=== PATIENT | male | born 1935 | race Caucasian/White ===

== ENCOUNTER → 2018-11-21 | Outpatient (CLI) | payer MEDICARE ==
--- NOTE | 2018-11-22 15:44 | US ---
EXAMINATION TYPE: US kidneys/renal and bladder DATE OF EXAM: 11/21/2018 COMPARISON: CLINICAL HISTORY: N28.9 Known renal disease. Urostomy bag, hx renal cyst, bladder cancer 1988 EXAM MEASUREMENTS: Right Kidney: 12.2 x 4.0 x 4.7 cm Left Kidney: 10.5 x 4.6 x 4.1 cm Right Kidney: Appears lobular in appearance Left Kidney: Appears lobular in appearance. Hydronephrosis. Lower lateral pole cystic appearing les ion - 1.8 x 1.7 x 0.9 cm Bladder: limited visualization, urostomy bag Bilateral Jets not seen IMPRESSION: 1. Inferior pole left renal cyst. 2. Hypoechoic collection labeled urinary bladder is small. This could be a neobladder. Correlate with surgical history.
== END | disposition home or self-care (01) ==
LOC: RADUSWWP 15:42
PROVIDERS: ATTEND Internal Medicine
DX: N28.1 Cyst of kidney, acquired (principal); N32.89 Other specified disorders of bladder
CPT/HCPCS: 76770

== ENCOUNTER 2019-02-03 21:46 | Inpatient (IN) | payer MEDICARE ==
[2019-02-03 22:29] LABS: Anisocytosis Slight; Basophils # (A) 0.1 k/uL (0-0.2); Basophils % (A) 0 %; Eosinophils # (A) 0.4 k/uL (0-0.7); Eosinophils % (A) 4 %; HCT 44.5 % (39.0-53.0); HGB 15.3 gm/dL (13.0-17.5); Lymphocytes # (A) 1.9 k/uL (1.0-4.8); Lymphocytes % (A) 17 %; MCHC 34.4 g/dL (31.0-37.0); MCV 87.2 fL (80.0-100.0); Mean Platelet Volume 10.9; Monocytes # (A) 0.8 k/uL (0-1.0); Monocytes % (A) 7 %; Neutrophils # (A) 7.9 k/uL (1.3-7.7); Neutrophils % (A) 71 %; Platelet Count 267 k/uL (150-450); RDW 16.7 % (11.5-15.5); WBC 11.1 k/uL (3.8-10.6)
[2019-02-03 22:44] LABS: Albumin 4.5 g/dL (3.5-5.0); Calcium 9.8 mg/dL (8.4-10.2); Potassium 4.1 mmol/L (3.5-5.1); Total Bilirubin 0.5 mg/dL (0.2-1.3); Total Protein 7.8 g/dL (6.3-8.2)
[2019-02-03] MEDS ORDERED: IOPAMIDOL-300 CONTRAST 30 ML VIAL (ORAL USE) PO PRN (22:56)
[2019-02-03] MEDS ORDERED: MORPHINE SULFATE 4 MG/ML SYRINGE IV STA (23:11)
--- NOTE | 2019-02-03 23:31 | ED ---
Abdominal Pain HPI - General Chief Complaint: Abdominal Pain Stated Complaint: Abd pain Time Seen by Provider: 02/03/19 22:01 Source: patient, family Mode of arrival: ambulatory Limitations: no limitations - History of Present Illness Initial Comments: This patient complains of epigastric and periumbilical bloating type pain. He states that this is come on over the past probably 2-3 hours, and he noted that while he was playing cards. Patient states that it feels similar to previous episode of hernia that he had. Patient has not had vomiting. Denies change in bowel movements or urination. MD Complaint: abdominal pain -: hour(s) Location: periumbilical, epigastric Radiation: none Migration to: no migration Severity: moderate Quality: fullness Consistency: constant Improves With: nothing Worsens With: nothing - Related Data Home Medications Medication Instructions Recorded Confirmed ALPRAZolam [Xanax] 0.5 mg PO Q8H PRN 02/04/19 02/04/19 Allopurinol [Zyloprim] 100 mg PO DAILY 02/04/19 02/04/19 Gemfibrozil [Lopid] 600 mg PO BID 02/04/19 02/04/19 Omeprazole 40 mg PO DAILY 02/04/19 02/04/19 Allergies Allergy/AdvReac Type Severity Reaction Status Date / Time Sulfa (Sulfonamide AdvReac Rash/Hives Verified 02/04/19 06:54 Antibiotics) Review of Systems ROS Statement: Those systems with pertinent positive or pertinent negative responses have been documented in the HPI. ROS Other: All systems not noted in ROS Statement are negative. Constitutional: Denies: fever, chills Respiratory: Denies: cough, dyspnea Cardiovascular: Denies: chest pain, palpitations, edema Gastrointestinal: Reports: abdominal pain. Denies: nausea, vomiting, diarrhea, melena, hematochezia Genitourinary: Denies: dysuria, hematuria Musculoskeletal: Denies: back pain Skin: Denies: rash Neurological: Denies: headache Past Medical History Past Medical History: GERD/Reflux, Hyperlipidemia History of Any Multi-Drug Resistant Organisms: None Reported Past Surgical History: Hernia Repair Past Psychological History: Anxiety Smoking Status: Current every day smoker Past Alcohol Use History: None Reported Past Drug Use History: None Reported General Exam Limitations: no limitations General appearance: alert, in no apparent distress Head exam: Present: atraumatic, normocephalic Eye exam: Present: normal appearance. Absent: scleral icterus, conjunctival in jection Respiratory exam: Present: normal lung sounds bilaterally. Absent: respiratory distress, wheezes, rales, rhonchi, stridor Cardiovascular Exam: Present: regular rate, normal rhythm, normal heart sounds. Absent: systolic murmur, diastolic murmur, rubs, gallop GI/Abdominal exam: Present: soft, distended, normal bowel sounds, hernia (Patient does have an incisional hernia below the epigastric area that I was able to reduce at the bedside, with only minimal tenderness. No guarding.). Absent: tenderness, guarding, rebound, rigid, organomegaly, mass Extremities exam: Present: normal inspection, normal capillary refill. Absent: pedal edema, calf tenderness Back exam: Present: normal inspection. Absent: CVA tenderness (R), CVA tenderness (L) Neurological exam: Present: alert Skin exam: Present: warm, dry, intact, normal color. Absent: rash Course Vital Signs 02/03/19 02/04/19 02/04/19 21:51 01:00 01:31 Temperature 97.4 F L Pulse Rate 77 77 90 Respiratory 18 16 Rate Blood Pressure 164/94 136/70 129/84 O2 Sat by Pulse 98 95 Oximetry 02/04/19 02/04/19 02/04/19 03:05 03:55 06:35 Temperature 98.8 F 96.8 F L Pulse Rate 66 88 94 Respiratory 16 18 18 Rate Blood Pressure 110/75 115/81 108/79 O2 Sat by Pulse 94 L 95 95 Oximetry Medical Decision Making - Medical Decision Making Patient is an 83-year-old man with abdominal pain and some distention. On arrival he has incisional hernia that is reduced without complication. I performed imaging study and discussed results with both admitting physician and surgical " qa consultant. Patient be admitted for further evaluation and treatment - Lab Data Result diagrams: 02/07/19 07:44 02/07/19 07:44 Lab Results 02/03/19 02/03/19 02/03/19 Range/Units 22:15 22:15 22:15 WBC 11.1 H (3.8-10.6) k/uL RBC 5.10 (4.30-5.90) m/uL Hgb 15.3 (13.0-17.5) gm/dL Hct 44.5 (39.0-53.0) % MCV 87.2 (80.0-100.0) fL MCH 30.0 (25.0-35.0) pg MCHC 34.4 (31.0-37.0) g/dL RDW 16.7 H (11.5-15.5) % Plt Count 267 (150-450) k/uL Neutrophils % 71 % Lymphocytes % 17 % Monocytes % 7 % Eosinophils % 4 % Basophils % 0 % Neutrophils # 7.9 H (1.3-7.7) k/uL Lymphocytes # 1.9 (1.0-4.8) k/uL Monocytes # 0.8 (0-1.0) k/uL Eosinophils # 0.4 (0-0.7) k/uL Basophils # 0.1 (0-0.2) k/uL Anisocytosis Slight Sodium 145 (137-145) mmol/L Potassium 4.1 (3.5-5.1) mmol/L Chloride 111 H (98-107) mmol/L Carbon Dioxide 22 (22-30) mmol/L Anion Gap 12 mmol/L BUN 31 H (9-20) mg/dL Creatinine 1.89 H (0.66-1.25) mg/dL Est GFR (CKD-EPI)AfAm 37 (>60 ml/min/1.73 sqM) Est GFR (CKD-EPI)NonAf 32 (>60 ml/min/1.73 sqM) Glucose 134 H (74-99) mg/dL Plasma Lactic Acid Steffen 1.4 (0.7-2.0) mmol/L Calcium 9.8 (8.4-10.2) mg/dL Total Bilirubin 0.5 (0.2-1.3) mg/dL AST 13 L (17-59) U/L ALT 13 L (21-72) U/L Alkaline Phosphatase 102 (38-126) U/L Total Protein 7.8 (6.3-8.2) g/dL Albumin 4.5 (3.5-5.0) g/dL Amylase 63 (30-110) U/L Lipase 233 (23-300) U/L Urine Color Urine Appearance (Clear) Urine pH (5.0-8.0) Ur Specific [place] (1.001-1.035) Urine Protein (Negative) Urine Glucose (UA) (Negative) Urine Ketones (Negative) Urine Blood (Negative) Urine Nitrite (Negative) Urine Bilirubin (Negative) Urine Urobilinogen (<2.0) mg/dL Ur Leukocyte Esterase (Negative) Urine RBC (0-5) /hpf Urine WBC (0-5) /hpf Urine Bacteria (None) /hpf Urine Mucus (None) /hpf 02/04/19 Range/Units 00:00 WBC (3.8-10.6) k/uL RBC (4.30-5.90) m/uL Hgb (13.0-17.5) gm/dL Hct (39.0-53.0) % MCV (80.0-100.0) fL MCH (25.0-35.0) pg MCHC (31.0-37.0) g/dL RDW (11.5-15.5) % Plt Count (150-450) k/uL Neutrophils % % Lymphocytes % % Monocytes % % Eosinophils % % Basophils % % Neutrophils # (1.3-7.7) k/uL Lymphocytes # (1.0-4.8) k/uL Monocytes # (0-1.0) k/uL Eosinophils # (0-0.7) k/uL Basophils # (0-0.2) k/uL Anisocytosis Sodium (137-145) mmol/L Potassium (3.5-5.1) mmol/L Chloride (98-107) mmol/L Carbon Dioxide (22-30) mmol/L Anion Gap mmol/L BUN (9-20) mg/dL Creatinine (0.66-1.25) mg/dL Est GFR (CKD-EPI)AfAm (>60 ml/min/1.73 sqM) Est GFR (CKD-EPI)NonAf (>60 ml/min/1.73 sqM) Glucose (74-99) mg/dL Plasma Lactic Acid Steffen (0.7-2.0) mmol/L Calcium (8.4-10.2) mg/dL Total Bilirubin (0.2-1.3) mg/dL AST (17-59) U/L ALT (21-72) U/L Alkaline Phosphatase (38-126) U/L Total Protein (6.3-8.2) g/dL Albumin (3.5-5.0) g/dL Amylase (30-110) U/L Lipase (23-300) U/L Urine Color Yellow Urine Appearance Cloudy (Clear) Urine pH 6.5 (5.0-8.0) Ur Specific [place] 1.011 (1.001-1.035) Urine Protein 1+ H (Negative) Urine Glucose (UA) Negative (Negative) Urine Ketones Negative (Negative) Urine Blood Trace H (Negative) Urine Nitrite Negative (Negative) Urine Bilirubin Negative (Negative) Urine Urobilinogen <2.0 (<2.0) mg/dL Ur Leukocyte Esterase Large H (Negative) Urine RBC 7 H (0-5) /hpf Urine WBC 123 H (0-5) /hpf Urine Bacteria Many H (None) /hpf Urine Mucus Occasional H (None) /hpf - EKG Data -: EKG Interpreted by Al EKG shows normal: sinus rhythm (With occasional PVC.), intervals (QRS duration is 82 ms, QTC 434 ms, both normal. The MO interval is prolonged consistent with first-degree AV block.), QRS complexes (Possible old inferior infarct.) Rate: normal (Rate 65 bpm) Disposition Clinical Impression: Abdominal pain, Incisional hernia, Incarcerated hernia Disposition: ADMITTED IP TO THIS [facility] Condition: Fair
[2019-02-04 00:31] LABS: Appearance,Urine Cloudy (Clear); Bacteria,Urine Many /hpf; Bilirubin,Urine Negative (Negative); Blood,Urine Trace (Negative); Color,Urine Yellow; Glucose,Urine (UA) Negative (Negative); Ketones,Urine Negative (Negative); Leukocyte Esterase,Urine Large (Negative); Mucus,Urine Occasional /hpf; Nitrite,Urine Negative (Negative); PH, Urine 6.5 (5.0-8.0); Protein,Urine 1+ (Negative); RBC,Urine 7 /hpf (0-5); Specific Gravity,Urine 1.011 (1.001-1.035); Urobilinogen,Urine <2.0 mg/dL (<2.0); WBC,Urine 123 /hpf (0-5)
--- NOTE | 2019-02-04 00:50 | CT ---
EXAM: CT Abdomen and Pelvis Without Intravenous Contrast CLINICAL HISTORY: ITS.REASON CT Reason: Pain TECHNIQUE: Axial computed tomography images of the abdomen and pelvis without intravenous contrast. CTDI is 9.8 mGy and DLP is 596.9 mGy-cm. This CT exam was performed using one or more of the following dose reduction techniques: automated exposure control, adjustment of the mA and/or kV according to patient size, and/or use of iterative reconstruction technique. COMPARISON: No relevant prior studies available. FINDINGS: Limitations: Evaluation of the abdominal viscera is limited without intravenous contrast. Lung bases: Nodular consolidative change in the right middle lobe, potentially inflammatory/infectious or neoplastic. Bibasilar atelectasis or pneumonitis. Mediastinum: Small hiatal hernia. Dense material in the distal esophagus. ABDOMEN: Liver: Heterogeneous liver parenchyma. Gallbladder and bile ducts: Unremarkable. Pancreas: Unremarkable. Spleen: Unremarkable. Adrenals: Bilateral adrenal thickening. Kidneys and ureters: Moderate bilateral hydronephrosis. Large 25 mm stone in the dependent left renal collecting system. No evidence of ureteral stone. Stomach and bowel: Distended fluid and air-filled bowel loops with distal decompressed loops suggestive of bowel obstruction. Possible mild pneumatosis is not excluded. Prior bowel surgery noted. Mild wall thickening or underdistention of the descending and proximal sigmoid colon. Scattered colonic diverticula. PELVIS: Bladder: Status post cystectomy. Reproductive: Unremarkable as visualized. ABDOMEN and PELVIS: Intraperitoneal space: No free air. Bones/joints: No acute fracture. Soft tissues: Small ventral hernias with slight protrusion of small and large bowel. Vasculature: Atherosclerotic disease. Lymph nodes: Small nonspecific mesenteric and retroperitoneal lymph nodes. IMPRESSION: 1. Distended fluid and air-filled bowel loops with distal decompressed loops suggestive of bowel obstruction. Possible mild pneumatosis is not excluded. 2. Moderate bilateral hydronephrosis. Large 25 mm stone in the dependent left renal collecting system. 3. Nodular consolidative change in the right middle lobe, potentially inflammatory/infectious or neoplastic. Additional imaging/workup may be considered if indicated. 4. Additional incidental findings, as above.
[2019-02-04] MEDS ORDERED: ONDANSETRON 4 MG/2 ML VIAL IVP STA (01:43)
[2019-02-04] MEDS ORDERED: NALOXONE 0.4 MG/ML 1 ML VIAL IV PRN (02:25)
[2019-02-04] MEDS ORDERED: ONDANSETRON 4 MG/2 ML VIAL IVP PRN (02:25)
[2019-02-04] MEDS ORDERED: LEVOFLOXACIN 750MG-D5W PMX 750 MG in DEXTROSE/WATER 1 150ML.BAG IVPB STA (02:29)
--- NOTE | 2019-02-04 02:38 | XR ---
EXAM: XR Chest, 1 View CLINICAL HISTORY: NG tube placement ITS.REASON XR Reason: Pain TECHNIQUE: Frontal view of the chest. COMPARISON: 06/16/16. FINDINGS: Lungs: Nodular density in the right middle lobe is better seen on recent CT. Mild lower lung atelectasis or infiltrate. Pleural space: Unremarkable. No pneumothorax. Heart: Mildly enlarged cardiac silhouette. Mediastinum: Prominent mediastinal silhouette, may be related to tortuous/ectatic aorta or other etiology. Bones/joints: No acute fracture. Tubes, lines and devices: Feeding tube with the tip in the distal esophagus. IMPRESSION: 1. Feeding tube with the tip in the distal esophagus. Recommend advancement. 2. Nodular density in the right middle lobe is better seen on recent CT. Mild lower lung atelectasis or infiltrate. 3. Prominent mediastinal silhouette, may be related to tortuous/ectatic aorta or other etiology.
[2019-02-04] MEDS: MORPHINE SULFATE 4 MG/ML SYRINGE IV PRN ×2 (03:03→23:34)
[2019-02-04] MEDS: SODIUM CHLORIDE 0.9% 1,000 ML IV SCH ×4 (03:03→23:33)
[2019-02-04] MEDS ORDERED: ALPRAZolam 0.5 MG TAB PO PRN (08:54)
[2019-02-04 09:28] VITALS: BMI 26.9
--- NOTE | 2019-02-04 10:25 | P.HPIM ---
History of Present Illness H&P Date: 02/04/19 This is an 83-year-old male patient who presented to the hospital with complaints of abdominal pain with nausea and vomiting patient reports that yesterday he started to experiencing severe abdominal pain with nausea and vomiting for proximally 2 hours prior to arrival in emergency department. Francia ent reports this was similar pain to what he's had in the past with hernia. Patient does have a past medical history of GERD, hyperlipidemia, anxiety, nicotine dependence, nephrostomy tube placement 1989 for bladder cancer. Previous exploratory lap for colon cancer approximately 8 years ago and p revious hernias. Patient states he was also told he had problems with his kidneys and has seen nephrology past. CT of abdomen and pelvis completed showing distended fluid and air-filled bowel loops with distal compressed loop suggestive of bowel obstruction. Possible mild penumoatosis is not excluded. Moderate bilateral hydronephrosis. Large 25 mm stone in the dependent left renal collecting system. Nodule consolidation changes in the right mandible, potentially inflammatory infectious or neoplastic. Additional imaging may be considered if indicated. Chest x-ray completed showing NG with the tip in the distal esophagus. Recommend advancement. Nodule density in the right middle lobe is better seen on recent CT. Prominent mediastinal silhouette. NG tube placed. Surgical services consulted. Patient's UA was positive for urinary tract infection. Urine culture ordered. Patient started on Rocephin. Patient's creatinine also elevated at 1.89 and bun 31. Repeat labs have been ordered Patient does report some improvement with nausea and vomiting since NG tube placement. 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 At this time patient denies chest pain. Patient denies shortness of breath. Review of Systems Please refer to HPI otherwise unremarkable Past Medical History Past Medical History: GERD/Reflux, Hyperlipidemia History of Any Multi-Drug Resistant Organisms: None Reported Past Surgical History: Hernia Repair Past Psychological History: Anxiety Smoking Status: Current every day smoker Past Alcohol Use History: None Reported Past Drug Use History: None Reported Medications and Allergies Home Medications Medication Instructions Recorded Confirmed Type ALPRAZolam [Xanax] 0.5 mg PO Q8H PRN 02/04/19 02/04/19 History Allopurinol [Zyloprim] 100 mg PO DAILY 02/04/19 02/04/19 History Gemfibrozil [Lopid] 600 mg PO BID 02/04/19 02/04/19 History Omeprazole 40 mg PO DAILY 02/04/19 02/04/19 History Allergies Allergy/AdvReac Type Severity Reaction Status Date / Time Sulfa (Sulfonamide AdvReac Rash/Hives Verified 02/04/19 06:54 Antibiotics) Physical Exam Vitals: Vital Signs Temp Pulse Pulse Resp BP BP Pulse Ox 02/04/19 09:31 98.0 F 110 H 18 109/75 92 L 02/04/19 06:35 96.8 F L 94 18 108/79 95 02/04/19 03:55 98.8 F 88 18 115/81 95 02/04/19 03:05 66 16 110/75 94 L 02/04/19 01:31 90 16 129/84 95 02/04/19 01:00 77 136/70 02/03/19 21:51 97.4 F L 77 18 164/94 98 Intake and Output 02/03/19 02/04/19 02/04/19 22:59 06:59 14:59 Output Total 1900 Balance -1900 Output: Gastric Drainage 1900 Other: Voiding Method Urinal Weight 85 kg Head normocephalic Neck supple Lungs clear to auscultation bilaterally no wheezing or crackles Heart regular rate and rhythm S1-S2, no rub or gallop Abdomen soft active bowel sounds. Tender to palpation. Midline abdominal scar. Right lower quadrant nephrostomy tube. Extremities no edema Neuro alert and orientated to 3 Results CBC & Chem 7: 02/03/19 22:15 02/03/19 22:15 Labs: Abnormal Lab Results - Last 24 Hours (Table) 02/03/19 02/03/19 02/04/19 Range/Units 22:15 22:15 00:00 WBC 11.1 H (3.8-10.6) k/uL RDW 16.7 H (11.5-15.5) % Neutrophils # 7.9 H (1.3-7.7) k/uL Chloride 111 H (98-107) mmol/L BUN 31 H (9-20) mg/dL Creatinine 1.89 H (0.66-1.25) mg/dL Glucose 134 H (74-99) mg/dL AST 13 L (17-59) U/L ALT 13 L (21-72) U/L Urine Protein 1+ H (Negative) Urine Blood Trace H (Negative) Ur Leukocyte Esterase Large H (Negative) Urine RBC 7 H (0-5) /hpf Urine WBC 123 H (0-5) /hpf Urine Bacteria Many H (None) /hpf Urine Mucus Occasional H (None) /hpf Thrombosis Risk Factor Assmnt - Choose All That Apply Each Risk Factor Represents 3 Points: Age 75 years or older Thrombosis Risk Factor Assessment Total Risk Factor Score: 3 Thrombosis Risk Factor Assessment Level: Moderate Risk Assessment and Plan Assessment: 1. Abdominal pain with nausea and vomiting. CT of abdomen completed showing distended fluid and air-filled bowel loops with distal compressed loop sug gestive of bowel obstruction. Possible mild pneumatosis is not excluded. Patient currently nothing by mouth. NG tube in place 2. Moderate bilateral hydronephrosis. CT showing large 25 mm stone in the dependent left renal collecting system 3. Nodule consolidative change in the right middle lobe potentially inflammatory infectious or neoplastic seen on computed tomography scan 4. Acute kidney injury. Creatinine 1.89 and bun 30. Normal saline at 125 we'll continue to monitor 5. Urinary tract infection. Patient started on Rocephin. urine and blood culture ordered 6. History of previous hernias 7. History of bladder cancer in 1989. Patient has nephrostomy tube in place 8. History of colon cancer approximately 8 years ago in which patient underwent surgery in [place] 9. History of GERD 10. History of hyperlipidemia DVT prophylaxis SCDs until evaluated by surgical services. GI prophylaxis Protonix Time with Patient: Greater than 30 (Greater than 60% of the total time spent in counseling and coordination of care. I performed an examination of the patient and discussed their management with the Nurse Practitioner. I have reviewed the Nurse Practitioner's notes and agree with the documented findings and plan of care)
[2019-02-04] MEDS: PANTOPRAZOLE 40 MG/10 ML VIAL IV SCH (10:52)
[2019-02-04 11:46] LABS: Calcium 10.3 mg/dL (8.4-10.2); Potassium 4.4 mmol/L (3.5-5.1); Total Bilirubin 0.7 mg/dL (0.2-1.3); Total Protein 8.8 g/dL (6.3-8.2)
[2019-02-04 11:58] LABS: HCT 47.9 % (39.0-53.0); HGB 16.9 gm/dL (13.0-17.5); MCH 31.4 pg (25.0-35.0); MCHC 35.3 g/dL (31.0-37.0); MCV 88.8 fL (80.0-100.0); Mean Platelet Volume 8.4; Platelet Count 281 k/uL (150-450); RBC 5.39 m/uL (4.30-5.90); RDW 15.2 % (11.5-15.5); WBC 14.2 k/uL (3.8-10.6)
[2019-02-04 12:59] LABS: Band Neutrophils % 13 %; Lymphocytes # (M) 0.99 k/uL (1.0-4.8); Monocytes # (M) 0.71 k/uL (0-1.0); Neutrophils % (M) 75 %; Nucleated Red Blood Cells 0 /100 WBC (0-0); Total Cells Counted 100
--- NOTE | 2019-02-04 14:41 | P.GSCN ---
History of Present Illness Consult date: 02/04/19 Reason for Consult: hernia Requesting physician: Rikki Garcia History of present illness: CHIEF COMPLAINT: abdominal pain HISTORY OF PRESENT ILLNESS: Patient presented to the emergency room with a chief complaint of abdominal pain. Patient reports pain started yesterday. Reports nausea and vomiting. States he is not passing flatus. Denies BM. Incisional hernia was reduced in the emergency room. NG tube was placed with 1900 mL initial output. PAST MEDICAL HISTORY: See list. PAST SURGICAL HISTORY: See list. SOCIAL HISTORY: No illicit drug use. REVIEW OF SYSTEMS: CONSTITUTIONAL: Denies fever or chills. HEENT: Denies blurred vision, vision changes, or eye pain. Denies hemoptysis CARDIOVASCULAR: Denies chest pain or pressure. RESPIRATORY: No shortness of breath. GASTROINTESTINAL: Refer to HPI for pertinent findings HEMATOLOGIC: Denies bleeding disorders. GENITOURINARY: Denies any blood in urine. SKIN: Denies pruitis. Denies rash. PHYSICAL EXAM: VITAL SIGNS: Reviewed. GENERAL: Well-developed in no acute distress. HEENT: No sclera icterus. Extraocular movements grossly intact. Moist buccal mucosa. Head is atraumatic, normocephalic. ABDOMEN: Soft. Nondistended. Tenderness to left lower quadrant and near umbilicus. NEUROLOGIC: Alert and oriented. Cranial nerves II through XII grossly intact. ASSESSMENT: 1. Small bowel obstruction 2. Incisional hernia 3. History of hernia repair PLAN: 1. NPO 2. Continue NG to LIS 3. Continue IV fluids 4. Continue conservative measures at this time. No immediate surgical intervention recommended. Nurse practitioner note has been reviewed by physician. Signing provider agrees with the documented findings, assessment, and plan of care. Past Medical History Past Medical History: GERD/Reflux, Hyperlipidemia History of Any Multi-Drug Resistant Organisms: None Reported Past Surgical History: Hernia Repair Past Psychological History: Anxiety Smoking Status: Current every day smoker Past Alcohol Use History: None Reported Past Drug Use History: None Reported Medications and Allergies Home Medications Medication Instructions Recorded Confirmed Type ALPRAZolam [Xanax] 0.5 mg PO Q8H PRN 02/04/19 02/04/19 History Allopurinol [Zyloprim] 100 mg PO DAILY 02/04/19 02/04/19 History Gemfibrozil [Lopid] 600 mg PO BID 02/04/19 02/04/19 History Omeprazole 40 mg PO DAILY 02/04/19 02/04/19 History Allergies Allergy/AdvReac Type Severity Reaction Status Date / Time Sulfa (Sulfonamide AdvReac Rash/Hives Verified 02/04/19 06:54 Antibiotics) Surgical - Exam Vital Signs Temp Pulse Resp BP Pulse Ox 97.4 F L 77 18 164/94 98 02/03/19 21:51 02/03/19 21:51 02/03/19 21:51 02/03/19 21:51 02/03/19 21:51 Results - Labs 02/04/19 11:03 02/04/19 11:03 Abnormal Lab Results - Last 24 Hours (Table) 02/03/19 02/03/19 02/04/19 Range/Units 22:15 22:15 00:00 WBC 11.1 H (3.8-10.6) k/uL RDW 16.7 H (11.5-15.5) % Neutrophils # 7.9 H (1.3-7.7) k/uL Neutrophils # (Manual) (1.3-7.7) k/uL Lymphocytes # (Manual) (1.0-4.8) k/uL Sodium (137-145) mmol/L Chloride 111 H (98-107) mmol/L BUN 31 H (9-20) mg/dL Creatinine 1.89 H (0.66-1.25) mg/dL Glucose 134 H (74-99) mg/dL Calcium (8.4-10.2) mg/dL AST 13 L (17-59) U/L ALT 13 L (21-72) U/L Total Protein (6.3-8.2) g/dL Urine Protein 1+ H (Negative) Urine Blood Trace H (Negative) Ur Leukocyte Esterase Large H (Negative) Urine RBC 7 H (0-5) /hpf Urine WBC 123 H (0-5) /hpf Urine Bacteria Many H (None) /hpf Urine Mucus Occasional H (None) /hpf 02/04/19 02/04/19 Range/Units 11:03 11:03 WBC 14.2 H (3.8-10.6) k/uL RDW (11.5-15.5) % Neutrophils # (1.3-7.7) k/uL Neutrophils # (Manual) 12.40 H (1.3-7.7) k/uL Lymphocytes # (Manual) 0.99 L (1.0-4.8) k/uL Sodium 147 H (137-145) mmol/L Chloride (98-107) mmol/L BUN 42 H (9-20) mg/dL Creatinine 2.33 H (0.66-1.25) mg/dL Glucose 164 H (74-99) mg/dL Calcium 10.3 H (8.4-10.2) mg/dL AST 13 L (17-59) U/L ALT 20 L (21-72) U/L Total Protein 8.8 H (6.3-8.2) g/dL Urine Protein (Negative) Urine Blood (Negative) Ur Leukocyte Esterase (Negative) Urine RBC (0-5) /hpf Urine WBC (0-5) /hpf Urine Bacteria (None) /hpf Urine Mucus (None) /hpf Diabetes panel 02/03/19 02/04/19 Range/Units 22:15 11:03 Sodium 145 147 H (137-145) mmol/L Potassium 4.1 4.4 (3.5-5.1) mmol/L Chloride 111 H 106 (98-107) mmol/L Carbon Dioxide 22 24 (22-30) mmol/L BUN 31 H 42 H (9-20) mg/dL Creatinine 1.89 H 2.33 H (0.66-1.25) mg/dL Glucose 134 H 164 H (74-99) mg/dL Calcium 9.8 10.3 H (8.4-10.2) mg/dL AST 13 L 13 L (17-59) U/L ALT 13 L 20 L (21-72) U/L Alkaline Phosphatase 102 112 (38-126) U/L Total Protein 7.8 8.8 H (6.3-8.2) g/dL Albumin 4.5 5.0 (3.5-5.0) g/dL Calcium panel 02/03/19 02/04/19 Range/Units 22:15 11:03 Calcium 9.8 10.3 H (8.4-10.2) mg/dL Albumin 4.5 5.0 (3.5-5.0) g/dL Pituitary panel 02/03/19 02/04/19 Range/Units 22:15 11:03 Sodium 145 147 H (137-145) mmol/L Potassium 4.1 4.4 (3.5-5.1) mmol/L Chloride 111 H 106 (98-107) mmol/L Carbon Dioxide 22 24 (22-30) mmol/L BUN 31 H 42 H (9-20) mg/dL Creatinine 1.89 H 2.33 H (0.66-1.25) mg/dL Glucose 134 H 164 H (74-99) mg/dL Calcium 9.8 10.3 H (8.4-10.2) mg/dL Adrenal panel 02/03/19 02/04/19 Range/Units 22:15 11:03 Sodium 145 147 H (137-145) mmol/L Potassium 4.1 4.4 (3.5-5.1) mmol/L Chloride 111 H 106 (98-107) mmol/L Carbon Dioxide 22 24 (22-30) mmol/L BUN 31 H 42 H (9-20) mg/dL Creatinine 1.89 H 2.33 H (0.66-1.25) mg/dL Glucose 134 H 164 H (74-99) mg/dL Calcium 9.8 10.3 H (8.4-10.2) mg/dL Total Bilirubin 0.5 0.7 (0.2-1.3) mg/dL AST 13 L 13 L (17-59) U/L ALT 13 L 20 L (21-72) U/L Alkaline Phosphatase 102 112 (38-126) U/L Total Protein 7.8 8.8 H (6.3-8.2) g/dL Albumin 4.5 5.0 (3.5-5.0) g/dL
--- NOTE | 2019-02-04 16:39 | P.CNPUL ---
History of Present Illness Consult date: 02/04/19 Requesting physician: Nikita Vasquez Reason for consult: other Chief complaint: Right middle lobe nodule History of present illness: This 83-year-old white male patient of Dr. Vasquez, who presented emergency department on 02/03/2019 with complaints of abdominal pain, nausea, vomiting, abdominal distention. Patient has a history of hernia repair, and recurrent ventral hernia. Patient has had previous episodes of bowel obstruction, other medical history includes GERD, hyperlipidemia, colon cancer 10 years ago, nephrostomy tube placement in [address] of abdomen and pelvis was obtained, and showed a stenotic fluid and air-fluid bowel loops with distal decompressed loop suggestive of bowel obstruction, moderate bilateral hydronephrosis large 25 mm stone in the dependent left renal collecting system. As an incidental note of nodular consolidative change in the right middle lobe chest potentially inflammatory/infectious or neoplastic. NG tube was placed, patient's ventral hernia was manually reduced in the emergency department, there was 1900 mL of gastric fluid return after placement of the NG tube, his abdomen is soft, nontender, less distended. Patient is not passing any flatus, or bowel movements. Surgical consult has been placed, and patient was evaluated by surgery, were consulted in regards to the right nodular density in the right middle lobe. She is a current smoker, he states he had moved up to [place] from [place] sometime ago. No history of chronic lung disease, currently on room air, with a pulse ox of 92%, no shortness of breath, no chest pain, no hemoptysis. Labs have been reviewed, showed white blood cell count of 11.1, hemoglobin 15.3, sodium is 145, potassium 4.1, chloride is 111, B1 is 31, creatinine is 1.89. Urinalysis showed 1+ protein, trace blood, large leuk trase, red blood cells, and large amount of white blood cells. Urine culture is pending. he was empirically placed on Rocephin. He is getting IV hydration 0.9 normal saline at a rate of 125 ML per hour. Review of Systems All systems: negative Constitutional: Denies chills, Denies fever Eyes: denies blurred vision, denies pain Ears, nose, mouth and throat: Denies headache, Denies sore throat Cardiovascular: Denies chest pain, Denies shortness of breath Respiratory: Denies cough Gastrointestinal: Reports abdominal pain, Reports nausea, Reports vomiting, Denies diarrhea Musculoskeletal: Denies myalgias Integumentary: Denies pruritus, Denies rash Neurological: Denies numbness, Denies weakness Psychiatric: Denies anxiety, Denies depression Endocrine: Denies fatigue, Denies weight change Past Medical History Past Medical History: GERD/Reflux, Hyperlipidemia History of Any Multi-Drug Resistant Organisms: None Reported Past Surgical History: Hernia Repair Past Psychological History: Anxiety Smoking Status: Current every day smoker Past Alcohol Use History: None Reported Past Drug Use History: None Reported Medications and Allergies Home Medications Medication Instructions Recorded Confirmed Type ALPRAZolam [Xanax] 0.5 mg PO Q8H PRN 02/04/19 02/04/19 History Allopurinol [Zyloprim] 100 mg PO DAILY 02/04/19 02/04/19 History Gemfibrozil [Lopid] 600 mg PO BID 02/04/19 02/04/19 History Omeprazole 40 mg PO DAILY 02/04/19 02/04/19 History Allergies Allergy/AdvReac Type Severity Reaction Status Date / Time Sulfa (Sulfonamide AdvReac Rash/Hives Verified 02/04/19 06:54 Antibiotics) Physical Exam Vitals: Vital Signs Temp Pulse Pulse Resp BP BP Pulse Ox 02/04/19 12:47 98.8 F 113 H 18 104/68 92 L 02/04/19 09:31 98.0 F 110 H 18 109/75 92 L 02/04/19 06:35 96.8 F L 94 18 108/79 95 02/04/19 03:55 98.8 F 88 18 115/81 95 02/04/19 03:05 66 16 110/75 94 L 02/04/19 01:31 90 16 129/84 95 02/04/19 01:00 77 136/70 02/03/19 21:51 97.4 F L 77 18 164/94 98 Intake and Output 02/04/19 02/04/19 02/04/19 06:59 14:59 22:59 Output Total 1900 1100 Balance -1900 -1100 Output: Gastric Drainage 1899 1100 Other: Voiding Method Urinal Urinal GENERAL EXAM: Alert, pleasant, 83-year-old white male, comfortable in no apparent distress. HEAD: Normocephalic/atraumatic. EYES: Normal reaction of pupils, equal size. Conjunctiva pink, sclera white. NOSE: Clear with pink turbinates. NG-tube present, to low intermittent suction, with thin brownish colored gastric output in the canister THROAT: No erythema or exudates. NECK: No masses, no JVD, no thyroid enlargement, no adenopathy. CHEST: No chest wall deformity. Symmetrical expansion. LUNGS: Equal air entry with no crackles, wheeze, rhonchi or dullness. CVS: Regular rate and rhythm, normal S1 and S2, no gallops, no murmurs, no rubs ABDOMEN: Soft, nontender. No hepatosplenomegaly, hypoactive bowel sounds, no guarding or rigidity. Midabdominal incision, and there is a ventral hernia present, has been manually reduced, abdomen is soft minimally tender EXTREMITIES: No clubbing, no edema, no cyanosis, 2+ pulses and upper and lower extremities. MUSCULOSKELETAL: Muscle strength and tone normal. SPINE: No scoliosis or deformity SKIN: No rashes CENTRAL NERVOUS SYSTEM: Alert and oriented -3. No focal deficits, tone is normal in all 4 extremities. PSYCHIATRIC: Alert and oriented -3. Appropriate affect. Intact judgment and insight. Results - Laboratory Findings CBC and BMP: 02/04/19 11:03 02/04/19 11:03 Abnormal lab findings: Abnormal Labs 02/03/19 02/03/19 02/04/19 22:15 22:15 00:00 WBC 11.1 H RDW 16.7 H Neutrophils # 7.9 H Neutrophils # (Manual) Lymphocytes # (Manual) Sodium Chloride 111 H BUN 31 H Creatinine 1.89 H Glucose 134 H Calcium AST 13 L ALT 13 L Total Protein Urine Protein 1+ H Urine Blood Trace H Ur Leukocyte Esterase Large H Urine RBC 7 H Urine WBC 123 H Urine Bacteria Many H Urine Mucus Occasional H 02/04/19 02/04/19 11:03 11:03 WBC 14.2 H RDW Neutrophils # Neutrophils # (Manual) 12.40 H Lymphocytes # (Manual) 0.99 L Sodium 147 H Chloride BUN 42 H Creatinine 2.33 H Glucose 164 H Calcium 10.3 H AST 13 L ALT 20 L Total Protein 8.8 H Urine Protein Urine Blood Ur Leukocyte Esterase Urine RBC Urine WBC Urine Bacteria Urine Mucus - Diagnostic Findings Chest x-ray: report reviewed, image reviewed Additional studies: CT of abdomen and pelvis reviewed Assessment and Plan Plan: Assessment: #1. Right middle lobe nodular density, be related to inflammatory infectious et iology, rule out malignancy. #2. Abdominal pain, nausea, vomiting, related to bowel obstruction. Agents ventral hernia was manually reduced, NG tube was placed for decompression, surgical consult was placed, patient was evaluated by surgery, is being managed conservatively at this time #3. Moderate bilateral hydronephrosis, left nephrolithiasis #4. Acute kidney injury due to ATN #5. Possible urinary tract infection, cultures pending #6. History of colon cancer 10 years ago, with exploratory laparotomy. The details of the colon cancer treatment are not available to us at this time, patient was residing in [place] at that time #7. History of bladder cancer, post surgical resection, and placement of nephrostomy #8. GERD/reflux #9. Hypertension, hyperlipidemia #10. Current every day smoker #11. Anxiety Plan: We will obtain a dedicated CT of the chest once the patient recovers from current episode of bowel obstruction. Currently denies any pulmonary complaints, no shortness of breath, no cough, no hemoptysis, vital signs are stable. I performed a history & physical examination of the patient and discussed their management with my nurse practitioner, Shakila Oscar. I reviewed the nurse practitioner's note and agree with the documented findings and plan of care. Lung sounds are clear. The findings and the impression was discussed with the patient. I attest to the documentation by the nurse practitioner. Time with Patient: Greater than 30
[2019-02-05] MEDS: SODIUM CHLORIDE 0.9% 1,000 ML IV SCH (08:04)
[2019-02-05] MEDS: PANTOPRAZOLE 40 MG/10 ML VIAL IV SCH (08:04)
[2019-02-05 10:11] LABS: Potassium 4.2 mmol/L (3.5-5.1)
[2019-02-05 10:51] LABS: Basophils % (A) 0 %; Eosinophils # (A) 0.2 k/uL (0-0.7); Eosinophils % (A) 3 %; HCT 43.3 % (39.0-53.0); HGB 14.5 gm/dL (13.0-17.5); Lymphocytes # (A) 1.3 k/uL (1.0-4.8); Lymphocytes % (A) 18 %; MCH 30.9 pg (25.0-35.0); MCHC 33.5 g/dL (31.0-37.0); Mean Platelet Volume 8.3; Monocytes # (A) 0.7 k/uL (0-1.0); Monocytes % (A) 9 %; Neutrophils # (A) 4.9 k/uL (1.3-7.7); Neutrophils % (A) 68 %; Platelet Count 258 k/uL (150-450); RBC 4.71 m/uL (4.30-5.90); RDW 14.7 % (11.5-15.5); WBC 7.2 k/uL (3.8-10.6)
--- NOTE | 2019-02-05 11:48 | P.CRDCN ---
History of Present Illness History of present illness: This is a pleasant 83-year-old male past medical history significant for dyslipidemia, gastroesophageal reflux disease, chronic nicotine dependence and COPD. He denies history of coronary artery disease, hypertension or diabetes mellitus. He presented to the hospital yesterday with symptoms of nausea, vomiting, abdominal pain and bloating. He states he has had abdominal surgery in the past for a hernia and noticed that there was a bulge in his stomach that he was able push back in. After pushing it back in is when his symptoms started. He underwent a CT of his abdomen revealing distended fluid and air filled bowel loops with distal decompressed loops suggestive of bowel obstruction, hydronephrosis and a nodular consolidative change in the right middle lobe of capsule lungs. NG tube was placed and initially had 1900cc of output. His symptoms greatly improved. He has been seen by surgical services as well and they are not planning surgery at this time. He states he has started passing gas this morning, no bowel movement. EKG obtained on admission reveals sinus mechanism with first degree AV block and PVC's. It was read as junctional, which is incorrect. He denies chest pain, shortness of breath, dizziness or palpitations. He states he has never seen a helpdesk administrator in the past, never had a stress test and has never undergone a cardiac catheterization in the past. Laboratory data reviewed, WBC 14.2, hgb 16.9, plt 281, sodium 147, potassium 4.2, creatinine 3.98. He takes no daily cardiac medications. At the time of my exam: CONSTITUTIONAL: Denies fever. Denies chills. EYES: Denies blurred vision. Denies vision changes. Denies eye pain. EARS, NOSE, MOUTH & THROAT: Denies headache. Denies sore throat. Denies ear pain. CARDIOVASCULAR: Denies chest pain. Denies shortness of breath. Denies orthopnea. Denies PND. Denies palpitations. RESPIRATORY: Denies cough. GASTROINTESTINAL: Denies abdominal pain. Denies diarrhea. Denies constipation. Denies nausea. Denies vomiting. MUSCULOSKELETAL: Denies myalgias. INTEGUMENTARY: Denies pruitis. Denies rash. NEUROLOGIC: Denies numbness. Denies tingling. Denies weakness. PSYCHIATRIC: Denies anxiety. Denies depression. ENDOCRINE: Denies fatigue. Denies weight change. Denies polydipsia. Denies polyurina. GENITOURINARY: Denies burning, hematuria or urgency with micturation. HEMATOLOGIC: Denies history of anemia. Denies bleeding. Blood pressure 113/72 heart rate 81 afebrile and maintaining oxygen saturation o n room air GENERAL: This is a 83-year-old male in no apparent distress at the time of my examination. HEENT: Head is atraumatic, normocephalic. Pupils are equal, round. Sclerae anicteric. Conjunctivae are clear. Mucous membranes of the mouth are moist. Neck is supple. There is no jugular venous distention. No carotid bruit is heard. NG tube in place. LUNGS: Clear to auscultation no wheezes, rales or rhonchi. No chest wall tenderness is noted on palpation or with deep breathing. HEART: Regular rate and rhythm without murmurs, rubs or gallops. S1 and S2 heard. ABDOMEN: Soft, nontender. Bowel sounds are heard. No organomegaly noted. EXTREMITIES: No evidence of peripheral edema and no calf tenderness noted. VASCULAR: Radial and dorsalis pedis pulses palpated, no evidence of clubbing. NEUROLOGIC: Patient is awake, alert and oriented x3. ASSESSMENT Acute small bowel obstruction, NG tube in place. No immediate plans for surgical intervention Incisional hernia Right middle lobe nodule, pulmonary following Hydronephrosis, moderate and bilateral Acute kidney injury Chronic nicotine dependence Bradycardia with first degree AV block, avoid beta blocking agents PLAN Obtain 2D echocardiogram and doppler study to assess cardiac structure and function. Check TSH and free T4 if TSH is abnormal. Ongoing medical management of small bowel obstruction. Thank you kindly for this consultation. Nurse Practitioner note has been reviewed, I agree with a documented findings and plan of care. Patient was seen and examined. Past Medical History Past Medical History: GERD/Reflux, Hyperlipidemia History of Any Multi-Drug Resistant Organisms: None Reported Past Surgical History: Hernia Repair Past Psychological History: Anxiety Smoking Status: Current every day smoker Past Alcohol Use History: None Reported Past Drug Use History: None Reported Medications and Allergies Home Medications Medication Instructions Recorded Confirmed Type ALPRAZolam [Xanax] 0.5 mg PO Q8H PRN 02/04/19 02/04/19 History Allopurinol [Zyloprim] 100 mg PO DAILY 02/04/19 02/04/19 History Gemfibrozil [Lopid] 600 mg PO BID 02/04/19 02/04/19 History Omeprazole 40 mg PO DAILY 02/04/19 02/04/19 History Allergies Allergy/AdvReac Type Severity Reaction Status Date / Time Sulfa (Sulfonamide AdvReac Rash/Hives Verified 02/04/19 06:54 Antibiotics) Physical Exam Vitals: Vital Signs Temp Pulse Resp BP Pulse Ox 02/05/19 07:00 97.7 F 81 12 113/72 94 L 02/05/19 05:10 16 02/05/19 01:33 97.9 F 88 18 125/85 97 02/05/19 00:40 16 02/04/19 20:45 18 02/04/19 20:12 98.0 F 108 H 18 102/71 97 02/04/19 12:47 98.8 F 113 H 18 104/68 92 L Intake and Output 02/04/19 02/05/19 02/05/19 22:59 06:59 14:59 Output Total 1900 80 Balance -1900 -80 Output: Gastric Drainage 1600 80 Urine 300 Other: Voiding Method Urinal # Voids 2 1 Results 02/05/19 09:28 02/05/19 09:28 Cardiac Enzymes 02/04/19 Range/Units 11:03 AST 13 L (17-59) U/L CBC 02/04/19 Range/Units 11:03 WBC 14.2 H (3.8-10.6) k/uL RBC 5.39 (4.30-5.90) m/uL Hgb 16.9 (13.0-17.5) gm/dL Hct 47.9 (39.0-53.0) % Plt Count 281 (150-450) k/uL Comprehensive Metabolic Panel 02/04/19 02/05/19 Range/Units 11:03 09:28 Sodium 147 H 147 H (137-145) mmol/L Potassium 4.4 4.2 (3.5-5.1) mmol/L Chloride 106 109 H (98-107) mmol/L Carbon Dioxide 24 24 (22-30) mmol/L BUN 42 H 68 H (9-20) mg/dL Creatinine 2.33 H 3.98 H (0.66-1.25) mg/dL Glucose 164 H 116 H (74-99) mg/dL Calcium 10.3 H 9.0 (8.4-10.2) mg/dL AST 13 L (17-59) U/L ALT 20 L (21-72) U/L Alkaline Phosphatase 112 (38-126) U/L Total Protein 8.8 H (6.3-8.2) g/dL Albumin 5.0 (3.5-5.0) g/dL Current Medications Generic Name Dose Route Start Last Admin Trade Name Freq PRN Reason Stop Dose Admin Alprazolam 0.5 mg 02/04/19 08:54 02/05/19 08:13 Xanax PO 0.5 mg Q8H PRN Administration Anxiety Sodium Chloride 1,000 mls @ 125 mls/hr 02/04/19 02:30 02/05/19 08:04 Saline 0.9% IV 125 mls/hr .Q8H MARÍA Administration Ceftriaxone Sodium 1 gm/ 50 mls @ 100 mls/hr 02/04/19 09:00 02/05/19 08:04 Sodium Chloride IVPB 100 mls/hr Q24HR MARÍA Administration Morphine Sulfate 4 mg 02/04/19 02:25 02/04/19 23:34 Morphine Sulfate (Inj) IV 4 mg Q4HR PRN Administration Severe Pain Naloxone HCl 0.2 mg 02/04/19 02:25 Narcan IV Q2M PRN Opioid Reversal Ondansetron HCl 4 mg 02/04/19 02:25 Zofran IVP Q8HR PRN Nausea And Vomiting Pantoprazole Sodium 40 mg 02/04/19 09:00 02/05/19 08:04 Protonix IV 40 mg DAILY MARÍA Administration Intake and Output 02/04/19 02/05/19 02/05/19 22:59 06:59 14:59 Output Total 1900 80 Balance -1900 -80 Output: Gastric Drainage 1600 80 Urine 300 Other: Voiding Method Urinal # Voids 2 1 02/04/19 11:03 02/05/19 09:28
--- NOTE | 2019-02-05 13:39 | ECHOF ---
Referral Reason:pre-op MEASUREMENTS -------- HEIGHT: 180.3 cm WEIGHT: 84.8 kg BP: 113/72 IVSd: 0.9 cm (0.6 - 1.1) LVIDd: 4.4 cm (3.9 - 5.3) LVPWd: 1.5 cm (0.6 - 1.1) IVSs: 1.0 cm LVIDs: 2.7 cm LVPWs: 1.4 cm Ao Diam: 3.6 cm (2.0 - 3.7) AV Cusp: 2.1 cm (1.5 - 2.6) LA Diam: 3.3 cm (2.7 - 3.8) MV E Dominic: 0.50 m/s MV DecT: 235 ms MV A Dominic: 0.83 m/s MV E/A Ratio: 0.60 RAP: 5.00 mmHg RVSP: 21.94 mmHg FINDINGS -------- Sinus rhythm. This was a technically difficult study with suboptimal views. The left ventricular size is normal. Left ventricular wall thickness is normal. Overall left vent ricular systolic function is low-normal with, an EF between 50 - 55 %. Right side appears enlarged. The left atrial size is normal. The right atrial size is normal. Lumason used The aortic valve is trileaflet and appears structurally normal. There is trace mitral regurgitation. Trace tricuspid regurgitation present. The right ventricular systolic pressure, as measured by Dopp ler, is 21.94mmHg. The pulmonic valve was not well visualized. The aortic root size is normal. IVC Not well visulized. There is no pericardial effusion. CONCLUSIONS -------- 1. Sinus rhythm. 2. This was a technically difficult study with suboptimal views. 3. The left ventricular size is normal. 4. Left ventricular wall thickness is normal. 5. Overall left ventricular systolic function is low-normal with, an EF between 50 - 55 %. 6. Right side appears enlarged. 7. The left atrial size is normal. 8. The right atrial size is normal. 9. Lumason used 10. The aortic valve is trileaflet and appears structurally normal. 11. There is trace mitral regurgitation. 12. Trace tricuspid regurgitation present. 13. The right ventricular systolic pressure, as measured by Doppler, is 21.94mmHg. 14. The pulmonic valve was not well visualized. 15. The aortic root size is normal. 16. IVC Not well visulized. 17. There is no pericardial effusion. APPLE CHECKER: Rivka Aguila RDCS
--- NOTE | 2019-02-05 14:11 | P.PN ---
Subjective Progress Note Date: 02/05/19 CHIEF COMPLAINT: abdominal pain HISTORY OF PRESENT ILLNESS: Patient seen and examined at the bedside. Patient denies abdominal pain. Denies nausea. NG tube remains to lower intermittent suction. Patient states he is passing flatus. No BM. PHYSICAL EXAM: VITAL SIGNS: Reviewed. GENERAL: Well-developed in no acute distress. HEENT: No sclera icterus. Extraocular movements grossly intact. Moist buccal mucosa. Head is atraumatic, normocephalic. ABDOMEN: Soft. Nondistended. Nontender. Positive bowel sounds. NEUROLOGIC: Alert and oriented. Cranial nerves II through XII grossly intact. ASSESSMENT: 1. Small bowel obstruction 2. Incisional hernia 3. History of hernia repair PLAN: Discontinue NG tube. Begin clear liquid diet. No surgical intervention recommended at this time. Nurse practitioner note has been reviewed by physician. Signing provider agrees with the documented findings, assessment, and plan of care. Objective - Vital Signs Vital signs: Vital Signs Temp 97.7 F 02/05/19 07:00 Pulse 81 02/05/19 08:00 Resp 12 02/05/19 08:00 BP 113/72 02/05/19 07:00 Pulse Ox 94 L 02/05/19 07:00 Intake & Output 02/04/19 02/05/19 02/05/19 18:59 06:59 18:59 Output Total 1900 80 450 Balance -1900 -80 -450 Output: Gastric Drainage 1600 80 Urine 300 450 Left Lower Abdomen 450 Other: Voiding Method Urinal Urinal # Voids 1 - Labs CBC & Chem 7: 02/05/19 09:28 02/05/19 09:28 Labs: Abnormal Lab Results - Last 24 Hours (Table) 02/05/19 Range/Units 09:28 Sodium 147 H (137-145) mmol/L Chloride 109 H (98-107) mmol/L BUN 68 H (9-20) mg/dL Creatinine 3.98 H (0.66-1.25) mg/dL Glucose 116 H (74-99) mg/dL Microbiology - Last 24 Hours (Table) 02/04/19 09:40 Urine Culture - Preliminary Urine,Clean Catch Gram Neg Bacilli 02/04/19 02:55 Blood Culture - Preliminary Blood No Growth after 24 hours
--- NOTE | 2019-02-05 15:50 | P.GSCN ---
History of Present Illness Consult date: 02/05/19 History of present illness: The patient is an 83-year-old gentleman who was admitted to the hospital couple days ago with abdominal pain and distention. The patient was identified to have an incarcerated femoral hernia, incisional hernia. This is reduced and he has done well since then. He had an NG tube that we'll drain the larger volume of fluid. The NG tube was removed a remains soft and nontender. He had a computed tomography scan during this evaluation and was noted that he had mild bilateral hydronephrosis as well as a large left renal stone. For this reason we were asked see the patient. The patient is known to me. I did a radical cystectomy with ileal loop almost 30 years ago in 1989. He has done very well from this. He has no problems with his appliance a. 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 He does have a mild peristomal hernia but is never bothered him. He has had no flank pain no hematuria no evidence of recurrent urinary tract infection. He has not had previous stones. On computed tomography scan he has a 2 cm left renal pelvic stone without hydronephrosis due to the stone. He has mild bilateral caliectasis due to the ileal loop which is associated with chronic urinary reflux. Review of Systems All systems: negative - Constitutional Reports as per HPI - EENT Eyes: denies blurred vision Ears, nose, mouth and throat: Denies dysphagia - Cardiovascular Denies chest pain, Denies shortness of breath - Respiratory Denies cough, Denies 7 - Gastrointestinal Reports as per HPI - Genitourinary Denies dysuria, Denies hematuria - Integumentary Denies rash, Denies unusual bruising - Neurological Denies headaches, Denies syncope - Hematologic/Lymphatic Denies easy bleeding, Denies easy bruising Past Medical History Past Medical History: Cancer, GERD/Reflux, Hyperlipidemia History of Any Multi-Drug Resistant Organisms: None Reported Past Surgical History: Bladder Surgery, Hernia Repair Past Psychological History: Anxiety Smoking Status: Current every day smoker Past Alcohol Use History: None Reported Past Drug Use History: None Reported Medications and Allergies Home Medications Medication Instructions Recorded Confirmed Type ALPRAZolam [Xanax] 0.5 mg PO Q8H PRN 02/04/19 02/04/19 History Allopurinol [Zyloprim] 100 mg PO DAILY 02/04/19 02/04/19 History Gemfibrozil [Lopid] 600 mg PO BID 02/04/19 02/04/19 History Omeprazole 40 mg PO DAILY 02/04/19 02/04/19 History Allergies Allergy/AdvReac Type Severity Reaction Status Date / Time Sulfa (Sulfonamide AdvReac Rash/Hives Verified 02/04/19 06:54 Antibiotics) Surgical - Exam Vital Signs Temp Pulse Resp BP Pulse Ox 97.4 F L 77 18 164/94 98 02/03/19 21:51 02/03/19 21:51 02/03/19 21:51 02/03/19 21:51 02/03/19 21:51 - General well developed, well nourished, no distress - Eyes PERRL - ENT no hearing loss - Neck no masses - Respiratory normal expansion, normal respiratory effort - Cardiovascular Rhythm: regular - Abdomen Right lower quadrant ileal loop Abdomen: soft, non tender - Genitourinary normal penis with no external lesions, testicles present - Integumentary no rash, no growths - Neurologic normal coordination, normal sensation - Musculoskeletal normal posture - Psychiatric oriented to time, oriented to person, oriented to place, speech is normal, memory intact Results - Labs 02/05/19 09:28 02/05/19 09:28 Abnormal Lab Results - Last 24 Hours (Table) 02/05/19 Range/Units 09:28 Sodium 147 H (137-145) mmol/L Chloride 109 H (98-107) mmol/L BUN 68 H (9-20) mg/dL Creatinine 3.98 H (0.66-1.25) mg/dL Glucose 116 H (74-99) mg/dL Microbiology - Last 24 Hours (Table) 02/04/19 09:40 Urine Culture - Preliminary Urine,Clean Catch Gram Neg Bacilli 02/04/19 02:55 Blood Culture - Preliminary Blood No Growth after 24 hours Diabetes panel 02/05/19 Range/Units 09:28 Sodium 147 H (137-145) mmol/L Potassium 4.2 (3.5-5.1) mmol/L Chloride 109 H (98-107) mmol/L Carbon Dioxide 24 (22-30) mmol/L BUN 68 H (9-20) mg/dL Creatinine 3.98 H (0.66-1.25) mg/dL Glucose 116 H (74-99) mg/dL Calcium 9.0 (8.4-10.2) mg/dL Thyroid panel 02/05/19 Range/Units 09:28 TSH 2.570 (0.465-4.680) mIU/L Calcium panel 02/05/19 Range/Units 09:28 Calcium 9.0 (8.4-10.2) mg/dL Pituitary panel 02/05/19 02/05/19 Range/Units 09:28 09:28 Sodium 147 H (137-145) mmol/L Potassium 4.2 (3.5-5.1) mmol/L Chloride 109 H (98-107) mmol/L Carbon Dioxide 24 (22-30) mmol/L BUN 68 H (9-20) mg/dL Creatinine 3.98 H (0.66-1.25) mg/dL Glucose 116 H (74-99) mg/dL Calcium 9.0 (8.4-10.2) mg/dL TSH 2.570 (0.465-4.680) mIU/L Adrenal panel 02/05/19 Range/Units 09:28 Sodium 147 H (137-145) mmol/L Potassium 4.2 (3.5-5.1) mmol/L Chloride 109 H (98-107) mmol/L Carbon Dioxide 24 (22-30) mmol/L BUN 68 H (9-20) mg/dL Creatinine 3.98 H (0.66-1.25) mg/dL Glucose 116 H (74-99) mg/dL Calcium 9.0 (8.4-10.2) mg/dL - Imaging CT scan - abdomen: report reviewed, image reviewed CT scan - pelvis: report reviewed, image reviewed Assessment and Plan Assessment: Impression: Abdominal pain probably due to incarceration of hernia reduced. Resolved. History of bladder cancer treated with radical cystectomy ileal loop urinary diversion. Mild chronic hydronephrosis due to reflux of ileal loop done in 1989. Left renal stone, large, asymptomatic. Recommendations: The hydronephrosis is to be expected given this loop was done almost 30 years ago. Nothing needs to be done with that. The left renal stone if it was symptomatic I would remove percutaneously however he is not having any pain recurrent infection or hematuria. In light of that I do not think that the the patient needs any surgery nor does the patient wish to have anything done with the stone.
[2019-02-05] MEDS: SODIUM CHLORIDE 0.45% 1,000 ML IV SCH (22:07)
--- NOTE | 2019-02-05 22:47 | CONS ---
CONSULTATION REASON FOR CONSULT: Renal failure. HISTORY OF PRESENT ILLNESS: The patient is an 83-year-old male who was admitted to the hospital with abdominal pain and distention. He was found to have an incarcerated femoral hernia. The patient does have a history of radical cystectomy with ileal loop urostomy about 30 years ago. His CAT scan this admission showed evidence of bilateral mild hydronephrosis. He also has a 2 cm left stone. Currently, patient has good urine output. His serum creatinine has been increasing from 1.89 on 02/03 to 3.98 now. The patient was evaluated by urology and currently there is no plan for intervention. The patient is maintained on IV fluids at 125 mL an hour. He did have an abdominal CT. However, he did not have IV contrast. Review of vital signs shows blood pressure has been slightly on the lower side with systolic at 104 mmHg lowest. The patient's urine culture grew gram-negative bacilli. PAST MEDICAL HISTORY: Significant for history of bladder cancer status post cystectomy and ileal loop urostomy, gastroesophageal reflux disease, hyperlipidemia. MEDICATIONS: Prior to admission included Xanax, Zyloprim, Lopid, omeprazole. ALLERGIES: INCLUDE SULFA WHICH CAUSES RASH AND HIVES. SOCIAL HISTORY: Positive for smoking. PHYSICAL EXAMINATION: Patient is currently comfortable this morning. Blood pressure was 115/72, heart rate is 72 per minute. He is afebrile. Examination of the heart S1, S2. Examination lungs bilateral breath sounds are heard. Abdomen is soft, nontender. Examination of lower extremities shows no evidence of edema. The patient has a urostomy. 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 LABS: Show sodium 147, potassium 4.2, BUN 68, serum creatinine 3.98, hemoglobin 14.5. UA shows WBCs 123, 1+ protein. ASSESSMENT: 1. Acute kidney injury. Possible acute tubular necrosis. The patient does have bilateral hydronephrosis on the CAT scan. The patient has been evaluated by Urology with no plans for intervention at this time. However, if the renal function continues to deteriorate, patient will likely benefit from further evaluation of the hydronephrosis. He does have a urinary tract infection as well for which he is maintained on antibiotics. Blood pressure is not low and patient did not receive IV contrast during this admission. He has good urine output, which is favorable. I will repeat his labs in a.m. and continue with the IV fluids for now. 2. History of bladder cancer status post radical cystectomy and ileal loop urostomy. 3. Urinary tract infection with gram-negative bacilli, maintained on Rocephin. 4. Hypernatremia secondary to IV fluids. Will change IV fluids to half-normal saline. PLAN: Change IV fluids to half-normal saline. Repeat labs in a.m. and if renal function continues to deteriorate, we may need to look into possible obstructive uropathy. Thank you for this consultation. We will continue to follow the patient with you during his hospitalization. MMODL / IJN: [id number] /
[2019-02-06] MEDS: SODIUM CHLORIDE 0.45% 1,000 ML IV SCH ×3 (05:52→22:11)
[2019-02-06 08:09] LABS: Basophils % (A) 0 %; Eosinophils # (A) 0.3 k/uL (0-0.7); Eosinophils % (A) 4 %; HCT 42.3 % (39.0-53.0); Lymphocytes # (A) 1.2 k/uL (1.0-4.8); Lymphocytes % (A) 13 %; MCH 30.2 pg (25.0-35.0); MCHC 33.1 g/dL (31.0-37.0); MCV 91.2 fL (80.0-100.0); Mean Platelet Volume 7.6; Monocytes # (A) 0.7 k/uL (0-1.0); Monocytes % (A) 8 %; Neutrophils # (A) 6.5 k/uL (1.3-7.7); Neutrophils % (A) 72 %; Platelet Count 221 k/uL (150-450); RBC 4.64 m/uL (4.30-5.90); RDW 13.9 % (11.5-15.5); WBC 8.9 k/uL (3.8-10.6)
[2019-02-06 08:21] LABS: Albumin 3.7 g/dL (3.5-5.0); Total Bilirubin 0.4 mg/dL (0.2-1.3); Total Protein 6.7 g/dL (6.3-8.2)
[2019-02-06] MEDS: PANTOPRAZOLE 40 MG/10 ML VIAL IV SCH (08:59)
--- NOTE | 2019-02-06 13:21 | P.PN ---
Subjective Progress Note Date: 02/05/19 This is an 83-year-old male patient who presented to the hospital with complaints of abdominal pain with nausea and vomiting patient reports that yesterday he started to experiencing severe abdominal pain with nausea and vomiting for proximally 2 hours prior to arrival in emergency department. Patient reports this was similar pain to what he's had in the past with hernia. Patient does have a past medical history of GERD, hyperlipidemia, anxiety, nicotine dependence, nephrostomy tube placement 1989 for bladder cancer. Previous exploratory lap for colon cancer approximately 8 years ago and previou s hernias. Patient states he was also told he had problems with his kidneys and has seen nephrology past. CT of abdomen and pelvis completed showing distended fluid and air-filled bowel loops with distal compressed loop suggestive of bowel obstruction. Possible mild penumoatosis is not excluded. Moderate bilateral hydronephrosis. Large 25 mm stone in the dependent left renal collecting system . Nodule consolidation changes in the right mandible, potentially inflammatory infectious or neoplastic. Additional imaging may be considered if indicated. Chest x-ray completed showing NG with the tip in the distal esophagus. Recommend advancement. Nodule density in the right middle lobe is better seen on recent CT. Prominent mediastinal silhouette. NG tube placed. Surgical services consulted. Patient's UA was positive for urinary tract infection. Urine culture ordered. Patient started on Rocephin. Patient's creatinine also elevated at 1.89 and bun 31. Repeat labs have been ordered Patient does report some improvement with nausea and vomiting since NG tube placement. 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 At this time patient denies chest pain. Patient denies shortness of breath. On 02/05/2019 patient is alert and oriented 3. NG tube has been removed per surgical services. Patient on diet. Patient's creatinine increased to 3.98 and bun 68. Nephrology services are following. Will consult urology services to rule out hydronephrosis and and blockage. This time patient denies chest pain or shortness breath. Patient denies nausea vomiting or diarrhea. Patient urinary burning or frequency Objective - Vital Signs Vital signs: Vital Signs Temp 97.6 F 02/06/19 07:00 Pulse 84 02/06/19 07:00 Resp 16 02/06/19 07:00 BP 118/80 02/06/19 07:00 Pulse Ox 94 L 02/06/19 07:00 Intake & Output 02/05/19 02/06/19 02/06/19 18:59 06:59 18:59 Intake Total 875 350 Output Total 450 Balance 425 350 Intake: Intake, IV Titration 875 350 Amount Sodium Chloride 0.45% 1, 350 000 ml @ 100 mls/hr IV . Q10H MARÍA Rx#:[id number] Sodium Chloride 0.9% 1, 875 000 ml @ 125 mls/hr IV . Q8H MARÍA Rx#:[id number] Output: Urine 450 Left Lower Abdomen 450 Other: Voiding Method Urinal # Voids 1 1 # Bowel Movements 1 - Exam Head normocephalic Neck supple Lungs clear to auscultation bilaterally no wheezing or crackles Heart regular rate and rhythm S1-S2, no rub or gallop Abdomen soft active bowel sounds. Tender to palpation. Midline abdominal scar. Right lower quadrant nephrostomy tube. Extremities no edema Neuro alert and orientated to 3 - Labs CBC & Chem 7: 02/06/19 07:29 02/06/19 07:29 Labs: Abnormal Lab Results - Last 24 Hours (Table) 02/06/19 Range/Units 07:29 Sodium 146 H (137-145) mmol/L Chloride 114 H (98-107) mmol/L Carbon Dioxide 21 L (22-30) mmol/L BUN 67 H (9-20) mg/dL Creatinine 2.95 H (0.66-1.25) mg/dL Glucose 100 H (74-99) mg/dL AST 15 L (17-59) U/L Microbiology - Last 24 Hours (Table) 02/04/19 09:40 Urine Culture - Final Urine,Clean Catch Escherichia coli 02/04/19 02:55 Blood Culture - Preliminary Blood No Growth after 48 hours Assessment and Plan Assessment: 1. Abdominal pain with nausea and vomiting. CT of abdomen completed showing distended fluid and air-filled bowel loops with distal compressed loop suggestive of bowel obstruction. Possible mild pneumatosis is not excluded. Patient currently nothing by mouth. NG tube has been removed per surgical services. Patient maintained on full liquid diet 2. Moderate bilateral hydronephrosis. CT showing large 25 mm stone in the dependent left renal collecting system. Urology services have been consulted 3. Nodule consolidative change in the right middle lobe potentially inflammatory infectious or neoplastic seen on computed tomography scan 4. Acute kidney injury. Creatinine 1.89 and bun 30. Normal saline at 125 we'll continue to monitor. Creatinine increasing to 3.98 and Bun 68. Nephrology services have been consulted 5. Urinary tract infection. Patient started on Rocephin. urine and blood culture ordered 6. History of previous hernias 7. History of bladder cancer in 1989. Patient has nephrostomy tube in place 8. History of colon cancer approximately 8 years ago in which patient underwent surgery in [place] 9. History of GERD 10. History of hyperlipidemia DVT prophylaxis SCDs until evaluated by surgical services. GI prophylaxis Protonix I performed an examination of the patient and discussed their management with the Nurse Practitioner. I have reviewed the Nurse Practitioner's notes and agree with the documented findings and plan of care
--- NOTE | 2019-02-06 13:26 | P.PN ---
Subjective Progress Note Date: 02/06/19 This is an 83-year-old male patient who presented to the hospital with complaints of abdominal pain with nausea and vomiting patient reports that yesterday he started to experiencing severe abdominal pain with nausea and vomiting for proximally 2 hours prior to arrival in emergency department. Patient reports this was similar pain to what he's had in the past with hernia. Patient does have a past medical history of GERD, hyperlipidemia, anxiety, nicotine dependence, nephrostomy tube placement 1989 for bladder cancer. Previous exploratory lap for colon cancer approximately 8 years ago and previou s hernias. Patient states he was also told he had problems with his kidneys and has seen nephrology past. CT of abdomen and pelvis completed showing distended fluid and air-filled bowel loops with distal compressed loop suggestive of bowel obstruction. Possible mild penumoatosis is not excluded. Moderate bilateral hydronephrosis. Large 25 mm stone in the dependent left renal collecting system . Nodule consolidation changes in the right mandible, potentially inflammatory infectious or neoplastic. Additional imaging may be considered if indicated. Chest x-ray completed showing NG with the tip in the distal esophagus. Recommend advancement. Nodule density in the right middle lobe is better seen on recent CT. Prominent mediastinal silhouette. NG tube placed. Surgical services consulted. Patient's UA was positive for urinary tract infection. Urine culture ordered. Patient started on Rocephin. Patient's creatinine also elevated at 1.89 and bun 31. Repeat labs have been ordered Patient does report some improvement with nausea and vomiting since NG tube placement. 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 At this time patient denies chest pain. Patient denies shortness of breath. On 02/05/2019 patient is alert and oriented 3. NG tube has been removed per surgical services. Patient on diet. Patient's creatinine increased to 3.98 and bun 68. Nephrology services are following. Will consult urology services to rule out hydronephrosis and and blockage. This time patient denies chest pain or shortness breath. Patient denies nausea vomiting or diarrhea. Patient urinary burning or frequency On 02/06/2019 patient's alert and oriented 3. Patient has continued on full liquid diet. Patient denies any significant bowel movement. Creatinine is trending down with a.m. to 2.95 and bun 67. Nephrology services are following. Patient is also evaluate by urology services. No further workup at this time. Patient's urine culture currently growing E. coli. Patient is maintained on Rocephin. At this time patient denies chest pain or shortness breath. Patient denies nausea vomiting or diarrhea. Patient denies any urinary burning or frequency Objective - Vital Signs Vital signs: Vital Signs Temp 97.6 F 02/06/19 07:00 Pulse 84 02/06/19 07:00 Resp 16 02/06/19 07:00 BP 118/80 02/06/19 07:00 Pulse Ox 94 L 02/06/19 07:00 Intake & Output 02/05/19 02/06/19 02/06/19 18:59 06:59 18:59 Intake Total 875 350 Output Total 450 Balance 425 350 Intake: Intake, IV Titration 875 350 Amount Sodium Chloride 0.45% 1, 350 000 ml @ 100 mls/hr IV . Q10H MARÍA Rx#:[id number] Sodium Chloride 0.9% 1, 875 000 ml @ 125 mls/hr IV . Q8H MARÍA Rx#:[id number] Output: Urine 450 Left Lower Abdomen 450 Other: Voiding Method Urinal # Voids 1 1 # Bowel Movements 1 - Exam Head normocephalic Neck supple Lungs clear to auscultation bilaterally no wheezing or crackles Heart regular rate and rhythm S1-S2, no rub or gallop Abdomen soft active bowel sounds. Tender to palpation. Midline abdominal scar. Right lower quadrant nephrostomy tube. Extremities no edema Neuro alert and orientated to 3 - Labs CBC & Chem 7: 02/06/19 07:29 02/06/19 07:29 Labs: Abnormal Lab Results - Last 24 Hours (Table) 02/06/19 Range/Units 07:29 Sodium 146 H (137-145) mmol/L Chloride 114 H (98-107) mmol/L Carbon Dioxide 21 L (22-30) mmol/L BUN 67 H (9-20) mg/dL Creatinine 2.95 H (0.66-1.25) mg/dL Glucose 100 H (74-99) mg/dL AST 15 L (17-59) U/L Microbiology - Last 24 Hours (Table) 02/04/19 09:40 Urine Culture - Final Urine,Clean Catch Escherichia coli 02/04/19 02:55 Blood Culture - Preliminary Blood No Growth after 48 hours Assessment and Plan Assessment: 1. Abdominal pain with nausea and vomiting. CT of abdomen completed showing distended fluid and air-filled bowel loops with distal compressed loop suggestive of bowel obstruction. Possible mild pneumatosis is not excluded. Patient currently nothing by mouth. NG tube has been removed per surgical services. Patient maintained on full liquid diet 2. Moderate bilateral hydronephrosis. CT showing large 25 mm stone in the dependent left renal collecting system. Per urology services hydronephrosis is to be expected loops done 30 years ago. No need for further workup at this t annalise. 3. Nodule consolidative change in the right middle lobe potentially inflammatory infectious or neoplastic seen on computed tomography scan 4. Acute kidney injury. Creatinine 1.89 and bun 30. Normal saline at 125 we'll continue to monitor. Creatinine increasing to 3.98 and Bun 68. Per ne phrology services change fluid to half-normal saline. Continue to monitor patient closely 5. Urinary tract infection. Patient started on Rocephin. Urine culture currently growing E. coli continue Rocephin 6. History of previous hernias 7. History of bladder cancer in 1989. Patient has nephrostomy tube in place 8. History of colon cancer approximately 8 years ago in which patient underwent surgery in [place] 9. History of GERD 10. History of hyperlipidemia DVT prophylaxis SCDs until evaluated by surgical services. GI prophylaxis Protonix I performed an examination of the patient and discussed their management with the Nurse Practitioner. I have reviewed the Nurse Practitioner's notes and agree with the documented findings and plan of care
--- NOTE | 2019-02-06 13:58 | P.PN ---
Subjective Progress Note Date: 02/06/19 CHIEF COMPLAINT: abdominal pain HISTORY OF PRESENT ILLNESS: Patient seen and examined at the bedside. Patient denies abdominal pain. Denies nausea. NG tube discontinued yesterday. Patient tolerating full liquid diet. Reports small bowel movement this morning. PHYSICAL EXAM: VITAL SIGNS: Reviewed. GENERAL: Well-developed in no acute distress. HEENT: No sclera icterus. Extraocular movements grossly intact. Moist buccal mucosa. Head is atraumatic, normocephalic. ABDOMEN: Soft. Nondistended. Nontender. Positive bowel sounds. NEUROLOGIC: Alert and oriented. Cranial nerves II through XII grossly intact. ASSESSMENT: 1. Small bowel obstruction 2. Incisional hernia 3. History of hernia repair PLAN: Continue full liquid diet. Patient is stable for discharge home today from a surgical standpoint. Nurse practitioner note has been reviewed by physician. Signing provider agrees with the documented findings, assessment, and plan of care. Objective - Vital Signs Vital signs: Vital Signs Temp 97.6 F 02/06/19 07:00 Pulse 84 02/06/19 07:00 Resp 16 02/06/19 07:00 BP 118/80 02/06/19 07:00 Pulse Ox 94 L 02/06/19 07:00 Intake & Output 02/05/19 02/06/19 02/06/19 18:59 06:59 18:59 Intake Total 875 350 Output Total 450 Balance 425 350 Intake: Intake, IV Titration 875 350 Amount Sodium Chloride 0.45% 1, 350 000 ml @ 100 mls/hr IV . Q10H MARÍA Rx#:[id number] Sodium Chloride 0.9% 1, 875 000 ml @ 125 mls/hr IV . Q8H MARÍA Rx#:[id number] Output: Urine 450 Left Lower Abdomen 450 Other: Voiding Method Urinal # Voids 1 1 # Bowel Movements 1 - Labs CBC & Chem 7: 02/06/19 07:29 02/06/19 07:29 Labs: Abnormal Lab Results - Last 24 Hours (Table) 02/06/19 Range/Units 07:29 Sodium 146 H (137-145) mmol/L Chloride 114 H (98-107) mmol/L Carbon Dioxide 21 L (22-30) mmol/L BUN 67 H (9-20) mg/dL Creatinine 2.95 H (0.66-1.25) mg/dL Glucose 100 H (74-99) mg/dL AST 15 L (17-59) U/L Microbiology - Last 24 Hours (Table) 02/04/19 09:40 Urine Culture - Final Urine,Clean Catch Escherichia coli 02/04/19 02:55 Blood Culture - Preliminary Blood No Growth after 48 hours
[2019-02-06] MEDS: MORPHINE SULFATE 4 MG/ML SYRINGE IV PRN (21:14)
[2019-02-06] MEDS: HEPARIN SODIUM,PORCINE 5,000 UNIT/ML 1 ML VIAL SQ SCH (21:14)
--- NOTE | 2019-02-06 22:21 | PN ---
PROGRESS NOTE Patient is seen for followup for acute kidney injury. He does have a history of radical cystectomy for bladder cancer and ileal loop urostomy. He was noted to have bilateral hydronephrosis. However, this appears to be chronic and there is no plan for intervention currently from urology standpoint. Patient is maintained on IV fluids. His renal function has improved, with serum creatinine down to 2.95 from 3.98 yesterday. Previous creatinine in July was 1.9 mg/dL. This morning patient denies any significant complaints. He has had good urine output from his urostomy. On examination, blood pressure was 118/80, heart rate 84 per minute. Patient is afebrile. EXAMINATION OF THE HEART: S1 and S2. EXAMINATION OF LUNGS: Bilateral breath sounds are heard. ABDOMEN: Soft, non-tender. Examination of lower extremities shows no evidence of edema. 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 Labs show sodium 146, potassium 4.0, BUN 67, serum creatinine 2.95. UA shows 1+ protein, large WBCs. Urine culture grew E coli. ASSESSMENT: 1. Acute kidney injury associated with underlying urinary tract infection and volume depletion. Perhaps a component of obstructive uropathy is also present. Renal function is, however, improving. Continue to avoid nephrotoxic agents. No plans for urological intervention at this time. 2. Mild hypernatremia, currently improved. Patient is maintained on half-normal saline. 3. Urinary tract infection with Escherichia coli, maintained on Rocephin. 4. Chronic kidney disease with previous creatinine at 1.9 in July of 2018, NKF stage IV, secondary to underlying obstructive uropathy as well as nephrosclerosis. 5. History of bladder cancer, status post radical cystectomy and ileal loop urostomy. PLAN: Continue IV fluids. Repeat labs in a.m. Patient will need followup as outpatient. MMODL / IJN: [id number] /
[2019-02-07 01:54] VITALS: RESP 16
[2019-02-07 08:08] VITALS: BP 102/63; PULSE 67; TEMP 97.8
[2019-02-07] MEDS: HEPARIN SODIUM,PORCINE 5,000 UNIT/ML 1 ML VIAL SQ SCH (08:16)
[2019-02-07] MEDS: PANTOPRAZOLE 40 MG/10 ML VIAL IV SCH (08:16)
[2019-02-07 08:17] LABS: Basophils % (A) 0 %; Eosinophils # (A) 0.3 k/uL (0-0.7); Eosinophils % (A) 4 %; HCT 40.5 % (39.0-53.0); Lymphocytes # (A) 1.3 k/uL (1.0-4.8); Lymphocytes % (A) 20 %; MCH 30.4 pg (25.0-35.0); MCV 94.8 fL (80.0-100.0); Mean Platelet Volume 7.5; Monocytes # (A) 0.5 k/uL (0-1.0); Monocytes % (A) 8 %; Neutrophils # (A) 4.2 k/uL (1.3-7.7); Neutrophils % (A) 65 %; Platelet Count 230 k/uL (150-450); RBC 4.27 m/uL (4.30-5.90); RDW 13.9 % (11.5-15.5); WBC 6.5 k/uL (3.8-10.6)
[2019-02-07 08:37] LABS: Albumin 3.3 g/dL (3.5-5.0); Calcium 8.5 mg/dL (8.4-10.2); Potassium 4.2 mmol/L (3.5-5.1); Total Bilirubin 0.4 mg/dL (0.2-1.3); Total Protein 6.2 g/dL (6.3-8.2)
--- NOTE | 2019-02-07 13:07 | P.DS ---
Providers Date of admission: 02/04/19 02:25 Expected date of discharge: 02/07/19 Attending physician: Nikita Vasquez Consults: 02/04/19 02:25 Consult Physician Stat Consulting Provider: vKng Lizarraga Consult Reason/Comments: incarcerated hernia Do you want consulting provider notified?: Already Contacted 02/04/19 12:40 Consult Physician Routine Consulting Provider: Emilia Johnson Consult Reason/Comments: JOSR Do you want consulting provider notified?: Yes 02/04/19 12:42 Consult Physician Routine Consulting Provider: Adria Van Consult Reason/Comments: junctional rythym with occasional premature ventricular comples Do you want consulting provider notified?: Yes 02/04/19 12:43 Consult Physician Routine Consulting Provider: Jensen Jc Consult Reason/Comments: Nodule consolidative change in the right middle lobe seen on CT. smoker Do you want consulting provider notified?: Yes 02/05/19 13:30 Consult Physician Routine Consulting Provider: Carlito Rosa Consult Reason/Comments: bilateral hydronephrosis Do you want consulting provider notified?: Yes Primary care physician: Nikita Vasquez [facility] Course: Discharge diagnosis 1. Abdominal pain with nausea and vomiting. CT of abdomen completed showing distended fluid and air-filled bowel loops with distal compressed loop s uggestive of bowel obstruction. Possible mild pneumatosis is not excluded. Patient currently nothing by mouth. NG tube has been removed per surgical services. Patient having bowel movements. Patient has been tolerating regular diet. Patient has been cleared for discharge from services 2. Moderate bilateral hydronephrosis. CT showing large 25 mm stone in the dependent left renal collecting system. Per urology services hydronephrosis is to be expected loops done 30 years ago. No need for further workup at this time. 3. Nodule consolidative change in the right middle lobe potentially inflammatory infectious or neoplastic seen on computed tomography scan. Patient was evaluated by Pulmonary services. Patient to follow-up outpatient with pulmonary services and have a CTA with contrast completed at that time. This was discussed with pulmonary services okay for discharge 4. Acute kidney injury. Creatinine 1.89 and bun 30. Normal saline at 125 we'll continue to monitor. Creatinine increasing to 3.98 and Bun 68. Per nephrology services change fluid to half-normal saline. Creatinine has improved to 2.23 bun 51. Discussed case with Dr. Chaney per nephrology services. Patient has been cleared for discharge 5. Urinary tract infection. Patient started on Rocephin. Urine culture currently growing E. coli continue Rocephin. Patient will be DC'd on Ceftin for 5 days. 6. History of previous hernias 7. History of bladder cancer in 1989. Patient has nephrostomy tube in place 8. History of colon cancer approximately 8 years ago in which patient underwent surgery in [place] 9. History of GERD 10. History of hyperlipidemia Hospital course This is an 83-year-old male patient who presented to the hospital with complaints of abdominal pain with nausea and vomiting patient reports that yesterday he started to experiencing severe abdominal pain with nausea and vomiting for proximally 2 hours prior to arrival in emergency department. Patient reports this was similar pain to what he's had in the past with hernia. Patient does have a past medical history of GERD, hyperlipidemia, anxiety, nicotine dependence, nephrostomy tube placement 1989 for bladder cancer. Previous exploratory lap for colon cancer approximately 8 years ago and previous hernias. Patient states he was also told he had problems with his kidneys and has seen nephrology past. CT of abdomen and pelvis completed showing distended fluid and air-filled bowel loops with distal compressed loop suggestive of bowel obstruction. Possible mild penumoatosis is not excluded. Moderate bilateral hydronephrosis. Large 25 mm stone in the dependent left renal collecting system. Nodule consolidation changes in the right mandible, potentially inflammatory infectious or neoplastic. Additional imaging may be considered if indicated. Chest x-ray completed showing NG with the tip in the distal esophagus. Recommend advancement. Nodule density in the right middle lobe is better seen on recent CT. Prominent mediastinal silhouette. NG tube placed. Surgical services consulted. Patient's UA was positive for urinary tract infection. Urine culture ordered. Patient started on Rocephin. Patient's creatinine also elevated at 1.89 and bun 31. Repeat labs have been ordered Patient does report some improvement with nausea and vomiting since NG tube placement. Patient abdomen foundry tender upon palpation. At this time patient denies chest pain. Patient denies shortness of breath. On 02/05/2019 patient is alert and oriented 3. NG tube has been removed per surgical services. Patient on diet. Patient's creatinine increased to 3.98 and bun 68. Nephrology services are following. Will consult urology services to rule out hydronephrosis and and blockage. This time patient denies chest pain or shortness breath. Patient denies nausea vomiting or diarrhea. Patient urinary burning or frequency On 02/06/2019 patient's alert and oriented 3. Patient has continued on full liquid diet. Patient denies any significant bowel movement. Creatinine is trending down with a.m. to 2.95 and bun 67. Nephrology services are following. Patient is also evaluate by urology services. No further workup at this time. Patient's urine culture currently growing E. coli. Patient is maintained on Rocephin. At this time patient denies chest pain or shortness breath. Patient denies nausea vomiting or diarrhea. Patient denies any urinary burning or frequency On 02/07/2019 patient's alert and oriented 3. Patient has been cleared by surgical services. Patient has been tolerating regular diet. Patient has been followed bowel movements. Patient denies nausea or vomiting. Patient denies abdominal pain. Creatinine remains elevated but trending down at 2.23 and bun 51. Discussed case with nephrology services okay for discharge and follow-up outpatient. Also discussed findings of pulmonary nodule with pulmonary services. Recommended patient follow-up outpatient for CT with contrast this will be discussed with patient's PCP also. At this time patient denies chest pain or shortness breath. Patient denies nausea vomiting and diarrhea. Patient denies any urinary burning or frequency I performed an examination of the patient and discussed their management with the Nurse Practitioner. I have reviewed the Nurse Practitioner's notes and agree with the documented findings and plan of care Patient Condition at Discharge: Stable Plan - Discharge Summary Discharge Rx Participant: No New Discharge Prescriptions: No Action Omeprazole 40 mg PO DAILY Gemfibrozil [Lopid] 600 mg PO BID Allopurinol [Zyloprim] 100 mg PO DAILY ALPRAZolam [Xanax] 0.5 mg PO Q8H PRN PRN Reason: Anxiety Discharge Medication List ALPRAZolam [Xanax] 0.5 mg PO Q8H PRN 02/04/19 [History] Allopurinol [Zyloprim] 100 mg PO DAILY 02/04/19 [History] Gemfibrozil [Lopid] 600 mg PO BID 02/04/19 [History] Omeprazole 40 mg PO DAILY 02/04/19 [History] Follow up Appointment(s)/Referral(s): Nikita Vasquez MD [Primary Care Provider] - 1-2 days Jensen Jc MD [STAFF PHYSICIAN] - 1 Week
--- NOTE | 2019-02-07 13:55 | PN ---
PROGRESS NOTE Patient is seen for followup for acute kidney injury. Patient has an underlying urinary tract infection. He has bilateral hydronephrosis on the abdominal CAT scan. However, this is not chronic and currently patient's renal function has been improving with IV fluids and antibiotics. We do have a previous creatinine of 1.9 on 08/07/2018. At this time, patient is very close to his baseline. PHYSICAL EXAMINATION: On examination today, patient is comfortable. Blood pressure is 102/63, heart rate 67 per minute. He is afebrile. Examination of the heart, S1, S2. Examination of the lungs, bilateral breath sounds are heard. Abdomen is soft, nontender. Examination of the lower extremities shows no evidence of edema. Patient has a urostomy which has a good amount of clear light yellow urine. TALENT MANAGER exam is grossly intact. LABS: Show sodium 142, potassium 4.2, chloride 113, BUN 31, serum creatinine 2.13, hemoglobin at 13.0 g/dL. ASSESSMENT: 1. Acute kidney injury. Also has underlying urinary tract infection and volume depletion with possibly a component of obstructive uropathy as well. However, renal function has been improving with IV fluids. There is no plan for intervention from urology standpoint as the hydronephrosis is chronic. 2. History of bladder cancer, status post cystectomy and ileal loop urostomy. 3. Chronic kidney disease stage IV with baseline creatinine about 1.9 in July of , secondary to obstructive uropathy and nephrosclerosis. PLAN: Patient is stable for discharge from Nephrology standpoint. He is advised to increase his fluid intake and monitor his labs as outpatient. He also needs to follow up with Nephrology as outpatient. MMODL / IJN: [id number] /
--- NOTE | 2019-02-07 13:57 | P.PN ---
Subjective Progress Note Date: 02/07/19 CHIEF COMPLAINT: abdominal pain HISTORY OF PRESENT ILLNESS: Patient seen and examined at the bedside. Patient denies abdominal pain. Denies nausea. denies vomiting. Patient tolerating full liquid diet. Reports bowel movement today. PHYSICAL EXAM: VITAL SIGNS: Reviewed. GENERAL: Well-developed in no acute distress. HEENT: No sclera icterus. Extraocular movements grossly intact. Moist buccal mucosa. Head is atraumatic, normocephalic. ABDOMEN: Soft. Nondistended. Nontender. Positive bowel sounds. NEUROLOGIC: Alert and oriented. Cranial nerves II through XII grossly intact. ASSESSMENT: 1. Small bowel obstruction 2. Incisional hernia 3. History of hernia repair PLAN: advance diet to regular diet Patient is stable for discharge home today from a surgical standpoint. Nurse practitioner note has been reviewed by physician. Signing provider agrees with the documented findings, assessment, and plan of care. Objective - Vital Signs Vital signs: Vital Signs Temp 97.8 F 02/07/19 07:00 Pulse 67 02/07/19 08:16 Resp 16 02/07/19 08:16 BP 102/63 02/07/19 07:00 Pulse Ox 94 L 02/07/19 07:00 Intake & Output 02/06/19 02/07/19 02/07/19 18:59 06:59 18:59 Intake Total 1380 100 Balance 1380 100 Intake: Intake, IV Titration 900 100 Amount Sodium Chloride 0.45% 1, 800 100 000 ml @ 100 mls/hr IV . Q10H MARÍA Rx#:[id number] cefTRIAXone 1 gm In 100 Sodium Chloride 0.9% 50 ml @ 100 mls/hr IVPB Q24HR MARÍA Rx#:[id number] Oral 480 Other: Voiding Method Urinal # Voids 1 # Bowel Movements 1 - Labs CBC & Chem 7: 02/07/19 07:44 02/07/19 07:44 Labs: Abnormal Lab Results - Last 24 Hours (Table) 02/07/19 02/07/19 Range/Units 07:44 07:44 RBC 4.27 L (4.30-5.90) m/uL Chloride 113 H (98-107) mmol/L Carbon Dioxide 20 L (22-30) mmol/L BUN 51 H (9-20) mg/dL Creatinine 2.23 H (0.66-1.25) mg/dL AST 15 L (17-59) U/L Total Protein 6.2 L (6.3-8.2) g/dL Albumin 3.3 L (3.5-5.0) g/dL Microbiology - Last 24 Hours (Table) 02/04/19 02:55 Blood Culture - Preliminary Blood No Growth after 72 hours 02/04/19 09:40 Urine Culture - Final Urine,Clean Catch Escherichia coli
== END 2019-02-07 14:16 | disposition home or self-care (01) | DRG 393 ==
LOC: EC 21:46 → 4MS4W 02-04 02:25 → 4SSUR 02-04 18:45
PROVIDERS: ADMIT Internal Medicine; ATTEND Internal Medicine
DX: K43.0 Incisional hernia with obstruction, without gangrene (principal); N17.0 Acute kidney failure with tubular necrosis; E87.0 Hyperosmolality and hypernatremia; N18.4 Chronic kidney disease, stage 4 (severe); N13.6 Pyonephrosis; E86.9 Volume depletion, unspecified; J44.9 Chronic obstructive pulmonary disease, unspecified; B96.20 Unspecified Escherichia coli [E. coli] as the cause of diseases classified elsewhere; E78.5 Hyperlipidemia, unspecified; F17.200 Nicotine dependence, unspecified, uncomplicated; F41.9 Anxiety disorder, unspecified; I12.9 Hypertensive chronic kidney disease with stage 1 through stage 4 chronic kidney disease, or unspecified chronic kidney disease; I44.0 Atrioventricular block, first degree; K21.9 Gastro-esophageal reflux disease without esophagitis; I49.3 Ventricular premature depolarization; N28.89 Other specified disorders of kidney and ureter; R91.1 Solitary pulmonary nodule; Z79.899 Other long term (current) drug therapy; Z88.2 Allergy status to sulfonamides; Z85.038 Personal history of other malignant neoplasm of large intestine; Z85.51 Personal history of malignant neoplasm of bladder; Z90.6 Acquired absence of other parts of urinary tract; Z93.6 Other artificial openings of urinary tract status
CPT/HCPCS: 36415; 71045; 74176; 80048; 80053; 81001; 82150; 83605; 83690; 84443; 85025; 87040; 87077; 87086; 87186; 93005; 93306; 96365; 96375; 96376; 99285

== ENCOUNTER → 2019-06-18 | Outpatient (CLI) | payer MEDICARE ==
[2019-06-18 16:11] LABS: HCT 43.5 % (39.0-53.0); HGB 14.6 gm/dL (13.0-17.5); MCH 31.2 pg (25.0-35.0); MCHC 33.7 g/dL (31.0-37.0); MCV 92.8 fL (80.0-100.0); Mean Platelet Volume 7.5; Platelet Count 267 k/uL (150-450); RBC 4.68 m/uL (4.30-5.90); RDW 14.2 % (11.5-15.5); WBC 7.1 k/uL (3.8-10.6)
[2019-06-18 16:15] LABS: Appearance,Urine Cloudy (Clear); Bacteria,Urine Occasional /hpf; Bilirubin,Urine Negative (Negative); Blood,Urine Negative (Negative); Color,Urine Yellow; Glucose,Urine (UA) Negative (Negative); Ketones,Urine Negative (Negative); Leukocyte Esterase,Urine Large (Negative); Mucus,Urine Rare /hpf; Nitrite,Urine Positive (Negative); Protein,Urine Trace (Negative); RBC,Urine 1 /hpf (0-5); Specific Gravity,Urine 1.009 (1.001-1.035); Urobilinogen,Urine <2.0 mg/dL (<2.0); WBC,Urine 43 /hpf (0-5)
[2019-06-19 01:00] LABS: Creatinine,Urine Random 51.6 mg/dL
[2019-06-19 01:05] LABS: Ferritin 237.5 ng/mL (22.0-322.0); Total Protein,Urine Random 49.7 mg/dL (0.0-13.5)
[2019-06-19 01:29] LABS: African American GFR (CKD) 42.6 (60.0-200.0); Albumin 4.6 g/dL (3.80-4.90); Albumin/Globulin Ratio 1.84 (1.60-3.17); Anion Gap 7.3 mmol/L (4.00-12.00); BUN/Creat Ratio 13.53 Ratio (12.00-20.00); Calcium 9.4 mg/dL (8.7-10.3); Carbon Dioxide 22.7 mmol/L (21.6-31.8); Globulin 2.5 g/dL (1.6-3.3); Magnesium 1.8 mg/dL (1.5-2.4); Non-African American GFR(CKD) 36.7 (60.0-200.0); Phosphorus 3.5 mg/dL (2.4-5.1); Potassium 4.3 mmol/L (3.5-5.5); Total Bilirubin 0.3 mg/dL (0.3-1.2); Total Protein 7.1 g/dL (6.2-8.2)
[2019-06-19 01:30] LABS: Uric Acid 7.1 mg/dL (3.7-8.7)
== END ==
LOC: LABWHC1 15:40
PROVIDERS: ATTEND Internal Medicine
DX: N18.3 Chronic kidney disease, stage 3 (moderate) (principal)
CPT/HCPCS: 36415; 80053; 81001; 82570; 82728; 83735; 83970; 84100; 84156; 84550; 85027

== ENCOUNTER → 2019-09-11 | Outpatient (CLI) | payer MEDICARE ==
--- NOTE | 2019-09-11 17:07 | XR ---
EXAMINATION TYPE: XR abdomen 1V DATE OF EXAM: 09/11/2019 COMPARISON: CT scan 02/03/2019 HISTORY: Kidney stone TECHNIQUE: Single view FINDINGS: There are numerous surgical clips in the pelvis. There is a 2 cm irregular calcification ov er the left renal pelvis. There are multiple surgical clips over the right abdomen from intestinal cunningham rgery. IMPRESSION: Large left renal calculus. This appears unchanged compared to 02/03/2019 CT scan. Nonacute abdomen. There is apparent clearing of the dilated small bowel compared to old CT scan.
== END | disposition home or self-care (01) ==
LOC: LABWHC1 15:35
PROVIDERS: ATTEND Urology
DX: N20.0 Calculus of kidney (principal)
CPT/HCPCS: 74018

== ENCOUNTER → 2019-09-11 | Outpatient (CLI) | payer MEDICARE ==
[2019-09-11 16:06] LABS: Amorphous Sediment,Urine Rare /hpf; Appearance,Urine Cloudy (Clear); Bacteria,Urine Few /hpf; Bilirubin,Urine Negative (Negative); Blood,Urine Negative (Negative); Color,Urine Light Yellow; Glucose,Urine (UA) Negative (Negative); Ketones,Urine Negative (Negative); Leukocyte Esterase,Urine Large (Negative); Mucus,Urine Rare /hpf; Nitrite,Urine Positive (Negative); PH, Urine 6.5 (5.0-8.0); Protein,Urine Negative (Negative); RBC,Urine 6 /hpf (0-5); Specific Gravity,Urine 1.008 (1.001-1.035); Squamous Epithelial Cell,Urine <1 /hpf (0-4); Urobilinogen,Urine <2.0 mg/dL (<2.0); WBC,Urine 67 /hpf (0-5)
[2019-09-11 16:23] LABS: HCT 42.7 % (39.0-53.0); HGB 14.3 gm/dL (13.0-17.5); MCH 31.1 pg (25.0-35.0); MCHC 33.5 g/dL (31.0-37.0); MCV 92.7 fL (80.0-100.0); Platelet Count 280 k/uL (150-450); RDW 13.7 % (11.5-15.5); WBC 6.6 k/uL (3.8-10.6)
[2019-09-12 00:30] LABS: % Iron Saturation 23.23 (15.00-50.00); African American GFR (CKD) 39.7 (60.0-200.0); Albumin 4.9 g/dL (3.80-4.90); Albumin/Globulin Ratio 1.88 (1.60-3.17); Anion Gap 7.4 mmol/L (4.00-12.00); BUN/Creat Ratio 12.22 Ratio (12.00-20.00); Calcium 9.6 mg/dL (8.7-10.3); Carbon Dioxide 22.6 mmol/L (21.6-31.8); Globulin 2.6 g/dL (1.6-3.3); Magnesium 1.9 mg/dL (1.5-2.4); Phosphorus 3.7 mg/dL (2.4-5.1); Potassium 5.2 mmol/L (3.5-5.5); Total Bilirubin 0.3 mg/dL (0.3-1.2); Total Protein 7.5 g/dL (6.2-8.2); Uric Acid 7.1 mg/dL (3.7-8.7)
[2019-09-12 00:40] LABS: Ferritin 158.6 ng/mL (22.0-322.0)
[2019-09-12 01:32] LABS: Total Protein,Urine Random 30.7 mg/dL (0.0-13.5)
[2019-09-12 01:34] LABS: Creatinine,Urine Random 47.4 mg/dL
== END | disposition home or self-care (01) ==
LOC: LABWHC1 14:55
PROVIDERS: ATTEND Nurse Practitioner Family
DX: E55.9 Vitamin D deficiency, unspecified (principal); N25.81 Secondary hyperparathyroidism of renal origin; M10.9 Gout, unspecified; R80.9 Proteinuria, unspecified; N39.0 Urinary tract infection, site not specified; D63.1 Anemia in chronic kidney disease; N18.3 Chronic kidney disease, stage 3 (moderate)
CPT/HCPCS: 36415; 80053; 81001; 82570; 82728; 83540; 83550; 83735; 83970; 84100; 84156; 84550; 85027; 87086

== ENCOUNTER → 2020-03-24 | Outpatient (CLI) | payer MEDICARE ==
[2020-03-24 14:41] LABS: HCT 42.1 % (39.0-53.0); HGB 13.7 gm/dL (13.0-17.5); MCH 30.5 pg (25.0-35.0); MCHC 32.5 g/dL (31.0-37.0); MCV 93.7 fL (80.0-100.0); Mean Platelet Volume 8.2; Platelet Count 258 k/uL (150-450); RDW 13.3 % (11.5-15.5); WBC 9.2 k/uL (3.8-10.6)
[2020-03-24 14:45] LABS: Appearance,Urine Cloudy (Clear); Bacteria,Urine Many /hpf; Bilirubin,Urine Negative (Negative); Blood,Urine Negative (Negative); Color,Urine Yellow; Glucose,Urine (UA) Negative (Negative); Hyaline Casts,Urine 1 /lpf (0-2); Ketones,Urine Negative (Negative); Leukocyte Esterase,Urine Large (Negative); Mucus,Urine Rare /hpf; Nitrite,Urine Positive (Negative); Protein,Urine Trace (Negative); RBC,Urine 4 /hpf (0-5); Specific Gravity,Urine 1.009 (1.001-1.035); Urobilinogen,Urine <2.0 mg/dL (<2.0); WBC,Urine 42 /hpf (0-5)
[2020-03-24 15:23] LABS: Protein/Creatinine Ratio,Urine 0.413
[2020-03-24 19:27] LABS: % Iron Saturation 30.87 (15.00-50.00); African American GFR (CKD) 42.3 (60.0-200.0); Albumin 4.6 g/dL (3.80-4.90); Albumin/Globulin Ratio 1.64 (1.60-3.17); Anion Gap 9.6 mmol/L (4.00-12.00); BUN/Creat Ratio 10.59 Ratio (12.00-20.00); Calcium 9.9 mg/dL (8.7-10.3); Carbon Dioxide 22.4 mmol/L (21.6-31.8); Globulin 2.8 g/dL (1.6-3.3); Magnesium 1.8 mg/dL (1.5-2.4); Non-African American GFR(CKD) 36.5 (60.0-200.0); Phosphorus 3.9 mg/dL (2.4-5.1); Total Bilirubin 0.5 mg/dL (0.3-1.2); Total Protein 7.4 g/dL (6.2-8.2); Uric Acid 6.8 mg/dL (3.7-8.7)
[2020-03-24 19:36] LABS: Ferritin 237.3 ng/mL (22.0-322.0)
== END | disposition home or self-care (01) ==
LOC: LABWHC1 13:36
PROVIDERS: ATTEND Nurse Practitioner Family
DX: N18.3 Chronic kidney disease, stage 3 (moderate) (principal); D63.1 Anemia in chronic kidney disease; N39.0 Urinary tract infection, site not specified; R80.9 Proteinuria, unspecified; N25.81 Secondary hyperparathyroidism of renal origin; E55.9 Vitamin D deficiency, unspecified; M10.9 Gout, unspecified
CPT/HCPCS: 36415; 80053; 81001; 82570; 82728; 83540; 83550; 83735; 83970; 84100; 84156; 84550; 85027; 87086

== ENCOUNTER → 2020-08-17 | Outpatient (CLI) | payer MEDICARE ==
[2020-08-17 15:41] LABS: HCT 40.8 % (39.0-53.0); HGB 13.9 gm/dL (13.0-17.5); MCH 32.7 pg (25.0-35.0); MCHC 34.1 g/dL (31.0-37.0); MCV 95.7 fL (80.0-100.0); Mean Platelet Volume 7.3; Platelet Count 224 k/uL (150-450); RBC 4.26 m/uL (4.30-5.90); RDW 13.6 % (11.5-15.5)
[2020-08-17 15:45] LABS: Amorphous Sediment,Urine Occasional /hpf; Appearance,Urine Cloudy (Clear); Bacteria,Urine Many /hpf; Bilirubin,Urine Negative (Negative); Blood,Urine Negative (Negative); Color,Urine Light Yellow; Glucose,Urine (UA) Negative (Negative); Ketones,Urine Negative (Negative); Leukocyte Esterase,Urine Large (Negative); Mucus,Urine Moderate /hpf; Nitrite,Urine Positive (Negative); Protein,Urine Trace (Negative); RBC,Urine 1 /hpf (0-5); Specific Gravity,Urine 1.007 (1.001-1.035); Squamous Epithelial Cell,Urine <1 /hpf (0-4); Urobilinogen,Urine <2.0 mg/dL (<2.0); WBC,Urine 42 /hpf (0-5)
[2020-08-17 17:25] LABS: Protein/Creatinine Ratio,Urine 0.604
[2020-08-18 01:15] LABS: Ferritin 195.1 ng/mL (22.0-322.0)
[2020-08-18 03:01] LABS: % Iron Saturation 23.98 (15.00-50.00); African American GFR (CKD) 45.5 (60.0-200.0); Albumin 4.6 g/dL (3.80-4.90); Albumin/Globulin Ratio 1.77 (1.60-3.17); BUN/Creat Ratio 11.25 Ratio (12.00-20.00); Calcium 9.1 mg/dL (8.7-10.3); Globulin 2.6 g/dL (1.6-3.3); Magnesium 1.7 mg/dL (1.5-2.4); Non-African American GFR(CKD) 39.3 (60.0-200.0); Phosphorus 3.4 mg/dL (2.4-5.1); Potassium 4.5 mmol/L (3.5-5.5); Total Bilirubin 0.4 mg/dL (0.2-1.2); Total Protein 7.2 g/dL (6.2-8.2); Uric Acid 7.1 mg/dL (3.7-8.7)
== END | disposition home or self-care (01) ==
LOC: LABWHC1 15:01
PROVIDERS: ATTEND Internal Medicine
DX: N18.30 Chronic kidney disease, stage 3 unspecified (principal); D63.1 Anemia in chronic kidney disease; N39.0 Urinary tract infection, site not specified; R80.9 Proteinuria, unspecified; N25.81 Secondary hyperparathyroidism of renal origin; E55.9 Vitamin D deficiency, unspecified; M10.9 Gout, unspecified
CPT/HCPCS: 36415; 80053; 81001; 82306; 82570; 82728; 83540; 83550; 83735; 83970; 84100; 84156; 84550; 85027

== ENCOUNTER → 2020-09-03 | Outpatient (CLI) | payer MEDICARE ==
--- NOTE | 2020-09-03 11:24 | XR ---
EXAMINATION TYPE: XR KUB DATE OF EXAM: 09/03/2020 COMPARISON: 11/09/2018 HISTORY: Kidney stone TECHNIQUE: One view abdominal series FINDINGS: There are numerous surgical clips in the pelvis. There is a 2 cm irregular calcification over the lef t renal pelvis. There are multiple surgical clips over the right abdomen from intestinal surgery. IMPRESSION: 1. Nonspecific abdomen. Persistent large left renal calculus which appears somewhat lower in positio n on today's exam at the level L4-L5 on the left. This may represent migration of the calculus.
== END | disposition home or self-care (01) ==
LOC: RADXRMAIN 10:46
PROVIDERS: ATTEND Urology
DX: N20.0 Calculus of kidney (principal)
CPT/HCPCS: 74018

== ENCOUNTER → 2020-09-15 | Outpatient (CLI) | payer MEDICARE ==
--- NOTE | 2020-09-15 17:03 | CT ---
EXAMINATION TYPE: CT abdomen pelvis wo con DATE OF EXAM: 09/15/2020 COMPARISON: Prior CT 02/03/2019 HISTORY: left flank pain, N20.1 CT DLP: 591 mGycm Automated exposure control for dose reduction was used. TECHNIQUE: Helical acquisition of images from the lung bases through the pelvis. FINDINGS: The anterior abdominal wall hernia contains a portion of the transverse colon, there is no evident bowel obstruction LUNG BASES: Some probable scarring is again seen, irregular soft tissue with some associated air bron chograms shows a similar appearance, there is some bandlike area of increased attenuation extending t o the pleural surface. AORTA: No significant abnormality is appreciated. LIVER/GB: Some minimal dependent hyperdensity within the gallbladder may represent stones. PANCREAS: No significant abnormality is seen. SPLEEN: No significant abnormality is seen. ADRENALS: No significant abnormality is seen. KIDNEYS: There is a prominent extrarenal pelvis on the left, proximal left ureteral calcification fermin sures approximately 2.6 cm in cephalad to caudal dimension by 16 mm in AP dimension by 15 mm in trans verse dimension, there is ureteral diversion to the right of midline, ileal loop in the right hemipel vis. REPRODUCTIVE ORGANS: No significant abnormality is seen. URINARY BLADDER: Patient is post cystectomy.. BOWEL: Scattered metallic densities are present within the pelvis, there is a mass suspected within the left inguinal region and along the anterior abdominal wall. In the para midline region of the rig ht lower quadrant there is an abdominal wall hernia which shows of mouth that is 2.3 cm wide, there i s some mesenteric fat and a portion of bowel present at this level as well as the portion of bowel ex tending to the ostomy site. Postop changes are noted to the bowel. Multiple surgical clips present. FREE AIR: No Free Air is visible. ASCITES: None visible. PELVIC ADENOPATHY: None visualized. RETROPERITONEAL ADENOPATHY: No Retroperitoneal Adenopathy visible. OSSEOUS STRUCTURES: Degenerative disc changes are present in the visualized spine, there is a spinal curvature present.. There is associated facet arthropathy change in the lower lumbar spine IMPRESSION: LARGE PROXIMAL LEFT URETERAL CALCULUS. EXTENSIVE POSTOP CHANGES. MULTIPLE ABDOMINAL WALL HERNIAS, ALFREDO E REPAIRS NOTED IN THE LOWER ABDOMEN AND LEFT INGUINAL REGION. NONCONTRAST EXAM AND ADDITIONAL FINDIN GS ABOVE.
== END | disposition home or self-care (01) ==
LOC: RADCTMAIN 14:41
PROVIDERS: ATTEND Urology
DX: N20.1 Calculus of ureter (principal); R93.2 Abnormal findings on diagnostic imaging of liver and biliary tract; R93.5 Abnormal findings on diagnostic imaging of other abdominal regions, including retroperitoneum; K43.9 Ventral hernia without obstruction or gangrene; Z90.6 Acquired absence of other parts of urinary tract; Z98.890 Other specified postprocedural states; Z88.2 Allergy status to sulfonamides
CPT/HCPCS: 74176

== ENCOUNTER → 2020-09-30 | Outpatient (CLI) | payer MEDICARE ==
[2020-09-30 11:36] LABS: Amorphous Sediment,Urine Rare /hpf; Appearance,Urine Cloudy (Clear); Bacteria,Urine Many /hpf; Bilirubin,Urine Negative (Negative); Blood,Urine Small (Negative); Color,Urine Light Yellow; Glucose,Urine (UA) Negative (Negative); Ketones,Urine Negative (Negative); Leukocyte Esterase,Urine Large (Negative); Mucus,Urine Occasional /hpf; Nitrite,Urine Positive (Negative); PH, Urine 7.5 (5.0-8.0); Protein,Urine 1+ (Negative); RBC,Urine 10 /hpf (0-5); Specific Gravity,Urine 1.009 (1.001-1.035); Squamous Epithelial Cell,Urine 1 /hpf (0-4); Urobilinogen,Urine <2.0 mg/dL (<2.0); WBC,Urine 100 /hpf (0-5)
[2020-09-30 11:41] LABS: Basophils # (A) 0.1 k/uL (0-0.2); Basophils % (A) 1 %; Eosinophils # (A) 0.3 k/uL (0-0.7); Eosinophils % (A) 3 %; HGB 15.1 gm/dL (13.0-17.5); Lymphocytes # (A) 1.3 k/uL (1.0-4.8); Lymphocytes % (A) 14 %; MCH 32.6 pg (25.0-35.0); MCHC 34.4 g/dL (31.0-37.0); MCV 94.8 fL (80.0-100.0); Mean Platelet Volume 7.5; Monocytes # (A) 0.6 k/uL (0-1.0); Monocytes % (A) 6 %; Neutrophils # (A) 6.8 k/uL (1.3-7.7); Neutrophils % (A) 74 %; Platelet Count 254 k/uL (150-450); RBC 4.64 m/uL (4.30-5.90); RDW 13.4 % (11.5-15.5); WBC 9.2 k/uL (3.8-10.6)
[2020-09-30 11:58] LABS: Albumin 4.6 g/dL (3.5-5.0); Calcium 9.3 mg/dL (8.4-10.2); Potassium 4.2 mmol/L (3.5-5.1); Total Bilirubin 0.6 mg/dL (0.2-1.3); Total Protein 8.1 g/dL (6.3-8.2)
== END | disposition home or self-care (01) ==
LOC: LABPAT 10:46
PROVIDERS: ATTEND Urology
DX: Z01.818 Encounter for other preprocedural examination (principal); N20.1 Calculus of ureter; R31.29 Other microscopic hematuria
CPT/HCPCS: 36415; 80053; 81001; 85025; 87077; 87086; 87186; 93005

== ENCOUNTER 2020-10-07 05:40 | Observation (INO) | payer MEDICARE ==
[2020-10-05 11:08] VITALS: BMI 26.5
--- NOTE | 2020-10-06 16:44 | P.GSHP ---
History of Present Illness H&P Date: 10/06/20 85 yo male with a 2.6cm by 1.5 cm left roximal ureteral stone who comes for pcnl left to remove this large stone Alternatives have been discussed The risk and complications inluding infection, bleeding pain injury to adjacent organs and kidney He comes for this procedure - Constitutional Constitutional: Denies chills, Denies fever - EENT Eyes: denies blurred vision, denies pain Ears, nose, mouth and throat: Denies headache, Denies sore throat - Cardiovascular Cardiovascular: Denies chest pain, Denies shortness of breath - Respiratory Respiratory: Denies cough, Denies 7 - Gastrointestinal Gastrointestinal: Denies abdominal pain, Denies diarrhea, Denies nausea, Denies vomiting - Genitourinary (Female) Genitourinary: Denies dysuria, Denies hematuria - Genitourinary (Male) Genitourinary: Denies dysuria, Denies hematuria - Musculoskeletal Musculoskeletal: Denies myalgias - Integumentary Integumentary: Denies pruritus, Denies rash - Neurological Neurological: Denies numbness, Denies weakness - Psychiatric Psychiatric: Denies anxiety, Denies depression - Endocrine Endocrine: Denies fatigue, Denies weight change Past Medical History Past Medical History: Cancer, GERD/Reflux Additional Past Medical History / Comment(s): kidney stones, bladder cancer, colon cancer History of Any Multi-Drug Resistant Organisms: None Reported Past Surgical History: Bowel Resection, Hernia Repair Additional Past Surgical History / Comment(s): urostomy, cystectomy to remove urinary bladder, cystoscopy for kidney stones Past Anesthesia/Blood Transfusion Reactions: Motion Sickness Smoking Status: Current every day smoker - Past Family History Sister(s) Family Medical History: Cancer Brother(s) Family Medical History: Cancer Medications and Allergies Home Medications Medication Instructions Recorded Confirmed Type ALPRAZolam [Xanax] 0.5 mg PO Q8H PRN 02/04/19 10/05/20 History Omeprazole 40 mg PO DAILY 02/04/19 10/05/20 History gemfibroziL [Lopid] 600 mg PO BID 02/04/19 10/05/20 History Allergies Allergy/AdvReac Type Severity Reaction Status Date / Time Sulfa (Sulfonamide AdvReac Rash/Hives/ Verified 10/05/20 10:58 Antibiotics) itching Surgical - Exam - General well developed, well nourished, no distress - Eyes PERRL - ENT no hearing loss - Neck no masses - Respiratory normal expansion, normal respiratory effort - Cardiovascular Rhythm: regular - Abdomen Abdomen: soft, non tender - Genitourinary normal penis with no external lesions, testicles present - Integumentary no rash, no growths - Neurologic normal coordination, normal sensation - Musculoskeletal normal gait, normal posture - Psychiatric oriented to time, oriented to person, oriented to place, speech is normal, memory intact Results - Imaging CT scan - abdomen: report reviewed, image reviewed CT scan - pelvis: report reviewed, image reviewed Assessment and Plan Assessment: Impression: Large left proximal ureteral stone plan: PCNL left with stone removal
[~2020-10-07 05:40] MED LIST: HYDROmorphone 0.5 MG/0.5 ML SYRINGE IVP PRN; ONDANSETRON 4 MG/2 ML VIAL IVP ONE; PIPERACILLIN-TAZOBACTAM 3.375 GM in SODIUM CHLORIDE 0.9% 100 ML IVPB PRN
[2020-10-07] MEDS ORDERED: LIDOCAINE 1% (10MG/ML) FOR IV START IV ONE (07:00)
[2020-10-07] MEDS ORDERED: DEXAMETHASONE SOD PHOSPHATE 4 MG/ML 1 ML VIAL IV ONE (07:08)
[2020-10-07] MEDS: LACTATED RINGERS 1,000 ML IV SCH (07:09)
[2020-10-07] MEDS ORDERED: ROCURONIUM 10 MG/ML (10 ML VIAL) IV ONE (07:19)
[2020-10-07] MEDS ORDERED: NEOSTIGMINE 1 MG/ML 10 ML VIAL ONE (07:19)
[2020-10-07] MEDS ORDERED: LIDOCAINE 1% INJ 10MG/ML (20 ML MDV) ONE (07:19)
[2020-10-07] MEDS ORDERED: fentaNYL (PF) 50 MCG/ML 2 ML AMP ONE (07:19)
[2020-10-07] MEDS ORDERED: PROPOFOL 10 MG/ML 20 ML VIAL IV ONE (07:19)
[2020-10-07] MEDS ORDERED: SUCCINYLCHOLINE CHLORIDE 100 MG/5 ML SYR IV ONE (07:19)
[2020-10-07] MEDS ORDERED: HYDROmorphone (PF) 1 MG/ML ONE (07:19)
[2020-10-07] MEDS ORDERED: GLYCOPYRROLATE 0.2 MG/ML 2 ML VIAL ONE (07:19)
[2020-10-07] MEDS ORDERED: ePHEDrine SULFATE/0.9% NACL/PF 50 MG/5 ML SYRINGE IV ONE (07:19)
[2020-10-07] MEDS ORDERED: IOPAMIDOL-370 50ML BTL IRRIGATION ONE (07:56)
--- NOTE | 2020-10-07 08:25 | XR ---
EXAMINATION TYPE: XR KUB DATE OF EXAM: 10/07/2020 COMPARISON: 09/03/2000 HISTORY: Preop TECHNIQUE: One view abdominal series FINDINGS: The osseous structures are intact. The bowel gas pattern is nonspecific. Extensive postsurgical johnson ges seen. Arthropathy of the hips and hypertrophic degenerative change of the spine. Right renal outl ine is obscured by bowel content. There is a 2.7 cm left renal stone. IMPRESSION: 1. 2.7 cm left renal stone
[2020-10-07] MEDS ORDERED: MAG HYDROX/AL HYDROX/SIMETH 30 ML CUP PO PRN (09:06)
[2020-10-07] MEDS ORDERED: ONDANSETRON 4 MG/2 ML VIAL IVP PRN (09:06)
[2020-10-07] MEDS ORDERED: ALPRAZolam 0.5 MG TAB PO PRN (09:06)
[2020-10-07] MEDS ORDERED: ACETAMINOPHEN TAB 325 MG TAB PO PRN (09:06)
[2020-10-07] MEDS ORDERED: NALOXONE 0.4 MG/ML 1 ML VIAL IV PRN (09:08)
[2020-10-07] MEDS ORDERED: KETOROLAC 15 MG/ML 1 ML VIAL IVP PRN (09:08)
--- NOTE | 2020-10-07 09:16 | P.OP ---
Date of Procedure: 10/07/20 Preoperative Diagnosis: Left renal stone, large Postoperative Diagnosis: Same Procedure(s) Performed: Left percutaneous nephrostomy, percutaneous nephrostolithotomy with ultrasound (large, 2.6 cm) Anesthesia: ROSSANA Surgeon: Kvng Oropeza Estimated Blood Loss (ml): 50 Pathology: other (Stone) Condition: stable Disposition: PACU Indications for Procedure: The patient is 85. He had a 2.6 cm proximal ureteral stone obstructing the collecting system. Due to the size he's coming for percutaneous nephrostolithotomy. The patient has had a previous cystectomy and has an ileal loop therefore the percutaneous access will be on the stone. Description of Procedure: And is brought to the operating suite. He is given a general endotracheal anesthesia. He is placed in a prone position with care to airways and extremities. A sterile prep and drape the left flank is administered. Dr. whitten of radiology now performed percutaneous access to the left lower pole calyx where the stone has migrated. After adequate access I dilate the tract to 30-Zambian. Introduced the 30-Zambian sheath into the collecting system. The stone was seen. With ultrasound the stone was broken into smaller pieces. I remove the larger pieces with the grasping forcep. I passed the flexible scope through the collecting system and deflected some more stone out of the lower pole calyx which the stone resides. I then grasped the stone fragments with a stone basket. I passed the scope down the ureter and remove some small fragments out of the ureter. I looked throughout the collecting system and there are no remaining stones. A 10-Zambian J nephrostomy tube was placed and confirmed fluoroscopically. It is secured the skin with 2-0 silk Impression: Successful left percutaneous nephrostolithotomy 2.6 cm renal stone recommendations: the patient will be placed in the hospital overnight and discharged home when he is clinically stable. The nephrostomy tube will be removed in the office
--- NOTE | 2020-10-07 09:25 | FL ---
EXAMINATION TYPE: FL Perc Nephrostomy New Access DATE OF EXAM: 10/07/2020 COMPARISON: NONE HISTORY: Left renal stone Procedure had been discussed with the patient by Dr. Oropeza, risks, benefits, alternatives, were dis cussed and any questions were answered. Informed consent was obtained. The patient was in a semipro ne position prepped and draped on the OR table in the usual sterile fashion. Utilizing a 15 cm lengt h Chiba needle a single pass was made into a lower pole posterior calyx under fluoroscopic guidance. An 0.018 guidewire is passed through the needle and there was placement of a 6-Persian catheter sheat h system. There was conversion to a 0.035 system was performed with passage of a guidewire into the ureter utilizing a directional catheter. A second safety wire was placed. Remaining portion of pro cedure performed by . Approximately 1.12 minutes of fluoroscopy was provided. IMPRESSION: 1. Successful intraoperative left nephrostomy prior to nephrolithotomy.
[2020-10-07] MEDS ORDERED: HYDROmorphone PCA 10 MG/50 ML BAG IV PRN (09:30)
[2020-10-07] MEDS ORDERED: LACTATED RINGERS 1,000 ML IV ONE ×2 (11:23)
[2020-10-07] MEDS: FENOFIBRATE 160 MG TAB PO SCH (13:31)
[2020-10-07] MEDS: DEXTROSE 5%-0.45% NACL 1,000 ML IV SCH ×2 (13:44→18:17)
[2020-10-07] MEDS ORDERED: HYDROcodone/APAP 5-325MG 1 EACH TAB PO PRN (15:56)
[2020-10-08] MEDS: DEXTROSE 5%-0.45% NACL 1,000 ML IV SCH (02:46)
[2020-10-08] MEDS ORDERED: PANTOPRAZOLE 40 MG TABLET PO SCH (07:30)
[2020-10-08] MEDS: FENOFIBRATE 160 MG TAB PO SCH (07:57)
[2020-10-08 08:07] VITALS: PULSE 63; RESP 19
[2020-10-08 09:13] VITALS: BP 93/54; TEMP 98.6
--- NOTE | 2020-10-08 11:54 | P.DS ---
Providers Date of admission: 10/08/20 10:12 Expected date of discharge: 10/08/20 Attending physician: Kvng Oropeza Primary care physician: [facility] Course: On the day of admission, the patient underwent an uncomplicated left per cutaneous nephrolithotomy. The perioperative course was unremarkable. The patient remained afebrile with stable vital signs. On the first postoperative day, he was comfortable and voiding without difficulty. He denied nausea and vomiting. The nephrostomy treated was draining clear yellow urine. He reported minimal discomfort. Procedures: Left percutaneous nephrolithotomy (PCNL) on 10/07/2020. Patient Condition at Discharge: Good Plan - Discharge Summary Discharge Rx Participant: No New Discharge Prescriptions: No Action Omeprazole 40 mg PO DAILY gemfibroziL [Lopid] 600 mg PO BID ALPRAZolam [Xanax] 0.5 mg PO Q8H PRN PRN Reason: Anxiety Discharge Medication List ALPRAZolam [Xanax] 0.5 mg PO Q8H PRN 02/04/19 [History] Omeprazole 40 mg PO DAILY 02/04/19 [History] gemfibroziL [Lopid] 600 mg PO BID 02/04/19 [History] Follow up Appointment(s)/Referral(s): Kvng Oropeza MD [STAFF PHYSICIAN] - 1 Week Activity/Diet/Wound Care/Special Instructions: Discharge home with left nephrostomy tube to drainage. Diet as tolerated. Drink plenty of fluids. Avoid strenuous activity.
[2020-10-08] MEDS: LACTATED RINGERS 1,000 ML IV SCH (13:04)
== END 2020-10-08 13:19 ==
LOC: OR 05:40 → 4SSUR 08:53 → OR 10-08 10:12
PROVIDERS: ADMIT Urology; ATTEND Urology
DX: N20.2 Calculus of kidney with calculus of ureter (principal); K21.9 Gastro-esophageal reflux disease without esophagitis; Z85.51 Personal history of malignant neoplasm of bladder; Z85.038 Personal history of other malignant neoplasm of large intestine; Z90.6 Acquired absence of other parts of urinary tract; Z98.890 Other specified postprocedural states; F17.200 Nicotine dependence, unspecified, uncomplicated; Z87.442 Personal history of urinary calculi; Z80.9 Family history of malignant neoplasm, unspecified; Z79.899 Other long term (current) drug therapy; Z88.2 Allergy status to sulfonamides
CPT/HCPCS: 82365; 50432; 74018; G0378; C2628; C1769 ×2; C1894; C1729; J2543; J1100; J2710; J2405; J2001; J3010; J1170; J1885; J0330; J2704; Q9967; 86850; 86900; 86901

== ENCOUNTER → 2020-12-09 | Outpatient (CLI) | payer MEDICARE ==
[2020-12-09 15:13] LABS: Appearance,Urine Cloudy (Clear); Bacteria,Urine Few /hpf; Bilirubin,Urine Negative (Negative); Blood,Urine Negative (Negative); Color,Urine Light Yellow; Glucose,Urine (UA) Negative (Negative); Ketones,Urine Negative (Negative); Leukocyte Esterase,Urine Large (Negative); Mucus,Urine Rare /hpf; Nitrite,Urine Positive (Negative); PH, Urine 6.5 (5.0-8.0); Protein,Urine Trace (Negative); RBC,Urine 3 /hpf (0-5); Specific Gravity,Urine 1.008 (1.001-1.035); Urobilinogen,Urine <2.0 mg/dL (<2.0); WBC,Urine 35 /hpf (0-5)
[2020-12-09 15:24] LABS: Creatinine,Urine Random 48.4 mg/dL; Protein/Creatinine Ratio,Urine 0.579
[2020-12-09 22:51] LABS: HCT 43.4 % (39.6-50.0); HGB 14.3 g/dL (13.0-17.0); MCH 31.8 pg (27.0-32.0); MCHC 32.9 g/dL (32.0-37.0); MCV 96.4 fL (80.0-97.0); Mean Platelet Volume 11.3 fL (9.5-12.2); Platelet Count 251 X 10*3/uL (140-440); RDW 13.8 % (11.5-14.5); WBC 8.37 X 10*3/uL (4.50-10.00)
[2020-12-10 02:00] LABS: Ferritin 150.5 ng/mL (22.0-322.0)
[2020-12-10 02:46] LABS: % Iron Saturation 18.68 (15.00-50.00); Albumin 5.1 g/dL (3.80-4.90); Albumin/Globulin Ratio 2.13 (1.60-3.17); Anion Gap 7.9 mmol/L (4.00-12.00); BUN/Creat Ratio 17.06 Ratio (12.00-20.00); Calcium 9.4 mg/dL (8.7-10.3); Carbon Dioxide 18.1 mmol/L (21.6-31.8); Globulin 2.4 g/dL (1.6-3.3); Magnesium 1.8 mg/dL (1.5-2.4); Non-African American GFR(CKD) 36.2 (60.0-200.0); Phosphorus 3.5 mg/dL (2.4-5.1); Potassium 4.4 mmol/L (3.5-5.5); Total Bilirubin 0.3 mg/dL (0.2-1.2); Total Protein 7.5 g/dL (6.2-8.2); Uric Acid 7.1 mg/dL (3.7-8.7)
== END | disposition home or self-care (01) ==
LOC: LABWHC1 13:41
PROVIDERS: ATTEND Nurse Practitioner Family
DX: E55.9 Vitamin D deficiency, unspecified (principal); N25.81 Secondary hyperparathyroidism of renal origin; N39.0 Urinary tract infection, site not specified; R80.9 Proteinuria, unspecified; D63.1 Anemia in chronic kidney disease; N18.30 Chronic kidney disease, stage 3 unspecified; M10.9 Gout, unspecified
CPT/HCPCS: 36415; 80053; 81001; 82306; 82570; 82728; 83540; 83550; 83735; 83970; 84100; 84156; 84550; 85027

== ENCOUNTER → 2021-04-05 | Outpatient (CLI) | payer MEDICARE ==
[2021-04-05 16:40] LABS: Appearance,Urine Cloudy (Clear); Bacteria,Urine Few /hpf; Bilirubin,Urine Negative (Negative); Blood,Urine Negative (Negative); Budding Yeast,Urine Occasional /hpf; Color,Urine Light Yellow; Glucose,Urine (UA) Negative (Negative); Hyaline Casts,Urine 1 /lpf (0-2); Ketones,Urine Negative (Negative); Leukocyte Esterase,Urine Large (Negative); Mucus,Urine Rare /hpf; Nitrite,Urine Positive (Negative); PH, Urine 6.5 (5.0-8.0); Protein,Urine Trace (Negative); RBC,Urine 2 /hpf (0-5); Specific Gravity,Urine 1.009 (1.001-1.035); Squamous Epithelial Cell,Urine <1 /hpf (0-4); Urobilinogen,Urine <2.0 mg/dL (<2.0); WBC,Urine 33 /hpf (0-5)
[2021-04-05 16:48] LABS: Protein/Creatinine Ratio,Urine 0.457
[2021-04-06 01:54] LABS: Ferritin 200.8 ng/mL (22.0-322.0)
[2021-04-06 01:55] LABS: % Iron Saturation 20.68 (15.00-50.00); African American GFR (CKD) 36.7 (60.0-200.0); Albumin 4.5 g/dL (3.80-4.90); Albumin/Globulin Ratio 1.5 (1.60-3.17); Anion Gap 6.9 mmol/L (4.00-12.00); BUN/Creat Ratio 8.95 Ratio (12.00-20.00); Calcium 9.6 mg/dL (8.7-10.3); Carbon Dioxide 22.1 mmol/L (21.6-31.8); Magnesium 1.6 mg/dL (1.5-2.4); Non-African American GFR(CKD) 31.7 (60.0-200.0); Phosphorus 2.5 mg/dL (2.4-5.1); Potassium 4.4 mmol/L (3.5-5.5); Total Bilirubin 0.4 mg/dL (0.2-1.2); Total Protein 7.5 g/dL (6.2-8.2); Uric Acid 5.8 mg/dL (3.7-8.7)
[2021-04-06 11:08] LABS: HCT 43.3 % (39.6-50.0); HGB 13.7 g/dL (13.0-17.0); MCH 31.1 pg (27.0-32.0); MCHC 31.6 g/dL (32.0-37.0); MCV 98.2 fL (80.0-97.0); Mean Platelet Volume 11.4 fL (9.5-12.2); Platelet Count 265 X 10*3/uL (140-440); RBC 4.41 X 10*6/uL (4.40-5.60); RDW 13.4 % (11.5-14.5); WBC 7.57 X 10*3/uL (4.50-10.00)
== END | disposition home or self-care (01) ==
LOC: LABWHC1 15:23
PROVIDERS: ATTEND Nurse Practitioner Family
DX: N18.32 Chronic kidney disease, stage 3b (principal); D64.9 Anemia, unspecified; N39.0 Urinary tract infection, site not specified; N25.81 Secondary hyperparathyroidism of renal origin; E55.9 Vitamin D deficiency, unspecified; M10.9 Gout, unspecified
CPT/HCPCS: 36415; 80053; 81001; 82306; 82570; 82728; 83540; 83550; 83735; 83970; 84100; 84156; 84550; 85027

== ENCOUNTER 2021-05-01 04:25 | Emergency (ER) | payer MEDICARE ==
[2021-05-01 04:33] VITALS: BP 178/90; PULSE 97; RESP 26; TEMP 98
--- NOTE | 2021-05-01 05:44 | XR ---
EXAMINATION TYPE: XR shoulder complete RT DATE OF EXAM: 05/01/2021 COMPARISON: NONE HISTORY: Right shoulder pain TECHNIQUE: 3 views FINDINGS: I see no fracture nor dislocation. Glenohumeral joint is intact. There are no pathologic ca lcifications. There is mild spurring at the AC joint. IMPRESSION: Negative right shoulder exam. No fracture.
--- NOTE | 2021-05-01 06:05 | ED ---
Lower Extremity Injury HPI - General Chief Complaint: Extremity Injury, Lower Stated Complaint: Rt Shoulder Pain Time Seen by Provider: 05/01/21 04:36 Source: patient, family Mode of arrival: ambulatory Limitations: no limitations - History of Present Illness Initial Comments: This patient is an 85-year-old man who presents to be evaluated for right luca ulder pain, mainly with rotation of the shoulder. The patient had been bowling previous to the pain developing. He denied any impact to the shoulder but complains of overuse type injury. No chest pain or dyspnea. No neck pain or injury. No back injury he also has a little bit of similar pain to the left shoulder though to a much lesser degree. No weakness or numbness into the hand or arm MD Complaint: other Onset/Timin -: days(s) Type of Injury: other (Following) Severity: moderate Improves With: rest Worsens With: movement, palpation Associated Symptoms: snap/pop sensation - Related Data Home Medications Medication Instructions Recorded Confirmed ALPRAZolam [Xanax] 0.5 mg PO Q8H PRN 02/04/19 10/07/20 Omeprazole 40 mg PO DAILY 02/04/19 10/07/20 gemfibroziL [Lopid] 600 mg PO BID 02/04/19 10/07/20 Allergies Allergy/AdvReac Type Severity Reaction Status Date / Time Sulfa (Sulfonamide AdvReac Rash/Hives/ Verified 05/01/21 04:33 Antibiotics) itching Review of Systems ROS Statement: Those systems with pertinent positive or pertinent negative responses have been documented in the HPI. ROS Other: All systems not noted in ROS Statement are negative. Constitutional: Denies: fever, chills Respiratory: Denies: cough, dyspnea Cardiovascular: Denies: chest pain, palpitations Gastrointestinal: Denies: abdominal pain, nausea, vomiting Musculoskeletal: Reports: arthralgia. Denies: back pain Skin: Denies: rash Neurological: Denies: weakness, numbness, paresthesias Past Medical History Past Medical History: GERD/Reflux, Hyperlipidemia Additional Past Medical History / Comment(s): kidney stones, bladder cancer, colon cancer History of Any Multi-Drug Resistant Organisms: None Reported Past Surgical History: Hernia Repair Additional Past Surgical History / Comment(s): kidney stone removed Past Anesthesia/Blood Transfusion Reactions: No Reported Reaction, Motion Sickness Past Psychological History: Anxiety Smoking Status: Current every day smoker Past Alcohol Use History: None Reported Past Drug Use History: None Reported - Past Family History Sister(s) Family Medical History: Cancer Brother(s) Family Medical History: Cancer General Exam Limitations: no limitations General appearance: alert, in no apparent distress Head exam: Present: atraumatic, normocephalic Neck exam: Present: normal inspection, full ROM. Absent: tenderness Respiratory exam: Present: normal lung sounds bilaterally. Absent: respiratory distress, wheezes, rales, rhonchi, stridor Cardiovascular Exam: Present: regular rate, normal rhythm, normal heart sounds. Absent: systolic murmur, diastolic murmur, rubs, gallop Right Shoulder Exam: Present: normal inspection, tenderness. Absent: full ROM, swelling, abrasion, laceration, ecchymosis, deformity, crepitus, dislocation, erythema, tenderness over AC joint Upper Arm exam: Present: normal inspection. Absent: full ROM, tenderness, swelling, abrasion, laceration, ecchymosis, deformity, crepidus, dislocation Elbow exam: Present: normal inspection, full ROM. Absent: tenderness, swelling Forearm Wrist exam: Present: normal inspection, full ROM. Absent: tenderness, swelling Hand Wrist exam: Present: normal inspection, full ROM. Absent: tenderness, swelling Neuro motor exam: Present: wrist extension intact, thumb opposition intact, thumb IP flexion intact, thumb adduction intact, fingers 2-5 abduction intact Neurosensory exam: Present: radial nerve intact, ulnar nerve intact, median nerve intact Vascular: Present: normal capillary refill. Absent: vascular compromise, pulse deficit radial art, pulse deficit ulnar art, pulse deficit brachial art Neurological exam: Present: alert. Absent: motor sensory deficit Course Vital Signs 05/01/21 04:28 Temperature 98 F Pulse Rate 97 Respiratory 26 H Rate Blood Pressure 178/90 O2 Sat by Pulse 96 Oximetry Medical Decision Making - Medical Decision Making Patient is a 5-year-old man presenting with bilateral shoulder pain however much worse on the right after he had been bowling. Most of the pain is with external rotation of the shoulder. I suspect that there is either impingement or possible rotator cuff. Discussed conservative treatment and appropriate follow-up and further care with orthopedics. Return parameters discussed. Disposition Clinical Impression: Shoulder injury Disposition: HOME SELF-CARE Condition: Good Instructions (If sedation given, give patient instructions): Rotator Cuff Injury (ED) Is patient prescribed a controlled substance at d/c from ED?: No Referrals: Nikita Vasquez MD [Primary Care Provider] - 1-2 days
[2021-05-01] MEDS: IBUPROFEN 600 MG TAB PO STA (06:26)
[2021-05-01] MEDS: traMADol 50 MG TAB PO STA (06:27)
== END 2021-05-01 06:34 | disposition home or self-care (01) ==
LOC: EC 04:25
DX: S49.91XA Unspecified injury of right shoulder and upper arm, initial encounter (principal); E78.5 Hyperlipidemia, unspecified; K21.9 Gastro-esophageal reflux disease without esophagitis; F41.9 Anxiety disorder, unspecified; F17.200 Nicotine dependence, unspecified, uncomplicated; Y93.54 Activity, bowling
CPT/HCPCS: 99283

== ENCOUNTER → 2021-07-14 | Outpatient (CLI) | payer MEDICARE ==
[2021-07-14 14:39] LABS: Appearance,Urine Clear (Clear); Bacteria,Urine Occasional /hpf; Bilirubin,Urine Negative (Negative); Blood,Urine Negative (Negative); Color,Urine Light Yellow; Glucose,Urine (UA) Negative (Negative); Ketones,Urine Negative (Negative); Leukocyte Esterase,Urine Moderate (Negative); Mucus,Urine Rare /hpf; Nitrite,Urine Negative (Negative); PH, Urine 6.5 (5.0-8.0); Protein,Urine Negative (Negative); RBC,Urine 3 /hpf (0-5); Specific Gravity,Urine 1.008 (1.001-1.035); Urobilinogen,Urine <2.0 mg/dL (<2.0); WBC,Urine 10 /hpf (0-5)
[2021-07-14 20:52] LABS: HCT 43.5 % (39.6-50.0); MCH 30.3 pg (27.0-32.0); MCHC 32.2 g/dL (32.0-37.0); MCV 94.2 fL (80.0-97.0); Mean Platelet Volume 10.5 fL (9.5-12.2); Platelet Count 332 X 10*3/uL (140-440); RBC 4.62 X 10*6/uL (4.40-5.60); RDW 14.4 % (11.5-14.5); WBC 10.51 X 10*3/uL (4.50-10.00)
[2021-07-15 09:07] LABS: Anti-DNA, DS unit <1.0 IU/mL; DNA Double-Stranded NEGATIVE (NEGATIVE)
[2021-07-15 13:26] LABS: Free Kappa Lt Chain Qnt, Serum 3.27 mg/dL (0.33-1.94)
[2021-07-15 13:46] LABS: C-ANCA <1:20 Titer (<1:20)
[2021-07-15 17:48] LABS: % Iron Saturation 31.01 (15.00-50.00); ALT <8 U/L (10-49); AST 14 U/L (14-35); African American GFR (CKD) 45.2 (60.0-200.0); Alkaline Phosphatase 101 U/L (41-126); Calcium 9.5 mg/dL (8.7-10.3); Carbon Dioxide 15.8 mmol/L (21.6-31.8); Chloride 111 mmol/L (96-109); Glucose 126 mg/dL (70-110); Iron 89 ug/dL (65-175); Magnesium 1.6 mg/dL (1.5-2.4); Phosphorus 3.8 mg/dL (2.4-5.1); Potassium 4.3 mmol/L (3.5-5.5); Sodium 142 mmol/L (135-145); Total Bilirubin 0.2 mg/dL (0.2-1.2); Total Iron Binding Capacity 287 ug/dL (228-460); Total Protein 7.5 g/dL (6.2-8.2); Uric Acid 6.1 mg/dL (3.7-8.7)
[2021-07-15 17:56] LABS: Ferritin 282.7 ng/mL (22.0-322.0)
[2021-07-15 21:13] LABS: Hepatitis A Antibody IgM Non-Reactive (Non-Reactive); Hepatitis B Core IgM Non-Reactive (Non-Reactive); Hepatitis B Surface Antigen Non-Reactive (Non-Reactive); Hepatitis C IgG Antibody Non-Reactive (Non-Reactive)
== END | disposition home or self-care (01) ==
LOC: LABWHC1 13:50
PROVIDERS: ATTEND Internal Medicine
DX: N18.32 Chronic kidney disease, stage 3b (principal); D64.9 Anemia, unspecified; N39.0 Urinary tract infection, site not specified; N25.81 Secondary hyperparathyroidism of renal origin; E55.9 Vitamin D deficiency, unspecified; M10.9 Gout, unspecified; R53.83 Other fatigue; R80.9 Proteinuria, unspecified
CPT/HCPCS: 36415; 80053; 80074; 81001; 82306; 82728; 83516; 83540; 83550; 83735; 83883; 83970; 84100; 84166; 84550; 85027; 86038; 86160; 86162; 86225; 86255; 86334

== ENCOUNTER 2021-10-29 12:32 | Inpatient (IN) | payer MEDICARE ==
--- NOTE | 2021-10-29 13:02 | ED ---
General Adult HPI - General Chief complaint: Chest Pain Stated complaint: Chest Pain Time Seen by Provider: 10/29/21 12:36 Source: patient, EMS, RN notes reviewed, old records reviewed Mode of arrival: EMS Limitations: no limitations - History of Present Illness Initial comments: 86-year-old male presenting for evaluation of lower chest pain. This is been intermittent over the past several days. He describes it as sharp in nature, worse with deep breathing. He has no previous history of CAD. He denies pain at the time my evaluation. He denies fever or cough. He has some mild dyspnea associated with the pain. He does report significant weight loss over the past several months. No pain or swelling to the lower extremities. No abdominal pa in however he has had 2 episodes of vomiting. - Related Data Home Medications Medication Instructions Recorded Confirmed ALPRAZolam [Xanax] 0.5 mg PO Q8H PRN 02/04/19 10/29/21 Omeprazole 40 mg PO DAILY 02/04/19 10/29/21 gemfibroziL [Lopid] 600 mg PO BID 02/04/19 10/29/21 Folic Acid 1 mg PO DAILY 10/29/21 10/29/21 Hydrocortisone Pr Cream 1 applic RECTAL QID PRN 10/29/21 10/29/21 [Proctosol-Hc 2.5%] Nystatin 100,000Unit/gm Cream 1 applic TOPICAL BID 10/29/21 10/29/21 [Mycostatin Cream] Terbinafine HCl [LamISIL] 250 mg PO DAILY 10/29/21 10/29/21 metHOTREXate sodium [Methotrexate] 12.5 mg PO GOODSON 10/29/21 10/29/21 Allergies Allergy/AdvReac Type Severity Reaction Status Date / Time Sulfa (Sulfonamide AdvReac Rash/Hives/ Verified 10/29/21 14:39 Antibiotics) itching Review of Systems ROS Statement: Those systems with pertinent positive or pertinent negative responses have been documented in the HPI. ROS Other: All systems not noted in ROS Statement are negative. Past Medical History Past Medical History: GERD/Reflux, Hyperlipidemia Additional Past Medical History / Comment(s): kidney stones, bladder cancer, colon cancer History of Any Multi-Drug Resistant Organisms: None Reported Past Surgical History: Hernia Repair Additional Past Surgical History / Comment(s): kidney stone removed Past Anesthesia/Blood Transfusion Reactions: No Reported Reaction, Motion Sickness Past Psychological History: Anxiety Smoking Status: Current every day smoker Past Alcohol Use History: None Reported Past Drug Use History: None Reported - Past Family History Sister(s) Family Medical History: Cancer Brother(s) Family Medical History: Cancer General Exam Limitations: no limitations General appearance: alert, in no apparent distress Head exam: Present: atraumatic, normocephalic Eye exam: Present: normal appearance, PERRL, EOMI ENT exam: Present: normal exam Neck exam: Present: normal inspection. Absent: tenderness, meningismus Respiratory exam: Present: normal lung sounds bilaterally. Absent: respiratory distress, wheezes Cardiovascular Exam: Present: regular rate, normal rhythm GI/Abdominal exam: Present: soft. Absent: distended, tenderness, guarding, rebound Rectal exam: Present: other (Erythema in the left buttock, small cutaneous ulceration, no induration, no fluctuance) Extremities exam: Present: normal inspection, normal capillary refill. Absent: pedal edema, calf tenderness Neurological exam: Present: alert, oriented X3, CN II-XII intact. Absent: motor sensory deficit Psychiatric exam: Present: normal affect, normal mood Skin exam: Present: warm, dry, intact. Absent: cyanosis, diaphoretic Course Vital Signs 10/29/21 10/29/21 12:40 14:12 Temperature 98.0 F Pulse Rate 97 76 Respiratory 18 18 Rate Blood Pressure 136/82 129/79 O2 Sat by Pulse 98 97 Oximetry EKG Findings - EKG Comments: EKG Findings:: EKG: Sinus rhythm with first-degree AV block no ST segment elevation, rate of 92, DE interval 272, QRS duration 86, QTC 432 Medical Decision Making - Medical Decision Making 86-year-old male presenting for evaluation of chest pain, dyspnea. Patient has stable vitals on arrival. EKG is sinus rhythm without ST segment elevation. Patient additionally complains of weight loss over the past several months. He does appear cachectic. He has no chest pain at the time my evaluation. His laboratory studies reveal normal white blood cell count, hemoglobin of 11. He has a positive d-dimer. He does have a baseline chronic kidney disease and will require VQ scan for evaluation of dyspnea, and elevated d-dimer. His troponin is negative. He will be admitted to Dr. Johnson who is aware unable to see the patient emergency department. Serial cardiac enzymes have been ordered. Echo has been ordered. These results are pending. - Lab Data Result diagrams: 10/29/21 13:00 10/29/21 13:00 Lab Results 10/29/21 10/29/21 10/29/21 Range/Units 13:00 13:00 13:00 WBC 9.1 (3.8-10.6) k/uL RBC 3.52 L (4.30-5.90) m/uL Hgb 11.5 L (13.0-17.5) gm/dL Hct 34.9 L (39.0-53.0) % MCV 99.1 (80.0-100.0) fL MCH 32.7 (25.0-35.0) pg MCHC 33.0 (31.0-37.0) g/dL RDW 17.9 H (11.5-15.5) % Plt Count 329 (150-450) k/uL MPV 8.4 Neutrophils % 82 % Lymphocytes % 8 % Monocytes % 3 % Eosinophils % 6 % Basophils % 0 % Neutrophils # 7.5 (1.3-7.7) k/uL Lymphocytes # 0.7 L (1.0-4.8) k/uL Monocytes # 0.3 (0-1.0) k/uL Eosinophils # 0.5 (0-0.7) k/uL Basophils # 0.0 (0-0.2) k/uL Anisocytosis Slight Macrocytosis Slight PT 11.8 (9.0-12.0) sec INR 1.1 (<1.2) APTT 27.4 (22.0-30.0) sec D-Dimer 2.52 H (<0.60) mg/L FEU Sodium 137 (137-145) mmol/L Potassium 4.5 (3.5-5.1) mmol/L Chloride 111 H (98-107) mmol/L Carbon Dioxide 16 L (22-30) mmol/L Anion Gap 10 mmol/L BUN 24 H (9-20) mg/dL Creatinine 1.44 H (0.66-1.25) mg/dL Est GFR (CKD-EPI)AfAm 51 (>60 ml/min/1.73 sqM) Est GFR (CKD-EPI)NonAf 44 (>60 ml/min/1.73 sqM) Glucose 107 H (74-99) mg/dL Calcium 8.8 (8.4-10.2) mg/dL Magnesium 1.4 L (1.6-2.3) mg/dL Total Bilirubin 0.8 (0.2-1.3) mg/dL AST 24 (17-59) U/L ALT 7 (4-49) U/L Alkaline Phosphatase 83 (38-126) U/L Troponin I (0.000-0.034) ng/mL Total Protein 6.4 (6.3-8.2) g/dL Albumin 3.2 L (3.5-5.0) g/dL Lipase 68 (23-300) U/L Coronavirus (PCR) (Not Detectd) 10/29/21 10/29/21 Range/Units 13:00 14:16 WBC (3.8-10.6) k/uL RBC (4.30-5.90) m/uL Hgb (13.0-17.5) gm/dL Hct (39.0-53.0) % MCV (80.0-100.0) fL MCH (25.0-35.0) pg MCHC (31.0-37.0) g/dL RDW (11.5-15.5) % Plt Count (150-450) k/uL MPV Neutrophils % % Lymphocytes % % Monocytes % % Eosinophils % % Basophils % % Neutrophils # (1.3-7.7) k/uL Lymphocytes # (1.0-4.8) k/uL Monocytes # (0-1.0) k/uL Eosinophils # (0-0.7) k/uL Basophils # (0-0.2) k/uL Anisocytosis Macrocytosis PT (9.0-12.0) sec INR (<1.2) APTT (22.0-30.0) sec D-Dimer (<0.60) mg/L FEU Sodium (137-145) mmol/L Potassium (3.5-5.1) mmol/L Chloride (98-107) mmol/L Carbon Dioxide (22-30) mmol/L Anion Gap mmol/L BUN (9-20) mg/dL Creatinine (0.66-1.25) mg/dL Est GFR (CKD-EPI)AfAm (>60 ml/min/1.73 sqM) Est GFR (CKD-EPI)NonAf (>60 ml/min/1.73 sqM) Glucose (74-99) mg/dL Calcium (8.4-10.2) mg/dL Magnesium (1.6-2.3) mg/dL Total Bilirubin (0.2-1.3) mg/dL AST (17-59) U/L ALT (4-49) U/L Alkaline Phosphatase (38-126) U/L Troponin I <0.012 (0.000-0.034) ng/mL Total Protein (6.3-8.2) g/dL Albumin (3.5-5.0) g/dL Lipase (23-300) U/L Coronavirus (PCR) Not Detected (Not Detectd) Disposition Clinical Impression: Chest pain, D-dimer, elevated Disposition: ADMITTED IP TO THIS [facility] Condition: Stable Is patient prescribed a controlled substance at d/c from ED?: No Referrals: Nikita Vasquez MD [Primary Care Provider] - 1-2 days Decision to Admit Reason: Admit from EC Decision Date: 10/29/21 Decision Time: 15:20
[2021-10-29 13:10] LABS: Anisocytosis Slight; Basophils % (A) 0 %; Eosinophils # (A) 0.5 k/uL (0-0.7); Eosinophils % (A) 6 %; HCT 34.9 % (39.0-53.0); HGB 11.5 gm/dL (13.0-17.5); Lymphocytes # (A) 0.7 k/uL (1.0-4.8); Lymphocytes % (A) 8 %; MCH 32.7 pg (25.0-35.0); MCV 99.1 fL (80.0-100.0); Macrocytosis Slight; Mean Platelet Volume 8.4; Monocytes # (A) 0.3 k/uL (0-1.0); Monocytes % (A) 3 %; Neutrophils # (A) 7.5 k/uL (1.3-7.7); Neutrophils % (A) 82 %; Platelet Count 329 k/uL (150-450); RBC 3.52 m/uL (4.30-5.90); RDW 17.9 % (11.5-15.5); WBC 9.1 k/uL (3.8-10.6)
[2021-10-29 13:20] LABS: Calcium 8.8 mg/dL (8.4-10.2); Total Bilirubin 0.8 mg/dL (0.2-1.3)
[2021-10-29 13:29] LABS: INR 1.1 (<1.2); Partial Thromboplastin Time 27.4 sec (22.0-30.0); Prothrombin Time 11.8 sec (9.0-12.0)
[2021-10-29 13:36] LABS: Potassium 4.5 mmol/L (3.5-5.1)
[2021-10-29 13:37] LABS: Albumin 3.2 g/dL (3.5-5.0); Magnesium 1.4 mg/dL (1.6-2.3); Total Protein 6.4 g/dL (6.3-8.2)
--- NOTE | 2021-10-29 13:43 | XR ---
EXAMINATION TYPE: XR chest 2V DATE OF EXAM: 10/29/2021 COMPARISON: 02/04/2019 TECHNIQUE: PA and lateral views submitted. HISTORY: Shortness of breath FINDINGS: There is diffuse interstitial process with areas of subsegmental consolidation involving the bilatera l perihilar regions. Pleural thickening or small pleural effusions. Biapical pleural thickening. Arth ropathy of the shoulder and degenerative changes spine. Hyperinflation suggests COPD. And chronic rib deformities are noted suggestive of remote trauma. IMPRESSION: 1. There appears to be marked interval increase in the interstitial markings bilaterally some of whic h could represent underlying chronic interstitial lung disease, however, suspect an acute interstitia l process such as interstitial pneumonitis or less likely venous congestion. Superimposed perihilar i nfiltrates are noted correlate for pneumonia. Underlying neoplasm not excluded.
[2021-10-29] MEDS ORDERED: ACETAMINOPHEN TAB 325 MG TAB PO PRN (14:32)
[2021-10-29] MEDS ORDERED: NALOXONE 0.4 MG/ML 1 ML VIAL IV PRN (14:32)
[2021-10-29] MEDS ORDERED: HYDROCORTISONE 2.5% RECTAL CREAM 30 GM TUBE RECTAL PRN (15:15)
[2021-10-29] MEDS ORDERED: ALPRAZolam 0.5 MG TAB PO PRN (15:15)
[2021-10-29] MEDS ORDERED: Potassium Replacement Protocol 1 EACH MISC MISCELLANE PRN (15:16)
[2021-10-29] MEDS ORDERED: Magnesium Replacement Protocol 1 EACH MISC MISCELLANE PRN (15:16)
[2021-10-29] MEDS ORDERED: IOPAMIDOL CONTRAST (ORAL USE) VIAL PO PRN (15:17)
[2021-10-29] MEDS ORDERED: HYDROmorphone 0.5 MG/0.5 ML SYRINGE IVP PRN (15:18)
[2021-10-29] MEDS ORDERED: HYDROcodone/APAP 5-325MG 1 EACH TAB PO PRN (15:18)
[2021-10-29] MEDS ORDERED: FLUCONAZOLE IN NACL,ISO-OSM 200 MG in SALINE 1 100ML.BAG IVPB ONE (15:30)
--- NOTE | 2021-10-29 17:18 | HP ---
HISTORY AND PHYSICAL I am covering for Dr. Vasquez. DATE OF SERVICE: 10/29/2021 This 86-year-old gentleman with a past medical history of GERD, history of hypertension, history of kidney stones, being followed by Dr. Vasquez in the outpatient setting, recently had a percutaneous nephrolithotomy by Dr. Murry. Currently the patient is not at home; patient is living with his son. The patient is complaining of weight loss of about 30 pounds during the past several months. Patient is also complaining of left-sided chest pain and some cough. The pain is radiating across the chest, according to him. The patient came to [facility] and was admitted for further evaluation. Chest x-ray showed bilateral interstitial pneumonia, D-dimer was elevated, and creatinine was also elevated at 1.44. COVID-19 was negative. The patient has taken two doses of COVID vaccine. There is no history of any fever, rigors or chills. No history of headache, loss of consciousness, seizures. The patient is also complaining of significant rash in the gluteal area and inguinal area also, that has not responded to local treatment. PAST MEDICAL HISTORY: History of GERD, history of hypertension, history of kidney stones, history of hernia repair, history of anxiety, history of nicotine dependence. HOME MEDICATIONS: Methotrexate, Lamisil, nystatin, Mycostatin, Lopid, omeprazole, hydrocortisone, folic acid, apresoline. ALLERGIES: SULFA. FAMILY HISTORY: History of cancer in the family. SOCIAL HISTORY: History of smoking. No history of alcohol intake. REVIEW OF SYSTEMS: ENT: Diminished hearing. Diminished vision. CARDIOVASCULAR SYSTEM: As mentioned earlier. RESPIRATORY SYSTEM: As mentioned earlier. GI: No nausea, vomiting, diarrhea. : No dysuria. NERVOUS SYSTEM: No numbness, weakness. ALLERGY/IMMUNOLOGY: No asthma or hay fever. MUSCULOSKELETAL: As mentioned earlier. HEMATOLOGY/ONCOLOGY: As mentioned earlier. ENDOCRINE: As mentioned earlier. CONSTITUTIONAL: As mentioned earlier. DERMATOLOGY: Negative. RHEUMATOLOGY: Negative. PSYCHIATRY: As mentioned earlier. PHYSICAL EXAMINATION: Patient is alert, oriented x2. Pulse 97, blood pressure 136/80, respiration 18, temperature 98 degrees, pulse ox 98% on room air. HEENT: Conjunctivae normal. NECK: No jugular venous distention. CARDIOVASCULAR: S1, S2 muffled. RESPIRATION: Breath sounds diminished at the bases. Scattered rhonchi and crackles. ABDOMEN: Soft, scaphoid. No mass palpable. LEGS: No edema. No swelling. NERVOUS SYSTEM: Higher functions as mentioned earlier. Moves all 4 limbs. No focal motor or sensory deficit. LYMPHATICS: No lymph node palpable in neck, axillae or groin. SKIN: No ulcer, rash, bleeding. JOINTS: No active deforming arthropathy. LABS: WBC 9.2, hemoglobin 11.5. Otherwise, lymphocytes 0.7. CO2 is 16, creatinine is 1.44, magnesium 1.4. ASSESSMENT: 1. Acute bilateral interstitial pneumonia with possible sepsis, present on admission. 2. Elevated D-dimer. 3. Acute renal failure with acute tubular necrosis and prerenal renal failure. 4. Mild metabolic acidosis. 5. Hypomagnesemia. 6. Anemia, normocytic. 7. Weight loss of 40 pounds. 8. Gastroesophageal reflux disease. 9. Hyperlipidemia. 10.History of nephrolithiasis. 11.History of bladder cancer. 12.History of colon cancer. 13.History of hernia repair. 14.History of motion sickness. 15.History of anxiety. 16.History of hydronephrosis. 17.Urolithiasis. RECOMMENDATIONS AND DISCUSSION: In this 86-year-old gentleman who presented with multiple complex medical issues, we will monitor the patient closely. I will initiate empiric antibiotics and also obtain infectious disease evaluation. Add Diflucan to the current regimen. Obtain cultures. COVID-19 will be repeated. I would also recommend HIV testing. Resume the home medications. Prognosis is guarded because of multiple complex medical issues. Further recommendations to follow. See orders for further details. CT scan of the chest, abdomen and pelvis also will be obtained. V/Q scan also will be obtained because of the elevated D-dimer along with ultrasound of the legs. Prognosis guarded because of multiple complex medical issues. Further recommendations to follow. A copy of this dictation is being forwarded to Dr. Vasquez, who is the primary physician. Overall prognosis guarded. Discussed in detail with the patient's son at the bedside, who understands and agrees. MMODL / IJN: [id number] /
--- NOTE | 2021-10-29 17:57 | CT ---
EXAMINATION TYPE: CT ChestAbdPelvis wo con DATE OF EXAM: 10/29/2021 COMPARISON: CT scan abdomen and pelvis 09/15/2020 HISTORY: Weight loss and cough. CT DLP: 589.1 mGycm Automated exposure control for dose reduction was used. 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 There is coarse interstitial density throughout the lungs. Ther e are small bilateral pleural effusions. Heart size is normal. There is no pericardial effusion. Ther e are no hilar masses. I see no mediastinal adenopathy. Liver and spleen are intact. Stomach is intact. There is no evidence of pancreatic mass. Bile duct ar e nondilated. Gallbladder appears normal. There is no adrenal mass. Kidneys have normal size. There is no hydronephrosis. There is 7 mm calculu s posterior left kidney. There is a 1.5 cm cortical cyst posterior left kidney. Ureters are nondilate d. There are multiple sigmoid diverticula. There is no sign of diverticulitis. There are surgical cli ps from cystectomy. There is ileal conduit. No sign of renal obstruction. There is no ascites or free air. There is no sign of a bowel obstruction. Thoracic and lumbar vertebra appear intact. There is no compression fracture. The bony pelvis is inta ct. Hip joints are intact. There is mild spurring in the thoracic and lumbar spine. IMPRESSION: Pulmonary interstitial edema and fibrotic changes. Bilateral pleural effusions. Congestive heart fail ure is possible. Interstitial infiltrate significantly increased compared to old exam. Pleural fluid is new compared to old exam. No acute abnormality in the abdomen and pelvis. Sigmoid diverticulosis.
[2021-10-29] MEDS: PIPERACILLIN-TAZOBACTAM 3.375 GM in SODIUM CHLORIDE 0.9% 100 ML IVPB SCH (18:19)
--- NOTE | 2021-10-29 18:50 | P.CNPUL ---
History of Present Illness Consult date: 10/29/21 Requesting physician: Bell Johnson Reason for consult: dyspnea, chest pain Chief complaint: Chest pain, shortness of breath, pain on inhalation History of present illness: This is a very pleasant 86-year-old gentleman has a history of gastroesophageal reflux disease, hyperlipidemia, kidney stones, bladder cancer, colon cancer, anxiety, chronic tobacco dependence, rheumatoid arthritis and is maintained on methotrexate. He presented to the emergency room today with complaints of chest pain. This had been intermittent over the past several days. He described it as sharp in nature worse with deep breathing. No prior history of coronary artery disease. Mild dyspnea. Chest x-ray reveals increased interstitial markings bilaterally suspect underlying chronic interstitial lung disease versus acute interstitial edema or interstitial pneumonitis. Superimposed perihilar infiltrates noted. Underlying neoplasm not excluded. Computed tomography scan of the chest without contrast revealed pulmonary interstitial edema and fibrotic changes. Bilateral pleural effusions. Congestive heart failure suspected. Computed tomography scan of the abdomen and pelvis revealed no acute abnormaliti es. White count 9.1. Hemoglobin 11.5. Platelets 329. Lymphocytes 0.7. D- dimer 2.52. Sodium 137. Potassium 4.5. Creatinine 1.44. Troponins negative 2. Currently advised by PCR not detected. He is seen in consultation in the emergency department. He is currently resting quite comfortably on a stretcher. Maintaining O2 saturations in the mid to upper 90s on room air. He's afebrile. Hemodynamically stable. He's been initiated on Zosyn, fluconazole, heparin for DVT prophylaxis. Review of Systems REVIEW OF SYSTEMS: CONSTITUTIONAL: Denies any recent significant weight loss or weight gain. EYES: Denies change in vision. EARS, NOSE, MOUTH, THROAT: Denies headaches, denies sore throat. CARDIOVASCULAR: Positive for chest pain, no palpitations or syncopal episodes. RESPIRATORY: Positive for shortness of breath, cough, congestion or hemoptysis. GASTROINTESTINAL: Denies change in appetite, denies abdominal pain GENITOURINARY: Denies hematuria, denies infections. MUSKULOSKELETAL: Denies pain, denies swelling. INTEGUMENTARY: Denies rash, denies eczema. NEUROLOGICAL: Denies recent memory loss, no recent seizure activity. PSYCHIATRIC: Denies anxiety, denies depression. HEMATOLOGIC/LYMPHATIC: Denies anemia, denies enlarged lymph nodes. Past Medical History Past Medical History: GERD/Reflux, Hyperlipidemia Additional Past Medical History / Comment(s): kidney stones, bladder cancer, col on cancer History of Any Multi-Drug Resistant Organisms: None Reported Past Surgical History: Hernia Repair Additional Past Surgical History / Comment(s): kidney stone removed Past Anesthesia/Blood Transfusion Reactions: No Reported Reaction, Motion Sickness Past Psychological History: Anxiety Smoking Status: Current every day smoker Past Alcohol Use History: None Reported Past Drug Use History: None Reported - Past Family History Sister(s) Family Medical History: Cancer Brother(s) Family Medical History: Cancer Medications and Allergies Home Medications Medication Instructions Recorded Confirmed Type ALPRAZolam [Xanax] 0.5 mg PO Q8H PRN 02/04/19 10/29/21 History Omeprazole 40 mg PO DAILY 02/04/19 10/29/21 History gemfibroziL [Lopid] 600 mg PO BID 02/04/19 10/29/21 History Folic Acid 1 mg PO DAILY 10/29/21 10/29/21 History Hydrocortisone Pr Cream 1 applic RECTAL QID PRN 10/29/21 10/29/21 History [Proctosol-Hc 2.5%] Nystatin 100,000Unit/gm Cream 1 applic TOPICAL BID 10/29/21 10/29/21 History [Mycostatin Cream] Terbinafine HCl [LamISIL] 250 mg PO DAILY 10/29/21 10/29/21 History metHOTREXate sodium [Methotrexate] 12.5 mg PO GOODSON 10/29/21 10/29/21 History Allergies Allergy/AdvReac Type Severity Reaction Status Date / Time Sulfa (Sulfonamide AdvReac Rash/Hives/ Verified 10/29/21 14:39 Antibiotics) itching Physical Exam Vitals: Vital Signs Temp Pulse Resp BP Pulse Ox 10/29/21 17:10 90 18 127/73 96 10/29/21 14:12 76 18 129/79 97 10/29/21 12:40 98.0 F 97 18 136/82 98 Intake and Output 10/29/21 10/29/21 10/29/21 06:59 14:59 22:59 Other: Weight 70.307 kg GENERAL EXAM: Alert, very pleasant 86-year-old gentleman, on room air, comfortable in no apparent distress. HEAD: Normocephalic. EYES: Normal reaction of pupils, equal size. NOSE: Clear with pink turbinates. THROAT: No erythema or exudates. NECK: No masses, no JVD. CHEST: No chest wall deformity. LUNGS: Equal air entry with coarse basilar crackles CVS: S1 and S2 normal with no audible murmur, regular rhythm. ABDOMEN: No hepatosplenomegaly, normal bowel sounds, no guarding or rigidity. SPINE: No scoliosis or deformity SKIN: No rashes CENTRAL NERVOUS SYSTEM: No focal deficits, tone is normal in all 4 extremities. EXTREMITIES: There is no peripheral edema. No clubbing, no cyanosis. Peripheral pulses are intact. Results - Laboratory Findings CBC and BMP: 10/29/21 13:00 10/29/21 13:00 PT/INR, D-dimer PT 11.8 sec (9.0-12.0) 10/29/21 13:00 INR 1.1 (<1.2) 10/29/21 13:00 D-Dimer 2.52 mg/L FEU (<0.60) H 10/29/21 13:00 Abnormal lab findings: Abnormal Labs 10/29/21 10/29/21 10/29/21 13:00 13:00 13:00 RBC 3.52 L Hgb 11.5 L Hct 34.9 L RDW 17.9 H Lymphocytes # 0.7 L D-Dimer 2.52 H Chloride 111 H Carbon Dioxide 16 L BUN 24 H Creatinine 1.44 H Glucose 107 H Magnesium 1.4 L Albumin 3.2 L - Diagnostic Findings Chest x-ray: image reviewed CT scan - chest: image reviewed Assessment and Plan Assessment: 1 Atypical chest pain, acute coronary syndrome ruled out 2 Shortness of breath without hypoxic respiratory failure. Recent chest x-ray did not reveal any evidence of ILD, questionable congestive heart failure. 3 acute renal failure, current creatinine 1.44 4 History of rheumatoid arthritis 5 History of gastroesophageal reflux disease 7 History of colon cancer 8 History of bladder cancer 9 History of kidney stone 10 Chronic tobacco dependence 11 Anxiety Plan: The patient was seen and evaluated Chest x-ray, CAT scans and labs reviewed We'll check a pro-calcitonin, proBNP Obtain echocardiogram Lasix 20 mg IV every 12 hours Continue Zosyn Continue heparin for DVT prophylaxis We will continue to follow make further recommendations based on his clinical status I, the cosigning physician, performed a history & physical examination of the patient. Lungs sounds crackles in the bilateral bases. Maintaining good O2 saturations in the 90s on room air. I discussed the assessment and plan of care with my nurse practitioner, Tonie Godfrey. I attest to the above consultation as dictated by her. Time with Patient: Greater than 30
[2021-10-30] LABS: HIV 2 AB Non-Reactive (Non-Reactive); HIV AB P24 Non-Reactive (Non-Reactive); HIV P24 AG Non-Reactive (Non-Reactive)
[2021-10-30] MEDS: FUROSEMIDE 10 MG/ML 2 ML VIAL IV SCH ×3 (04:27→22:10)
[2021-10-30] MEDS: HEPARIN SODIUM,PORCINE/PF 5,000 UNIT/0.5 ML SYRINGE SQ SCH ×3 (04:27→22:10)
[2021-10-30] MEDS: PIPERACILLIN-TAZOBACTAM 3.375 GM in SODIUM CHLORIDE 0.9% 100 ML IVPB SCH ×3 (05:54→17:00)
[2021-10-30 08:26] LABS: Anisocytosis Slight; Basophils % (A) 1 %; Eosinophils # (A) 0.6 k/uL (0-0.7); Eosinophils % (A) 9 %; HCT 34.1 % (39.0-53.0); Lymphocytes # (A) 0.9 k/uL (1.0-4.8); Lymphocytes % (A) 12 %; MCH 32.1 pg (25.0-35.0); MCHC 32.1 g/dL (31.0-37.0); MCV 99.8 fL (80.0-100.0); Macrocytosis Slight; Mean Platelet Volume 7.6; Monocytes # (A) 0.4 k/uL (0-1.0); Monocytes % (A) 5 %; Neutrophils # (A) 5.3 k/uL (1.3-7.7); Neutrophils % (A) 73 %; Platelet Count 324 k/uL (150-450); RBC 3.42 m/uL (4.30-5.90); RDW 17.8 % (11.5-15.5); WBC 7.3 k/uL (3.8-10.6)
[2021-10-30 08:44] LABS: Calcium 8.8 mg/dL (8.4-10.2); Magnesium 1.5 mg/dL (1.6-2.3); Potassium 3.7 mmol/L (3.5-5.1)
[2021-10-30] MEDS ORDERED: NON FORMULARY DRUG (Omeprazole [Omeprazole] 40 MG Capsule.Dr) PO SCH (09:00)
--- NOTE | 2021-10-30 10:08 | NM ---
EXAMINATION TYPE: NM pul vent and perfuse DATE OF EXAM: 10/30/2021 COMPARISON: CT chest from 10/29/2021 HISTORY: Elevated d-dimer TECHNIQUE: Utilizing inhalation of 68.9 mCi Tc 99m DTPA aerosol and intravenous injection of 5.3 mCi of Tc 99m MAA, ventilation and perfusion images are acquired post injection in multiple projections. FINDINGS: Normal radiotracer distribution is noted in the lungs. There is no evidence of mismatched defects. There is nonsegmental diminished activity identified scattered throughout both lungs. No wedge-shaped perfusion abnormalities identified. IMPRESSION: Very low probability of pulmonary embolus imaging.
[2021-10-30] MEDS: FENOFIBRATE 160 MG TAB PO SCH (10:29)
[2021-10-30] MEDS: FOLIC ACID 1 MG TAB PO SCH (10:29)
[2021-10-30] MEDS: PANTOPRAZOLE 40 MG/10 ML VIAL IV SCH (10:30)
--- NOTE | 2021-10-30 10:53 | P.CRDCN ---
History of Present Illness History of present illness: HISTORY OF PRESENTING ILLNESS Patient is a pleasant 86-year-old male with history of GERD, hyperlipidemia, kidney stones, bladder cancer, colon cancer, anxiety, tobacco abuse, rheumatoid arthritis who presents secondary to chest pain and shortness breath. Patient states for the last 4-5 days he has been having episodes of chest discomfort across the front part of his chest associated with shortness breath. This worsened and therefore he presented to emergency department. He denies any associated nausea or diaphoresis. He denies any cardiac history and last stress test was approximately 10 years ago. 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 He had workup with a CT chest which showed pulmonary interstitial edema and fibrotic changes with bilateral pleural effusions. White count is 9.1, hemoglobin 11.5, platelets 329, d-dimer 2.52, creatinine 1.4 for which appears stable, troponins normal 3. ProBNP 156, pro-calcitonin 0.13. EKG shows sinus rhythm without significant ST or T-wave abnormalities. He does smoke, no alcohol, no illicit drugs. He also had a VQ scan performed which showed low probability of PE. REVIEW OF SYSTEMS At the time of my exam: CONSTITUTIONAL: Denies fever or chills. CARDIOVASCULAR: Denies chest pain, shortness of breath, orthopnea, PND or palpitations. RESPIRATORY: Denies cough. GASTROINTESTINAL: Denies abdominal pain, diarrhea, constipation, nausea or vomiting. MUSCULOSKELETAL: Denies myalgias. NEUROLOGIC: Denies numbness, tingling or weakness. ENDOCRINE: Denies fatigue, weight change, polydipsia or polyurina. GENITOURINARY: Denies burning, hematuria or urgency with micturation. HEMATOLOGIC: Denies history of anemia or bleeding. PHYSICAL EXAMINATION Vital signs reviewed. CONSTITUTIONAL: No apparent distress. HEENT: Head is normocephalic. Pupils are equal, round. Sclerae anicteric. Mucous membranes of the mouth are moist. No JVD. No carotid bruit. CHEST EXAMINATION: Bilateral wheezing HEART EXAMINATION: Regular rate and rhythm. S1, S2 heard. No murmurs, gallops or rub. ABDOMEN: Soft, nontender. Positive bowel sounds. EXTREMITIES: 2+ peripheral pulses, no lower extremity edema and no calf tenderness. NEUROLOGIC EXAMINATION: Patient is awake, alert and oriented x3. ASSESSMENT 1. Acute on chronic respiratory failure. Do not suspect heart failure with normal BMP despite his age and CKD 2. atypical chest pain, troponins normal 3, VQ scan no PE 3. tobacco abuse and wheezing on exam, suspect some component of COPD 4. CKD appears stable 5. Tobacco abuse PLAN Patient's main presentation is of shortness breath and chest pain over the last 4-5 days. He is wheezing on exam with a normal proBNP and suspect more related to pulmonary source. His chest pain appears atypical with normal troponins 3. Given his chronic kidney disease and advanced age would attempt to treat medically. We will add an aspirin as tolerated, no beta vanessa given suspected COPD and relatively normal blood pressures. Check 2-D echo and as long as normal patient likely will be able to be discharged from a cardiac standpoint. Past Medical History Past Medical History: GERD/Reflux, Hyperlipidemia Additional Past Medical History / Comment(s): kidney stones, bladder cancer, colon cancer History of Any Multi-Drug Resistant Organisms: None Reported Past Surgical History: Hernia Repair Additional Past Surgical History / Comment(s): kidney stone removed ILIOSTOMY Past Anesthesia/Blood Transfusion Reactions: No Reported Reaction, Motion Sickness Past Psychological History: Anxiety Smoking Status: Current some day smoker Past Alcohol Use History: None Reported Additional Past Alcohol Use History / Comment(s): smoking 1/2 PPD, smoked for 10 yrs(quit for 30 yrs, started smoking as teen) Past Drug Use History: None Reported - Past Family History Sister(s) Family Medical History: Cancer Brother(s) Family Medical History: Cancer Medications and Allergies Home Medications Medication Instructions Recorded Confirmed Type ALPRAZolam [Xanax] 0.5 mg PO Q8H PRN 02/04/19 10/29/21 History Omeprazole 40 mg PO DAILY 02/04/19 10/29/21 History gemfibroziL [Lopid] 600 mg PO BID 02/04/19 10/29/21 History Folic Acid 1 mg PO DAILY 10/29/21 10/29/21 History Hydrocortisone Pr Cream 1 applic RECTAL QID PRN 10/29/21 10/29/21 History [Proctosol-Hc 2.5%] Nystatin 100,000Unit/gm Cream 1 applic TOPICAL BID 10/29/21 10/29/21 History [Mycostatin Cream] Terbinafine HCl [LamISIL] 250 mg PO DAILY 10/29/21 10/29/21 History metHOTREXate sodium [Methotrexate] 12.5 mg PO GOODSON 10/29/21 10/29/21 History Allergies Allergy/AdvReac Type Severity Reaction Status Date / Time Sulfa (Sulfonamide AdvReac Rash/Hives/ Verified 10/29/21 14:39 Antibiotics) itching Physical Exam Vitals: Vital Signs Temp Pulse Pulse Resp BP BP Pulse Ox 10/30/21 04:00 97.6 F 81 18 110/67 95 10/30/21 02:00 18 10/30/21 00:00 97.9 F 70 18 112/68 97 10/29/21 23:57 97.9 F 70 18 112/68 97 10/29/21 17:10 90 18 127/73 96 10/29/21 14:12 76 18 129/79 97 10/29/21 12:40 98.0 F 97 18 136/82 98 Intake and Output 10/29/21 10/30/21 10/30/21 22:59 06:59 14:59 Output Total 350 Balance -350 Output: Urine 350 Other: Weight 70.307 kg Results 10/30/21 08:10 10/30/21 08:10 Cardiac Enzymes 10/29/21 10/29/21 10/29/21 Range/Units 13:00 13:00 16:12 AST 24 (17-59) U/L Troponin I <0.012 <0.012 (0.000-0.034) ng/mL 10/29/21 Range/Units 18:06 AST (17-59) U/L Troponin I <0.012 (0.000-0.034) ng/mL Coagulation 10/29/21 Range/Units 13:00 PT 11.8 (9.0-12.0) sec APTT 27.4 (22.0-30.0) sec CBC 10/29/21 10/30/21 Range/Units 13:00 08:10 WBC 9.1 7.3 (3.8-10.6) k/uL RBC 3.52 L 3.42 L (4.30-5.90) m/uL Hgb 11.5 L 11.0 L (13.0-17.5) gm/dL Hct 34.9 L 34.1 L (39.0-53.0) % Plt Count 329 324 (150-450) k/uL Comprehensive Metabolic Panel 10/29/21 10/30/21 Range/Units 13:00 08:10 Sodium 137 136 L (137-145) mmol/L Potassium 4.5 3.7 (3.5-5.1) mmol/L Chloride 111 H 111 H (98-107) mmol/L Carbon Dioxide 16 L 17 L (22-30) mmol/L BUN 24 H 22 H (9-20) mg/dL Creatinine 1.44 H 1.48 H (0.66-1.25) mg/dL Glucose 107 H 113 H (74-99) mg/dL Calcium 8.8 8.8 (8.4-10.2) mg/dL AST 24 (17-59) U/L ALT 7 (4-49) U/L Alkaline Phosphatase 83 (38-126) U/L Total Protein 6.4 (6.3-8.2) g/dL Albumin 3.2 L (3.5-5.0) g/dL Current Medications Generic Name Dose Route Start Last Admin Trade Name Freq PRN Reason Stop Dose Admin Acetaminophen 650 mg 10/29/21 14:32 Acetaminophen Tab 325 Mg Tab PO Q6HR PRN Mild Pain or Fever > 100.5 Hydrocodone Bitart/Acetaminophen 1 each 10/29/21 15:18 Hydrocodone/Apap 5-325mg 1 Each Tab PO Q6HR PRN Pain Alprazolam 0.5 mg 10/29/21 15:15 Alprazolam 0.5 Mg Tab PO Q8H PRN Anxiety Fenofibrate 160 mg 10/30/21 09:00 10/30/21 10:29 Fenofibrate 160 Mg Tab PO 160 mg DAILY MARÍA Administration Folic Acid 1 mg 10/30/21 09:00 10/30/21 10:29 Folic Acid 1 Mg Tab PO 1 mg DAILY MARÍA Administration Furosemide 20 mg 10/29/21 21:00 10/30/21 10:29 Furosemide 10 Mg/Ml 2 Ml Vial IV 20 mg Q12HR MARÍA Administration Heparin Sodium (Porcine) 5,000 unit 10/29/21 21:00 10/30/21 10:30 Heparin Sodium,Porcine/Pf 5,000 Unit/0.5 Ml Syringe SQ 5,000 unit Q12HR MARÍA Administration Hydrocortisone 1 applic 10/29/21 15:15 Hydrocortisone 2.5% Rectal Cream 30 Gm Tube RECTAL QID PRN Rash Hydromorphone HCl 0.5 mg 10/29/21 15:18 Hydromorphone 0.5 Mg/0.5 Ml Syringe IVP Q6HR PRN Severe Pain Piperacillin Sod/Tazobactam 100 mls @ 25 mls/hr 10/29/21 16:00 10/30/21 10:32 Sod 3.375 gm/ Sodium Chloride IVPB 25 mls/hr Q8HR MARÍA Administration Fluconazole/Sodium Chloride 100 mls @ 100 mls/hr 10/30/21 16:00 200 mg/ IV Solution IVPB Q24H MARÍA Iopamidol 30 ml 10/29/21 15:17 Iopamidol Contrast (Oral Use) Vial PO 10/30/21 15:[address] Scan Miscellaneous Information 1 each 10/29/21 15:16 Magnesium Replacement Protocol 1 Each Misc MISCELLANE DAILY PRN Per Protocol Protocol Miscellaneous Information 1 each 10/29/21 15:16 Potassium Replacement Protocol 1 Each Misc MISCELLANE DAILY PRN Per Protocol Protocol Naloxone HCl 0.2 mg 10/29/21 14:32 Naloxone 0.4 Mg/Ml 1 Ml Vial IV Q2M PRN Opioid Reversal Pantoprazole Sodium 40 mg 10/30/21 09:00 10/30/21 10:30 Pantoprazole 40 Mg/10 Ml Vial IV 40 mg DAILY MARÍA Administration Intake and Output 10/29/21 10/30/21 10/30/21 22:59 06:59 14:59 Output Total 350 Balance -350 Output: Urine 350 Other: Weight 70.307 kg 10/30/21 08:10 10/30/21 08:10
[2021-10-30 10:54] VITALS: BMI 22.2
--- NOTE | 2021-10-30 11:46 | P.PN ---
Subjective Progress Note Date: 10/30/21 This is a very pleasant 86-year-old gentleman has a history of gastroesophageal reflux disease, hyperlipidemia, kidney stones, bladder cancer, colon cancer, anxiety, chronic tobacco dependence, rheumatoid arthritis and is maintained on methotrexate. He presented to the emergency room today with complaints of chest pain. This had been intermittent over the past several days. He described it as sharp in nature worse with deep breathing. No prior history of coronary artery disease. Mild dyspnea. Chest x-ray reveals increased interstitial markings bilaterally suspect underlying chronic interstitial lung disease versus acute interstitial edema or interstitial pneumonitis. Superimposed perihilar infiltrates noted. Underlying neoplasm not excluded. Computed tomography scan of the chest without contrast revealed pulmonary interstitial edema and fibrotic changes. Bilateral pleural effusions. Congestive heart failure suspected. Computed tomography scan of the abdomen and pelvis revealed no acute abnormalities. White count 9.1. Hemoglobin 11.5. Platelets 329. Lymphocytes 0.7. D-dimer 2.52. Sodium 137. Potassium 4.5. Creatinine 1.44. Troponins negative 2. Currently advised by PCR not detected. He is seen in consultation in the emergency department. He is currently resting quite comfortably on a stretcher. Maintaining O2 saturations in the mid to upper 90s on room air. He's afebrile. Hemodynamically stable. He's been initiated on Zosyn, fluconazole, heparin for DVT prophylaxis. 10/30/2021, the patient is being seen for a follow-up in the new complaints. Remains on broad-spectrum antibiotics with IV Zosyn. The patient was also subjected to diuresis yesterday receiving 20 mg of IV Lasix every [address] of the chest was completed yesterday showed bilateral pleural effusion and some interstitial and nodular pulmonary infiltrates bilaterally. Consider underlying infection with possibility of any decompensated CHF on top. Based on that, echocardiac Dayne was ordered. Troponins are negative 2, COVID 19 testing was negative, influenza A and B was negative, RSV was negative, the patient's d- dimer is at 2.52, the white cell count at 7.3 with a hemoglobin of 11, the sodium level is at 136, serum bicarbonate 17 with a mean of 22 with a creatinine of 1.48. Pro-calcitonin level was 0.13. The patient was taken off the methotrexate. The patient had a negative HIV screen. Objective - Vital Signs Vital signs: Vital Signs Temp 97.6 F 10/30/21 04:00 Pulse 81 10/30/21 04:00 Resp 18 10/30/21 04:00 BP 110/67 10/30/21 04:00 Pulse Ox 95 10/30/21 04:00 Intake & Output 10/29/21 10/30/21 10/30/21 18:59 06:59 18:59 Output Total 350 Balance -350 Weight 70.307 kg 70.307 kg 70.307 kg Output: Urine 350 - Exam GENERAL EXAM: Alert, very pleasant 86-year-old gentleman, on room air, comfortable in no apparent distress. HEAD: Normocephalic. EYES: Normal reaction of pupils, equal size. NOSE: Clear with pink turbinates. THROAT: No erythema or exudates. NECK: No masses, no JVD. CHEST: No chest wall deformity. LUNGS: Equal air entry with coarse basilar crackles CVS: S1 and S2 normal with no audible murmur, regular rhythm. ABDOMEN: No hepatosplenomegaly, normal bowel sounds, no guarding or rigidity. SPINE: No scoliosis or deformity SKIN: No rashes CENTRAL NERVOUS SYSTEM: No focal deficits, tone is normal in all 4 extremities. EXTREMITIES: There is no peripheral edema. No clubbing, no cyanosis. P eripheral pulses are intact. - Labs CBC & Chem 7: 10/30/21 08:10 10/30/21 08:10 Labs: Abnormal Lab Results - Last 24 Hours (Table) 10/29/21 10/29/21 10/29/21 Range/Units 13:00 13:00 13:00 RBC 3.52 L (4.30-5.90) m/uL Hgb 11.5 L (13.0-17.5) gm/dL Hct 34.9 L (39.0-53.0) % RDW 17.9 H (11.5-15.5) % Lymphocytes # 0.7 L (1.0-4.8) k/uL D-Dimer 2.52 H (<0.60) mg/L FEU Sodium (137-145) mmol/L Chloride 111 H (98-107) mmol/L Carbon Dioxide 16 L (22-30) mmol/L BUN 24 H (9-20) mg/dL Creatinine 1.44 H (0.66-1.25) mg/dL Glucose 107 H (74-99) mg/dL Magnesium 1.4 L (1.6-2.3) mg/dL Albumin 3.2 L (3.5-5.0) g/dL Procalcitonin (0.02-0.09) ng/mL 10/29/21 10/30/21 10/30/21 Range/Units 13:00 08:10 08:10 RBC 3.42 L (4.30-5.90) m/uL Hgb 11.0 L (13.0-17.5) gm/dL Hct 34.1 L (39.0-53.0) % RDW 17.8 H (11.5-15.5) % Lymphocytes # 0.9 L (1.0-4.8) k/uL D-Dimer (<0.60) mg/L FEU Sodium 136 L (137-145) mmol/L Chloride 111 H (98-107) mmol/L Carbon Dioxide 17 L (22-30) mmol/L BUN 22 H (9-20) mg/dL Creatinine 1.48 H (0.66-1.25) mg/dL Glucose 113 H (74-99) mg/dL Magnesium 1.5 L (1.6-2.3) mg/dL Albumin (3.5-5.0) g/dL Procalcitonin 0.13 H (0.02-0.09) ng/mL Assessment and Plan Plan: 1 Atypical chest pain, acute coronary syndrome ruled out 2 Shortness of breath without hypoxic respiratory failure. Recent chest x-ray did not reveal any evidence of ILD, questionable congestive heart failure. CT of the chest was noted. There is evidence of bilateral pleural effusion and interstitial pulmonary infiltrates bilaterally with some other entity probably related to an underlying interstitial pneumonia/and the on top of it there is a component of CHF. The patient is currently on antibiotics. The patient is also being diuresis. Patient is currently off methotrexate. 3 acute renal failure, current creatinine 1.44 4 History of rheumatoid arthritis 5 History of gastroesophageal reflux disease 7 History of colon cancer 8 History of bladder cancer 9 History of kidney stone 10 Chronic tobacco dependence 11 Anxiety Plan: Awaiting results of the 2-D echocardiogram Continue IV Lasix Monitor renal function and electrolytes Monitor fluid balance and the patient's body weight is down to 70 kg We'll continue to follow. Repeat chest x-ray with next 24-48 hours. Awaiting cardiology consultation.
[2021-10-30] MEDS: ASPIRIN 81 MG PO SCH (12:52)
[2021-10-30] MEDS ORDERED: POTASSIUM CHLORIDE ER 20 MEQ TAB.ER PO SCH (15:00)
[2021-10-30] MEDS: FLUCONAZOLE IN NACL,ISO-OSM 200 MG in SALINE 1 100ML.BAG IVPB SCH (16:47)
[2021-10-30] MEDS: MAGNESIUM SULFATE-D5W PMX 1 GM in DEXTROSE/WATER 1 100ML.BAG IVPB SCH ×2 (16:48→22:09)
--- NOTE | 2021-10-30 19:22 | PN ---
PROGRESS NOTE DATE OF SERVICE: 10/30/2001 I am covering for Dr. Vasquez. This 86-year-old gentleman who was admitted with acute bilateral aspiration pneumonia with possible sepsis is being closely monitored. The patient has elevated D-dimer. The Covid 19 has been negative. Creatinine is also elevated. V/Q scan was showing very low probability of pulmonary embolism and a chest CT and abdomen and pelvis CT was done which showed mild interstitial fibrotic changes, bilateral pleural effusion also. Multiple consultants are following the patient closely. Dr. Jc has seen the patient. Continue the current medications. Two-D echo reports are pending at this time. Past medical history reviewed. REVIEW OF SYSTEMS: Cardiovascular: No angina or palpitations. Respiration: As mentioned earlier. GI as mentioned earlier. Nervous system: No numbness or weakness. CURRENT MEDICATIONS: Reviewed and include: Tylenol, [place], Xanax, aspirin, Lofibra, fluconazole, other medications reviewed. PHYSICAL EXAMINATION: Patient is alert, oriented x1. Pulse 94, blood pressure 107/63, respiration 18, temperature 97.8, pulse ox 98% on room air. HEENT: Conjunctivae normal. NECK: No JVD. Cardiovascular: S1, S2 muffled. Respiration: A few scattered rhonchi and crackles. Abdomen: Soft. Legs: No edema. Nervous system: No focal deficits. LABS: Creatinine is 1.48 and sodium is 136. Other labs are noted. HIV is nonreactive and RSV is negative. Covid is negative. Hemoglobin is 11. ASSESSMENT: 1. Acute bilateral interstitial pneumonia with possible sepsis, present on admission. 2. Elevated D-dimer. 3. Covid negative. 4. Heart failure unlikely. 5. Acute renal failure with acute tubular necrosis with prerenal renal failure. 6. Rule out congestive heart failure. 7. Mild metabolic acidosis. 8. Hypomagnesemia. 9. Anemia, normocytic. 10.Weight loss of 40 pounds. 11.Gastroesophageal reflux disease. 12.Hyperlipidemia. 13.History of nephrolithiasis. 14.History of bladder cancer. 15.History of colon cancer. 16.History of hernia repair. 17.History of motion sickness. 18.History of anxiety. 19.History of hydronephrosis. 20.Urolithiasis. 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 RECOMMENDATIONS AND DISCUSSION: In this 86-year-old gentleman who presented with multiple complex medical issues, we will monitor the patient closely. Continue the current medications, symptomatic treatment. Otherwise, pulmonary and cardiology has seen the patient. We will recommend continue the current medications. Ensure oxygenation. Continue with antifungals. Prognosis guarded because of multiple complex medical issues. Further recommendations to follow. Empiric antibiotics initiated. Cultures are negative at this time. MMODL / IJN: [id number] /
--- NOTE | 2021-10-30 23:16 | PN ---
PROGRESS NOTE DATE OF SERVICE: 10/30/2021 REASON FOR FOLLOWUP: Possible abscess. INTERVAL HISTORY: The patient is afebrile. The patient is currently breathing comfortably on room air. The patient still has some chest pain; no worsening, though. Did have a cough, not bringing up any sputum. No vomiting. No abdominal pain or diarrhea. PHYSICAL EXAMINATION: Blood pressure 114/70 with a pulse of 84, temperature 98.1. He is 96% on room air. General description is an elderly male lying in bed in no distress. Respiratory system: Unlabored breathing, decreased intensity of breath sounds. No wheeze. Heart S1, S2. Regular rate and rhythm. Abdomen soft, no tenderness. LABS: [place] PCR was negative. HIV testing was negative. Influenza and RSV are negative. DIAGNOSTIC IMPRESSION AND PLAN: Patient admitted to hospital with chest pain with interstitial infiltrate, possibly related to underlying cardiac etiology. Clinically not behaving as pneumonia. On empiric antibiotic; may continue while waiting for the culture to finalize, and monitor his clinical course closely. MMODL / IJN: [id number] /
[2021-10-31] MEDS: PIPERACILLIN-TAZOBACTAM 3.375 GM in SODIUM CHLORIDE 0.9% 100 ML IVPB SCH ×3 (00:48→16:13)
[2021-10-31] MEDS: ASPIRIN 81 MG PO SCH (08:57)
[2021-10-31] MEDS: PANTOPRAZOLE 40 MG/10 ML VIAL IV SCH (08:57)
[2021-10-31] MEDS: FENOFIBRATE 160 MG TAB PO SCH (08:58)
[2021-10-31] MEDS: HEPARIN SODIUM,PORCINE/PF 5,000 UNIT/0.5 ML SYRINGE SQ SCH ×2 (08:58→21:57)
[2021-10-31] MEDS: FOLIC ACID 1 MG TAB PO SCH (08:58)
[2021-10-31] MEDS: FUROSEMIDE 10 MG/ML 2 ML VIAL IV SCH (08:58)
[2021-10-31] MEDS ORDERED: metHOTREXate sodium 2.5 MG TAB PO SCH (09:00)
--- NOTE | 2021-10-31 10:14 | P.PN ---
Subjective HISTORY OF PRESENTING ILLNESS Patient is a pleasant 86-year-old male with history of GERD, hyperlipidemia, kidney stones, bladder cancer, colon cancer, anxiety, tobacco abuse, rheumatoid arthritis who presents secondary to chest pain and shortness breath. Patient states for the last 4-5 days he has been having episodes of chest discomfort across the front part of his chest associated with shortness breath. This worsened and therefore he presented to emergency department. He denies any associated nausea or diaphoresis. He denies any cardiac history and last stress test was approximately 10 years ago. He does not see a able bodied seaman. He had workup with a CT chest which showed pulmonary interstitial edema and fibrotic changes with bilateral pleural effusions. White count is 9.1, hemoglobin 11.5, platelets 329, d-dimer 2.52, creatinine 1.4 for which appears stable, troponins normal 3. ProBNP 156, pro-calcitonin 0.13. EKG shows sinus rhythm without significant ST or T-wave abnormalities. He does smoke, no alcohol, no illicit drugs. He also had a VQ scan performed which showed low probability of PE. 1/2 Patient seen and examined. Patient denies any chest pain or pressure. States his shortness breath is mildly improved. Patient is complaining of a rash which has been chronic. He has been on Lasix IV twice a day and creatinine remain stable. REVIEW OF SYSTEMS At the time of my exam: CONSTITUTIONAL: Denies fever or chills. CARDIOVASCULAR: Denies chest pain, shortness of breath, orthopnea, PND or palpitations. RESPIRATORY: Denies cough. GASTROINTESTINAL: Denies abdominal pain, diarrhea, constipation, nausea or vo miting. MUSCULOSKELETAL: Denies myalgias. NEUROLOGIC: Denies numbness, tingling or weakness. ENDOCRINE: Denies fatigue, weight change, polydipsia or polyurina. GENITOURINARY: Denies burning, hematuria or urgency with micturation. HEMATOLOGIC: Denies history of anemia or bleeding. PHYSICAL EXAMINATION Vital signs reviewed. CONSTITUTIONAL: No apparent distress. HEENT: Head is normocephalic. Pupils are equal, round. Sclerae anicteric. Mucous membranes of the mouth are moist. No JVD. No carotid bruit. CHEST EXAMINATION: Bilateral wheezing HEART EXAMINATION: Regular rate and rhythm. S1, S2 heard. No murmurs, gallops or rub. ABDOMEN: Soft, nontender. Positive bowel sounds. EXTREMITIES: 2+ peripheral pulses, no lower extremity edema and no calf tenderness. NEUROLOGIC EXAMINATION: Patient is awake, alert and oriented x3. ASSESSMENT 1. Acute on chronic respiratory failure. Do not suspect heart failure with relatively normal BNP despite his age and CKD 2. atypical chest pain, troponins normal 3, VQ scan no PE 3. tobacco abuse and wheezing on exam, suspect some component of COPD 4. CKD appears stable 5. Tobacco abuse PLAN Patient wheezing on exam and suspect more of a pulmonary source of shortness breath and chest pain. ProBNP noted the relatively normal spite his age and chronic kidney disease. We'll stop IV Lasix. Check 2-D echo and as long as mall patient may be discharged from a cardiology standpoint. Continue with aspirin. Further recommendations to follow. Await 2-D echo. Objective - Vital Signs Vital signs: Vital Signs Temp 97.5 F L 10/31/21 04:00 Pulse 92 10/31/21 08:00 Resp 16 10/31/21 08:00 BP 132/60 10/31/21 08:00 Pulse Ox 96 10/31/21 08:00 Intake & Output 10/30/21 10/31/21 10/31/21 18:59 06:59 18:59 Intake Total 328 Output Total 550 350 Balance -222 -350 Weight 70.307 kg 67.6 kg Intake: Oral 328 Output: Urine 550 350 Other: Voiding Method Toilet Urinal # Voids 1 - Labs CBC & Chem 7: 10/30/21 08:10 10/30/21 08:10 Labs: Microbiology - Last 24 Hours (Table) 10/29/21 16:12 Blood Culture - Preliminary Blood No Growth after 24 hours
[2021-10-31 11:21] LABS: Albumin 3.2 g/dL (3.5-5.0); Calcium 9.2 mg/dL (8.4-10.2); Potassium 4.5 mmol/L (3.5-5.1); Total Bilirubin 0.5 mg/dL (0.2-1.3); Total Protein 6.1 g/dL (6.3-8.2)
--- NOTE | 2021-10-31 11:56 | P.PN ---
Subjective Progress Note Date: 10/31/21 This is a very pleasant 86-year-old gentleman has a history of gastroesophageal reflux disease, hyperlipidemia, kidney stones, bladder cancer, colon cancer, anxiety, chronic tobacco dependence, rheumatoid arthritis and is maintained on methotrexate. He presented to the emergency room today with complaints of chest pain. This had been intermittent over the past several days. He described it as sharp in nature worse with deep breathing. No prior history of coronary artery disease. Mild dyspnea. Chest x-ray reveals increased interstitial markings bilaterally suspect underlying chronic interstitial lung disease versus acute interstitial edema or interstitial pneumonitis. Superimposed perihilar infiltrates noted. Underlying neoplasm not excluded. Computed tomography scan of the chest without contrast revealed pulmonary interstitial edema and fibrotic changes. Bilateral pleural effusions. Congestive heart failure suspected. Computed tomography scan of the abdomen and pelvis revealed no acute abnormalities. White count 9.1. Hemoglobin 11.5. Platelets 329. Lymphocytes 0.7. D-dimer 2.52. Sodium 137. Potassium 4.5. Creatinine 1.44. Troponins negative 2. Currently advised by PCR not detected. He is seen in consultation in the emergency department. He is currently resting quite comfortably on a stretcher. Maintaining O2 saturations in the mid to upper 90s on room air. He's afebrile. Hemodynamically stable. He's been initiated on Zosyn, fluconazole, heparin for DVT prophylaxis. 10/30/2021, the patient is being seen for a follow-up in the new complaints. Remains on broad-spectrum antibiotics with IV Zosyn. The patient was also subjected to diuresis yesterday receiving 20 mg of IV Lasix every [address] of the chest was completed yesterday showed bilateral pleural effusion and some interstitial and nodular pulmonary infiltrates bilaterally. Consider underlying infection with possibility of any decompensated CHF on top. Based on that, echocardiac Dayne was ordered. Troponins are negative 2, COVID 19 testing was negative, influenza A and B was negative, RSV was negative, the patient's d- dimer is at 2.52, the white cell count at 7.3 with a hemoglobin of 11, the sodium level is at 136, serum bicarbonate 17 with a mean of 22 with a creatinine of 1.48. Pro-calcitonin level was 0.13. The patient was taken off the methotrexate. The patient had a negative HIV screen. 10/31/2021, patient remains on room air oxygen. No specific complaints. Remains on broad-spectrum antibiotics and this is empiric antibiotic coverage. The patient is also diabetes over the past 24 hours. Currently off diuretics as the patient developed prerenal azotemia in the creatinine is up to 1.84 with a and a BUN of 23. Fluid balance is negative. He remains on room air oxygen. Echocardiogram was completed and the results are still pending for now. VQ scan came back of a low probability. Objective - Vital Signs Vital signs: Vital Signs Temp 97.5 F L 10/31/21 04:00 Pulse 92 10/31/21 08:00 Resp 16 10/31/21 08:00 BP 132/60 10/31/21 08:00 Pulse Ox 96 10/31/21 08:00 Intake & Output 10/30/21 10/31/21 10/31/21 18:59 06:59 18:59 Intake Total 328 Output Total 550 350 Balance -222 -350 Weight 70.307 kg 67.6 kg Intake: Oral 328 Output: Urine 550 350 Other: Voiding Method Toilet Toilet Urinal Urinal # Voids 1 1 # Bowel Movements 1 - Exam GENERAL EXAM: Alert, very pleasant 86-year-old gentleman, on room air, comfortable in no apparent distress. HEAD: Normocephalic. EYES: Normal reaction of pupils, equal size. NOSE: Clear with pink turbinates. THROAT: No erythema or exudates. NECK: No masses, no JVD. CHEST: No chest wall deformity. LUNGS: Equal air entry with coarse basilar crackles CVS: S1 and S2 normal with no audible murmur, regular rhythm. ABDOMEN: No hepatosplenomegaly, normal bowel sounds, no guarding or rigidity. SPINE: No scoliosis or deformity SKIN: No rashes CENTRAL NERVOUS SYSTEM: No focal deficits, tone is normal in all 4 extremities. EXTREMITIES: There is no peripheral edema. No clubbing, no cyanosis. Peripheral pulses are intact. - Labs CBC & Chem 7: 10/30/21 08:10 10/31/21 08:47 Labs: Abnormal Lab Results - Last 24 Hours (Table) 10/31/21 Range/Units 08:47 Chloride 111 H (98-107) mmol/L Carbon Dioxide 19 L (22-30) mmol/L BUN 23 H (9-20) mg/dL Creatinine 1.84 H (0.66-1.25) mg/dL Glucose 147 H (74-99) mg/dL Total Protein 6.1 L (6.3-8.2) g/dL Albumin 3.2 L (3.5-5.0) g/dL Microbiology - Last 24 Hours (Table) 10/29/21 16:12 Blood Culture - Preliminary Blood No Growth after 24 hours Assessment and Plan Plan: 1 Atypical chest pain, acute coronary syndrome ruled out 2 Shortness of breath without hypoxic respiratory failure. Recent chest x-ray did not reveal any evidence of ILD, questionable congestive heart failure. CT of the chest was noted. There is evidence of bilateral pleural effusion and interstitial pulmonary infiltrates bilaterally with some other entity probably related to an underlying interstitial pneumonia/and the on top of it there is a component of CHF. The patient is currently on antibiotics. The patient is also being diuresis. Patient is currently off methotrexate. The patient is clinically stable. The patient remains on room air oxygen. Awaiting results of the echocardiogram 3 acute renal failure, secondary to diuresis and the creatinine is up to 1.8 and diuretics have been discontinued 4 History of rheumatoid arthritis 5 History of gastroesophageal reflux disease 7 History of colon cancer 8 History of bladder cancer 9 History of kidney stone 10 Chronic tobacco dependence 11 Anxiety Plan: Awaiting results of the 2-D echocardiogram Stop the Lasix Monitor renal function and electrolytes Monitor fluid balance and the patient's body weight is down to BMI of 21.4 Repeat chest x-ray in the morning We'll continue to follow.
[2021-10-31] MEDS: FLUCONAZOLE IN NACL,ISO-OSM 200 MG in SALINE 1 100ML.BAG IVPB SCH (16:12)
--- NOTE | 2021-10-31 19:08 | PN ---
PROGRESS NOTE DATE OF SERVICE: 10/31/2001 I am covering for Dr. Vasquez. This 86-year-old gentleman admitted with multiple medical problems and acute bilateral interstitial pneumonia with possible sepsis is being closely monitored. The patient also had elevated D-dimer. The Covid 19 was negative, multiple consultants are following the patient closely. V/Q scan was also negative. There is a component of CHF also. No chest pain. No palpitations. No fever. EXAM: Alert, oriented x2. Pulse is 89, blood pressure 114/60, respirations 16, temperature is normal. Pulse ox 98% on room air. HEENT: Conjunctivae normal. Neck: No JVD. Cardiovascular: S1, S2 muffled. Respiration: Breath sounds diminished in the bases. A few scattered rhonchi. Abdomen soft. Nervous system: No focal deficits. LABS: WBC 7.2, hemoglobin 11, sodium 142, potassium 4.5, creatinine is 1.48, otherwise cultures are negative. RSV is negative. Influenza is negative. ASSESSMENT: 1. Acute bilateral interstitial pneumonia with possible sepsis present on admission. 2. Elevated D-dimer. 3. Covid negative. 4. Heart failure unlikely. 5. Acute renal failure with acute tubular necrosis with prerenal failure. 6. Mild metabolic acidosis. 7. Hypomagnesemia. 8. Anemia, normocytic. 9. Weight loss of 40 pounds. 10.Gastroesophageal reflux disease. 11.Hyperlipidemia. 12.History of nephrolithiasis. 13.History of bladder cancer. 14.History of colon cancer. 15.History of hernia repair. 16.History of motion sickness. 17.History of anxiety. 18.History of hydronephrosis. 19.Urolithiasis. 20.Trinity intertrigo resistant to treatment. RECOMMENDATIONS AND DISCUSSION: Recommend to continue current medications, management and symptomatic treatment. Continue with current medications. The patient is on empiric antibiotics and bronchodilators and patient is feeling slightly better. Guarded prognosis because of multiple complex medical issues. Further recommendations to follow. MMODL / IJN: [id number] /
[2021-10-31] MEDS: ALBUTEROL NEBULIZED 2.5 MG/3 ML INHALATION SCH (20:51)
[2021-10-31] MEDS: DOXYCYCLINE 100 MG CAP PO SCH (21:56)
--- NOTE | 2021-10-31 22:26 | PN ---
PROGRESS NOTE DATE OF SERVICE: 10/31/2021 REASON FOR FOLLOWUP: Stage II sacral pressure ulcer and a question of pneumonia. INTERVAL HISTORY: The patient is afebrile. The patient is currently breathing comfortably on room air. The patient denies having any chest pain. No worsening cough or sputum production. No abdominal pain or diarrhea. PHYSICAL EXAMINATION: Blood pressure 104/68 with a pulse of 89, temperature 97.5. He is 98% on room air. General description is an elderly male lying in bed in no distress. Respiratory system: Unlabored breathing, decreased intensity of breath sounds. No wheeze. Heart S1, S2. Regular rate and rhythm. Abdomen soft, no tenderness. LABS: White count of 7.3, creatinine 1.84. DIAGNOSTIC IMPRESSION AND PLAN: 1. Patient admitted to hospital with weakness. He did have some shortness of breath and a cough in this patient who did have a CT of the chest, abdomen, pelvis showing pulmonary emphysema throughout the lungs and no evidence of any consolidation, with evidence of pleural fluid, all pointing towards possible fluid overload. Clinically not behaving as pneumonia. infection not entirely excluded. We will add doxycycline and discontinue Zosyn. 2. Patient with stage II sacral pressure ulcer; no cellulitis. Local care with skin barrier cream and keep the area off pressure. MMODL / IJN: [id number] /
[2021-11-01] MEDS: ALBUTEROL NEBULIZED 2.5 MG/3 ML INHALATION SCH ×3 (08:12→19:09)
[2021-11-01] MEDS: HEPARIN SODIUM,PORCINE/PF 5,000 UNIT/0.5 ML SYRINGE SQ SCH ×2 (08:16→20:14)
[2021-11-01] MEDS: ASPIRIN 81 MG PO SCH (08:17)
[2021-11-01] MEDS: FENOFIBRATE 160 MG TAB PO SCH (08:17)
[2021-11-01] MEDS: DOXYCYCLINE 100 MG CAP PO SCH ×2 (08:17→20:14)
[2021-11-01] MEDS: FOLIC ACID 1 MG TAB PO SCH (08:17)
[2021-11-01] MEDS: PANTOPRAZOLE 40 MG/10 ML VIAL IV SCH (08:17)
--- NOTE | 2021-11-01 08:42 | XR ---
EXAMINATION TYPE: XR chest 2V DATE OF EXAM: 11/01/2021 COMPARISON: Chest x-ray and CT 10/29/2021 HISTORY: Dyspnea TECHNIQUE: Frontal and lateral views of the chest are obtained. FINDINGS: Bilateral interstitial and airspace disease shows a similar appearance. Cardiac mediastina l silhouette is unchanged. No evident pneumothorax, difficult to exclude effusion, lung nodularity. T here are overlying artifacts. Bones are stable compared to prior exam. IMPRESSION: Interstitial lung disease, correlate for pneumonia, difficult to exclude underlying lung masses, effusion, follow-up recommended.
[2021-11-01 10:29] LABS: Albumin 3.3 g/dL (3.5-5.0); Calcium 9.2 mg/dL (8.4-10.2); Total Bilirubin 0.6 mg/dL (0.2-1.3); Total Protein 6.4 g/dL (6.3-8.2)
[2021-11-01 10:31] LABS: Potassium 3.9 mmol/L (3.5-5.1)
[2021-11-01 10:44] LABS: Anisocytosis Slight; Basophils % (A) 1 %; Eosinophils # (A) 0.8 k/uL (0-0.7); Eosinophils % (A) 10 %; HCT 34.6 % (39.0-53.0); HGB 11.5 gm/dL (13.0-17.5); Lymphocytes % (A) 13 %; MCH 32.8 pg (25.0-35.0); MCHC 33.3 g/dL (31.0-37.0); MCV 98.7 fL (80.0-100.0); Macrocytosis Slight; Mean Platelet Volume 8.6; Monocytes # (A) 0.9 k/uL (0-1.0); Monocytes % (A) 12 %; Neutrophils # (A) 4.6 k/uL (1.3-7.7); Neutrophils % (A) 62 %; Platelet Count 318 k/uL (150-450); RDW 17.3 % (11.5-15.5); WBC 7.4 k/uL (3.8-10.6)
--- NOTE | 2021-11-01 10:54 | P.PN ---
Subjective Progress Note Date: 11/01/21 I am starting care for this patient on 11/01/2020, Dr Johnson was covering for me This is a 86-year-old male patient who presented the ER with complaints of chest pain. Computed tomography scan of the chest was completed showing pulmonary interstitial edema and fibrotic changes bilateral pleural effusions congestive heart failure suspected. COVID-19 was negative. Troponins were negative. Patient initially started on IV Lasix and IV antibiotics for possible pneumonia and CHF exacerbation. Patient also had elevated d-dimer. VQ scan was completed and came back low probability for pulmonary embolism. Pulmonary, cardiology and infectious disease services were all consulted for this patient. On 11/01/2021 patient is alert and oriented 3. Patient remains on room air. Diuretics were DC'd due to acute renal failure. Creatinine today 1.58 and bun 23. Still awaiting 2-D echo results. Patient remains on doxycycline per infectious disease area. Repeat chest x-ray completed showing interstitial lung disease correlate for pneumonia difficult to exclude underlining lung masses, effusion, follow-up recommended. Pulmonary, cardiology and infectious disease services are following. At this time patient denies chest pain or shortness of breath. Denies nausea vomiting or diarrhea. Patient denies any urinary burning or frequency Objective - Vital Signs Vital signs: Vital Signs Temp 97.4 F L 11/01/21 04:00 Pulse 98 11/01/21 08:26 Resp 16 11/01/21 08:00 BP 127/72 11/01/21 08:00 Pulse Ox 100 11/01/21 08:00 Intake & Output 10/31/21 11/01/21 11/01/21 18:59 06:59 18:59 Intake Total 360 118 Output Total 2 Balance 358 118 Weight 68.1 kg Intake: Oral 360 118 Output: Urine 2 Other: Voiding Method Toilet Urinal # Voids 1 2 # Bowel Movements 1 - Exam Head normocephalic Neck supple Lungs clear to auscultation bilaterally no wheezing or crackles Heart regular rate and rhythm S1-S2, no rub or gallop Abdomen is soft nontender nondistended positive bowel sounds no hepatosple nomegaly Extremities no edema Neuro alert and orientated to 3 - Labs CBC & Chem 7: 10/30/21 08:10 11/01/21 09:31 Labs: Abnormal Lab Results - Last 24 Hours (Table) 10/31/21 11/01/21 Range/Units 08:47 09:31 Chloride 111 H 109 H (98-107) mmol/L Carbon Dioxide 19 L 19 L (22-30) mmol/L BUN 23 H 23 H (9-20) mg/dL Creatinine 1.84 H 1.58 H (0.66-1.25) mg/dL Glucose 147 H 130 H (74-99) mg/dL Total Protein 6.1 L (6.3-8.2) g/dL Albumin 3.2 L 3.3 L (3.5-5.0) g/dL Microbiology - Last 24 Hours (Table) 10/29/21 16:12 Blood Culture - Preliminary Blood No Growth after 48 hours Assessment and Plan Assessment: 1. Chest pain. Troponins negative. Acute coronary syndrome has been ruled out 2. Elevated d-dimer. VQ scan completed showing low probability of PE 3. Possible pneumonia computed tomography scan of the chest was completed showing bilateral pleural effusions and interstitial pulmonary infiltrates bilaterally with some other entity probably related to underlying interstitial pneumonia. Patient remains on antibiotics infectious disease and pulmonary services are following 4. Acute on chronic renal disease. Diuretics DC'd repeat creatinine trending down 5. History of rheumatoid arthritis 6. History of GERD 7. History of colon cancer 8. History of bladder cancer DVT prophylaxis heparin. GI prophylaxis Protonix Pulmonary, cardiology and infectious disease service is following Diuretics to DC'd due to elevated creatinine. Repeat labs ordered 2-D echo ordered Patient remains on antibiotics Repeat chest x-ray ordered
--- NOTE | 2021-11-01 11:48 | ECHOF ---
Referral Reason:dyspnea MEASUREMENTS -------- HEIGHT: 177.8 cm WEIGHT: 67.6 kg BP: 189/97 RVIDd: 3.1 cm (< 3.3) IVSd: 1.3 cm (0.6 - 1.1) LVIDd: 3.3 cm (3.9 - 5.3) LVPWd: 1.3 cm (0.6 - 1.1) IVSs: 1.6 cm LVIDs: 3.1 cm LVPWs: 1.7 cm LA Diam: 2.4 cm (2.7 - 3.8) Ao Diam: 3.4 cm (2.0 - 3.7) AV Cusp: 2.0 cm (1.5 - 2.6) MV EXCURSION: 19.783 mm (> 18.000) MV EF SLOPE: 223 mm/s (70 - 150) EPSS: 0.5 cm MV E Dominic: 1.19 m/s MV DecT: 187 ms MV A Dominic: 0.51 m/s MV E/A Ratio: 2.34 RAP: 5.00 mmHg RVSP: 21.14 mmHg FINDINGS -------- Resting tachycardia (HR>100bpm). This was a technically adequate study. The left ventricular size is normal. There is mild concentric left ventricular hypertrophy. Overa ll left ventricular systolic function is normal with, an EF between 60 - 65 %. The right ventricle is normal in size. The left atrium is normal in size. The right atrium is normal in size. Trace amount of aortic regurgitation. Normal appearing mitral valve. Mild tricuspid regurgitation present. Right ventricular systolic pressure is normal at < 35 mmHg. The pulmonic valve is normal. The aortic root size is normal. IVC Not well visulized. There is no pericardial effusion. CONCLUSIONS -------- 1. The left ventricular size is normal. 2. There is mild concentric left ventricular hypertrophy. 3. Overall left ventricular systolic function is normal with, an EF between 60 - 65 %. 4. Trace amount of aortic regurgitation. 5. Mild tricuspid regurgitation present. 6. There is no pericardial effusion. [employer]: Cat Jorge, [facility]
--- NOTE | 2021-11-01 12:35 | P.PN ---
Subjective Progress Note Date: 11/01/21 HISTORY OF PRESENT ILLNESS: Patient is a pleasant 86-year-old male with history of GERD, hyperlipidemia, kidney stones, bladder cancer, colon cancer, anxiety, tobacco abuse, rheumatoid arthritis who presents secondary to chest pain and shortness breath. Patient states for the last 4-5 days he has been having episodes of chest discomfort across the front part of his chest associated with shortness breath. This worsened and therefore he presented to emergency department. He denies any associated nausea or diaphoresis. He denies any cardiac history and last stress test was approximately 10 years ago. 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 He had workup with a CT chest which showed pulmonary interstitial edema and fibrotic changes with bilateral pleural effusions. White count is 9.1, hemoglobin 11.5, platelets 329, d-dimer 2.52, creatinine 1.4 for which appears stable, troponins normal 3. ProBNP 156, pro-calcitonin 0.13. EKG shows sinus rhythm without significant ST or T-wave abnormalities. He does smoke, no alcohol, no illicit drugs. He also had a VQ scan performed which showed low probability of PE. 1 Patient seen and examined. Patient denies any chest pain or pressure. States his shortness breath is mildly improved. Patient is complaining of a rash which has been chronic. He has been on Lasix IV twice a day and creatinine remain stable. 11/01/2021 Patient examined this morning at the bedside. Patient denies chest pain or press ure. Denies SOB. Chest x-ray reveals interstitial lung disease, correlate for pneumonia, difficult to exclude underlying lung mass, effusion, follow-up recommended. Echocardiogram completed revealing ejection fraction 60-65%, trace aortic regurgitation, and mild tricuspid regurgitation. PHYSICAL EXAM: VITAL SIGNS: Reviewed. GENERAL: Well-developed in no acute distress. NECK: Supple. No JVD or thyromegaly LUNGS: Respirations even and unlabored. Lungs essentially clear to auscultation bilaterally. HEART: Regular rate and rhythm. S1 and S2 heard. EXTREMITIES: Normal range of motion. No clubbing or cyanosis. Peripheral pulses intact. No lower extremity edema ASSESSMENT: 1. Acute on chronic respiratory failure. Do not suspect heart failure with relatively normal BNP despite his age and CKD 2. atypical chest pain, troponins normal 3, VQ scan no PE 3. tobacco abuse and wheezing on exam, suspect some component of COPD 4. CKD appears stable 5. Tobacco abuse PLAN: Continue current cardiac medications The patient may be discharged home today from a cardiac standpoint and follow up in the office with Dr. Corrigan We will sign off. Please reconsult if needed. Nurse practitioner note has been reviewed by physician. Signing provider agrees with the documented findings, assessment, and plan of care. Objective - Vital Signs Vital signs: Vital Signs Temp 97.4 F L 11/01/21 04:00 Pulse 98 11/01/21 08:26 Resp 16 11/01/21 08:00 BP 127/72 11/01/21 08:00 Pulse Ox 100 11/01/21 08:00 Intake & Output 10/31/21 11/01/21 11/01/21 18:59 06:59 18:59 Intake Total 360 118 Output Total 2 Balance 358 118 Weight 68.1 kg Intake: Oral 360 118 Output: Urine 2 Other: Voiding Method Toilet Urinal # Voids 1 2 # Bowel Movements 1 - Labs CBC & Chem 7: 11/01/21 09:31 11/01/21 09:31 Labs: Abnormal Lab Results - Last 24 Hours (Table) 10/31/21 11/01/21 11/01/21 Range/Units 08:47 09:31 09:31 RBC 3.50 L (4.30-5.90) m/uL Hgb 11.5 L (13.0-17.5) gm/dL Hct 34.6 L (39.0-53.0) % RDW 17.3 H (11.5-15.5) % Eosinophils # 0.8 H (0-0.7) k/uL Chloride 111 H 109 H (98-107) mmol/L Carbon Dioxide 19 L 19 L (22-30) mmol/L BUN 23 H 23 H (9-20) mg/dL Creatinine 1.84 H 1.58 H (0.66-1.25) mg/dL Glucose 147 H 130 H (74-99) mg/dL Total Protein 6.1 L (6.3-8.2) g/dL Albumin 3.2 L 3.3 L (3.5-5.0) g/dL Microbiology - Last 24 Hours (Table) 10/29/21 16:12 Blood Culture - Preliminary Blood No Growth after 48 hours
[2021-11-01] MEDS: FLUCONAZOLE IN NACL,ISO-OSM 200 MG in SALINE 1 100ML.BAG IVPB SCH (16:42)
--- NOTE | 2021-11-01 18:55 | P.PN ---
Subjective Progress Note Date: 11/01/21 Principal diagnosis: Atypical chest pain This is a very pleasant 86-year-old gentleman has a history of gastroesophageal reflux disease, hyperlipidemia, kidney stones, bladder cancer, colon cancer, anxiety, chronic tobacco dependence, rheumatoid arthritis and is maintained on m ethotrexate. He presented to the emergency room today with complaints of chest pain. This had been intermittent over the past several days. He described it as sharp in nature worse with deep breathing. No prior history of coronary artery disease. Mild dyspnea. Chest x-ray reveals increased interstitial markings bilaterally suspect underlying chronic interstitial lung disease versus acute interstitial edema or interstitial pneumonitis. Superimposed perihilar infiltrates noted. Underlying neoplasm not excluded. Computed tomography scan of the chest without contrast revealed pulmonary interstitial edema and fibrotic changes. Bilateral pleural effusions. Congestive heart failure suspected. Computed tomography scan of the abdomen and pelvis revealed no acute abnormalities. White count 9.1. Hemoglobin 11.5. Platelets 329. Lymphocytes 0.7. D-dimer 2.52. Sodium 137. Potassium 4.5. Creatinine 1.44. Troponins negative 2. Currently advised by PCR not detected. He is seen in consultation in the emergency department. He is currently resting quite comfortably on a stretcher. Maintaining O2 saturations in the mid to upper 90s on room air. He's afebrile. Hemodynamically stable. He's been initiated on Zosyn, fluconazole, heparin for DVT prophylaxis. 10/30/2021, the patient is being seen for a follow-up in the new complaints. Remains on broad-spectrum antibiotics with IV Zosyn. The patient was also subjected to diuresis yesterday receiving 20 mg of IV Lasix every [address] of the chest was completed yesterday showed bilateral pleural effusion and some interstitial and nodular pulmonary infiltrates bilaterally. Consider underlying infection with possibility of any decompensated CHF on top. Based on that, echocardiac Dayne was ordered. Troponins are negative 2, COVID 19 testing was negative, influenza A and B was negative, RSV was negative, the patient's d- dimer is at 2.52, the white cell count at 7.3 with a hemoglobin of 11, the sodium level is at 136, serum bicarbonate 17 with a mean of 22 with a creatinine of 1.48. Pro-calcitonin level was 0.13. The patient was taken off the methotrexate. The patient had a negative HIV screen. 10/31/2021, patient remains on room air oxygen. No specific complaints. Remains on broad-spectrum antibiotics and this is empiric antibiotic coverage. The patient is also diabetes over the past 24 hours. Currently off diuretics as the patient developed prerenal azotemia in the creatinine is up to 1.84 with a and a BUN of 23. Fluid balance is negative. He remains on room air oxygen. Echocardiogram was completed and the results are still pending for now. VQ scan came back of a low probability. On 11/01/2021 patient seen in follow-up on selective care unit. He is awake and alert, in no acute distress, room air pulse ox is 90%, hemodynamically has been stable, does get dyspneic with exertion but appears to be in no acute distress, his been afebrile, denies any chest pain or pressure. Overall he states his breathing is improving, he remains on doxycycline and fluconazole for antibiotic coverage. Cultures have been negative. His white count is normal at 7.4, spell calcitonin level is negative at 0.13, patient tested negative for COVID-19, Legionella urine antigen was negative and RSV was also negative, influenza A and B were negative. His echocardiogram showed EF between 60-65%, mild tricuspid regurg, normal right ventricular systolic pressure less than 35 mmHg. he has been diuresed, his Lasix has been discontinued. His last chest x-ray from today showing interstitial lung disease difficult to exclude underlying lung masses or effusion, and follow-up was recommended. However patient had a recent CT of the chest abdomen and pelvis on 10/29/2021 which showed pulmonary interstitial edema and fibrotic changes, bilateral pleural effusions, no hilar or mediastinal adenopathy. Objective - Vital Signs Vital signs: Vital Signs Temp 97.4 F L 11/01/21 04:00 Pulse 105 H 11/01/21 16:00 Resp 16 11/01/21 16:00 BP 110/69 11/01/21 16:00 Pulse Ox 98 11/01/21 16:00 Intake & Output 10/31/21 11/01/21 11/01/21 18:59 06:59 18:59 Intake Total 360 354 Output Total 2 Balance 358 354 Weight 68.1 kg Intake: Oral 360 354 Output: Urine 2 Other: Voiding Method Toilet Toilet Urinal Urinal # Voids 1 2 3 # Bowel Movements 1 - Exam GENERAL EXAM: Alert, pleasant, 86-year-old white male, on room air, pulse ox of 98% comfortable in no apparent distress. HEAD: Normocephalic/atraumatic. EYES: Normal reaction of pupils, equal size. Conjunctiva pink, sclera white. NOSE: Clear with pink turbinates. THROAT: No erythema or exudates. NECK: No masses, no JVD, no thyroid enlargement, no adenopathy. CHEST: No chest wall deformity. Symmetrical expansion. LUNGS: Equal air entry with bilateral crackles CVS: Regular rate and rhythm, normal S1 and S2, no gallops, no murmurs, no rubs ABDOMEN: Soft, nontender. No hepatosplenomegaly, normal bowel sounds, no guarding or rigidity. EXTREMITIES: No clubbing, no edema, no cyanosis, 2+ pulses and upper and lower extremities. MUSCULOSKELETAL: Muscle strength and tone normal. SPINE: No scoliosis or deformity SKIN: No rashes CENTRAL NERVOUS SYSTEM: Alert and oriented -3. No focal deficits, tone is normal in all 4 extremities. PSYCHIATRIC: Alert and oriented -3. Appropriate affect. Intact judgment and insight. - Labs CBC & Chem 7: 11/01/21 09:31 11/01/21 09:31 Labs: Abnormal Lab Results - Last 24 Hours (Table) 11/01/21 11/01/21 Range/Units 09:31 09:31 RBC 3.50 L (4.30-5.90) m/uL Hgb 11.5 L (13.0-17.5) gm/dL Hct 34.6 L (39.0-53.0) % RDW 17.3 H (11.5-15.5) % Eosinophils # 0.8 H (0-0.7) k/uL Chloride 109 H (98-107) mmol/L Carbon Dioxide 19 L (22-30) mmol/L BUN 23 H (9-20) mg/dL Creatinine 1.58 H (0.66-1.25) mg/dL Glucose 130 H (74-99) mg/dL Albumin 3.3 L (3.5-5.0) g/dL Microbiology - Last 24 Hours (Table) 10/29/21 16:12 Blood Culture - Preliminary Blood No Growth after 72 hours Assessment and Plan Plan: Assessment: #1. Atypical chest pain, acute coronary syndrome has been ruled out #2. Shortness of breath without hypoxic respiratory failure. Recent chest x- ray did not reveal any evidence of interstitial lung disease there was questionable congestive heart failure CT of the chest has been noted, there is evidence of bilateral pleural effusion and interstitial pulmonary infiltrates. Patient is covered with antibiotics in the form of doxycycline and Diflucan, he has been diuresed. Patient is currently off methotrexate #3. Acute renal failure related to diuretic therapy, diuretics have been placed on hold and renal function is improving #4. Chronic tobacco dependence #5. Rheumatoid arthritis was on methotrexate up until recently #6. Anxiety #7. Bladder cancer #8. GERD #9. Tobacco dependence Plan: No complaints of chest discomfort Vital signs are stable Pro-calcitonin level has been negative, can probably discontinue the antibiotics Renal profile is improving, diuretics remain on hold Oxygenation is stable on room air No fever or chills This chest x-ray has been reviewed Increase activity as tolerated Cardiology [facility]erson Echo has been noted From pulmonary perspective if remains stable he can be considered for discharge home if cleared by cardiology I performed a history & physical examination of the patient and discussed their management with my nurse practitioner, Shakila Oscar. I reviewed the nurse practitioner's note and agree with the documented findings and plan of care. Lung sounds are positive for a few scst rales throughout the lung singh. The findings and the impression was discussed with the patient. I attest to the documentation by the nurse practitioner. Time with Patient: Less than 30
--- NOTE | 2021-11-01 22:09 | PN ---
PROGRESS NOTE DATE OF SERVICE: 11/01/2021 REASON FOR FOLLOW UP: 1. Possible tracheobronchitis. 2. Stage II sacral pressure ulcer. INTERVAL HISTORY: Patient is afebrile. The patient is breathing comfortably. Patient denies having any chest pain. No shortness of breath. Occasional cough. No abdominal pain. Overall pain and discomfort to the sacral area has decreased. PHYSICAL EXAMINATION: Blood pressure 110/69, pulse of 105, temperature of 98. He is 98% on room air. General description is an elderly male up in the chair in no distress. Respiratory system: Unlabored breathing, decreased intensity in breath sounds. No wheeze. Heart S1, S2. Regular rate and rhythm. Abdomen soft, no tenderness. LABS: Hemoglobin 11.5, white count 7.4, creatinine 1.58. DIAGNOSTIC IMPRESSION AND PLAN: 1. Patient admitted to the hospital with shortness of breath and chest pain which is multifactorial. Clinically not behaving as pneumonia, possible tracheobronchitis on doxycycline to continue. 2. Patient with stage II sacral ulcer. Continue local care with protective cream and keep the area off pressure. MMODL / IJN: [id number] /
[2021-11-02] MEDS: ALBUTEROL NEBULIZED 2.5 MG/3 ML INHALATION SCH ×2 (07:49→11:55)
[2021-11-02 07:52] LABS: Anisocytosis Slight; Basophils # (A) 0.1 k/uL (0-0.2); Basophils % (A) 1 %; Eosinophils # (A) 0.7 k/uL (0-0.7); Eosinophils % (A) 8 %; HCT 36.2 % (39.0-53.0); HGB 11.7 gm/dL (13.0-17.5); Hypochromasia Slight; Lymphocytes # (A) 1.2 k/uL (1.0-4.8); Lymphocytes % (A) 13 %; MCH 32.3 pg (25.0-35.0); MCHC 32.2 g/dL (31.0-37.0); MCV 100.4 fL (80.0-100.0); Macrocytosis Slight; Mean Platelet Volume 8.2; Monocytes # (A) 1.2 k/uL (0-1.0); Monocytes % (A) 12 %; Neutrophils # (A) 6.4 k/uL (1.3-7.7); Neutrophils % (A) 65 %; Platelet Count 403 k/uL (150-450); RBC 3.61 m/uL (4.30-5.90); RDW 17.2 % (11.5-15.5); WBC 9.9 k/uL (3.8-10.6)
[2021-11-02 08:10] LABS: Albumin 3.6 g/dL (3.5-5.0); Calcium 9.8 mg/dL (8.4-10.2); Potassium 4.4 mmol/L (3.5-5.1); Total Bilirubin 0.7 mg/dL (0.2-1.3)
[2021-11-02] MEDS: DOXYCYCLINE 100 MG CAP PO SCH (08:16)
[2021-11-02] MEDS: ASPIRIN 81 MG PO SCH (08:16)
[2021-11-02] MEDS: FOLIC ACID 1 MG TAB PO SCH (08:16)
[2021-11-02] MEDS: FENOFIBRATE 160 MG TAB PO SCH (08:17)
[2021-11-02] MEDS: PANTOPRAZOLE 40 MG/10 ML VIAL IV SCH (08:18)
[2021-11-02] MEDS: HEPARIN SODIUM,PORCINE/PF 5,000 UNIT/0.5 ML SYRINGE SQ SCH (08:18)
[2021-11-02 08:28] VITALS: BP 119/59; RESP 16; TEMP 97.5
--- NOTE | 2021-11-02 10:42 | P.DS ---
Providers Date of admission: 10/29/21 14:32 Expected date of discharge: 11/02/21 Attending physician: Nikita Vasquez Consults: 10/29/21 15:18 Consult Physician Routine Consulting Provider: Jnesen Jc Consult Reason/Comments: interstitial pneumonia? Do you want consulting provider notified?: Yes Consult Physician Routine Consulting Provider: Bina Klein Consult Reason/Comments: sepsis Do you want consulting provider notified?: Yes Primary care physician: Nikita Pedro [facility] Course: Diagnosis on discharge: 1. Chest pain. Troponins negative. Acute coronary syndrome has been ruled out 2. Elevated d-dimer. VQ scan completed showing low probability of PE 3. Possible pneumonia computed tomography scan of the chest was completed showing bilateral pleural effusions and interstitial pulmonary infiltrates bilaterally with some other entity probably related to underlying interstitial pneumonia. Patient remains on antibiotics infectious disease and pulmonary services are following 4. Acute on chronic renal disease. Diuretics DC'd repeat creatinine trending down 5. History of rheumatoid arthritis 6. History of GERD 7. History of colon cancer 8. History of bladder cancer Hospital course: This is a 86-year-old male patient who presented the ER with complaints of chest pain. Computed tomography scan of the chest was completed showing pulmonary interstitial edema and fibrotic changes bilateral pleural effusions congestive heart failure suspected. COVID-19 was negative. Troponins were negative. Patient initially started on IV Lasix and IV antibiotics for possible pneumonia and CHF exacerbation. Patient also had elevated d-dimer. VQ scan was completed and came back low probability for pulmonary embolism. Pulmonary, cardiology and infectious disease services were all consulted for this patient. On 11/01/2021 patient is alert and oriented 3. Patient remains on room air. Diuretics were DC'd due to acute renal failure. Creatinine today 1.58 and bun 23. Still awaiting 2-D echo results. Patient remains on doxycycline per infectious disease area. Repeat chest x-ray completed showing interstitial lung disease correlate for pneumonia difficult to exclude underlining lung masses, effusion, follow-up recommended. Pulmonary, cardiology and infectious disease services are following. At this time patient denies chest pain or shortness of breath. Denies nausea vomiting or diarrhea. Patient denies any urinary burning or frequency On 11/02/2021 patient was seen and examined on the telemetry floor he is alert and oriented 3 in no apparent distress he is feeling better, denies any chest pain or shortness of breath Echocardiogram report now available reveals mild concentric LVH with normal left ventricular systolic function with ejection fraction of 60-65% Patient still has elevated BUN at 23 and elevated creatinine at 1.56 Medication and labs were reviewed , he was cleared by cardiology and pulmonary for discharge , he will be discharged home today, follow up in our office on Monday11/05/2021 at 11 AM Patient Condition at Discharge: Stable Plan - Discharge Summary Discharge Rx Participant: No New Discharge Prescriptions: New Doxycycline [Vibramycin] 100 mg PO BID cap Aspirin 81 mg PO DAILY tab Continue Omeprazole 40 mg PO DAILY gemfibroziL [Lopid] 600 mg PO BID ALPRAZolam [Xanax] 0.5 mg PO Q8H PRN PRN Reason: Anxiety metHOTREXate sodium [Methotrexate] 12.5 mg PO GOODSON Hydrocortisone Pr Cream [Proctosol-Hc 2.5%] 1 applic RECTAL QID PRN PRN Reason: Rash Terbinafine HCl [LamISIL] 250 mg PO DAILY Nystatin 100,000Unit/gm Cream [Mycostatin Cream] 1 applic TOPICAL BID Folic Acid 1 mg PO DAILY Discharge Medication List ALPRAZolam [Xanax] 0.5 mg PO Q8H PRN 02/04/19 [History] Omeprazole 40 mg PO DAILY 02/04/19 [History] gemfibroziL [Lopid] 600 mg PO BID 02/04/19 [History] Folic Acid 1 mg PO DAILY 10/29/21 [History] Hydrocortisone Pr Cream [Proctosol-Hc 2.5%] 1 applic RECTAL QID PRN 10/29/21 [History] Nystatin 100,000Unit/gm Cream [Mycostatin Cream] 1 applic TOPICAL BID 10/29/21 [History] Terbinafine HCl [LamISIL] 250 mg PO DAILY 10/29/21 [History] metHOTREXate sodium [Methotrexate] 12.5 mg PO GOODSON 10/29/21 [History] Aspirin 81 mg PO DAILY tab 11/02/21 [Rx] Doxycycline [Vibramycin] 100 mg PO BID cap 11/02/21 [Rx] Follow up Appointment(s)/Referral(s): Brain Corrigan DO [STAFF PHYSICIAN] - 1 Week Nikita Vasquez MD [Primary Care Provider] - 1-2 days
[2021-11-02 11:57] VITALS: PULSE 100
--- NOTE | 2021-11-09 14:44 | CDI ---
Documentation Clarification Form Date: 11/09/21 From: JAIMEE Norton Admit Date: 10/29/2021 02:32:00 PM Patient Name: Bob Wolf Visit Number: [id number] Discharge Date: 11/02/2021 12:12:00 PM ATTENTION: The Clinical Documentation Specialists (CDI) and [facility] Coding Staff appreciate your assistance in clarifying documentation. Please respond to the clarification below the line at the bottom and electronically sign. The CDI & [facility] Coding staff will review the response and follow-up if needed. Please note: Queries are made part of the Legal Health Record. If you have any questions, please contact the author of this message via ITS. Dr. Nikita Vasquez Conflicting documentation has been found in the medical record. As attending physician, please provide clarification. DC Summary states: "Possible pneumonia, CT scan of the chest was completed showing bilateral pleural effusions and interstitial pulmonary infiltrates bilaterally with some other entity probably related to underlying interstitial pneumonia. Patient remains on antibiotics, ID and pulmonary services are following." Progress Notes state: "possible tracheobronchitis" and "patient admitted to the hospital with shortness of breath and chest pain which is multifactorial. Clinically not behaving as pneumonia, possible trachobronchitis on doxycycline to continue." Clinical Indicators: Acute on chronic respiratory failure. Patient is wheezing on exam. Treatment:Doxycycline Please clarify which diagnosis is most appropriate: [ x ] Tracheobronchitis [ ] Pneumonia [ ] Interstitial pneumonia [ ] Other (please specify) [ ] Unable to determine MTDD
== END 2021-11-02 12:12 | disposition home or self-care (01) | DRG 202 ==
LOC: EC 12:32 → 3SCARD 14:32
PROVIDERS: ADMIT Internal Medicine; ATTEND Internal Medicine
DX: J40 Bronchitis, not specified as acute or chronic (principal); J96.20 Acute and chronic respiratory failure, unspecified whether with hypoxia or hypercapnia; N17.0 Acute kidney failure with tubular necrosis; E87.2 Acidosis; I13.0 Hypertensive heart and chronic kidney disease with heart failure and stage 1 through stage 4 chronic kidney disease, or unspecified chronic kidney disease; R64 Cachexia; N20.9 Urinary calculus, unspecified; Z20.822 Contact with and (suspected) exposure to COVID-19; B37.2 Candidiasis of skin and nail; J43.9 Emphysema, unspecified; T50.2X5A Adverse effect of carbonic-anhydrase inhibitors, benzothiadiazides and other diuretics, initial encounter; D64.9 Anemia, unspecified; N18.2 Chronic kidney disease, stage 2 (mild); E78.5 Hyperlipidemia, unspecified; E83.42 Hypomagnesemia; F17.210 Nicotine dependence, cigarettes, uncomplicated; F41.9 Anxiety disorder, unspecified; I50.9 Heart failure, unspecified; K21.9 Gastro-esophageal reflux disease without esophagitis; L89.152 Pressure ulcer of sacral region, stage 2; M06.9 Rheumatoid arthritis, unspecified; Z87.442 Personal history of urinary calculi; Z68.21 Body mass index [BMI] 21.0-21.9, adult; Z79.899 Other long term (current) drug therapy; Z85.51 Personal history of malignant neoplasm of bladder; Z85.038 Personal history of other malignant neoplasm of large intestine; Z80.9 Family history of malignant neoplasm, unspecified
CPT/HCPCS: 36415; 71046; 71250; 74176; 78582; 80048; 80053; 83690; 83735; 83880; 84145; 84484; 85025; 85379; 85610; 85730; 87040; 87390; 87449; 87502; 87634; 87635; 93005; 93306; 94640; 99285

== ENCOUNTER 2021-11-09 11:26 | Emergency (ER) | payer MEDICARE ==
[2021-11-09] MEDS ORDERED: ONDANSETRON 4 MG/2 ML VIAL IVP STA ×2 (12:12→13:35)
[2021-11-09] MEDS ORDERED: SODIUM CHLORIDE 0.9% 1,000 ML IV STA (12:12)
--- NOTE | 2021-11-09 12:22 | ED ---
General Adult HPI - General Chief complaint: Nausea/Vomiting/Diarrhea Stated complaint: vomiting Time Seen by Provider: 11/09/21 12:01 Source: patient Mode of arrival: ambulatory Limitations: no limitations - History of Present Illness Initial comments: This 86-year-old male presents to the emergency department with cough, nausea and vomiting 2 days. Patient's son states he was here last week and was discharged on 11/05/2021 with pneumonia. Patient's son states he was doing okay when he was discharged, however, starting 2 days ago he has been having a cough, nausea and vomiting. Patient states he does have mucus production with his cough. Patient states he has received 2 vaccines for COVID-19, but has not had his booster yet. Patient denies any blood in vomit, chest pain, abdominal pain, change in bowel or bladder, fever, headache. - Related Data Home Medications Medication Instructions Recorded Confirmed ALPRAZolam [Xanax] 0.5 mg PO Q8H PRN 02/04/19 11/09/21 Omeprazole 40 mg PO DAILY 02/04/19 11/09/21 gemfibroziL [Lopid] 600 mg PO BID 02/04/19 11/09/21 Folic Acid 1 mg PO DAILY 10/29/21 11/09/21 Hydrocortisone Pr Cream 1 applic RECTAL QID PRN 10/29/21 11/09/21 [Proctosol-Hc 2.5%] Nystatin 100,000Unit/gm Cream 1 applic TOPICAL BID 10/29/21 11/09/21 [Mycostatin Cream] Terbinafine HCl [LamISIL] 250 mg PO DAILY 10/29/21 11/09/21 metHOTREXate sodium [Methotrexate] 12.5 mg PO GOODSON 10/29/21 11/09/21 Previous Rx's Medication Instructions Recorded Aspirin 81 mg PO DAILY tab 11/02/21 Doxycycline [Vibramycin] 100 mg PO BID cap 11/02/21 Cephalexin [Keflex] 500 mg PO Q6HR #40 cap 11/09/21 Ondansetron Odt [Zofran ODT] 4 mg PO Q8HR PRN #10 tab 11/09/21 Allergies Allergy/AdvReac Type Severity Reaction Status Date / Time Sulfa (Sulfonamide AdvReac Rash/Hives/ Verified 11/09/21 13:48 Antibiotics) itching Review of Systems ROS Statement: Those systems with pertinent positive or pertinent negative responses have been documented in the HPI. ROS Other: All systems not noted in ROS Statement are negative. Past Medical History Past Medical History: GERD/Reflux, Hyperlipidemia Additional Past Medical History / Comment(s): kidney stones, bladder cancer, colon cancer History of Any Multi-Drug Resistant Organisms: None Reported Past Surgical History: Hernia Repair Additional Past Surgical History / Comment(s): kidney stone removed ILIOSTOMY Past Anesthesia/Blood Transfusion Reactions: No Reported Reaction, Motion Sickness Past Psychological History: Anxiety Smoking Status: Current some day smoker Past Alcohol Use History: None Reported Past Drug Use History: None Reported - Past Family History Sister(s) Family Medical History: Cancer Brother(s) Family Medical History: Cancer General Exam Limitations: no limitations General appearance: alert, in no apparent distress Head exam: Present: atraumatic, normocephalic, normal inspection Eye exam: Present: normal appearance, EOMI ENT exam: Present: normal exam, mucous membranes moist Neck exam: Present: normal inspection, full ROM Respiratory exam: Present: normal lung sounds bilaterally. Absent: respiratory distress, wheezes, rales, rhonchi, stridor Cardiovascular Exam: Present: normal rhythm, tachycardia, normal heart sounds. Absent: systolic murmur, diastolic murmur, rubs, gallop, clicks GI/Abdominal exam: Present: soft, normal bowel sounds, other (Right nephrostomy bag without erythema or warmth). Absent: distended, tenderness, guarding, rebound, rigid Extremities exam: Present: normal inspection, full ROM Back exam: Present: normal inspection, full ROM. Absent: tenderness, CVA tenderness (R), CVA tenderness (L), paraspinal tenderness, vertebral tenderness Neurological exam: Present: alert, oriented X3, CN II-XII intact Psychiatric exam: Present: normal affect, normal mood Skin exam: Present: warm, dry, intact, normal color. Absent: rash Course Vital Signs 11/09/21 11/09/21 11/09/21 11:34 13:58 14:54 Temperature 98.1 F 98.2 F Pulse Rate 112 H 71 77 Respiratory 22 18 18 Rate Blood Pressure 127/77 148/83 141/78 O2 Sat by Pulse 96 97 98 Oximetry 11/09/21 11/09/21 15:34 16:54 Temperature 97.8 F 97.7 F Pulse Rate 85 101 H Respiratory 18 18 Rate Blood Pressure 139/81 141/84 O2 Sat by Pulse 98 97 Oximetry EKG Findings - EKG Comments: EKG Findings:: EKG: Sinus rhythm with first degree AV block. Ventricular rate 88 bpm. IN interval 228. QRS duration 96. QT/QTc 386/467 Medical Decision Making - Medical Decision Making This 86-year-old male presents to the emergency department with nausea and vomiting 2 days. Labs reveal RBC 3.91, Hgb 12.8. Coronavirus Positive. KUB impression: Nonspecific abdomen with air-fluid levels correlate for enteritis or ileus. Partial obstruction not excluded. Correlate for chronic pulmonary fibrosis. Lower pole left renal calculus. Chest x-ray impression: Bilateral multifocal acute infiltrates some background chronic emphysematous and pulmonary fibrotic changes with small left pleural effusion. Correlate to exclude COVID- 19 infection in the chronic environment. Hemoglobin at baseline. Patient able to tolerate water by mouth and states he is not as nauseas after fluids and zofran. BUN 37, creatinine 1.82, GFR 33. Urine shows positive nitrates. Patient sent home with Zofran and Keflex for UTI although patient's urine sample came from nephrostomy bag and could have been contaminated. Strict return precautions given to patient. Patient is agreeable to go home with his son. Patient instructed to follow up with primary care provider next 1-2 days. - Lab Data Result diagrams: 11/09/21 12:19 11/09/21 13:46 Lab Results 11/09/21 11/09/21 11/09/21 Range/Units 12:19 12:19 12:19 WBC 7.2 (3.8-10.6) k/uL RBC 3.91 L (4.30-5.90) m/uL Hgb 12.8 L (13.0-17.5) gm/dL Hct 39.3 (39.0-53.0) % MCV 100.6 H (80.0-100.0) fL MCH 32.9 (25.0-35.0) pg MCHC 32.7 (31.0-37.0) g/dL RDW 17.6 H (11.5-15.5) % Plt Count 330 (150-450) k/uL MPV 8.6 Neutrophils % 83 % Lymphocytes % 8 % Monocytes % 7 % Eosinophils % 1 % Basophils % 0 % Neutrophils # 6.0 (1.3-7.7) k/uL Lymphocytes # 0.6 L (1.0-4.8) k/uL Monocytes # 0.5 (0-1.0) k/uL Eosinophils # 0.0 (0-0.7) k/uL Basophils # 0.0 (0-0.2) k/uL Anisocytosis Slight Macrocytosis Slight Sodium (137-145) mmol/L Potassium (3.5-5.1) mmol/L Chloride (98-107) mmol/L Carbon Dioxide (22-30) mmol/L Anion Gap mmol/L BUN (9-20) mg/dL Creatinine (0.66-1.25) mg/dL Est GFR (CKD-EPI)AfAm (>60 ml/min/1.73 sqM) Est GFR (CKD-EPI)NonAf (>60 ml/min/1.73 sqM) Glucose (74-99) mg/dL Plasma Lactic Acid Steffen 1.2 (0.7-2.0) mmol/L Calcium (8.4-10.2) mg/dL Total Bilirubin (0.2-1.3) mg/dL AST (17-59) U/L ALT (4-49) U/L Alkaline Phosphatase (38-126) U/L Total Protein (6.3-8.2) g/dL Albumin (3.5-5.0) g/dL Amylase (30-110) U/L Lipase (23-300) U/L Urine Color Yellow Urine Appearance Cloudy (Clear) Urine pH 6.5 (5.0-8.0) Ur Specific Grace 1.017 (1.001-1.035) Urine Protein 1+ H (Negative) Urine Glucose (UA) Negative (Negative) Urine Ketones Negative (Negative) Urine Blood Moderate H (Negative) Urine Nitrite Positive (Negative) Urine Bilirubin Negative (Negative) Urine Urobilinogen <2.0 (<2.0) mg/dL Ur Leukocyte Esterase Large H (Negative) Urine RBC 16 H (0-5) /hpf Urine WBC 150 H (0-5) /hpf Ur Squamous Epith Cells <1 (0-4) /hpf Urine Bacteria Many H (None) /hpf Hyaline Casts 2 (0-2) /lpf Urine Mucus Occasional H (None) /hpf Coronavirus (PCR) (Not Detectd) 11/09/21 11/09/21 Range/Units 12:19 13:46 WBC (3.8-10.6) k/uL RBC (4.30-5.90) m/uL Hgb (13.0-17.5) gm/dL Hct (39.0-53.0) % MCV (80.0-100.0) fL MCH (25.0-35.0) pg MCHC (31.0-37.0) g/dL RDW (11.5-15.5) % Plt Count (150-450) k/uL MPV Neutrophils % % Lymphocytes % % Monocytes % % Eosinophils % % Basophils % % Neutrophils # (1.3-7.7) k/uL Lymphocytes # (1.0-4.8) k/uL Monocytes # (0-1.0) k/uL Eosinophils # (0-0.7) k/uL Basophils # (0-0.2) k/uL Anisocytosis Macrocytosis Sodium 141 (137-145) mmol/L Potassium 4.5 (3.5-5.1) mmol/L Chloride 112 H (98-107) mmol/L Carbon Dioxide 19 L (22-30) mmol/L Anion Gap 10 mmol/L BUN 37 H (9-20) mg/dL Creatinine 1.82 H (0.66-1.25) mg/dL Est GFR (CKD-EPI)AfAm 38 (>60 ml/min/1.73 sqM) Est GFR (CKD-EPI)NonAf 33 (>60 ml/min/1.73 sqM) Glucose 129 H (74-99) mg/dL Plasma Lactic Acid Steffen (0.7-2.0) mmol/L Calcium 9.2 (8.4-10.2) mg/dL Total Bilirubin 0.6 (0.2-1.3) mg/dL AST 40 (17-59) U/L ALT 24 (4-49) U/L Alkaline Phosphatase 89 (38-126) U/L Total Protein 7.4 (6.3-8.2) g/dL Albumin 3.7 (3.5-5.0) g/dL Amylase 75 (30-110) U/L Lipase 149 (23-300) U/L Urine Color Urine Appearance (Clear) Urine pH (5.0-8.0) Ur Specific Grace (1.001-1.035) Urine Protein (Negative) Urine Glucose (UA) (Negative) Urine Ketones (Negative) Urine Blood (Negative) Urine Nitrite (Negative) Urine Bilirubin (Negative) Urine Urobilinogen (<2.0) mg/dL Ur Leukocyte Esterase (Negative) Urine RBC (0-5) /hpf Urine WBC (0-5) /hpf Ur Squamous Epith Cells (0-4) /hpf Urine Bacteria (None) /hpf Hyaline Casts (0-2) /lpf Urine Mucus (None) /hpf Coronavirus (PCR) Detected A (Not Detectd) Disposition Clinical Impression: COVID-19, Nausea and vomiting Disposition: HOME SELF-CARE Condition: Stable Instructions (If sedation given, give patient instructions): Coronavirus Disease 2019 (COVID-19), Acute Nausea and Vomiting (ED) Additional Instructions: Please return to the emergency department with any new or worsening symptoms. Continue to drink plenty of fluids. Take [id number] vitamin D vitamin C and zinc. Follow-up with primary care provider next 1-2 days. Prescriptions: Cephalexin [Keflex] 500 mg PO Q6HR #40 cap Ondansetron Odt [Zofran ODT] 4 mg PO Q8HR PRN #10 tab PRN Reason: Nausea Is patient prescribed a controlled substance at d/c from ED?: No Referrals: Nikita Vasquez MD [Primary Care Provider] - 1-2 days Decision Time: 16:01
[2021-11-09 12:57] LABS: Anisocytosis Slight; Basophils % (A) 0 %; Eosinophils % (A) 1 %; HCT 39.3 % (39.0-53.0); HGB 12.8 gm/dL (13.0-17.5); Lymphocytes # (A) 0.6 k/uL (1.0-4.8); Lymphocytes % (A) 8 %; MCH 32.9 pg (25.0-35.0); MCHC 32.7 g/dL (31.0-37.0); MCV 100.6 fL (80.0-100.0); Macrocytosis Slight; Mean Platelet Volume 8.6; Monocytes # (A) 0.5 k/uL (0-1.0); Monocytes % (A) 7 %; Neutrophils % (A) 83 %; Platelet Count 330 k/uL (150-450); RBC 3.91 m/uL (4.30-5.90); RDW 17.6 % (11.5-15.5); WBC 7.2 k/uL (3.8-10.6)
--- NOTE | 2021-11-09 13:04 | XR ---
EXAMINATION TYPE: XR KUB DATE OF EXAM: 11/09/2021 COMPARISON: 10/07/2020 HISTORY: Vomiting TECHNIQUE: One view abdominal series FINDINGS: The osseous structures are intact. The bowel gas pattern is nonspecific. Air-fluid levels are seen. Paucity of bowel gas. Surgical changes in the pelvis with arthropathy of the hips and degenerative ch talia of the spine. Calcification measuring 6 mm lower pole left kidney. Interstitial lung disease not ed at the lung bases. IMPRESSION: 1. Nonspecific abdomen with air-fluid levels correlate for enteritis or ileus. Partial obstruction no t excluded. 2. Correlate for chronic pulmonary fibrosis. 3. Lower pole left renal calculus.
--- NOTE | 2021-11-09 13:05 | XR ---
EXAMINATION TYPE: XR chest 2V DATE OF EXAM: 11/09/2021 COMPARISON: Chest x-ray dated ago and older studies. CT October 29, 2021 HISTORY: Difficulty in breathing and weakness. TECHNIQUE: Frontal and lateral views of the chest are obtained. FINDINGS: There is background chronic edematous and parenchymal fibrotic changes bilaterally redemon strated with multifocal areas of increased opacity bilaterally redemonstrated stable small to tiny le ft pleural effusion. The cardiac silhouette size is stable and upper limits of normal. The osseous structures are intact. IMPRESSION: Bilateral multifocal acute infiltrates on background chronic emphysematous and pulmonary fibrotic changes with small left pleural effusion. Correlate to exclude covid-19 infection in the [facility] onic environment. No significant change from most recent x-ray.
[2021-11-09] MEDS ORDERED: SODIUM CHLORIDE 0.9% 50 ML IVPB ONE (14:00)
[2021-11-09] MEDS ORDERED: CASIRIVIMAB (REGN10933) (EUA) 600 MG, IMDEVIMAB (REGN10987) (EUA) 600 MG in SODIUM CHLO... IVPB ONE (14:00)
[2021-11-09 14:01] VITALS: RESP 18
[2021-11-09 14:16] LABS: Albumin 3.7 g/dL (3.5-5.0); Calcium 9.2 mg/dL (8.4-10.2); Potassium 4.5 mmol/L (3.5-5.1); Total Bilirubin 0.6 mg/dL (0.2-1.3); Total Protein 7.4 g/dL (6.3-8.2)
[2021-11-09 14:59] LABS: Appearance,Urine Cloudy (Clear); Bacteria,Urine Many /hpf; Bilirubin,Urine Negative (Negative); Blood,Urine Moderate (Negative); Color,Urine Yellow; Glucose,Urine (UA) Negative (Negative); Hyaline Casts,Urine 2 /lpf (0-2); Ketones,Urine Negative (Negative); Leukocyte Esterase,Urine Large (Negative); Mucus,Urine Occasional /hpf; Nitrite,Urine Positive (Negative); PH, Urine 6.5 (5.0-8.0); Protein,Urine 1+ (Negative); RBC,Urine 16 /hpf (0-5); Specific Gravity,Urine 1.017 (1.001-1.035); Squamous Epithelial Cell,Urine <1 /hpf (0-4); Urobilinogen,Urine <2.0 mg/dL (<2.0); WBC,Urine 150 /hpf (0-5)
[2021-11-09 17:00] VITALS: BP 141/84; PULSE 101; TEMP 97.7
== END 2021-11-09 16:54 | disposition home or self-care (01) ==
LOC: EC 11:26
DX: U07.1 COVID-19 (principal); R11.2 Nausea with vomiting, unspecified; K21.9 Gastro-esophageal reflux disease without esophagitis; E78.5 Hyperlipidemia, unspecified; F41.9 Anxiety disorder, unspecified; F17.200 Nicotine dependence, unspecified, uncomplicated; Z79.82 Long term (current) use of aspirin; Z88.2 Allergy status to sulfonamides; Z87.442 Personal history of urinary calculi; Z85.51 Personal history of malignant neoplasm of bladder; Z85.038 Personal history of other malignant neoplasm of large intestine
CPT/HCPCS: 99284; 96374; 96376; 96361; 36415; 93005; 80053; 82150; 83605; 83690; 85025; 81001; 87086; 87635; 71046; 74018; J2405; Q0244

== ENCOUNTER 2021-11-11 16:03 | Inpatient (IN) | payer MEDICARE ==
[2021-11-11] MEDS ORDERED: ALBUTEROL HFA INHALER INHALATION STA (16:17)
[2021-11-11 16:40] LABS: Anisocytosis Slight; Basophils % (A) 0 %; Eosinophils % (A) 0 %; HCT 40.7 % (39.0-53.0); HGB 12.9 gm/dL (13.0-17.5); Hypochromasia Slight; Lymphocytes # (A) 0.7 k/uL (1.0-4.8); Lymphocytes % (A) 7 %; MCHC 31.8 g/dL (31.0-37.0); MCV 100.7 fL (80.0-100.0); Macrocytosis Slight; Mean Platelet Volume 8.7; Monocytes # (A) 0.2 k/uL (0-1.0); Monocytes % (A) 2 %; Neutrophils # (A) 9.5 k/uL (1.3-7.7); Neutrophils % (A) 91 %; Platelet Count 400 k/uL (150-450); RBC 4.05 m/uL (4.30-5.90); RDW 17.3 % (11.5-15.5); WBC 10.4 k/uL (3.8-10.6)
--- NOTE | 2021-11-11 16:45 | XR ---
EXAMINATION TYPE: XR chest 2V DATE OF EXAM: 11/11/2021 COMPARISON: Chest x-ray [address] October 29, 2021 HISTORY: Worsening shortness of breath TECHNIQUE: Frontal and lateral views of the chest are obtained. FINDINGS: There is background chronic emphysematous and pulmonary fibrotic changes with bilateral mu ltifocal increased opacity is redemonstrated. The cardiac silhouette size remains within normal limi ts. The osseous structures are intact. IMPRESSION: Bilateral multifocal acute infiltrates on background chronic emphysematous and pulmonary fibrotic changes all redemonstrated. No significant change from most recent x-ray.
[2021-11-11 16:55] LABS: INR 1.2 (<1.2); Partial Thromboplastin Time 27.1 sec (22.0-30.0); Prothrombin Time 12.5 sec (9.0-12.0)
[2021-11-11 16:57] LABS: Albumin 3.9 g/dL (3.5-5.0); Calcium 9.8 mg/dL (8.4-10.2); Total Bilirubin 0.7 mg/dL (0.2-1.3); Total Protein 7.6 g/dL (6.3-8.2)
[2021-11-11] MEDS ORDERED: methylPREDNISolone SOD SUCCI 125 MG/2 ML VIAL IV STA (18:30)
--- NOTE | 2021-11-11 18:30 | ED ---
SOB HPI - General Chief Complaint: Shortness of Breath Stated Complaint: SOB Time Seen by Provider: 11/11/21 16:04 Source: patient, EMS Mode of arrival: EMS Limitations: no limitations - History of Present Illness Initial Comments: 86-year-old male history of COPD and asthma who was recently diagnosed with COVID-19 who is here today by EMS due to shortness of breath. He states he has a cough with some yellow phlegm he did have fevers and chills. Some chest discomfort with breathing. No palpitations no other complaints or modifying factors the patient is an active smoker. MD Complaint: shortness of breath - Related Data Home Medications Medication Instructions Recorded Confirmed ALPRAZolam [Xanax] 0.5 mg PO Q8H PRN 02/04/19 11/11/21 Omeprazole 40 mg PO DAILY 02/04/19 11/11/21 gemfibroziL [Lopid] 600 mg PO BID 02/04/19 11/11/21 Folic Acid 1 mg PO DAILY 10/29/21 11/11/21 Hydrocortisone Pr Cream 1 applic RECTAL QID 10/29/21 11/11/21 [Proctosol-Hc 2.5%] Nystatin 100,000Unit/gm Cream 1 applic TOPICAL BID 10/29/21 11/11/21 [Mycostatin Cream] metHOTREXate sodium [Methotrexate] 12.5 mg PO GOODSON 10/29/21 11/11/21 Previous Rx's Medication Instructions Recorded Aspirin 81 mg PO DAILY tab 11/02/21 Cephalexin [Keflex] 500 mg PO Q6HR #40 cap 11/09/21 Ondansetron Odt [Zofran ODT] 4 mg PO Q8HR PRN #10 tab 11/09/21 Allergies Allergy/AdvReac Type Severity Reaction Status Date / Time Sulfa (Sulfonamide AdvReac Rash/Hives/ Verified 11/11/21 16:19 Antibiotics) itching Review of Systems ROS Statement: Those systems with pertinent positive or pertinent negative responses have been documented in the HPI. ROS Other: All systems not noted in ROS Statement are negative. Past Medical History Past Medical History: GERD/Reflux, Hyperlipidemia Additional Past Medical History / Comment(s): kidney stones, bladder cancer, colon cancer History of Any Multi-Drug Resistant Organisms: None Reported Past Surgical History: Hernia Repair Additional Past Surgical History / Comment(s): kidney stone removed ILIOSTOMY Past Anesthesia/Blood Transfusion Reactions: No Reported Reaction, Motion Sickness Past Psychological History: Anxiety Smoking Status: Current some day smoker Past Alcohol Use History: None Reported Past Drug Use History: None Reported - Past Family History Sister(s) Family Medical History: Cancer Brother(s) Family Medical History: Cancer General Exam - General Exam Comments Initial Comments: This is a well-developed well-nourished awake alert oriented times 3 male Limitations: no limitations General appearance: alert, anxious, in distress Head exam: Present: atraumatic, normocephalic, normal inspection Eye exam: Present: normal appearance, PERRL, EOMI. Absent: scleral icterus, conjunctival injection, periorbital swelling ENT exam: Present: mucous membranes dry Neck exam: Present: normal inspection, full ROM, other. Absent: tenderness, meningismus, lymphadenopathy Respiratory exam: Present: rales, decreased breath sounds (Stridor JVD or bruits). Absent: respiratory distress, wheezes, rhonchi, stridor Cardiovascular Exam: Present: normal rhythm, tachycardia, normal heart sounds. Absent: systolic murmur, diastolic murmur, rubs, gallop, clicks GI/Abdominal exam: Present: soft, normal bowel sounds. Absent: distended, tenderness, guarding, rebound, rigid Extremities exam: Present: normal inspection, full ROM, normal capillary refill. Absent: tenderness, pedal edema, joint swelling, calf tenderness Back exam: Present: normal inspection Neurological exam: Present: alert, oriented X3, CN II-XII intact Psychiatric exam: Present: normal affect, normal mood Skin exam: Present: warm, dry, intact, normal color. Absent: rash Course Vital Signs 11/11/21 11/11/21 16:17 16:46 Temperature 98.2 F Pulse Rate 112 H Respiratory 18 18 Rate Blood Pressure 148/105 O2 Sat by Pulse 98 Oximetry Medical Decision Making - Medical Decision Making I did discuss the findings with the patient as well as Dr. Davis patient be admitted to the hospital for inpatient evaluation and treatment with pulmonary consultation. Patient does have an elevated d-dimer with evidence of kidney injury. VQ scan will be ordered. - Lab Data Result diagrams: 11/11/21 16:30 11/11/21 16:30 Lab Results 11/11/21 11/11/21 11/11/21 Range/Units 16:30 16:30 16:30 WBC 10.4 (3.8-10.6) k/uL RBC 4.05 L (4.30-5.90) m/uL Hgb 12.9 L (13.0-17.5) gm/dL Hct 40.7 (39.0-53.0) % MCV 100.7 H (80.0-100.0) fL MCH 32.0 (25.0-35.0) pg MCHC 31.8 (31.0-37.0) g/dL RDW 17.3 H (11.5-15.5) % Plt Count 400 (150-450) k/uL MPV 8.7 Neutrophils % 91 % Lymphocytes % 7 % Monocytes % 2 % Eosinophils % 0 % Basophils % 0 % Neutrophils # 9.5 H (1.3-7.7) k/uL Lymphocytes # 0.7 L (1.0-4.8) k/uL Monocytes # 0.2 (0-1.0) k/uL Eosinophils # 0.0 (0-0.7) k/uL Basophils # 0.0 (0-0.2) k/uL Hypochromasia Slight Anisocytosis Slight Macrocytosis Slight PT 12.5 H (9.0-12.0) sec INR 1.2 H (<1.2) APTT 27.1 (22.0-30.0) sec D-Dimer 2.74 H (<0.60) mg/L FEU Sodium 145 (137-145) mmol/L Potassium 5.0 (3.5-5.1) mmol/L Chloride 113 H (98-107) mmol/L Carbon Dioxide 17 L (22-30) mmol/L Anion Gap 15 mmol/L BUN 62 H (9-20) mg/dL Creatinine 2.22 H (0.66-1.25) mg/dL Est GFR (CKD-EPI)AfAm 30 (>60 ml/min/1.73 sqM) Est GFR (CKD-EPI)NonAf 26 (>60 ml/min/1.73 sqM) Glucose 128 H (74-99) mg/dL Plasma Lactic Acid Steffen (0.7-2.0) mmol/L Calcium 9.8 (8.4-10.2) mg/dL Total Bilirubin 0.7 (0.2-1.3) mg/dL AST 28 (17-59) U/L ALT 20 (4-49) U/L Alkaline Phosphatase 88 (38-126) U/L Troponin I (0.000-0.034) ng/mL NT-Pro-B Natriuret Pep pg/mL Total Protein 7.6 (6.3-8.2) g/dL Albumin 3.9 (3.5-5.0) g/dL 11/11/21 11/11/21 11/11/21 Range/Units 16:30 16:30 16:30 WBC (3.8-10.6) k/uL RBC (4.30-5.90) m/uL Hgb (13.0-17.5) gm/dL Hct (39.0-53.0) % MCV (80.0-100.0) fL MCH (25.0-35.0) pg MCHC (31.0-37.0) g/dL RDW (11.5-15.5) % Plt Count (150-450) k/uL MPV Neutrophils % % Lymphocytes % % Monocytes % % Eosinophils % % Basophils % % Neutrophils # (1.3-7.7) k/uL Lymphocytes # (1.0-4.8) k/uL Monocytes # (0-1.0) k/uL Eosinophils # (0-0.7) k/uL Basophils # (0-0.2) k/uL Hypochromasia Anisocytosis Macrocytosis PT (9.0-12.0) sec INR (<1.2) APTT (22.0-30.0) sec D-Dimer (<0.60) mg/L FEU Sodium (137-145) mmol/L Potassium (3.5-5.1) mmol/L Chloride (98-107) mmol/L Carbon Dioxide (22-30) mmol/L Anion Gap mmol/L BUN (9-20) mg/dL Creatinine (0.66-1.25) mg/dL Est GFR (CKD-EPI)AfAm (>60 ml/min/1.73 sqM) Est GFR (CKD-EPI)NonAf (>60 ml/min/1.73 sqM) Glucose (74-99) mg/dL Plasma Lactic Acid Steffen 1.6 (0.7-2.0) mmol/L Calcium (8.4-10.2) mg/dL Total Bilirubin (0.2-1.3) mg/dL AST (17-59) U/L ALT (4-49) U/L Alkaline Phosphatase (38-126) U/L Troponin I 0.023 (0.000-0.034) ng/mL NT-Pro-B Natriuret Pep 1700 pg/mL Total Protein (6.3-8.2) g/dL Albumin (3.5-5.0) g/dL - EKG Data -: EKG Interpreted by Nd EKG shows normal: sinus rhythm Rate: tachycardia EKG Comments: Sinus tachycardia with a rate of 107. Interval 204 QRS duration 84 QT since QTC 342/456 possible RVH PAC noted - Radiology Data Radiology results: report reviewed (Imaging reviewed bilateral infiltrates noted to the complete report), image reviewed Critical Care Time Critical Care Time: Yes Total Critical Care Time: 32 Critical Care Time: Critical care time includes initial presentation with history physical labs x- rays multiple reevaluation the patient review of old charting discussion with the admitting physician admission orders documentation of the above Disposition Clinical Impression: Acute exacerbation of chronic obstructive pulmonary disease, Pneumonia due to COVID-19 virus, Acute kidney injury, Dehydration, Elevated d-dimer, Acute respiratory distress syndrome in adult Disposition: ADMITTED IP TO THIS HOSP Condition: Fair Referrals: Nikita Vasquez MD [Primary Care Provider] - 1-2 days
[2021-11-11] MEDS ORDERED: ONDANSETRON ODT 4 MG TAB PO PRN (18:37)
[2021-11-11] MEDS ORDERED: ONDANSETRON 4 MG/2 ML VIAL IVP STA (18:38)
[2021-11-11] MEDS: SODIUM CHLORIDE 0.9% 1,000 ML IV SCH (19:36)
[2021-11-11] MEDS ORDERED: ALBUTEROL HFA INHALER INHALATION SCH (20:00)
[2021-11-11] MEDS: HYDROCORTISONE 2.5% RECTAL CREAM 30 GM TUBE RECTAL SCH (22:44)
[2021-11-11] MEDS: FENOFIBRATE 160 MG TAB PO SCH (23:37)
[2021-11-11] MEDS: CEPHALEXIN 250 MG CAP PO SCH (23:37)
[2021-11-11] MEDS: methylPREDNISolone SOD SUCCI 125 MG/2 ML VIAL IV SCH (23:37)
[2021-11-12] MEDS: ALPRAZolam 0.5 MG TAB PO PRN ×2 (06:20→14:52)
[2021-11-12] MEDS: SODIUM CHLORIDE 0.9% 1,000 ML IV SCH ×2 (06:21→18:25)
[2021-11-12] MEDS: methylPREDNISolone SOD SUCCI 125 MG/2 ML VIAL IV SCH ×3 (06:21→18:24)
[2021-11-12] MEDS: FOLIC ACID 1 MG TAB PO SCH (09:37)
[2021-11-12] MEDS: PANTOPRAZOLE 40 MG TABLET PO SCH (09:43)
[2021-11-12] MEDS: CEPHALEXIN 250 MG CAP PO SCH ×2 (09:43→18:24)
[2021-11-12] MEDS: ASPIRIN 81 MG PO SCH (09:43)
[2021-11-12] MEDS: ASCORBIC ACID 500 MG TAB PO SCH (09:43)
[2021-11-12] MEDS: CHOLECALCIFEROL 125 MCG (5000 IU) TABLET PO SCH (09:43)
[2021-11-12] MEDS: ZINC SULFATE 220 MG CAP PO SCH (09:43)
[2021-11-12] MEDS: HYDROCORTISONE 2.5% RECTAL CREAM 30 GM TUBE RECTAL SCH ×4 (09:44→23:08)
--- NOTE | 2021-11-12 12:43 | P.CNPUL ---
History of Present Illness Consult date: 11/12/21 Requesting physician: Nikita Vasquez Reason for consult: dyspnea, hypoxemia, abnormal CXR/CT Chief complaint: Anterior chest wall pain, shortness of breath History of present illness: This is a very pleasant 86-year-old gentleman who was just recently discharged after being treated for interstitial pulmonary infiltrates and atypical chest pain. He has a history of gastroesophageal reflux disease, hyperlipidemia, kidney stones, bladder cancer, colon cancer, anxiety, chronic tobacco dependence, rheumatoid arthritis and is maintained on methotrexate. He presented to the emergency room again yesterday with complaints of chest pain. This had been intermittent over the past several days. He described it as sharp in nature worse with deep breathing. He is hard of hearing and somewhat of a poor historian. He is seen today in consultation on the regular medical floor. He is sitting up in bed. Awake and alert. Maintaining O2 saturations up to 100% on 2 L nasal cannula. He's been afebrile. Hemodynamically stable. He is still having some ongoing issues with musculoskeletal chest wall pain. Chest x-ray reveals bilateral multifocal acute infiltrates on background chronic and somatic and pulmonary fibrotic changes redemonstrated. The patient is now testing positive for COVID-19 on an ER visit on 11/09/2021. White count 10.4. Hemoglobin 12.9. Platelet count 400,000. Lymphocytes 0.7. D-dimer 2.74. Sodium 145. Potassium 5.0. Creatinine 2.22. Glucose 128. ProBNP 1700. T roponin 0.0-3. EKG revealed normal sinus rhythm without any significant ST or T wave abnormalities. He's been initiated on IV Solu-Medrol bronchodilators. Initiated on vitamin supplements. Review of Systems REVIEW OF SYSTEMS: CONSTITUTIONAL: Denies any recent significant weight loss or weight gain. EYES: Denies change in vision. EARS, NOSE, MOUTH, THROAT: Denies headaches, denies sore throat. CARDIOVASCULAR: Positive for chest pain, no palpitations or syncopal episodes. RESPIRATORY: Positive for shortness of breath, cough, congestion no hemoptysis. GASTROINTESTINAL: Denies change in appetite, denies abdominal pain GENITOURINARY: Denies hematuria, denies infections. MUSKULOSKELETAL: Denies pain, denies swelling. INTEGUMENTARY: Denies rash, denies eczema. NEUROLOGICAL: Denies recent memory loss, no recent seizure activity. PSYCHIATRIC: Denies anxiety, denies depression. HEMATOLOGIC/LYMPHATIC: Denies anemia, denies enlarged lymph nodes. Past Medical History Past Medical History: GERD/Reflux, Hyperlipidemia Additional Past Medical History / Comment(s): kidney stones, bladder cancer, colon cancer History of Any Multi-Drug Resistant Organisms: None Reported Past Surgical History: Hernia Repair Additional Past Surgical History / Comment(s): kidney stone removed ILIOSTOMY Past Anesthesia/Blood Transfusion Reactions: No Reported Reaction, Motion Sickness Past Psychological History: Anxiety Smoking Status: Current some day smoker Past Alcohol Use History: None Reported Additional Past Alcohol Use History / Comment(s): smoking 1/2 PPD, smoked for 10 yrs(quit for 30 yrs, started smoking as teen) Past Drug Use History: None Reported - Past Family History Sister(s) Family Medical History: Cancer Brother(s) Family Medical History: Cancer Medications and Allergies Home Medications Medication Instructions Recorded Confirmed Type ALPRAZolam [Xanax] 0.5 mg PO Q8H PRN 02/04/19 11/11/21 History Omeprazole 40 mg PO DAILY 02/04/19 11/11/21 History gemfibroziL [Lopid] 600 mg PO BID 02/04/19 11/11/21 History Folic Acid 1 mg PO DAILY 10/29/21 11/11/21 History Hydrocortisone Pr Cream 1 applic RECTAL QID 10/29/21 11/11/21 History [Proctosol-Hc 2.5%] Nystatin 100,000Unit/gm Cream 1 applic TOPICAL BID 10/29/21 11/11/21 History [Mycostatin Cream] metHOTREXate sodium [Methotrexate] 12.5 mg PO GOODSON 10/29/21 11/11/21 History Aspirin 81 mg PO DAILY tab 11/02/21 11/11/21 Rx Cephalexin [Keflex] 500 mg PO Q6HR #40 cap 11/09/21 11/11/21 Rx Ondansetron Odt [Zofran ODT] 4 mg PO Q8HR PRN #10 tab 11/09/21 11/11/21 Rx Allergies Allergy/AdvReac Type Severity Reaction Status Date / Time Sulfa (Sulfonamide AdvReac Rash/Hives/ Verified 11/11/21 16:19 Antibiotics) itching Physical Exam Vitals: Vital Signs Temp Pulse Pulse Resp BP BP Pulse Ox 11/12/21 02:00 98.4 F 94 16 157/91 100 11/11/21 22:39 97.7 F 105 H 18 149/95 98 11/11/21 21:00 78 20 154/98 97 11/11/21 18:19 72 20 141/87 95 11/11/21 16:46 18 11/11/21 16:17 98.2 F 112 H 18 148/105 98 Intake and Output 11/11/21 11/12/21 11/12/21 22:59 06:59 14:59 Intake Total 800 Output Total 425 Balance 375 Intake: Intake, IV Titration 800 Amount Sodium Chloride 0.9% 1, 800 000 ml @ 100 mls/hr IV . Q10H [facility] Rx#:[id number] Output: Urine 425 Other: Voiding Method Ileal Conduit (Right) Weight 68.039 kg GENERAL EXAM: Alert, very pleasant hard of hearing, 86-year-old male patient, on 2 L nasal cannula, comfortable in no apparent distress. HEAD: Normocephalic. EYES: Normal reaction of pupils, equal size. NOSE: Clear with pink turbinates. THROAT: No erythema or exudates. NECK: No masses, no JVD. CHEST: No chest wall deformity. LUNGS: Equal air entry with coarse crackles in bilateral bases CVS: S1 and S2 normal with no audible murmur, regular rhythm. ABDOMEN: No hepatosplenomegaly, normal bowel sounds, no guarding or rigidity. SPINE: No scoliosis or deformity SKIN: No rashes CENTRAL NERVOUS SYSTEM: No focal deficits, tone is normal in all 4 extremities. EXTREMITIES: There is no peripheral edema. No clubbing, no cyanosis. Peripheral pulses are intact. Results - Laboratory Findings CBC and BMP: 11/11/21 16:30 11/11/21 16:30 PT/INR, D-dimer PT 12.5 sec (9.0-12.0) H 11/11/21 16:30 INR 1.2 (<1.2) H 11/11/21 16:30 D-Dimer 2.74 mg/L FEU (<0.60) H 11/11/21 16:30 Abnormal lab findings: Abnormal Labs 11/11/21 11/11/21 11/11/21 16:30 16:30 16:30 RBC 4.05 L Hgb 12.9 L MCV 100.7 H RDW 17.3 H Neutrophils # 9.5 H Lymphocytes # 0.7 L PT 12.5 H INR 1.2 H D-Dimer 2.74 H Chloride 113 H Carbon Dioxide 17 L BUN 62 H Creatinine 2.22 H Glucose 128 H - Diagnostic Findings Chest x-ray: image reviewed Assessment and Plan Assessment: 1 Acute hypoxic respiratory failure in a patient found to have COVID-19 infection on 11/09/2021. 2 Atypical chest pain possibly secondary to above 3 Elevated inflammatory markers secondary to above 4 Acute on chronic renal failure 5 History of rheumatoid arthritis, maintained on methotrexate 6 History of gastroesophageal reflux disease 7 History of colon cancer 8 History of bladder cancer 9 History of kidney stone 10 Chronic tobacco dependence 11 Anxiety Plan: The patient was seen and evaluated Chest x-ray and labs reviewed Continue IV Solu-Medrol, vitamin supplements Add Lovenox Titrate the FiO2 as tolerated Follow up chest x-ray and labs in a.m. We will continue to follow and make further recommendations based on his clinical status I, the cosigning physician, performed a history & physical examination of the patient. Lungs sounds with coarse crackles in the bilateral bases. Maintaining good O2 saturations in the 90s on 2 L/m per nasal cannula. I discussed the assessment and plan of care with my nurse practitioner, Tonie Godfrey. I attest to the above consultation as dictated by her. Time with Patient: Greater than 30
[2021-11-12] MEDS: ALBUTEROL HFA INHALER INHALATION SCH ×3 (12:51→20:44)
[2021-11-12] MEDS ORDERED: ENOXAPARIN 30 MG/0.3 ML SYRINGE SQ SCH (13:00)
--- NOTE | 2021-11-12 14:35 | P.HPIM ---
History of Present Illness H&P Date: 11/12/21 Bob Wolf, is a year old male who presented to [facility] emergency room with a chief complaint of chest pain patient describes a sharp pain in the chest that is intermittent and worse with deep breathing. He was evaluated in the emergency room vital examination on presentation revealed a temperature of 98.2 pulse 112 respiration 18 blood pressure 148/105 pulse ox 98% on 2 L nasal cannula Laboratory data revealed a white blood count of 10.4 hemoglobin 12.9 platelet count 400 d-dimer 2.74 BUN 62 creatinine 2.2 Testing in the emergency room revealed chest x-ray revealed bilateral multifocal infiltrates EKG revealed sinus tachycardia without acute ischemic changes Patient was admitted to medical floor for further evaluation and treatment. Past medical history is significant for advanced COPD patient still smokes he has more than 50 year history of smoking, he also has a known history of colon cancer, bladder cancer, rheumatoid arthritis, gastroesophageal reflux disease, anxiety disorder. Past Medical History Past Medical History: GERD/Reflux, Hyperlipidemia Additional Past Medical History / Comment(s): kidney stones, bladder cancer, colon cancer History of Any Multi-Drug Resistant Organisms: None Reported Past Surgical History: Hernia Repair Additional Past Surgical History / Comment(s): kidney stone removed ILIOSTOMY Past Anesthesia/Blood Transfusion Reactions: No Reported Reaction, Motion S ickness Past Psychological History: Anxiety Smoking Status: Current some day smoker Past Alcohol Use History: None Reported Additional Past Alcohol Use History / Comment(s): smoking 1/2 PPD, smoked for 10 yrs(quit for 30 yrs, started smoking as teen) Past Drug Use History: None Reported - Past Family History Sister(s) Family Medical History: Cancer Brother(s) Family Medical History: Cancer Medications and Allergies Home Medications Medication Instructions Recorded Confirmed Type RX: ALPRAZolam [Xanax] 0.5 mg PO Q8H PRN 02/04/19 11/11/21 History RX: Omeprazole 40 mg PO DAILY 02/04/19 11/11/21 History RX: gemfibroziL [Lopid] 600 mg PO BID 02/04/19 11/11/21 History RX: Folic Acid 1 mg PO DAILY 10/29/21 11/11/21 History RX: Hydrocortisone Pr Cream 1 applic RECTAL QID 10/29/21 11/11/21 History [Proctosol-Hc 2.5%] RX: Nystatin 100,000Unit/gm Cream 1 applic TOPICAL BID 10/29/21 11/11/21 History [Mycostatin Cream] RX: metHOTREXate sodium 12.5 mg PO GOODSON 10/29/21 11/11/21 History [Methotrexate] RX: Aspirin 81 mg PO DAILY tab 11/02/21 11/11/21 Rx RX: Cephalexin [Keflex] 500 mg PO Q6HR #40 cap 11/09/21 11/11/21 Rx RX: Ondansetron Odt [Zofran ODT] 4 mg PO Q8HR PRN #10 tab 11/09/21 11/11/21 Rx Allergies Allergy/AdvReac Type Severity Reaction Status Date / Time Sulfa (Sulfonamide AdvReac Rash/Hives/ Verified 11/11/21 16:19 Antibiotics) itching Physical Exam Vitals: Vital Signs Temp Pulse Pulse Resp BP BP Pulse Ox 11/12/21 07:45 97.8 F 59 L 19 141/79 99 11/12/21 02:00 98.4 F 94 16 157/91 100 11/11/21 22:39 97.7 F 105 H 18 149/95 98 11/11/21 21:00 78 20 154/98 97 11/11/21 18:19 72 20 141/87 95 11/11/21 16:46 18 11/11/21 16:17 98.2 F 112 H 18 148/105 98 Intake and Output 11/11/21 11/12/21 11/12/21 22:59 06:59 14:59 Intake Total 800 Output Total 425 250 Balance 375 -250 Intake: Intake, IV Titration 800 Amount Sodium Chloride 0.9% 1, 800 000 ml @ 100 mls/hr IV . Q10H [facility] Rx#:[id number] Output: Urine 425 250 Other: Voiding Method Ileal Conduit (Right) Weight 68.039 kg In general patient is alert and oriented x 3 in no distress HEENT head normocephalic and atraumatic Neck is supple no JVD no goiter no lymphadenopathy no carotid bruit Chest examination reveals a scattered crackles bilaterally no wheezing Cardiac exam reveals regular heart sounds S1 and S2 no gallops no murmurs Abdomen is soft nontender no organomegaly with normal bowel sounds Extremity exam reveals no edema no cyanosis or clubbing Neurological examination reveals no gross focal deficits Results CBC & Chem 7: 11/11/21 16:30 11/11/21 16:30 Labs: Abnormal Lab Results - Last 24 Hours (Table) 11/11/21 11/11/21 11/11/21 Range/Units 16:30 16:30 16:30 RBC 4.05 L (4.30-5.90) m/uL Hgb 12.9 L (13.0-17.5) gm/dL MCV 100.7 H (80.0-100.0) fL RDW 17.3 H (11.5-15.5) % Neutrophils # 9.5 H (1.3-7.7) k/uL Lymphocytes # 0.7 L (1.0-4.8) k/uL PT 12.5 H (9.0-12.0) sec INR 1.2 H (<1.2) D-Dimer 2.74 H (<0.60) mg/L FEU Chloride 113 H (98-107) mmol/L Carbon Dioxide 17 L (22-30) mmol/L BUN 62 H (9-20) mg/dL Creatinine 2.22 H (0.66-1.25) mg/dL Glucose 128 H (74-99) mg/dL Thrombosis Risk Factor Assmnt - Choose All That Apply Any of the Below Risk Factors Present?: Yes Each Factor Represents 1 point: Abnormal pulmonary function (COPD), Serious lung disease incl. pneumonia (< 1month) Other Risk Factors: Yes Each Risk Factor Represents 3 Points: Age 75 years or older Thrombosis Risk Factor Assessment Total Risk Factor Score: 5 Thrombosis Risk Factor Assessment Level: High Risk Assessment and Plan Plan: 1. Acute hypoxic respiratory failure, COVID-19 infection on 11/09/2021. Now with evidence of pneumonia on chest x-ray with multifocal bilateral acute infiltrates 2. Chest pain, atypical in nature likely related to pneumonia and cough, first troponin at 0.023, EKG with sinus tachycardia without acute ischemic changes 3. Elevated d-dimer, patient has elevated creatinine, will check VQ scan 4. Acute on chronic renal failure, creatinine on presentation 2.22 5. Underlying history of rheumatoid arthritis, maintained on methotrexate 6. Underlying history of kidney stones 7. Underlying history of anxiety disorder 8. Underlying history of tobacco abuse 9. Previous history of colon cancer 10. Previous history of bladder cancer At this time patient was admitted to medical floor He was started on IV steroids and inhaled bronchodilators and oxygen supplements VQ scan was ordered in relation to elevated d-dimer and pleuritic chest pain Pulmonary consultation requested Will follow closely
[2021-11-12] MEDS ORDERED: HEPARIN SODIUM 1,000 UN/ML (10ML VL) IV PRN (16:47)
[2021-11-12] MEDS ORDERED: HEPARIN SODIUM 1,000 UN/ML (10ML VL) IV ONE (16:47)
[2021-11-12 17:50] LABS: Anisocytosis Slight; Basophils % (A) 0 %; Eosinophils % (A) 0 %; HCT 37.2 % (39.0-53.0); HGB 11.8 gm/dL (13.0-17.5); Lymphocytes # (A) 0.5 k/uL (1.0-4.8); Lymphocytes % (A) 5 %; MCH 31.5 pg (25.0-35.0); MCHC 31.8 g/dL (31.0-37.0); MCV 98.9 fL (80.0-100.0); Macrocytosis Slight; Monocytes # (A) 0.2 k/uL (0-1.0); Monocytes % (A) 2 %; Neutrophils # (A) 9.4 k/uL (1.3-7.7); Neutrophils % (A) 92 %; Platelet Count 358 k/uL (150-450); RBC 3.77 m/uL (4.30-5.90); RDW 16.7 % (11.5-15.5); WBC 10.2 k/uL (3.8-10.6)
[2021-11-12 18:08] LABS: INR 1.3 (<1.2); Partial Thromboplastin Time 28.2 sec (22.0-30.0); Prothrombin Time 13.5 sec (9.0-12.0)
[2021-11-12] MEDS: HEPARIN SOD,PORK IN 0.45% NACL 25,000 UNIT in 0.45% NACL 1 250ML.BAG IV SCH (18:25)
[2021-11-12] MEDS: FENOFIBRATE 160 MG TAB PO SCH (20:10)
[2021-11-13] MEDS: CEPHALEXIN 250 MG CAP PO SCH ×4 (00:01→23:41)
[2021-11-13] MEDS: ALPRAZolam 0.5 MG TAB PO PRN (00:05)
[2021-11-13] MEDS: methylPREDNISolone SOD SUCCI 125 MG/2 ML VIAL IV SCH ×5 (05:18→23:41)
[2021-11-13] MEDS: SODIUM CHLORIDE 0.9% 1,000 ML IV SCH ×3 (05:18→21:16)
[2021-11-13 06:17] LABS: Glucose,Whole Blood 147 mg/dL (75-99)
--- NOTE | 2021-11-13 07:42 | XR ---
EXAMINATION TYPE: XR chest 1V portable DATE OF EXAM: 11/13/2021 COMPARISON: 11/11/2021 HISTORY: Covid pneumonia TECHNIQUE: Single frontal view of the chest is obtained. FINDINGS: There are diffuse interstitial and small airspace opacity scattered throughout both lungs unchanged compared to the prior study. There are probable small bilateral pleural effusions. There is no pneumothorax. The heart is mildly p rominent in size. The osseous structures are intact IMPRESSION: No interval change in the diffuse lung infiltrates and small bilateral pleural effusions .
[2021-11-13 08:07] LABS: Anisocytosis Slight; Basophils % (A) 0 %; Eosinophils % (A) 0 %; HCT 38.3 % (39.0-53.0); Hypochromasia Moderate; Lymphocytes # (A) 0.5 k/uL (1.0-4.8); Lymphocytes % (A) 7 %; MCH 31.8 pg (25.0-35.0); MCHC 31.3 g/dL (31.0-37.0); MCV 101.8 fL (80.0-100.0); Macrocytosis Moderate; Mean Platelet Volume 8.8; Monocytes # (A) 0.3 k/uL (0-1.0); Monocytes % (A) 4 %; Neutrophils # (A) 6.5 k/uL (1.3-7.7); Neutrophils % (A) 89 %; Platelet Count 262 k/uL (150-450); RBC 3.76 m/uL (4.30-5.90); RDW 16.6 % (11.5-15.5); WBC 7.3 k/uL (3.8-10.6)
[2021-11-13] MEDS: ALBUTEROL HFA INHALER INHALATION SCH ×3 (08:08→19:51)
[2021-11-13 08:22] LABS: C Reactive Protein 2.2 mg/dL (<1.0)
[2021-11-13 08:27] LABS: INR 1.4 (<1.2); Partial Thromboplastin Time 33.3 sec (22.0-30.0); Prothrombin Time 14.2 sec (9.0-12.0)
[2021-11-13] MEDS: ZINC SULFATE 220 MG CAP PO SCH (08:42)
[2021-11-13] MEDS: ASPIRIN 81 MG PO SCH (08:42)
[2021-11-13] MEDS: FOLIC ACID 1 MG TAB PO SCH (08:42)
[2021-11-13] MEDS: CHOLECALCIFEROL 125 MCG (5000 IU) TABLET PO SCH (08:42)
[2021-11-13] MEDS: PANTOPRAZOLE 40 MG TABLET PO SCH (08:42)
[2021-11-13] MEDS: ASCORBIC ACID 500 MG TAB PO SCH (08:46)
--- NOTE | 2021-11-13 10:05 | P.CONS ---
History of Present Illness - Reason for Consult Consult date: 11/12/21 covid 19 pneumonia Requesting physician: Nikita Vasquez - Chief Complaint shortness of breath x days - History of Present Illness History of present illness : Patient is 86-year-old male who was recently discharged from this hospital after being treated for a typical chest pain and pulmonary infiltrates patient was subsequently stabilized and discharged home patient then presented back to the hospital last evening for evaluation of increasing shortness of breath in this patient has been complaining of cough moderate intensity with some yellow sputum along with some chills and apparently to have recent diagnosis of COVID-19 on presentation to the hospital patient was afebrile and no fever him recorded subsequently patient was hypoxic requiring supplemental oxygen did have a normal white count with lymphopenia D-dimer was mildly elevated as well as elevated troponin BUN/creatinine are elevated liver enzymes are normal patient did have a chest x- ray bilateral multifocal acute infiltrate on the background of chronic emphysematous and pulmonary fibrotic changes, patient was admitted to the hospital infectious disease was consulted for further management Review of system: CONSTITUTIONAL: Positive for weakness along with the fever. EYES: No complaint. ENT: No complaint. RESPIRATORY: As per history of present illness. CARDIOVASCULAR: No complaint. GENITOURINARY: No complaint. GASTROINTESTINAL: No complaint. MUSCULOSKELETAL: No complaint. INTEGUMENTARY: No complaint. PSYCHOLOGIC: No complaint. ENDOCRINE: No complaint. NEUROLOGIC: No complaint. Past medical history : Reviewed, documented below Past surgical history : Reviewed, documented below Social history: Reviewed, documented below Medications: Reviewed, as documented below EXAMINATION: Vital sigans= Reviewed and documented below GENERAL DESCRIPTION: Elderly male lying in bed, no distress. No tachypnea or accessory muscle of respiration use. HEENT: Shows Pallor , no scleral icterus. Oral mucous membrane is dry. NECK: Trachea central, no thyromegaly. LUNGS: Unlabored breathing. Decreased intensity of breath sounds. No wheeze or crackle. HEART: S1, S2, regular rate and rhythm. ABDOMEN: Soft, no tenderness , guarding or rigidity EXTREMITIES: No edema of feet. SKIN: No rash, no masses palpable. NEUROLOGICAL: The patient is awake, alert, oriented x2, mood and affect normal. LABS AND RADIOLOGY: Reviewed results see below Assessment : Patient presenting to the hospital with increasing shortness of breath and cough this patient was recently admitted and treated in the hospital for possible tracheobronchitis now with evidence of positive COVID testing on November 09, 2021 however is not very clear when exactly his symptoms started as the patient no longer elevated good historian with the duration of his symptoms not exactly determined along with his renal insufficiency may not be a good candidate for remdesivir and there is no evidence of any secondary bacterial pneumonia Plan: 1-we will obtain a sputum for gram stain and culture check a procalcitonin level 2-patient to continue with the heparin Solu-Medrol zinc and ascorbic acid 3-droplet isolation and respiratory support We will follow on clinical condition and cultures to further adjust medication if needed Thank you for this consultation we will follow the patient along with you Past Medical History Past Medical History: GERD/Reflux, Hyperlipidemia Additional Past Medical History / Comment(s): kidney stones, bladder cancer, co domenica cancer History of Any Multi-Drug Resistant Organisms: None Reported Past Surgical History: Hernia Repair Additional Past Surgical History / Comment(s): kidney stone removed ILIOSTOMY Past Anesthesia/Blood Transfusion Reactions: No Reported Reaction, Motion Sickness Past Psychological History: Anxiety Smoking Status: Current some day smoker Past Alcohol Use History: None Reported Additional Past Alcohol Use History / Comment(s): smoking 1/2 PPD, smoked for 10 yrs(quit for 30 yrs, started smoking as teen) Past Drug Use History: None Reported - Past Family History Sister(s) Family Medical History: Cancer Brother(s) Family Medical History: Cancer Medications and Allergies Home Medications Medication Instructions Recorded Confirmed Type ALPRAZolam [Xanax] 0.5 mg PO Q8H PRN 02/04/19 11/11/21 History Omeprazole 40 mg PO DAILY 02/04/19 11/11/21 History gemfibroziL [Lopid] 600 mg PO BID 02/04/19 11/11/21 History Folic Acid 1 mg PO DAILY 10/29/21 11/11/21 History Hydrocortisone Pr Cream 1 applic RECTAL QID 10/29/21 11/11/21 History [Proctosol-Hc 2.5%] Nystatin 100,000Unit/gm Cream 1 applic TOPICAL BID 10/29/21 11/11/21 History [Mycostatin Cream] metHOTREXate sodium [Methotrexate] 12.5 mg PO GOODSON 10/29/21 11/11/21 History Aspirin 81 mg PO DAILY tab 11/02/21 11/11/21 Rx Cephalexin [Keflex] 500 mg PO Q6HR #40 cap 11/09/21 11/11/21 Rx Ondansetron Odt [Zofran ODT] 4 mg PO Q8HR PRN #10 tab 11/09/21 11/11/21 Rx Allergies Allergy/AdvReac Type Severity Reaction Status Date / Time Sulfa (Sulfonamide AdvReac Rash/Hives/ Verified 11/11/21 16:19 Antibiotics) itching Physical Exam Vitals: Vital Signs Temp Pulse Pulse Resp BP BP Pulse Ox 11/12/21 02:00 98.4 F 94 16 157/91 100 11/11/21 22:39 97.7 F 105 H 18 149/95 98 11/11/21 21:00 78 20 154/98 97 11/11/21 18:19 72 20 141/87 95 11/11/21 16:46 18 11/11/21 16:17 98.2 F 112 H 18 148/105 98 Intake and Output 11/11/21 11/12/21 11/12/21 22:59 06:59 14:59 Intake Total 800 Output Total 425 Balance 375 Intake: Intake, IV Titration 800 Amount Sodium Chloride 0.9% 1, 800 000 ml @ 100 mls/hr IV . Q10H [facility] Rx#:[id number] Output: Urine 425 Other: Voiding Method Ileal Conduit (Right) Weight 68.039 kg Results CBC & Chem 7: 11/13/21 07:55 11/11/21 16:30 Labs: Abnormal Lab Results - Last 24 Hours (Table) 11/11/21 11/11/21 11/11/21 Range/Units 16:30 16:30 16:30 RBC 4.05 L (4.30-5.90) m/uL Hgb 12.9 L (13.0-17.5) gm/dL MCV 100.7 H (80.0-100.0) fL RDW 17.3 H (11.5-15.5) % Neutrophils # 9.5 H (1.3-7.7) k/uL Lymphocytes # 0.7 L (1.0-4.8) k/uL PT 12.5 H (9.0-12.0) sec INR 1.2 H (<1.2) D-Dimer 2.74 H (<0.60) mg/L FEU Chloride 113 H (98-107) mmol/L Carbon Dioxide 17 L (22-30) mmol/L BUN 62 H (9-20) mg/dL Creatinine 2.22 H (0.66-1.25) mg/dL Glucose 128 H (74-99) mg/dL
[2021-11-13 12:04] LABS: Glucose,Whole Blood 156 mg/dL (75-99)
[2021-11-13] MEDS: HYDROCORTISONE 2.5% RECTAL CREAM 30 GM TUBE RECTAL SCH ×4 (12:41→23:22)
--- NOTE | 2021-11-13 13:05 | P.CRDCN ---
History of Present Illness Consult date: 11/13/21 History of present illness: The patient is an 86-year-old male with past medical history of tobacco use, COPD, chronic kidney disease, and dyslipidemia, who presented to the hospital with increased shortness of breath. He was also admitted earlier this month with similar complaints. During his most recent admission he was diagnosed with COVID-19. Cardiology was consulted for abnormal troponin. The patient was interviewed. He states his breathing has improved since his admission. He also reports some epigastric discomfort, however attributes it to not being able to eat over the last several days. No heart racing or fluttering. No dizziness. DIAGNOSTICS: EKG shows sinus tachycardia without ST or T-wave abnormalities Troponin: 5.05, 4.9, 3.5 Chest x-ray shows diffuse lung infiltrates and small bilateral pleural effusions Lab data: WBC 7.3, hemoglobin 12.0, hematocrit 38.3, platelet 262, d-dimer 3.4, sodium 145, potassium 5.0, BUN 62, creatinine 2.22, AST 28, ALT 20, BNP 1700 Echocardiogram on 11/01/2021 shows normal LV function Vital signs: Blood pressure 120/68, SpO2 91% on, respiratory rate 18, pulse rate 68 REVIEW OF SYSTEMS: No fever or chills. No cough or expectoration. No diaphoresis. Patient denies headache, dizziness, blurred vision, double vision. Patient positive for stomach discomfort. No nausea, vomiting. No hematochezia. No hematemesis. Denies any black stools or blood in his stools. Denies dysuria or hematuria. No muscle weakness or numbness. PHYSICAL EXAM: Thorough physical exam is not completed secondary to limited eval uation/examination due to COVID-19. FINAL ASSESSMENT AND PLAN: Acute COVID-19 infection Abnormal troponins, trending down, continue heparin Abnormal d-dimer, consideration for pulmonary embolism, management per pulmonary team Dyslipidemia Current smoker PLAN: Resume home medications Continue heparin for abnormal troponins with covid positive patient Further recommendations based upon clinical course The patient has been seen and evaluated by practitioner and coordinating physician. Plan of care has been reviewed and agreed upon by Dr Girard. Past Medical History Past Medical History: GERD/Reflux, Hyperlipidemia Additional Past Medical History / Comment(s): kidney stones, bladder cancer, colon cancer History of Any Multi-Drug Resistant Organisms: None Reported Past Surgical History: Hernia Repair Additional Past Surgical History / Comment(s): kidney stone removed ILIOSTOMY Past Anesthesia/Blood Transfusion Reactions: No Reported Reaction, Motion Sickness Past Psychological History: Anxiety Smoking Status: Current some day smoker Past Alcohol Use History: None Reported Additional Past Alcohol Use History / Comment(s): smoking 1/2 PPD, smoked for 10 yrs(quit for 30 yrs, started smoking as teen) Past Drug Use History: None Reported - Past Family History Sister(s) Family Medical History: Cancer Brother(s) Family Medical History: Cancer Medications and Allergies Home Medications Medication Instructions Recorded Confirmed Type ALPRAZolam [Xanax] 0.5 mg PO Q8H PRN 02/04/19 11/11/21 History Omeprazole 40 mg PO DAILY 02/04/19 11/11/21 History gemfibroziL [Lopid] 600 mg PO BID 02/04/19 11/11/21 History Folic Acid 1 mg PO DAILY 10/29/21 11/11/21 History Hydrocortisone Pr Cream 1 applic RECTAL QID 10/29/21 11/11/21 History [Proctosol-Hc 2.5%] Nystatin 100,000Unit/gm Cream 1 applic TOPICAL BID 10/29/21 11/11/21 History [Mycostatin Cream] metHOTREXate sodium [Methotrexate] 12.5 mg PO GOODSON 10/29/21 11/11/21 History Aspirin 81 mg PO DAILY tab 11/02/21 11/11/21 Rx Cephalexin [Keflex] 500 mg PO Q6HR #40 cap 11/09/21 11/11/21 Rx Ondansetron Odt [Zofran ODT] 4 mg PO Q8HR PRN #10 tab 11/09/21 11/11/21 Rx Allergies Allergy/AdvReac Type Severity Reaction Status Date / Time Sulfa (Sulfonamide AdvReac Rash/Hives/ Verified 11/11/21 16:19 Antibiotics) itching Physical Exam Vitals: Vital Signs Temp Pulse Resp BP Pulse Ox 11/13/21 08:38 68 18 120/68 91 L 11/13/21 04:00 98.2 F 73 17 107/70 97 11/13/21 02:00 71 17 11/13/21 00:00 98.2 F 71 17 100/67 100 11/12/21 20:00 97.7 F 81 17 97/71 100 11/12/21 17:18 97.0 F L 76 20 104/66 100 11/12/21 16:57 97.6 F 98 18 115/70 99 11/12/21 14:00 97.3 F L 60 18 146/80 98 Intake and Output 11/12/21 11/13/21 11/13/21 22:59 06:59 14:59 Intake Total 400 738.376 53.993 Output Total 850 400 Balance -450 338.376 53.993 Intake: Intake, IV Titration 200 638.376 53.993 Amount Heparin Sod,Pork in 0.45% 38.376 53.993 NaCl 25,000 unit In 0.45 % NaCl 1 250ml.bag @ 12 UNITS/KG/HR 8.165 mls/hr IV .Q24H [facility] Rx#: [id number] Sodium Chloride 0.9% 1, 200 600 000 ml @ 100 mls/hr IV . Q10H [facility] Rx#:[id number] Oral 200 100 0 Output: Urine 850 400 Other: Voiding Method Ileal Conduit (Right) Ileal Conduit (Right) Results 11/13/21 07:55 11/11/21 16:30 Cardiac Enzymes 11/12/21 11/12/21 11/13/21 Range/Units 15:49 22:23 07:55 Lactate Dehydrogenase (313-618) U/L Troponin I 5.050 H* 4.900 H* 3.520 H* (0.000-0.034) ng/mL 11/13/21 Range/Units 07:55 Lactate Dehydrogenase 413 (313-618) U/L Troponin I (0.000-0.034) ng/mL Coagulation 11/12/21 11/12/21 11/13/21 Range/Units 17:31 22:23 07:55 PT 13.5 H 14.2 H (9.0-12.0) sec APTT 28.2 144.5 H* 33.3 H (22.0-30.0) sec CBC 11/12/21 11/13/21 Range/Units 17:31 07:55 WBC 10.2 7.3 (3.8-10.6) k/uL RBC 3.77 L 3.76 L (4.30-5.90) m/uL Hgb 11.8 L 12.0 L (13.0-17.5) gm/dL Hct 37.2 L 38.3 L (39.0-53.0) % Plt Count 358 262 (150-450) k/uL Current Medications Generic Name Dose Route Start Last Admin Trade Name Freq PRN Reason Stop Dose Admin Albuterol Sulfate 1 puff 11/12/21 08:00 11/13/21 11:33 Albuterol Hfa Inhaler INHALATION Not Given RT-TID [facility] Albuterol Sulfate 2 puff 11/11/21 23:18 Albuterol Hfa Inhaler INHALATION RT-QID PRN Shortness Of Breath Or Wheezing Alprazolam 0.5 mg 11/11/21 18:37 11/13/21 00:05 Alprazolam 0.5 Mg Tab PO 0.5 mg Q8H PRN Administration Anxiety Ascorbic Acid 1,000 mg 11/12/21 09:00 11/13/21 08:46 Ascorbic Acid 500 Mg Tab PO 1,000 mg DAILY [facility] Administration Aspirin 81 mg 11/12/21 09:00 11/13/21 08:42 Aspirin 81 Mg PO 81 mg DAILY [facility] Administration Cephalexin 250 mg 11/12/21 00:00 11/13/21 08:44 Cephalexin 250 Mg Cap PO 11/20/21 16:01 250 mg Q8HR [facility] Administration Cholecalciferol 125 mcg 11/12/21 09:00 11/13/21 08:42 Cholecalciferol 125 Mcg (5000 Iu) Tablet PO 125 mcg DAILY [facility] Administration Fenofibrate 160 mg 11/11/21 21:00 11/12/21 20:10 Fenofibrate 160 Mg Tab PO 160 mg HS [facility] Administration Folic Acid 1 mg 11/12/21 09:00 11/13/21 08:42 Folic Acid 1 Mg Tab PO 1 mg DAILY [facility] Administration Heparin Sodium (Porcine) 0 unit 11/12/21 16:47 11/13/21 08:57 Heparin Sodium 1,000 Un/Ml (10ml Vl) IV 4,000 unit PER PROTOCOL PRN Administration Low PTT Protocol Hydrocortisone 1 applic 11/11/21 22:00 11/13/21 12:41 Hydrocortisone 2.5% Rectal Cream 30 Gm Tube RECTAL Not Given QID [facility] Sodium Chloride 1,000 mls @ 100 mls/hr 11/11/21 18:30 11/13/21 05:18 Saline 0.9% IV 100 mls/hr .Q10H [facility] Administration Heparin Sodium/Sodium Chloride 250 mls @ 8.165 mls/hr 11/12/21 17:00 11/13/21 08:58 25,000 unit/ Sodium Chloride IV 12 units/kg/hr .Q24H [facility] 8.165 mls/hr Titration Protocol 12 UNITS/KG/HR Methotrexate 12.5 mg 11/14/21 09:00 Methotrexate Sodium 2.5 Mg Tab PO GOODSON [facility] Methylprednisolone Sodium Succinate 60 mg 11/12/21 00:00 11/13/21 05:18 Methylprednisolone Sod Succi 125 Mg/2 Ml Vial IV 60 mg Q6HR [facility] Administration Morphine Sulfate 2 mg 11/12/21 11:28 Morphine Sulfate 2 Mg/Ml Syringe IVP Q3HR PRN Pain/Discomfort Ondansetron HCl 4 mg 11/11/21 18:37 11/11/21 19:07 Ondansetron Odt 4 Mg Tab PO 4 mg Q8HR PRN Administration Nausea Pantoprazole Sodium 40 mg 11/12/21 09:00 11/13/21 08:42 Pantoprazole 40 Mg Tablet PO 40 mg DAILY [facility] Administration Zinc Sulfate 220 mg 11/12/21 09:00 11/13/21 08:42 Zinc Sulfate 220 Mg Cap PO 220 mg DAILY [facility] Administration Intake and Output 11/12/21 11/13/21 11/13/21 22:59 06:59 14:59 Intake Total 400 738.376 53.993 Output Total 850 400 Balance -450 338.376 53.993 Intake: Intake, IV Titration 200 638.376 53.993 Amount Heparin Sod,Pork in 0.45% 38.376 53.993 NaCl 25,000 unit In 0.45 % NaCl 1 250ml.bag @ 12 UNITS/KG/HR 8.165 mls/hr IV .Q24H [facility] Rx#: [id number] Sodium Chloride 0.9% 1, 200 600 000 ml @ 100 mls/hr IV . Q10H [facility] Rx#:[id number] Oral 200 100 0 Output: Urine 850 400 Other: Voiding Method Ileal Conduit (Right) Ileal Conduit (Right) 11/13/21 07:55 11/11/21 16:30
--- NOTE | 2021-11-13 14:00 | P.PN ---
Subjective Progress Note Date: 11/13/21 Bob Wolf, is a year old male who presented to [facility] emergency room with a chief complaint of chest pain patient describes a sharp pain in the chest that is intermittent and worse with deep breathing. He was evaluated in the emergency room vital examination on presentation revea led a temperature of 98.2 pulse 112 respiration 18 blood pressure 148/105 pulse ox 98% on 2 L nasal cannula Laboratory data revealed a white blood count of 10.4 hemoglobin 12.9 platelet count 400 d-dimer 2.74 BUN 62 creatinine 2.2 Testing in the emergency room revealed chest x-ray revealed bilateral multifocal infiltrates EKG revealed sinus tachycardia without acute ischemic changes Patient was admitted to medical floor for further evaluation and treatment. Past medical history is significant for advanced COPD patient still smokes he has more than 50 year history of smoking, he also has a known history of colon cancer, bladder cancer, rheumatoid arthritis, gastroesophageal reflux disease, anxiety disorder. On 11/13 patient was seen and examined on the telemetry floor, he is alert and oriented 3 in no apparent distress he is still complaining of chest pain, on admission patient had a normal troponin of 0.023 however yesterday his troponin went up to 5.05, he was transferred to [address] [place] [address] and was started on IV heparin, cardiology consultation was requested, and this time patient is lying comfortably in bed he is still complaining of some discomfort in his chest otherwise he denies any complaints there is no fever or chills no headache or dizziness no shortness of breath he has occasional cough no nausea or vomiting no abdominal pain no diarrhea and no urinary symptoms Objective - Vital Signs Vital signs: Vital Signs Temp 98.2 F 11/13/21 04:00 Pulse 68 11/13/21 08:38 Resp 18 11/13/21 08:38 BP 120/68 11/13/21 08:38 Pulse Ox 91 L 11/13/21 08:38 Intake & Output 11/12/21 11/13/21 11/13/21 18:59 06:59 18:59 Intake Total 1138.376 53.993 Output Total 700 800 Balance -700 338.376 53.993 Intake: Intake, IV Titration 838.376 53.993 Amount Heparin Sod,Pork in 0.45% 38.376 53.993 NaCl 25,000 unit In 0.45 % NaCl 1 250ml.bag @ 12 UNITS/KG/HR 8.165 mls/hr IV .Q24H [facility] Rx#: [id number] Sodium Chloride 0.9% 1, 800 000 ml @ 100 mls/hr IV . Q10H [facility] Rx#:[id number] Oral 300 0 Output: Urine 700 800 Other: Voiding Method Ileal Conduit (Right) - Exam In general patient is alert and oriented x 3 in no distress HEENT head normocephalic and atraumatic Neck is supple no JVD no goiter no lymphadenopathy no carotid bruit Chest examination reveals a scattered crackles bilaterally no wheezing Cardiac exam reveals regular heart sounds S1 and S2 no gallops no murmurs Abdomen is soft nontender no organomegaly with normal bowel sounds Extremity exam reveals no edema no cyanosis or clubbing Neurological examination reveals no gross focal deficits - Labs CBC & Chem 7: 11/13/21 07:55 11/11/21 16:30 Labs: Abnormal Lab Results - Last 24 Hours (Table) 11/12/21 11/12/21 11/12/21 Range/Units 15:49 17:31 17:31 RBC 3.77 L (4.30-5.90) m/uL Hgb 11.8 L (13.0-17.5) gm/dL Hct 37.2 L (39.0-53.0) % MCV (80.0-100.0) fL RDW 16.7 H (11.5-15.5) % Neutrophils # 9.4 H (1.3-7.7) k/uL Lymphocytes # 0.5 L (1.0-4.8) k/uL PT 13.5 H (9.0-12.0) sec INR 1.3 H (<1.2) APTT (22.0-30.0) sec D-Dimer (<0.60) mg/L FEU POC Glucose (mg/dL) (75-99) mg/dL Troponin I 5.050 H* (0.000-0.034) ng/mL C-Reactive Protein (<1.0) mg/dL 11/12/21 11/12/21 11/13/21 Range/Units 22:23 22:23 06:16 RBC (4.30-5.90) m/uL Hgb (13.0-17.5) gm/dL Hct (39.0-53.0) % MCV (80.0-100.0) fL RDW (11.5-15.5) % Neutrophils # (1.3-7.7) k/uL Lymphocytes # (1.0-4.8) k/uL PT (9.0-12.0) sec INR (<1.2) APTT 144.5 H* (22.0-30.0) sec D-Dimer (<0.60) mg/L FEU POC Glucose (mg/dL) 147 H (75-99) mg/dL Troponin I 4.900 H* (0.000-0.034) ng/mL C-Reactive Protein (<1.0) mg/dL 11/13/21 11/13/21 11/13/21 Range/Units 07:55 07:55 07:55 RBC (4.30-5.90) m/uL Hgb (13.0-17.5) gm/dL Hct (39.0-53.0) % MCV (80.0-100.0) fL RDW (11.5-15.5) % Neutrophils # (1.3-7.7) k/uL Lymphocytes # (1.0-4.8) k/uL PT 14.2 H (9.0-12.0) sec INR 1.4 H (<1.2) APTT 33.3 H (22.0-30.0) sec D-Dimer 3.40 H (<0.60) mg/L FEU POC Glucose (mg/dL) (75-99) mg/dL Troponin I 3.520 H* (0.000-0.034) ng/mL C-Reactive Protein 2.2 H (<1.0) mg/dL 11/13/21 Range/Units 07:55 RBC 3.76 L (4.30-5.90) m/uL Hgb 12.0 L (13.0-17.5) gm/dL Hct 38.3 L (39.0-53.0) % MCV 101.8 H (80.0-100.0) fL RDW 16.6 H (11.5-15.5) % Neutrophils # (1.3-7.7) k/uL Lymphocytes # 0.5 L (1.0-4.8) k/uL PT (9.0-12.0) sec INR (<1.2) APTT (22.0-30.0) sec D-Dimer (<0.60) mg/L FEU POC Glucose (mg/dL) (75-99) mg/dL Troponin I (0.000-0.034) ng/mL C-Reactive Protein (<1.0) mg/dL Assessment and Plan Plan: 1. Acute hypoxic respiratory failure, COVID-19 infection on 11/09/2021. Now with evidence of pneumonia on chest x-ray with multifocal bilateral acute inf iltrates 2. Acute non-ST elevation myocardial infarction, patient admitted to telemetry floor and was started on IV heparin cardiology consultation was requested 3. Elevated d-dimer, patient has elevated creatinine, will check VQ scan 4. Acute on chronic renal failure, creatinine on presentation 2.22 5. Underlying history of rheumatoid arthritis, maintained on methotrexate 6. Underlying history of kidney stones 7. Underlying history of anxiety disorder 8. Underlying history of tobacco abuse 9. Previous history of colon cancer 10. Previous history of bladder cancer At this time patient was admitted to medical floor He was started on IV steroids and inhaled bronchodilators and oxygen supplements VQ scan was ordered in relation to elevated d-dimer and pleuritic chest pain Pulmonary consultation requested Will follow closely
--- NOTE | 2021-11-13 14:13 | P.PN ---
Subjective Progress Note Date: 11/13/21 This is a very pleasant 86-year-old gentleman who was just recently discharged after being treated for interstitial pulmonary infiltrates and atypical chest pain. He has a history of gastroesophageal reflux disease, hyperlipidemia, kidney stones, bladder cancer, colon cancer, anxiety, chronic tobacco de pendence, rheumatoid arthritis and is maintained on methotrexate. He presented to the emergency room again yesterday with complaints of chest pain. This had been intermittent over the past several days. He described it as sharp in nature worse with deep breathing. He is hard of hearing and somewhat of a poor historian. He is seen today in consultation on the regular medical floor. He is sitting up in bed. Awake and alert. Maintaining O2 saturations up to 100% on 2 L nasal cannula. He's been afebrile. Hemodynamically stable. He is still having some ongoing issues with musculoskeletal chest wall pain. Chest x-ray reveals bilateral multifocal acute infiltrates on background chronic and somatic and pulmonary fibrotic changes redemonstrated. The patient is now testing positive for COVID-19 on an ER visit on 11/09/2021. White count 10.4. Hemoglobin 12.9. Platelet count 400,000. Lymphocytes 0.7. D-dimer 2.74. Sodium 145. Potassium 5.0. Creatinine 2.22. Glucose 128. ProBNP 1700. Troponin 0.0-3. EKG revealed normal sinus rhythm without any significant ST or T wave abnormalities. He's been initiated on IV Solu-Medrol bronchodilators. Initiated on vitamin supplements. 11/13/2021, see the patient for a follow-up. Noted the patient has chronic interstitial pulmonary infiltrates which were unable to explain during his last admission. However, during this readmission, the patient was tested positive for covert 19 and I think the pulmonary ventricle isn't consistent with codeine associated pneumonia. The patient is currently on IV steroids. Meanwhile, the patient ruled in for an acute non-ST segment elevation myocardial infarction patient is currently on IV heparin. He continues to have on and off chest pain although the pain is not typical for cardiac disease. He has been reporting some vague chest pain since his current admission. The patient was seen by cardiology. EKG shows sinus tachycardia without any acute ischemic changes. Troponin maxed at 5.05. Troponins have been down trending. The patient will be kept on the same medication for now. Cardiology is on the case. He remains on 40s about 2 by nasal cannula. His CRP the present 2.2, LDH that was 413. INR is at 1.4 with a d-dimer of 3.4. White cell count is at 7.3 with a hemoglobin of 12 and a platelet count of 262. Objective - Vital Signs Vital signs: Vital Signs Temp 98.6 F 11/13/21 12:46 Pulse 73 11/13/21 12:46 Resp 22 11/13/21 12:46 BP 137/75 11/13/21 12:46 Pulse Ox 99 11/13/21 12:46 Intake & Output 11/12/21 11/13/21 11/13/21 18:59 06:59 18:59 Intake Total 1138.376 53.993 Output Total 700 800 Balance -700 338.376 53.993 Intake: Intake, IV Titration 838.376 53.993 Amount Heparin Sod,Pork in 0.45% 38.376 53.993 NaCl 25,000 unit In 0.45 % NaCl 1 250ml.bag @ 12 UNITS/KG/HR 8.165 mls/hr IV .Q24H [facility] Rx#: [id number] Sodium Chloride 0.9% 1, 800 000 ml @ 100 mls/hr IV . Q10H [facility] Rx#:[id number] Oral 300 0 Output: Urine 700 800 Other: Voiding Method Ileal Conduit (Right) Ileal Conduit (Right) - Exam GENERAL EXAM: Alert, very pleasant hard of hearing, 86-year-old male patient, on 2 L nasal cannula, comfortable in no apparent distress. HEAD: Normocephalic. EYES: Normal reaction of pupils, equal size. NOSE: Clear with pink turbinates. THROAT: No erythema or exudates. NECK: No masses, no JVD. CHEST: No chest wall deformity. LUNGS: Equal air entry with coarse crackles in bilateral bases CVS: S1 and S2 normal with no audible murmur, regular rhythm. ABDOMEN: No hepatosplenomegaly, normal bowel sounds, no guarding or rigidity. SPINE: No scoliosis or deformity SKIN: No rashes CENTRAL NERVOUS SYSTEM: No focal deficits, tone is normal in all 4 extremities. EXTREMITIES: There is no peripheral edema. No clubbing, no cyanosis. Peripheral pulses are intact. - Labs CBC & Chem 7: 11/13/21 07:55 11/11/21 16:30 Labs: Abnormal Lab Results - Last 24 Hours (Table) 11/12/21 11/12/21 11/12/21 Range/Units 15:49 17:31 17:31 RBC 3.77 L (4.30-5.90) m/uL Hgb 11.8 L (13.0-17.5) gm/dL Hct 37.2 L (39.0-53.0) % MCV (80.0-100.0) fL RDW 16.7 H (11.5-15.5) % Neutrophils # 9.4 H (1.3-7.7) k/uL Lymphocytes # 0.5 L (1.0-4.8) k/uL PT 13.5 H (9.0-12.0) sec INR 1.3 H (<1.2) APTT (22.0-30.0) sec D-Dimer (<0.60) mg/L FEU POC Glucose (mg/dL) (75-99) mg/dL Troponin I 5.050 H* (0.000-0.034) ng/mL C-Reactive Protein (<1.0) mg/dL 11/12/21 11/12/21 11/13/21 Range/Units 22:23 22:23 06:16 RBC (4.30-5.90) m/uL Hgb (13.0-17.5) gm/dL Hct (39.0-53.0) % MCV (80.0-100.0) fL RDW (11.5-15.5) % Neutrophils # (1.3-7.7) k/uL Lymphocytes # (1.0-4.8) k/uL PT (9.0-12.0) sec INR (<1.2) APTT 144.5 H* (22.0-30.0) sec D-Dimer (<0.60) mg/L FEU POC Glucose (mg/dL) 147 H (75-99) mg/dL Troponin I 4.900 H* (0.000-0.034) ng/mL C-Reactive Protein (<1.0) mg/dL 11/13/21 11/13/21 11/13/21 Range/Units 07:55 07:55 07:55 RBC (4.30-5.90) m/uL Hgb (13.0-17.5) gm/dL Hct (39.0-53.0) % MCV (80.0-100.0) fL RDW (11.5-15.5) % Neutrophils # (1.3-7.7) k/uL Lymphocytes # (1.0-4.8) k/uL PT 14.2 H (9.0-12.0) sec INR 1.4 H (<1.2) APTT 33.3 H (22.0-30.0) sec D-Dimer 3.40 H (<0.60) mg/L FEU POC Glucose (mg/dL) (75-99) mg/dL Troponin I 3.520 H* (0.000-0.034) ng/mL C-Reactive Protein 2.2 H (<1.0) mg/dL 11/13/21 11/13/21 Range/Units 07:55 11:54 RBC 3.76 L (4.30-5.90) m/uL Hgb 12.0 L (13.0-17.5) gm/dL Hct 38.3 L (39.0-53.0) % MCV 101.8 H (80.0-100.0) fL RDW 16.6 H (11.5-15.5) % Neutrophils # (1.3-7.7) k/uL Lymphocytes # 0.5 L (1.0-4.8) k/uL PT (9.0-12.0) sec INR (<1.2) APTT (22.0-30.0) sec D-Dimer (<0.60) mg/L FEU POC Glucose (mg/dL) 156 H (75-99) mg/dL Troponin I (0.000-0.034) ng/mL C-Reactive Protein (<1.0) mg/dL Assessment and Plan Plan: 1 Acute hypoxic respiratory failure in a patient found to have COVID-19 infection on 11/09/2021. He had this explains tremors the interstitial infiltrative that was also noted during his last admission. The patient is current hypoxic on oxygen approximately 4 L nasal cannula. Inflammatory markers are mildly elevated and the patient remains on steroids. 2 acute non-ST segment elevation myocardial infarction. Troponin peaked at 5 and they are downtrending. The patient is still having Atypical chest pain and the patient's cousin IV heparin. 3 Elevated inflammatory markers secondary to above 4 Acute on chronic renal failure, creatinine 2.2 during this current admission 5 History of rheumatoid arthritis, maintained on methotrexate 6 History of gastroesophageal reflux disease 7 History of colon cancer 8 History of bladder cancer 9 History of kidney stone 10 Chronic tobacco dependence 11 Anxiety Plan: Continue IV heparin Continue IV Solu-Medrol, vitamin supplements Cardiology is on the case regarding the non-STEMI Titrate the FiO2 as tolerated Continue the aspirin, and may benefit from addition of a beta vanessa Discontinue the methotrexate for now We will continue to follow and make further recommendations based on his clinical status Was switched this patient oral prednisone tomorrow.
[2021-11-13] MEDS: HEPARIN SOD,PORK IN 0.45% NACL 25,000 UNIT in 0.45% NACL 1 250ML.BAG IV SCH (15:46)
--- NOTE | 2021-11-13 16:33 | PN ---
PROGRESS NOTE DATE OF SERVICE: 11/13/2021 REASON FOR FOLLOWUP: Covid 19 infection. INTERVAL HISTORY: Patient is afebrile. The patient is breathing slightly comfortably. Denies any chest pain. Did have a cough, not bringing up any sputum though. No vomiting. No abdominal pain or diarrhea. PHYSICAL EXAMINATION: Blood pressure 137/75, pulse of 73, temperature 98.6, he is 99% on 4 L nasal cannula. General description is an elderly male lying in bed in no distress. Respiratory system: Unlabored breathing, decreased intensity of breath sounds. No wheeze. Heart S1, S2. Regular rate and rhythm. Abdomen soft, no tenderness. LABS: Hemoglobin is 12, white count 7.3. Troponins are elevated. CRP is 2.2. DIAGNOSTIC IMPRESSION AND PLAN: Patient with acute respiratory failure more likely or pulmonary condition. Did have a positive Covid test if Covid infection is causing most of his symptoms. The patient is covered with heparin, Solu-Medrol, zinc and ascorbic acid to continue along with respiratory support and monitor clinical course closely. MMODL / IJN: [id number] /
[2021-11-13 17:07] LABS: Glucose,Whole Blood 115 mg/dL (75-99)
[2021-11-13 21:08] LABS: Glucose,Whole Blood 141 mg/dL (75-99)
[2021-11-13] MEDS: FENOFIBRATE 160 MG TAB PO SCH (21:14)
[2021-11-14] MEDS: methylPREDNISolone SOD SUCCI 125 MG/2 ML VIAL IV SCH ×3 (05:59→18:50)
[2021-11-14] MEDS: SODIUM CHLORIDE 0.9% 1,000 ML IV SCH ×2 (06:05→16:21)
[2021-11-14 06:42] LABS: Glucose,Whole Blood 134 mg/dL (75-99)
[2021-11-14] MEDS: ALBUTEROL HFA INHALER INHALATION SCH ×3 (07:50→19:57)
[2021-11-14] MEDS: HYDROCORTISONE 2.5% RECTAL CREAM 30 GM TUBE RECTAL SCH ×4 (08:23→21:26)
[2021-11-14] MEDS: CHOLECALCIFEROL 125 MCG (5000 IU) TABLET PO SCH (08:38)
[2021-11-14] MEDS: ASCORBIC ACID 500 MG TAB PO SCH (08:38)
[2021-11-14] MEDS: ASPIRIN 81 MG PO SCH (08:38)
[2021-11-14] MEDS: ZINC SULFATE 220 MG CAP PO SCH (08:38)
[2021-11-14] MEDS: FOLIC ACID 1 MG TAB PO SCH (08:38)
[2021-11-14] MEDS: PANTOPRAZOLE 40 MG TABLET PO SCH (08:38)
[2021-11-14] MEDS: CEPHALEXIN 250 MG CAP PO SCH ×2 (08:38→16:21)
[2021-11-14] MEDS ORDERED: metHOTREXate sodium 2.5 MG TAB PO SCH (09:00)
[2021-11-14] MEDS ORDERED: NITROGLYCERIN OINT 1 INCH/GM PACKET TOPICAL ONE (09:00)
[2021-11-14] MEDS ORDERED: NITROGLYCERIN SL TABS 0.4 MG TAB SUBLINGUAL ONE (09:00)
[2021-11-14 09:16] LABS: Anisocytosis Slight; Basophils % (A) 0 %; Eosinophils % (A) 0 %; HCT 42.2 % (39.0-53.0); Hypochromasia Moderate; Lymphocytes # (A) 0.6 k/uL (1.0-4.8); Lymphocytes % (A) 6 %; MCH 31.3 pg (25.0-35.0); MCHC 30.9 g/dL (31.0-37.0); MCV 101.4 fL (80.0-100.0); Macrocytosis Slight; Mean Platelet Volume 9.6; Monocytes # (A) 0.4 k/uL (0-1.0); Monocytes % (A) 5 %; Neutrophils # (A) 7.8 k/uL (1.3-7.7); Neutrophils % (A) 88 %; Platelet Count 260 k/uL (150-450); RBC 4.16 m/uL (4.30-5.90); RDW 16.7 % (11.5-15.5); WBC 8.8 k/uL (3.8-10.6)
[2021-11-14 09:22] LABS: Albumin 3.1 g/dL (3.5-5.0); Calcium 9.4 mg/dL (8.4-10.2); Potassium 4.4 mmol/L (3.5-5.1); Total Bilirubin 0.8 mg/dL (0.2-1.3); Total Protein 6.4 g/dL (6.3-8.2)
[2021-11-14 09:35] LABS: Partial Thromboplastin Time 40.2 sec (22.0-30.0)
[2021-11-14] MEDS: ATORVASTATIN 80 MG TAB PO SCH (09:38)
[2021-11-14] MEDS: METOPROLOL TARTRATE 25 MG TAB PO SCH ×2 (09:38→21:26)
[2021-11-14] MEDS ORDERED: ASPIRIN 325 MG TAB PO STA (09:38)
[2021-11-14] MEDS ORDERED: LIDOCAINE 1% INJ 10MG/ML (20 ML MDV) ONE (10:31)
[2021-11-14] MEDS ORDERED: VERAPAMIL 2.5 MG/ML 2 ML AMP ONE (10:31)
[2021-11-14] MEDS ORDERED: IV FLUID CONTINUATION 200 ML IV ONE (10:35)
[2021-11-14] MEDS ORDERED: fentaNYL (PF) 50 MCG/ML 2 ML AMP IV ONE (10:47)
[2021-11-14] MEDS ORDERED: fentaNYL (PF) 50 MCG/ML 2 ML AMP ONE (10:47)
[2021-11-14] MEDS: LIDOCAINE 1% INJ 10MG/ML (20 ML MDV) SQ ONE ×2 (10:49→10:55)
[2021-11-14] MEDS ORDERED: IOPAMIDOL-370 125ML BTL INJ ONE (11:00)
--- NOTE | 2021-11-14 11:00 | ECHOF ---
Referral Reason:acute [place] MEASUREMENTS -------- HEIGHT: 177.8 cm WEIGHT: 68.0 kg BP: IVSd: 1.4 cm (0.6 - 1.1) LVIDd: 4.7 cm (3.9 - 5.3) LVPWd: 1.5 cm (0.6 - 1.1) EDV(Teich): 103 ml IVSs: 1.8 cm LVIDs: 3.3 cm LVPWs: 2.0 cm %IVS Thck: 28 % ESV(Teich): 45 ml EF(Teich): 57 % %FS: 30 % SV(Teich): 59 ml LA Diam: 3.7 cm (2.7 - 3.8) RVIDd: 3.1 cm (< 3.3) HR_2Ch_Q: 81 bpm HR_4Ch_Q: 75 bpm LVVED_2Ch_Q: 108 ml LVVED_4Ch_Q: 137 ml LVVED_BiP_Q: 120 ml LVVES_2Ch_Q: 75 ml LVVES_4Ch_Q: 84 ml LVVES_BiP_Q: 79 ml LVEF_2Ch_Q: 30 % LVEF_4Ch_Q: 39 % LVEF_BiP_Q: 34 % LVSV_2Ch_Q: 33 ml LVSV_4Ch_Q: 53 ml LVSV_BiP_Q: 41 ml LVCO_2Ch_Q: 2.6 l/min LVCO_4Ch_Q: 4.0 l/min LVCO_BiP_Q: 3.3 l/min LVLs_2Ch_Q: 8.3 cm LVLs_4Ch_Q: 7.8 cm LVLd_2Ch_Q: 9.4 cm LVLd_4Ch_Q: 9.1 cm Ao Diam: 3.3 cm (2.0 - 3.7) AV Cusp: 2.2 cm (1.5 - 2.6) EPSS: 0.8 cm MV E Dominic: 0.65 m/s MV DecT: 305 ms MV Dec Burleson: 2.1 m/s MV A Dominic: 0.46 m/s MV E/A Ratio: 1.43 MV PHT: 88 ms AV Vmax: 1.09 m/s AV maxP.77 mmHg TR Vmax: 2.28 m/s TR maxP.88 mmHg RAP: 5.00 mmHg RVSP: 25.88 mmHg MV EF SLOPE: 161.74 mm/s (70 - 150) MV EXCURSION: 18.39 mm (> 18.000) FINDINGS -------- This was a technically adequate study. The left ventricular size is normal. There is moderate concentric left ventricular hypertrophy. O verall left ventricular systolic function is severely impaired with, an EF between 20 - 25 %. Mid a nterior LV wall motion is hypokinetic. Mid lateral LV wall motion is hypokinetic. Mid posterior LV wall motion is hypokinetic. Mid inferior LV wall motion is hypokinetic. Mid inferoseptal LV wall motion is hypokinetic. Mid anteroseptal LV wall motion is hypokinetic. Apical anterior LV wall motion is hypokinetic. Apical lateral LV wall motion is hypokinetic. Apical inferior LV w all motion is hypokinetic. Apical septum LV wall motion is hypokinetic. The right ventricle is normal in size. The left atrium is normal in size. The right atrium is normal in size. Trace amount of aortic regurgitation. Mild mitral regurgitation is present. Mild tricuspid regurgitation present. Right ventricular systolic pressure is normal at < 35 mmHg. Trace/mild (physiologic) pulmonic regurgitation. The aortic root size is normal. IVC Not well visulized. There is no pericardial effusion. CONCLUSIONS -------- 1. The left ventricular size is normal. 2. There is moderate concentric left ventricular hypertrophy. 3. Overall left ventricular systolic function is severely impaired with, an EF between 20 - 25 %. 4. Mid anterior LV wall motion is hypokinetic. 5. Mid lateral LV wall motion is hypokinetic. 6. Mid posterior LV wall motion is hypokinetic. 7. Mid inferior LV wall motion is hypokinetic. 8. Mid inferoseptal LV wall motion is hypokinetic. 9. Mid anteroseptal LV wall motion is hypokinetic. 10. Apical anterior LV wall motion is hypokinetic. 11. Apical lateral LV wall motion is hypokinetic. 12. Apical inferior LV wall motion is hypokinetic. 13. Apical septum LV wall motion is hypokinetic. 14. Trace amount of aortic regurgitation. 15. Mild mitral regurgitation is present. 16. Mild tricuspid regurgitation present. 17. Trace/mild (physiologic) pulmonic regurgitation. 18. There is no pericardial effusion. BATT MACHINE OPERATOR: Cat Jorge RDCS
[2021-11-14] MEDS ORDERED: RX INFO: IV CONTRAST WAS GIVEN 1 EACH MISC MISCELLANE PRN (11:15)
[2021-11-14] MEDS ORDERED: SODIUM CHLORIDE 0.9% 1,000 ML IV SCH (11:15)
--- NOTE | 2021-11-14 11:28 | P.PN ---
Progress Note - Text Progress Note Date: 11/14/21 (Cardiac catheterization) Indications. The patient is a 86-year-old male with a history of lung disease who presented with symptoms of dyspnea and chest discomfort, had elevation of his troponin and decrease in his ejection fraction. He was evaluated by Dr. Girard and the decision was to proceed with coronary angiography, the risks and the complications were discussed with the patient, increased risk of worsening renal function was discussed with him as well. He was informed standing and agreement. Procedure: The patient was brought to the grinding and polishing laborer in the fasting and semi-sedated state after receiving fentanyl and Benadryl, attempt to cannulate the right radial artery was unsuccessful, subsequently using Xylocaine anesthesia the right femoral artery was cannulated and a 6-Bermudian sheath was introduced. Selective right and left angiography were performed using 6-Bermudian 4 bend left and right Michelle catheters, multiple views including hemiaxial views were obtained. Subsequently a 6-Bermudian tight pigtail catheter was introduced in the left ventricle and LVEDP was measured. Following that catheter and sheath were removed, hemostasis was obtained by deployment of an Angio-Seal, there was no immediate complications, the patient's was returned to his room in stable condition. Findings: Left main: This is a large size vessel, bifurcating into LAD and left circumflex, main has no evidence of high-grade stenosis. LAD: This is a large size vessel, giving rise to a proximal large diagonal branch, the LAD proximally has 20-30% plaque with no evidence of high-grade stenosis. Left circumflex: This is a large nondominant vessel, giving rise to a large obtuse marginal branch, the left circumflex proximally has a 20% plaque. RCA: This is a large dominant vessel, bifurcating into PDA and PLV, the mid RCA has 20% plaque. Left ventriculogram was not performed Hemodynamics there was no gradient across the aortic valve, LVEDP is 12-14 mmHg. Findings: 1. Mild triple-vessel disease. 2. Normal LVEDP. Recommendations: The patient probably had Takotsubo syndrome or myocarditis from COVID-19 infection. He will continue medical therapy with close follow-up of his renal functions and left ventricular function. The findings and the recommendations were discussed with the patient who is in full agreement and understanding. Duration of sedation 22 minutes.
[2021-11-14] MEDS: ISOSORBIDE MONONITRATE ER 30 MG TAB.ER.24H PO SCH (11:38)
[2021-11-14] MEDS: ENOXAPARIN 40 MG/0.4 ML SYRINGE SQ SCH (11:43)
[2021-11-14 12:21] LABS: Glucose,Whole Blood 128 mg/dL (75-99)
--- NOTE | 2021-11-14 13:10 | P.PN ---
Subjective Progress Note Date: 11/14/21 The patient was interviewed after he notified the nursing staff that he developed an acute onset of chest discomfort. Stat EKG did show ST elevation in the high lateral leads. This pain did resolve with nitroglycerin, however he was subsequently taken to the [facility] for further evaluation. He was found to have mild triple vessel disease, however his most recent echocardiogram revealed an ejection fraction less than 20% with global hypokinesis. His mild troponin elevation is mismatching comparison to the rapid drop in ejection fraction, therefore it is likely that he has Takotsubo cardiomyopathy versus COVID-19 myocarditis. PHYSICAL EXAM: Thorough physical exam is not completed secondary to limited evaluation/examination due to COVID-19. VITALS: Blood pressure 109/68, pulse 74, respiratory rate 18, temp 97.2F, SpO2 90% on 2 L is cannula TELEMETRY: ST elevation in lateral leads LABS: WBC 8.8, hemoglobin 13, hematocrit 42.2, platelet 260, d-dimer 275, sodium 145, potassium 4.4, BUN 50, creatinine 1.59, troponin 2.0 IMPRESSION: Acute EKG abnormalities concerning for ischemia, coronary angiogram shows no obstructive disease New onset cardiomyopathy with global hypokinesis, EF less than 20%, likely takotsubo versus myocarditis secondary to cold and 19 Acute: 19 infection Elevated troponins, rise and fall pattern do not correlate with drastic drop in ejection fraction PLAN: Continue current medication regimen Maximize cardiomyopathy medications as tolerated Continue to monitor creatinine with recent dye load Further recommendations to be based upon clinical course The patient has been seen and evaluated by nurse practitioner and coordinating physician. Plan of care has been reviewed and agreed upon by Dr Girard. Objective - Vital Signs Vital signs: Vital Signs Temp 97.7 F 11/14/21 08:33 Pulse 101 H 11/14/21 08:33 Resp 23 11/14/21 08:33 BP 123/72 11/14/21 08:33 Pulse Ox 96 11/14/21 08:33 Intake & Output 11/13/21 11/14/21 11/14/21 18:59 06:59 18:59 Intake Total 807.058 6537 Output Total 425 1000 Balance 2.515 500 Intake: Intake, IV Titration 626.850 7980 Amount Heparin Sod,Pork in 0.45% 109.515 NaCl 25,000 unit In 0.45 % NaCl 1 250ml.bag @ 12 UNITS/KG/HR 8.165 mls/hr IV .Q24H MARÍA Rx#: [id number] Sodium Chloride 0.9% 1, 1100 000 ml @ 100 mls/hr IV . Q10H MARÍA Rx#:[id number] Oral 318 400 Output: Urine 425 1000 Other: Voiding Method Ileal Conduit (Right) Ileal Conduit (Right) - Labs CBC & Chem 7: 11/14/21 08:40 11/14/21 08:40 Labs: Abnormal Lab Results - Last 24 Hours (Table) 11/13/21 11/13/21 11/13/21 Range/Units 11:54 15:22 16:54 APTT 51.5 H (22.0-30.0) sec POC Glucose (mg/dL) 156 H 115 H (75-99) mg/dL 11/13/21 11/14/21 Range/Units 21:06 06:27 APTT (22.0-30.0) sec POC Glucose (mg/dL) 141 H 134 H (75-99) mg/dL
--- NOTE | 2021-11-14 13:54 | P.PN ---
Subjective Progress Note Date: 11/14/21 Principal diagnosis: Acute COVID-19 infection with pneumonia, and acute non-ST elevated IN This is a very pleasant 86-year-old gentleman who was just recently discharged after being treated for interstitial pulmonary infiltrates and atypical chest pain. He has a history of gastroesophageal reflux disease, hyperlipidemia, kidney stones, bladder cancer, colon cancer, anxiety, chronic tobacco dependence, rheumatoid arthritis and is maintained on methotrexate. He presented to the emergency room again yesterday with complaints of chest pain. This had been intermittent over the past several days. He described it as sharp in nature worse with deep breathing. He is hard of hearing and somewhat of a poor historian. He is seen today in consultation on the regular medical floor. He is sitting up in bed. Awake and alert. Maintaining O2 saturations up to 100% on 2 L nasal cannula. He's been afebrile. Hemodynamically stable. He is still having some ongoing issues with musculoskeletal chest wall pain. Chest x-ray reveals bilateral multifocal acute infiltrates on background chronic and somatic and pulmonary fibrotic changes redemonstrated. The patient is now testing positive for COVID-19 on an ER visit on 11/09/2021. White count 10.4. Hemoglobin 12.9. Platelet count 400,000. Lymphocytes 0.7. D-dimer 2.74. Sodium 145. Potassium 5.0. Creatinine 2.22. Glucose 128. ProBNP 1700. Troponin 0.0-3. EKG revealed normal sinus rhythm without any significant ST or T wave abnormalities. He's been initiated on IV Solu-Medrol bronchodilators. Initiated on vitamin supplements. 11/13/2021, see the patient for a follow-up. Noted the patient has chronic interstitial pulmonary infiltrates which were unable to explain during his last admission. However, during this readmission, the patient was tested positive for covert 19 and I think the pulmonary ventricle isn't consistent with codeine associated pneumonia. The patient is currently on IV steroids. Meanwhile, the patient ruled in for an acute non-ST segment elevation myocardial infarction patient is currently on IV heparin. He continues to have on and off chest pain although the pain is not typical for cardiac disease. He has been reporting some vague chest pain since his current admission. The patient was seen by cardiology. EKG shows sinus tachycardia without any acute ischemic changes. Troponin maxed at 5.05. Troponins have been down trending. The patient will be kept on the same medication for now. Cardiology is on the case. He remains on 40s about 2 by nasal cannula. His CRP the present 2.2, LDH that was 413. INR is at 1.4 with a d-dimer of 3.4. White cell count is at 7.3 with a hemoglobin of 12 and a platelet count of 262. On 11/14/2021 patient seen in follow-up on selective care unit, this morning patient was having EKG changes and acute ST elevation in the lateral leads including V5 and V6. In addition patient was having some increased chest discomfort. The pain did apparently resolved with nitroglycerin, and subsequently patient was taken to the Left for further evaluation. He was found to have mild triple-vessel disease however there was no intervention performed. He is most recent echocardiogram showed EF of less than 20% with global hypokinesis. He is suspected to have a Takotsubo. Patient is breathing comfortably, he is currently on 2 L of oxygen pulse ox is 96-99%, his been afebrile overnight, hemodynamically has been stable, his last chest x-ray was yesterday showing probable small bilateral pleural effusions, no pneumothorax, and mildly prominent heart. Currently patient remains on IV Solu-Medrol 60 mg every 6 hours, he remains on multivitamins. His heparin has been discontinued, and we will add Lovenox for prophylactic anticoagulation. Today's labs have been reviewed, his white blood cell count is 8.8, hemoglobin is 13, d-dimer is 2.75, sodium is 145, potassium is 4.4, chloride is 120, CO2 is 18, BUN is 50 creatinine is 1.59 Objective - Vital Signs Vital signs: Vital Signs Temp 97.2 F L 11/14/21 11:45 Pulse 72 11/14/21 13:00 Resp 16 11/14/21 13:00 BP 100/76 11/14/21 13:00 Pulse Ox 96 11/14/21 13:00 Intake & Output 11/13/21 11/14/21 11/14/21 18:59 06:59 18:59 Intake Total 426.776 7940 300 Output Total 425 1000 225 Balance 2.515 500 75 Weight 52 kg Intake: IV 100 Intake, IV Titration 632.149 3394 Amount Heparin Sod,Pork in 0.45% 109.515 NaCl 25,000 unit In 0.45 % NaCl 1 250ml.bag @ 12 UNITS/KG/HR 8.165 mls/hr IV .Q24H MARÍA Rx#: [id number] Sodium Chloride 0.9% 1, 1100 000 ml @ 100 mls/hr IV . Q10H MARÍA Rx#:[id number] Oral 318 400 200 Output: Urine 425 1000 225 Other: Voiding Method Ileal Conduit (Right) Ileal Conduit (Right) Ileal Conduit (Right) - Exam GENERAL EXAM: 86-year-old white male, breathing comfortably on 2 L of oxygen his sat 96%, comfortable in no apparent distress. HEAD: Normocephalic/atraumatic. EYES: Normal reaction of pupils, equal size. Conjunctiva pink, sclera white. NOSE: Clear with pink turbinates. THROAT: No erythema or exudates. NECK: No masses, no JVD, no thyroid enlargement, no adenopathy. CHEST: No chest wall deformity. Symmetrical expansion. LUNGS: Equal air entry with mild bibasilar crackles CVS: Regular rate and rhythm, normal S1 and S2, no gallops, no murmurs, no rubs ABDOMEN: Soft, nontender. No hepatosplenomegaly, normal bowel sounds, no guarding or rigidity. EXTREMITIES: No clubbing, no edema, no cyanosis, 2+ pulses and upper and lower extremities. MUSCULOSKELETAL: Muscle strength and tone normal. SPINE: No scoliosis or deformity SKIN: No rashes CENTRAL NERVOUS SYSTEM: Awake and alert, in no acute distress No focal deficits, tone is normal in all 4 extremities. - Labs CBC & Chem 7: 11/14/21 08:40 11/14/21 08:40 Labs: Abnormal Lab Results - Last 24 Hours (Table) 11/13/21 11/13/21 11/13/21 Range/Units 15:22 16:54 21:06 RBC (4.30-5.90) m/uL MCV (80.0-100.0) fL MCHC (31.0-37.0) g/dL RDW (11.5-15.5) % Neutrophils # (1.3-7.7) k/uL Lymphocytes # (1.0-4.8) k/uL APTT 51.5 H (22.0-30.0) sec D-Dimer (<0.60) mg/L FEU Chloride (98-107) mmol/L Carbon Dioxide (22-30) mmol/L BUN (9-20) mg/dL Creatinine (0.66-1.25) mg/dL Glucose (74-99) mg/dL POC Glucose (mg/dL) 115 H 141 H (75-99) mg/dL Troponin I (0.000-0.034) ng/mL Albumin (3.5-5.0) g/dL 11/14/21 11/14/21 11/14/21 Range/Units 06:27 08:40 08:40 RBC 4.16 L (4.30-5.90) m/uL MCV 101.4 H (80.0-100.0) fL MCHC 30.9 L (31.0-37.0) g/dL RDW 16.7 H (11.5-15.5) % Neutrophils # 7.8 H (1.3-7.7) k/uL Lymphocytes # 0.6 L (1.0-4.8) k/uL APTT (22.0-30.0) sec D-Dimer (<0.60) mg/L FEU Chloride 120 H (98-107) mmol/L Carbon Dioxide 18 L (22-30) mmol/L BUN 50 H (9-20) mg/dL Creatinine 1.59 H (0.66-1.25) mg/dL Glucose 159 H (74-99) mg/dL POC Glucose (mg/dL) 134 H (75-99) mg/dL Troponin I (0.000-0.034) ng/mL Albumin 3.1 L (3.5-5.0) g/dL 11/14/21 11/14/21 11/14/21 Range/Units 08:40 08:45 11:55 RBC (4.30-5.90) m/uL MCV (80.0-100.0) fL MCHC (31.0-37.0) g/dL RDW (11.5-15.5) % Neutrophils # (1.3-7.7) k/uL Lymphocytes # (1.0-4.8) k/uL APTT 40.2 H (22.0-30.0) sec D-Dimer 2.75 H (<0.60) mg/L FEU Chloride (98-107) mmol/L Carbon Dioxide (22-30) mmol/L BUN (9-20) mg/dL Creatinine (0.66-1.25) mg/dL Glucose (74-99) mg/dL POC Glucose (mg/dL) 128 H (75-99) mg/dL Troponin I 2.010 H* (0.000-0.034) ng/mL Albumin (3.5-5.0) g/dL Assessment and Plan Plan: #1 Acute hypoxic respiratory failure in a patient found to have COVID-19 infection on 11/09/2021. He had this explains tremors the interstitial infiltrative that was also noted during his last admission. The patient is current hypoxic on oxygen approximately 2 L nasal cannula. Inflammatory markers are mildly elevated and the patient remains on steroids. #2 acute non-ST segment elevation myocardial infarction. Troponin peaked at 5 and they are downtrending. The patient is still having atypical chest pain and the patient's on IV heparin. #3 mild triple-vessel disease, patient is status post cardiac catheterization today on 11/14/2021. 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% #5 Elevated inflammatory markers secondary to above #6 Acute on chronic renal failure, creatinine 2.2 during this current admission #7 History of rheumatoid arthritis, maintained on methotrexate #8 History of gastroesophageal reflux disease #9 History of colon cancer #10 History of bladder cancer #11 History of kidney stone #12 Chronic tobacco dependence #13 Anxiety Plan: Continue current medical treatment Continue steroids Heparin drip has been discontinued We will add Lovenox 40 mg daily No worsening dyspnea No fever or chills We'll continue to follow Heart catheterization results have been noted Cardiology Jerson I performed a history & physical examination of the patient and discussed their management with my nurse practitioner, Shakila Oscar. I reviewed the nurse practitioner's note and agree with the documented findings and plan of care. Lung sounds are positive for dim breath sounds throughout the lung singh. The findings and the impression was discussed with the patient. I attest to the doc umentation by the nurse practitioner. Time with Patient: Less than 30
--- NOTE | 2021-11-14 15:15 | P.PN ---
Subjective Progress Note Date: 11/14/21 Bob Wolf, is a year old male who presented to [facility] emergency room with a chief complaint of chest pain patient describes a sharp pain in the chest that is intermittent and worse with deep breathing. He was evaluated in the emergency room vital examination on presentation revea led a temperature of 98.2 pulse 112 respiration 18 blood pressure 148/105 pulse ox 98% on 2 L nasal cannula Laboratory data revealed a white blood count of 10.4 hemoglobin 12.9 platelet count 400 d-dimer 2.74 BUN 62 creatinine 2.2 Testing in the emergency room revealed chest x-ray revealed bilateral multifocal infiltrates EKG revealed sinus tachycardia without acute ischemic changes Patient was admitted to medical floor for further evaluation and treatment. Past medical history is significant for advanced COPD patient still smokes he has more than 50 year history of smoking, he also has a known history of colon cancer, bladder cancer, rheumatoid arthritis, gastroesophageal reflux disease, anxiety disorder. On 11/13 patient was seen and examined on the telemetry floor, he is alert and oriented 3 in no apparent distress he is still complaining of chest pain, on admission patient had a normal troponin of 0.023 however yesterday his troponin went up to 5.05, he was transferred to [address] [place] [address] and was started on IV heparin, cardiology consultation was requested, and this time patient is lying comfortably in bed he is still complaining of some discomfort in his chest otherwise he denies any complaints there is no fever or chills no headache or dizziness no shortness of breath he has occasional cough no nausea or vomiting no abdominal pain no diarrhea and no urinary symptoms. On 11/14/2021 patient was seen and examined on the telemetry floor he is alert and oriented in no distress there is no fever or chills no headache or dizziness no chest pain no shortness of breath no cough no nausea or vomiting no abdominal pain no diarrhea no blood in the stools no burning with urination no frequency or urgency and no hematuria Objective - Vital Signs Vital signs: Vital Signs Temp 97.2 F L 11/14/21 11:45 Pulse 82 11/14/21 14:00 Resp 16 11/14/21 14:00 BP 97/57 11/14/21 14:00 Pulse Ox 96 11/14/21 14:00 Intake & Output 11/13/21 11/14/21 11/14/21 18:59 06:59 18:59 Intake Total 819.608 1610 300 Output Total 425 1000 225 Balance 2.515 500 75 Weight 52 kg Intake: IV 100 Intake, IV Titration 601.098 1001 Amount Heparin Sod,Pork in 0.45% 109.515 NaCl 25,000 unit In 0.45 % NaCl 1 250ml.bag @ 12 UNITS/KG/HR 8.165 mls/hr IV .Q24H MARÍA Rx#: [id number] Sodium Chloride 0.9% 1, 1100 000 ml @ 100 mls/hr IV . Q10H MARÍA Rx#:[id number] Oral 318 400 200 Output: Urine 425 1000 225 Other: Voiding Method Ileal Conduit (Right) Ileal Conduit (Right) Ileal Conduit (Right) - Exam In general patient is alert and oriented x 3 in no distress HEENT head normocephalic and atraumatic Neck is supple no JVD no goiter no lymphadenopathy no carotid bruit Chest examination reveals a scattered crackles bilaterally no wheezing Cardiac exam reveals regular heart sounds S1 and S2 no gallops no murmurs Abdomen is soft nontender no organomegaly with normal bowel sounds Extremity exam reveals no edema no cyanosis or clubbing Neurological examination reveals no gross focal deficits - Labs CBC & Chem 7: 11/14/21 08:40 11/14/21 08:40 Labs: Abnormal Lab Results - Last 24 Hours (Table) 11/13/21 11/13/21 11/13/21 Range/Units 15:22 16:54 21:06 RBC (4.30-5.90) m/uL MCV (80.0-100.0) fL MCHC (31.0-37.0) g/dL RDW (11.5-15.5) % Neutrophils # (1.3-7.7) k/uL Lymphocytes # (1.0-4.8) k/uL APTT 51.5 H (22.0-30.0) sec D-Dimer (<0.60) mg/L FEU Chloride (98-107) mmol/L Carbon Dioxide (22-30) mmol/L BUN (9-20) mg/dL Creatinine (0.66-1.25) mg/dL Glucose (74-99) mg/dL POC Glucose (mg/dL) 115 H 141 H (75-99) mg/dL Troponin I (0.000-0.034) ng/mL Albumin (3.5-5.0) g/dL 11/14/21 11/14/21 11/14/21 Range/Units 06:27 08:40 08:40 RBC 4.16 L (4.30-5.90) m/uL MCV 101.4 H (80.0-100.0) fL MCHC 30.9 L (31.0-37.0) g/dL RDW 16.7 H (11.5-15.5) % Neutrophils # 7.8 H (1.3-7.7) k/uL Lymphocytes # 0.6 L (1.0-4.8) k/uL APTT (22.0-30.0) sec D-Dimer (<0.60) mg/L FEU Chloride 120 H (98-107) mmol/L Carbon Dioxide 18 L (22-30) mmol/L BUN 50 H (9-20) mg/dL Creatinine 1.59 H (0.66-1.25) mg/dL Glucose 159 H (74-99) mg/dL POC Glucose (mg/dL) 134 H (75-99) mg/dL Troponin I (0.000-0.034) ng/mL Albumin 3.1 L (3.5-5.0) g/dL 11/14/21 11/14/21 11/14/21 Range/Units 08:40 08:45 11:55 RBC (4.30-5.90) m/uL MCV (80.0-100.0) fL MCHC (31.0-37.0) g/dL RDW (11.5-15.5) % Neutrophils # (1.3-7.7) k/uL Lymphocytes # (1.0-4.8) k/uL APTT 40.2 H (22.0-30.0) sec D-Dimer 2.75 H (<0.60) mg/L FEU Chloride (98-107) mmol/L Carbon Dioxide (22-30) mmol/L BUN (9-20) mg/dL Creatinine (0.66-1.25) mg/dL Glucose (74-99) mg/dL POC Glucose (mg/dL) 128 H (75-99) mg/dL Troponin I 2.010 H* (0.000-0.034) ng/mL Albumin (3.5-5.0) g/dL Assessment and Plan Plan: 1. Acute hypoxic respiratory failure, COVID-19 infection on 11/09/2021. Now with evidence of pneumonia on chest x-ray with multifocal bilateral acute infiltrates 2. Acute non-ST elevation myocardial infarction, patient admitted to telemetry floor and was started on IV heparin cardiology consultation was requested 3. Elevated d-dimer, patient has elevated creatinine, will check VQ scan 4. Acute on chronic renal failure, creatinine on presentation 2.22 5. Underlying history of rheumatoid arthritis, maintained on methotrexate 6. Underlying history of kidney stones 7. Underlying history of anxiety disorder 8. Underlying history of tobacco abuse 9. Previous history of colon cancer 10. Previous history of bladder cancer At this time patient was admitted to medical floor He was started on IV steroids and inhaled bronchodilators and oxygen supplements VQ scan was ordered in relation to elevated d-dimer and pleuritic chest pain Pulmonary consultation requested Will follow closely
[2021-11-14 17:03] LABS: Glucose,Whole Blood 116 mg/dL (75-99)
--- NOTE | 2021-11-14 20:19 | PN ---
PROGRESS NOTE DATE OF SERVICE: 11/14/2021 REASON FOR FOLLOWUP: COVID-19 pneumonia. INTERVAL HISTORY: The patient is afebrile. The patient is breathing more comfortably. The patient denies having any chest pain. No worsening cough or sputum production. No abdominal pain or diarrhea. PHYSICAL EXAMINATION: Blood pressure is 100/59 with a pulse of 73, temperature of 97.2. He is 96% on 2 L nasal cannula. General description is an elderly male lying in bed in no distress. Respiratory system: Unlabored breathing, decreased breath sounds at the base. No wheeze. Heart S1, S2. Regular rate and rhythm. Abdomen soft, no tenderness. LABS: Hemoglobin 13, white count 8.8, creatinine 1.59. DIAGNOSTIC IMPRESSION AND PLAN: Patient with acute respiratory failure which is multifactorial, possible component of COVID-19 infection. Patient is currently on 4-day treatment of Solu-Medrol, heparin, zinc and ascorbic acid; to continue along with respiratory support and monitor his clinical course closely. MMODL / IJN: [id number] /
[2021-11-14 21:29] LABS: Glucose,Whole Blood 113 mg/dL (75-99)
[2021-11-15] MEDS: methylPREDNISolone SOD SUCCI 125 MG/2 ML VIAL IV SCH ×4 (00:03→16:53)
[2021-11-15] MEDS: CEPHALEXIN 250 MG CAP PO SCH ×3 (00:03→16:54)
[2021-11-15] MEDS: SODIUM CHLORIDE 0.9% 1,000 ML IV SCH ×3 (05:50→20:53)
[2021-11-15 07:03] LABS: Glucose,Whole Blood 106 mg/dL (75-99)
[2021-11-15] MEDS: ALBUTEROL HFA INHALER INHALATION SCH ×3 (09:21→20:30)
[2021-11-15] MEDS: ATORVASTATIN 80 MG TAB PO SCH (09:55)
[2021-11-15] MEDS: METOPROLOL TARTRATE 25 MG TAB PO SCH ×2 (09:55→20:47)
[2021-11-15] MEDS: ISOSORBIDE MONONITRATE ER 30 MG TAB.ER.24H PO SCH (09:55)
[2021-11-15] MEDS: FOLIC ACID 1 MG TAB PO SCH (09:55)
[2021-11-15] MEDS: CHOLECALCIFEROL 125 MCG (5000 IU) TABLET PO SCH (09:55)
[2021-11-15] MEDS: PANTOPRAZOLE 40 MG TABLET PO SCH (09:55)
[2021-11-15] MEDS: ASCORBIC ACID 500 MG TAB PO SCH (09:55)
[2021-11-15] MEDS: ASPIRIN 81 MG PO SCH (09:55)
[2021-11-15] MEDS: ZINC SULFATE 220 MG CAP PO SCH (09:55)
[2021-11-15] MEDS: HYDROCORTISONE 2.5% RECTAL CREAM 30 GM TUBE RECTAL SCH ×4 (09:56→20:48)
[2021-11-15] MEDS: ENOXAPARIN 40 MG/0.4 ML SYRINGE SQ SCH (09:56)
[2021-11-15 10:02] LABS: Anisocytosis Slight; Basophils % (A) 0 %; Eosinophils % (A) 0 %; HCT 38.7 % (39.0-53.0); Hypochromasia Marked; Lymphocytes # (A) 0.4 k/uL (1.0-4.8); Lymphocytes % (A) 3 %; MCH 32.1 pg (25.0-35.0); MCHC 30.9 g/dL (31.0-37.0); MCV 103.7 fL (80.0-100.0); Macrocytosis Moderate; Mean Platelet Volume 9.1; Monocytes # (A) 0.7 k/uL (0-1.0); Monocytes % (A) 6 %; Neutrophils # (A) 11.1 k/uL (1.3-7.7); Neutrophils % (A) 91 %; Platelet Count 241 k/uL (150-450); RBC 3.73 m/uL (4.30-5.90); RDW 17.1 % (11.5-15.5); WBC 12.3 k/uL (3.8-10.6)
[2021-11-15 10:21] LABS: Albumin 2.6 g/dL (3.5-5.0); Calcium 8.7 mg/dL (8.4-10.2); Potassium 4.2 mmol/L (3.5-5.1); Total Bilirubin 0.8 mg/dL (0.2-1.3); Total Protein 5.4 g/dL (6.3-8.2)
[2021-11-15 12:40] LABS: Glucose,Whole Blood 108 mg/dL (75-99)
--- NOTE | 2021-11-15 12:49 | P.GSCN ---
<Reena Vidal - Last Filed: 11/15/21 12:27> History of Present Illness Consult date: 11/15/21 Reason for Consult: Dysphagia, nausea vomiting, weight loss Requesting physician: Nikita Vasquez History of present illness: CHIEF COMPLAINT: Shortness of breath HISTORY OF PRESENT ILLNESS: This an 86-year-old male who presented to the emergency department with complaints of shortness of breath and chest pain on 11/11/2021. The patient is testing positive for COVID-19. I he was noted to have elevated troponins on 11/12/2021 as high as 4.9, now 2.0. Seen and evaluated by cardiology and was started on a heparin drip. He underwent a cardiac catheterization yesterday with findings of mild triple-vessel disease, normal LVEDP. He is currently on 4 L of nasal cannula with his oxygenation at 98%. Gen. surgery was consulted because the patient has had a decreased appetite, nausea and vomiting and dysphagia. The patient states he is not having any difficulty swallowing, he does have a decreased appetite which she has had for some time, and no nausea or vomiting just indigestion. He states his last colonoscopy was 7-8 years ago he believes he had an EGD at that time as well. This was done in [place]. He states he was diagnosed with colon cancer and had bowel surgery however no radiation or chemotherapy. He never followed up. PAST MEDICAL HISTORY: Colon cancer, GERD, hyperlipidemia, bladder cancer PAST SURGICAL HISTORY: Hernia repair, bowel resection MEDICATIONS: See list. ALLERGIES: See list. SOCIAL HISTORY: No illicit drug use. Every day smoker. REVIEW OF SYSTEMS: CONSTITUTIONAL: Denies fever or chills. HEENT: Denies blurred vision, vision changes, or eye pain. Denies hemoptysis CARDIOVASCULAR: Denies chest pain or pressure. RESPIRATORY: No shortness of breath. GASTROINTESTINAL: See HPI for pertinent findings HEMATOLOGIC: Denies bleeding disorders. GENITOURINARY: Denies any blood in urine or increased urinary frequency. SKIN: Denies pruitis. Denies rash. PHYSICAL EXAM: VITAL SIGNS: Reviewed GENERAL: Well-developed in no acute distress. HEENT: No sclera icterus. Extraocular movements grossly intact. Moist buccal mucosa. Head is atraumatic, normocephalic. No nasal drainage. ABDOMEN: Soft. Thin. Nondistended. Tenderness with palpation to right lower quadrant. NEUROLOGIC: Alert and oriented. Cranial nerves II through XII grossly intact. LABORATORY DATA: WBC 12.3 hemoglobin 12.0 platelet count 241,000 Sodium 146 potassium 4.2 BUN 50 creatinine 1.63 glucose 122 Total bilirubin 0.8 AST 23 ALT 22 alkaline phosphatase 58 total protein 5.4 albumin 2.6 ASSESSMENT: 1. Decreased appetite 2. GERD 3. COVID-19 infection 4. Elevated troponins PLAN: 1. Continue Protonix daily 2. Continue heart healthy diet 3. Antiemetics as needed 4. Likely recommend outpatient endoscopy in the next few weeks once patient is recovered by COVID-19 infection. Further recommendations forthcoming per surgeon. The impression and plan of care has been dictated as directed. Dr. Mcgrath I performed a history and examination of this patient, discussed the same with the dictator. I agree with the dictator's note ,documented as a scribe. Any additional findings or plans will be noted. Past Medical History Past Medical History: GERD/Reflux, Hyperlipidemia Additional Past Medical History / Comment(s): kidney stones, bladder cancer, colon cancer History of Any Multi-Drug Resistant Organisms: None Reported Past Surgical History: Hernia Repair Additional Past Surgical History / Comment(s): kidney stone removed ILIOSTOMY Past Anesthesia/Blood Transfusion Reactions: No Reported Reaction, Motion Sickness Past Psychological History: Anxiety Smoking Status: Current some day smoker Past Alcohol Use History: None Reported Additional Past Alcohol Use History / Comment(s): smoking 1/2 PPD, smoked for 10 yrs(quit for 30 yrs, started smoking as teen) Past Drug Use History: None Reported - Past Family History Sister(s) Family Medical History: Cancer Brother(s) Family Medical History: Cancer Medications and Allergies Home Medications Medication Instructions Recorded Confirmed Type ALPRAZolam [Xanax] 0.5 mg PO Q8H PRN 02/04/19 11/11/21 History Omeprazole 40 mg PO DAILY 02/04/19 11/11/21 History gemfibroziL [Lopid] 600 mg PO BID 02/04/19 11/11/21 History Folic Acid 1 mg PO DAILY 10/29/21 11/11/21 History Hydrocortisone Pr Cream 1 applic RECTAL QID 10/29/21 11/11/21 History [Proctosol-Hc 2.5%] Nystatin 100,000Unit/gm Cream 1 applic TOPICAL BID 10/29/21 11/11/21 History [Mycostatin Cream] metHOTREXate sodium [Methotrexate] 12.5 mg PO GOODSON 10/29/21 11/11/21 History Aspirin 81 mg PO DAILY tab 11/02/21 11/11/21 Rx Cephalexin [Keflex] 500 mg PO Q6HR #40 cap 11/09/21 11/11/21 Rx Ondansetron Odt [Zofran ODT] 4 mg PO Q8HR PRN #10 tab 11/09/21 11/11/21 Rx Allergies Allergy/AdvReac Type Severity Reaction Status Date / Time Sulfa (Sulfonamide AdvReac Rash/Hives/ Verified 11/11/21 16:19 Antibiotics) itching Surgical - Exam Vital Signs Temp Pulse Resp BP Pulse Ox 98.2 F 112 H 18 148/105 98 11/11/21 16:17 11/11/21 16:17 11/11/21 16:17 11/11/21 16:17 11/11/21 16:17 Results - Labs 11/15/21 09:41 11/15/21 09:41 Abnormal Lab Results - Last 24 Hours (Table) 11/14/21 11/14/21 11/14/21 Range/Units 11:55 16:52 21:24 WBC (3.8-10.6) k/uL RBC (4.30-5.90) m/uL Hgb (13.0-17.5) gm/dL Hct (39.0-53.0) % MCV (80.0-100.0) fL MCHC (31.0-37.0) g/dL RDW (11.5-15.5) % Neutrophils # (1.3-7.7) k/uL Lymphocytes # (1.0-4.8) k/uL POC Glucose (mg/dL) 128 H 116 H 113 H (75-99) mg/dL 11/15/21 11/15/21 Range/Units 07:01 09:41 WBC 12.3 H (3.8-10.6) k/uL RBC 3.73 L (4.30-5.90) m/uL Hgb 12.0 L (13.0-17.5) gm/dL Hct 38.7 L (39.0-53.0) % MCV 103.7 H (80.0-100.0) fL MCHC 30.9 L (31.0-37.0) g/dL RDW 17.1 H (11.5-15.5) % Neutrophils # 11.1 H (1.3-7.7) k/uL Lymphocytes # 0.4 L (1.0-4.8) k/uL POC Glucose (mg/dL) 106 H (75-99) mg/dL <Dinh Mcgrath - Last Filed: 11/15/21 17:24> History of Present Illness History of present illness: I have personally seen and examined the patient, reviewed the EXECUTIVE RECEPTIONIST /PAs history, exam and MDM and agree with the assessment and plan as written. Based on total visit time, I have performed more than 50% of the visit. As above. Patient with decreased oral intake at home prior to admission and anorexia here as well. Patient having chest pain and shortness of breath. Today's cardiac evaluation suggests probable pulmonary source of his discomfort however. Upper endoscopy can be performed later during this hospitalization if desired by primary service. We'll follow with you. Surgical - Exam Vital Signs Temp Pulse Resp BP Pulse Ox 98.2 F 112 H 18 148/105 98 11/11/21 16:17 11/11/21 16:17 11/11/21 16:17 11/11/21 16:17 11/11/21 16:17 Results - Labs 11/15/21 09:41 11/15/21 09:41 Abnormal Lab Results - Last 24 Hours (Table) 11/14/21 11/15/21 11/15/21 Range/Units 21:24 07:01 09:41 WBC (3.8-10.6) k/uL RBC (4.30-5.90) m/uL Hgb (13.0-17.5) gm/dL Hct (39.0-53.0) % MCV (80.0-100.0) fL MCHC (31.0-37.0) g/dL RDW (11.5-15.5) % Neutrophils # (1.3-7.7) k/uL Lymphocytes # (1.0-4.8) k/uL Sodium 146 H (137-145) mmol/L Chloride 121 H (98-107) mmol/L Carbon Dioxide 20 L (22-30) mmol/L BUN 50 H (9-20) mg/dL Creatinine 1.63 H (0.66-1.25) mg/dL Glucose 122 H (74-99) mg/dL POC Glucose (mg/dL) 113 H 106 H (75-99) mg/dL Total Protein 5.4 L (6.3-8.2) g/dL Albumin 2.6 L (3.5-5.0) g/dL 11/15/21 11/15/21 11/15/21 Range/Units 09:41 12:38 17:04 WBC 12.3 H (3.8-10.6) k/uL RBC 3.73 L (4.30-5.90) m/uL Hgb 12.0 L (13.0-17.5) gm/dL Hct 38.7 L (39.0-53.0) % MCV 103.7 H (80.0-100.0) fL MCHC 30.9 L (31.0-37.0) g/dL RDW 17.1 H (11.5-15.5) % Neutrophils # 11.1 H (1.3-7.7) k/uL Lymphocytes # 0.4 L (1.0-4.8) k/uL Sodium (137-145) mmol/L Chloride (98-107) mmol/L Carbon Dioxide (22-30) mmol/L BUN (9-20) mg/dL Creatinine (0.66-1.25) mg/dL Glucose (74-99) mg/dL POC Glucose (mg/dL) 108 H 121 H (75-99) mg/dL Total Protein (6.3-8.2) g/dL Albumin (3.5-5.0) g/dL Diabetes panel 11/15/21 Range/Units 09:41 Sodium 146 H (137-145) mmol/L Potassium 4.2 (3.5-5.1) mmol/L Chloride 121 H (98-107) mmol/L Carbon Dioxide 20 L (22-30) mmol/L BUN 50 H (9-20) mg/dL Creatinine 1.63 H (0.66-1.25) mg/dL Glucose 122 H (74-99) mg/dL Calcium 8.7 (8.4-10.2) mg/dL AST 23 (17-59) U/L ALT 22 (4-49) U/L Alkaline Phosphatase 58 (38-126) U/L Total Protein 5.4 L (6.3-8.2) g/dL Albumin 2.6 L (3.5-5.0) g/dL Calcium panel 11/15/21 Range/Units 09:41 Calcium 8.7 (8.4-10.2) mg/dL Albumin 2.6 L (3.5-5.0) g/dL Pituitary panel 11/15/21 Range/Units 09:41 Sodium 146 H (137-145) mmol/L Potassium 4.2 (3.5-5.1) mmol/L Chloride 121 H (98-107) mmol/L Carbon Dioxide 20 L (22-30) mmol/L BUN 50 H (9-20) mg/dL Creatinine 1.63 H (0.66-1.25) mg/dL Glucose 122 H (74-99) mg/dL Calcium 8.7 (8.4-10.2) mg/dL Adrenal panel 11/15/21 Range/Units 09:41 Sodium 146 H (137-145) mmol/L Potassium 4.2 (3.5-5.1) mmol/L Chloride 121 H (98-107) mmol/L Carbon Dioxide 20 L (22-30) mmol/L BUN 50 H (9-20) mg/dL Creatinine 1.63 H (0.66-1.25) mg/dL Glucose 122 H (74-99) mg/dL Calcium 8.7 (8.4-10.2) mg/dL Total Bilirubin 0.8 (0.2-1.3) mg/dL AST 23 (17-59) U/L ALT 22 (4-49) U/L Alkaline Phosphatase 58 (38-126) U/L Total Protein 5.4 L (6.3-8.2) g/dL Albumin 2.6 L (3.5-5.0) g/dL
[2021-11-15 13:32] VITALS: BMI 16.4
--- NOTE | 2021-11-15 14:13 | P.PN ---
Subjective The patient is an 86-year-old male with past medical history of tobacco use, COPD, chronic kidney disease, and dyslipidemia, who presented to the hospital with increased shortness of breath, chest pain and found to have elevated troponins peaked at 5.0. He does not follow with a display coordinator regularly. During his most recent admission he was diagnosed with COVID-19. Echocardiogram revealed EF of 2025 percent with apical and mid LV wall motion hypokinesis. Patient underwent cardiac catheterization yesterday 11/14/[address] Van and revealed mild triple vessel disease and normal LVEDP. The patient probably had Takotsubo syndrome or myocarditis from COVID-19 infection. 11/15/21 Patient examined at bedside, no acute distress. He continues to have right and left sided chest discomfort, nonradiating, nonexertional. It is worse been taking a deep breath or coughing. Labs, WBC 12.3, hemoglobin 12, place to 41, sodium 146, potassium 4.2, BUN 50, serum creatinine 1.6. He is maintained on aspirin 81 mg daily, atorvastatin 80 mg daily, Imdur 30 mg daily, metoprolol tartrate 25 mg twice a day, IV fluids. PHYSICAL EXAM: Thorough physical exam is not completed secondary to limited evaluation/examination due to COVID-19. 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 Objective - Vital Signs Vital signs: Vital Signs Temp 96.9 F L 11/15/21 08:00 Pulse 83 11/15/21 08:00 Resp 18 11/15/21 08:00 BP 107/60 11/15/21 08:00 Pulse Ox 98 11/15/21 08:00 Intake & Output 11/14/21 11/15/21 11/15/21 18:59 06:59 18:59 Intake Total 540 600 Output Total 645 720 Balance -105 -720 600 Weight 52 kg Intake: IV 100 Oral 440 600 Output: Urine 390 720 Other: Voiding Method Ileal Conduit (Right) Ileal Conduit (Right) Ileal Conduit (Right) # Voids 0 # Bowel Movements 0 - Labs CBC & Chem 7: 11/15/21 09:41 11/15/21 09:41 Labs: Abnormal Lab Results - Last 24 Hours (Table) 11/14/21 11/14/21 11/15/21 Range/Units 16:52 21:24 07:01 WBC (3.8-10.6) k/uL RBC (4.30-5.90) m/uL Hgb (13.0-17.5) gm/dL Hct (39.0-53.0) % MCV (80.0-100.0) fL MCHC (31.0-37.0) g/dL RDW (11.5-15.5) % Neutrophils # (1.3-7.7) k/uL Lymphocytes # (1.0-4.8) k/uL Sodium (137-145) mmol/L Chloride (98-107) mmol/L Carbon Dioxide (22-30) mmol/L BUN (9-20) mg/dL Creatinine (0.66-1.25) mg/dL Glucose (74-99) mg/dL POC Glucose (mg/dL) 116 H 113 H 106 H (75-99) mg/dL Total Protein (6.3-8.2) g/dL Albumin (3.5-5.0) g/dL 11/15/21 11/15/21 11/15/21 Range/Units 09:41 09:41 12:38 WBC 12.3 H (3.8-10.6) k/uL RBC 3.73 L (4.30-5.90) m/uL Hgb 12.0 L (13.0-17.5) gm/dL Hct 38.7 L (39.0-53.0) % MCV 103.7 H (80.0-100.0) fL MCHC 30.9 L (31.0-37.0) g/dL RDW 17.1 H (11.5-15.5) % Neutrophils # 11.1 H (1.3-7.7) k/uL Lymphocytes # 0.4 L (1.0-4.8) k/uL Sodium 146 H (137-145) mmol/L Chloride 121 H (98-107) mmol/L Carbon Dioxide 20 L (22-30) mmol/L BUN 50 H (9-20) mg/dL Creatinine 1.63 H (0.66-1.25) mg/dL Glucose 122 H (74-99) mg/dL POC Glucose (mg/dL) 108 H (75-99) mg/dL Total Protein 5.4 L (6.3-8.2) g/dL Albumin 2.6 L (3.5-5.0) g/dL
[2021-11-15] MEDS: MORPHINE SULFATE 2 MG/ML SYRINGE IVP PRN (16:54)
[2021-11-15 17:11] LABS: Glucose,Whole Blood 121 mg/dL (75-99)
--- NOTE | 2021-11-15 18:17 | P.PN ---
Subjective Progress Note Date: 11/15/21 Bob Wolf, is a year old male who presented to [facility] emergency room with a chief complaint of chest pain patient describes a sharp pain in the chest that is intermittent and worse with deep breathing. He was evaluated in the emergency room vital examination on presentation revea led a temperature of 98.2 pulse 112 respiration 18 blood pressure 148/105 pulse ox 98% on 2 L nasal cannula Laboratory data revealed a white blood count of 10.4 hemoglobin 12.9 platelet count 400 d-dimer 2.74 BUN 62 creatinine 2.2 Testing in the emergency room revealed chest x-ray revealed bilateral multifocal infiltrates EKG revealed sinus tachycardia without acute ischemic changes Patient was admitted to medical floor for further evaluation and treatment. Past medical history is significant for advanced COPD patient still smokes he has more than 50 year history of smoking, he also has a known history of colon cancer, bladder cancer, rheumatoid arthritis, gastroesophageal reflux disease, anxiety disorder. On 11/13 patient was seen and examined on the telemetry floor, he is alert and oriented 3 in no apparent distress he is still complaining of chest pain, on admission patient had a normal troponin of 0.023 however yesterday his troponin went up to 5.05, he was transferred to [address] [place] [address] and was started on IV heparin, cardiology consultation was requested, and this time patient is lying comfortably in bed he is still complaining of some discomfort in his chest otherwise he denies any complaints there is no fever or chills no headache or dizziness no shortness of breath he has occasional cough no nausea or vomiting no abdominal pain no diarrhea and no urinary symptoms. On 11/14/2021 patient was seen and examined on the telemetry floor he is alert and oriented in no distress there is no fever or chills no headache or dizziness no chest pain no shortness of breath no cough no nausea or vomiting no abdominal pain no diarrhea no blood in the stools no burning with urination no frequency or urgency and no hematuria. On 11/15/2021 patient was seen and examined on the telemetry floor, he is alert and oriented 3 in no apparent distress, he is complaining of lower chest pain, and complaining of difficulty swallowing his food, otherwise he denies any complaints at this time, he underwent cardiac catheterization yesterday was Dr. Van that revealed evidence of minimal coronary artery disease, otherwise patient denies any complaints at this time there is no fever or chills no headache or dizziness no shortness of breath no cough no nausea or vomiting no abdominal pain no diarrhea no blood in the stools no burning with urination no frequency or urgency and no hematuria Objective - Vital Signs Vital signs: Vital Signs Temp 97.9 F 11/15/21 07:00 Pulse 73 11/15/21 07:00 Resp 18 11/15/21 07:00 BP 107/66 11/15/21 07:00 Pulse Ox 95 11/15/21 07:00 Intake & Output 11/14/21 11/15/21 11/15/21 18:59 06:59 18:59 Intake Total 540 600 Output Total 645 720 Balance -105 -720 600 Intake: IV 100 Oral 440 600 Output: Urine 645 720 Other: Voiding Method Ileal Conduit (Right) Ileal Conduit (Right) # Voids 0 # Bowel Movements 0 - Exam In general patient is alert and oriented x 3 in no distress HEENT head normocephalic and atraumatic Neck is supple no JVD no goiter no lymphadenopathy no carotid bruit Chest examination reveals a scattered crackles bilaterally no wheezing Cardiac exam reveals regular heart sounds S1 and S2 no gallops no murmurs Abdomen is soft nontender no organomegaly with normal bowel sounds Extremity exam reveals no edema no cyanosis or clubbing Neurological examination reveals no gross focal deficits - Labs CBC & Chem 7: 11/15/21 09:41 11/15/21 09:41 Labs: Abnormal Lab Results - Last 24 Hours (Table) 11/14/21 11/14/21 11/14/21 Range/Units 11:55 16:52 21:24 WBC (3.8-10.6) k/uL RBC (4.30-5.90) m/uL Hgb (13.0-17.5) gm/dL Hct (39.0-53.0) % MCV (80.0-100.0) fL MCHC (31.0-37.0) g/dL RDW (11.5-15.5) % Neutrophils # (1.3-7.7) k/uL Lymphocytes # (1.0-4.8) k/uL POC Glucose (mg/dL) 128 H 116 H 113 H (75-99) mg/dL 01/17/22 01/17/22 Range/Units 07:01 09:41 WBC 12.3 H (3.8-10.6) k/uL RBC 3.73 L (4.30-5.90) m/uL Hgb 12.0 L (13.0-17.5) gm/dL Hct 38.7 L (39.0-53.0) % MCV 103.7 H (80.0-100.0) fL MCHC 30.9 L (31.0-37.0) g/dL RDW 17.1 H (11.5-15.5) % Neutrophils # 11.1 H (1.3-7.7) k/uL Lymphocytes # 0.4 L (1.0-4.8) k/uL POC Glucose (mg/dL) 106 H (75-99) mg/dL Assessment and Plan Plan: 1. Acute hypoxic respiratory failure, COVID-19 infection on 11/09/2021. Now with evidence of pneumonia on chest x-ray with multifocal bilateral acute infiltrates 2. Acute non-ST elevation myocardial infarction, patient admitted to telemetry floor and was started on IV heparin cardiology consultation was requested 3. Elevated d-dimer, patient has elevated creatinine, will check VQ scan 4. Acute on chronic renal failure, creatinine on presentation 2.22 5. Underlying history of rheumatoid arthritis, maintained on methotrexate 6. Underlying history of kidney stones 7. Underlying history of anxiety disorder 8. Underlying history of tobacco abuse 9. Previous history of colon cancer 10. Previous history of bladder cancer At this time patient was admitted to medical floor He was started on IV steroids and inhaled bronchodilators and oxygen supplements VQ scan was ordered in relation to elevated d-dimer and pleuritic chest pain Pulmonary consultation requested Will follow closely
--- NOTE | 2021-11-15 18:50 | P.PN ---
Subjective Progress Note Date: 11/15/21 Principal diagnosis: Acute hypoxic respiratory failure secondary to COVID-19 pneumonia and acute non- ST elevation DE. This is a very pleasant 86-year-old gentleman who was just recently discharged after being treated for interstitial pulmonary infiltrates and atypical chest pain. He has a history of gastroesophageal reflux disease, hyperlipidemia, kidney stones, bladder cancer, colon cancer, anxiety, chronic tobacco dependence, rheumatoid arthritis and is maintained on methotrexate. He presented to the emergency room again yesterday with complaints of chest pain. This had been intermittent over the past several days. He described it as sharp in nature worse with deep breathing. He is hard of hearing and somewhat of a poor historian. He is seen today in consultation on the regular medical floor. He is sitting up in bed. Awake and alert. Maintaining O2 saturations up to 100% on 2 L nasal cannula. He's been afebrile. Hemodynamically stable. He is still having some ongoing issues with musculoskeletal chest wall pain. Chest x-ray reveals bilateral multifocal acute infiltrates on background chronic and somatic and pulmonary fibrotic changes redemonstrated. The patient is now testing positive for COVID-19 on an ER visit on 11/09/2021. White count 10.4. Hemoglobin 12.9. Platelet count 400,000. Lymphocytes 0.7. D-dimer 2.74. Sodium 145. Potassium 5.0. Creatinine 2.22. Glucose 128. ProBNP 1700. Troponin 0.0-3. EKG revealed normal sinus rhythm without any significant ST or T wave abnormalities. He's been initiated on IV Solu-Medrol bronchodilators. Initiated on vitamin supplements. 11/13/2021, see the patient for a follow-up. Noted the patient has chronic interstitial pulmonary infiltrates which were unable to explain during his last admission. However, during this readmission, the patient was tested positive for covert 19 and I think the pulmonary ventricle isn't consistent with codeine associated pneumonia. The patient is currently on IV steroids. Meanwhile, the patient ruled in for an acute non-ST segment elevation myocardial infarction patient is currently on IV heparin. He continues to have on and off chest pain although the pain is not typical for cardiac disease. He has been reporting some vague chest pain since his current admission. The patient was seen by cardiology. EKG shows sinus tachycardia without any acute ischemic changes. Troponin maxed at 5.05. Troponins have been down trending. The patient will be kept on the same medication for now. Cardiology is on the case. He remains on 40s about 2 by nasal cannula. His CRP the present 2.2, LDH that was 413. INR is at 1.4 with a d-dimer of 3.4. White cell count is at 7.3 with a hemoglobin of 12 and a platelet count of 262. On 11/14/2021 patient seen in follow-up on selective care unit, this morning patient was having EKG changes and acute ST elevation in the lateral leads including V5 and V6. In addition patient was having some increased chest discomfort. The pain did apparently resolved with nitroglycerin, and subsequently patient was taken to the Left for further evaluation. He was found to have mild triple-vessel disease however there was no intervention performed. He is most recent echocardiogram showed EF of less than 20% with global hypokinesis. He is suspected to have a Takotsubo. Patient is breathing comfortably, he is currently on 2 L of oxygen pulse ox is 96-99%, his been afebrile overnight, hemodynamically has been stable, his last chest x-ray was yesterday showing probable small bilateral pleural effusions, no pneumothorax, and mildly prominent heart. Currently patient remains on IV Solu-Medrol 60 mg every 6 hours, he remains on multivitamins. His heparin has been discontinued, and we will add Lovenox for prophylactic anticoagulation. Today's labs have been reviewed, his white blood cell count is 8.8, hemoglobin is 13, d-dimer is 2.75, sodium is 145, potassium is 4.4, chloride is 120, CO2 is 18, BUN is 50 creatinine is 1.59 Reevaluated today on 11/15/2021, patient seems to be doing better, breathing easier, patient has COVID-19 pneumonia and he had acute non-ST elevation myocardial infarction, being followed by cardiology. Patient also seems to have LV dysfunction. EF showed 20-25% functioning. Patient has global hypokinesia. And again this is being addressed by cardiology. Chest x-ray from 2 days ago showed diffuse interstitial and small airspace opacities bilaterally. However the patient is on 4 L nasal cannula and his O2/94%. Does not seem to be in any distress. Objective - Vital Signs Vital signs: Vital Signs Temp 96.9 F L 11/15/21 08:00 Pulse 74 01/17/22 16:00 Resp 18 11/15/21 14:00 BP 102/56 11/15/21 16:00 Pulse Ox 94 L 11/15/21 16:00 Intake & Output 11/14/21 11/15/21 11/15/21 18:59 06:59 18:59 Intake Total 540 600 Output Total 645 720 725 Balance -105 -720 -125 Weight 52 kg Intake: IV 100 Oral 440 600 Output: Urine 645 720 725 Other: Voiding Method Ileal Conduit (Right) Ileal Conduit (Right) Ileal Conduit (Right) # Voids 0 # Bowel Movements 0 - Exam Physical Exam revealed 86-year-old white male on 4 L nasal cannula in no distress. Head: Atraumatic, normocephalic. HEENT:[Neck is supple.] [No neck masses.] [No thyromegaly.] [No JVD.] Chest: Symmetrical chest expansion crackles at the bases bilaterally. Cardiac Exam: [Normal S1 and S2, no S3 gallop, no murmur.] Abdomen: [Soft, nontender, no megaly, no rebound, no guarding, normal bowel sounds.] Extremities: [No clubbing, no edema, no cyanosis.] Neurological Exam: [No focal neurologic deficit.] Alert oriented 3. Psychiatric: Normal mood affect and normal mental status examination. Skin: No rashes. - Labs CBC & Chem 7: 11/15/21 09:41 11/15/21 09:41 Labs: Abnormal Lab Results - Last 24 Hours (Table) 11/14/21 11/15/21 11/15/21 Range/Units 21:24 07:01 09:41 WBC (3.8-10.6) k/uL RBC (4.30-5.90) m/uL Hgb (13.0-17.5) gm/dL Hct (39.0-53.0) % MCV (80.0-100.0) fL MCHC (31.0-37.0) g/dL RDW (11.5-15.5) % Neutrophils # (1.3-7.7) k/uL Lymphocytes # (1.0-4.8) k/uL Sodium 146 H (137-145) mmol/L Chloride 121 H (98-107) mmol/L Carbon Dioxide 20 L (22-30) mmol/L BUN 50 H (9-20) mg/dL Creatinine 1.63 H (0.66-1.25) mg/dL Glucose 122 H (74-99) mg/dL POC Glucose (mg/dL) 113 H 106 H (75-99) mg/dL Total Protein 5.4 L (6.3-8.2) g/dL Albumin 2.6 L (3.5-5.0) g/dL 11/15/21 11/15/21 11/15/21 Range/Units 09:41 12:38 17:04 WBC 12.3 H (3.8-10.6) k/uL RBC 3.73 L (4.30-5.90) m/uL Hgb 12.0 L (13.0-17.5) gm/dL Hct 38.7 L (39.0-53.0) % MCV 103.7 H (80.0-100.0) fL MCHC 30.9 L (31.0-37.0) g/dL RDW 17.1 H (11.5-15.5) % Neutrophils # 11.1 H (1.3-7.7) k/uL Lymphocytes # 0.4 L (1.0-4.8) k/uL Sodium (137-145) mmol/L Chloride (98-107) mmol/L Carbon Dioxide (22-30) mmol/L BUN (9-20) mg/dL Creatinine (0.66-1.25) mg/dL Glucose (74-99) mg/dL POC Glucose (mg/dL) 108 H 121 H (75-99) mg/dL Total Protein (6.3-8.2) g/dL Albumin (3.5-5.0) g/dL Assessment and Plan Assessment: #1 Acute hypoxic respiratory failure in a patient found to have COVID-19 infect ion #2 acute non-ST segment elevation myocardial infarction. Troponin peaked at 5 and they are downtrending. The patient is still having atypical chest pain and the patient's on IV heparin. #3 mild triple-vessel disease, patient is status post cardiac catheterization today on 11/14/2021. 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% #5 Elevated inflammatory markers secondary to above #6 Acute on chronic renal failure, creatinine 2.2 during this current admission #7 History of rheumatoid arthritis, maintained on methotrexate #8 History of gastroesophageal reflux disease #9 History of colon cancer #10 History of bladder cancer #11 History of kidney stone #12 Chronic tobacco dependence #13 Anxiety Recommendation: Continue oxygen and titrate accordingly continue Lovenox at 40 mg subcu daily Pulmonary-hart the patient could be considered for discharge planning Cardiology is to address his cardiac issues We will sign off for now and see the patient on when necessary basis. Time with Patient: Less than 30
[2021-11-15 20:28] LABS: Glucose,Whole Blood 196 mg/dL (75-99)
[2021-11-15] MEDS: ALPRAZolam 0.5 MG TAB PO PRN (20:47)
[2021-11-15] MEDS ORDERED: LORazepam 2 MG/ML INJ IV STA (23:36)
[2021-11-16] MEDS: methylPREDNISolone SOD SUCCI 125 MG/2 ML VIAL IV SCH ×2 (00:43→06:22)
[2021-11-16] MEDS: CEPHALEXIN 250 MG CAP PO SCH ×4 (01:00→23:23)
[2021-11-16 06:08] LABS: Glucose,Whole Blood 112 mg/dL (75-99)
[2021-11-16] MEDS: LORazepam 2 MG/ML INJ IV PRN (07:03)
[2021-11-16 08:51] LABS: Anisocytosis Slight; Basophils % (A) 0 %; Eosinophils % (A) 0 %; HCT 38.5 % (39.0-53.0); HGB 11.9 gm/dL (13.0-17.5); Hypochromasia Moderate; Lymphocytes # (A) 0.5 k/uL (1.0-4.8); Lymphocytes % (A) 3 %; MCH 31.6 pg (25.0-35.0); MCHC 30.9 g/dL (31.0-37.0); MCV 102.3 fL (80.0-100.0); Macrocytosis Moderate; Mean Platelet Volume 9.5; Monocytes # (A) 1.3 k/uL (0-1.0); Monocytes % (A) 7 %; Neutrophils # (A) 15.8 k/uL (1.3-7.7); Neutrophils % (A) 89 %; Platelet Count 272 k/uL (150-450); RBC 3.76 m/uL (4.30-5.90); RDW 16.6 % (11.5-15.5); WBC 17.8 k/uL (3.8-10.6)
[2021-11-16 09:06] LABS: Albumin 2.8 g/dL (3.5-5.0); Calcium 8.8 mg/dL (8.4-10.2); Potassium 4.3 mmol/L (3.5-5.1); Total Bilirubin 0.8 mg/dL (0.2-1.3); Total Protein 5.6 g/dL (6.3-8.2)
[2021-11-16] MEDS: ALBUTEROL HFA INHALER INHALATION SCH ×3 (09:27→20:07)
[2021-11-16] MEDS: ZINC SULFATE 220 MG CAP PO SCH (09:44)
[2021-11-16] MEDS: ASPIRIN 81 MG PO SCH (09:44)
[2021-11-16] MEDS: ASCORBIC ACID 500 MG TAB PO SCH (09:44)
[2021-11-16] MEDS: ENOXAPARIN 30 MG/0.3 ML SYRINGE SQ SCH (09:44)
[2021-11-16] MEDS: SODIUM CHLORIDE 0.9% 1,000 ML IV SCH (09:44)
[2021-11-16] MEDS: FOLIC ACID 1 MG TAB PO SCH (09:44)
[2021-11-16] MEDS: ISOSORBIDE MONONITRATE ER 30 MG TAB.ER.24H PO SCH (09:45)
[2021-11-16] MEDS: PANTOPRAZOLE 40 MG TABLET PO SCH (09:45)
[2021-11-16] MEDS: METOPROLOL TARTRATE 25 MG TAB PO SCH ×2 (09:45→20:25)
[2021-11-16] MEDS: ATORVASTATIN 80 MG TAB PO SCH (09:45)
[2021-11-16] MEDS: CHOLECALCIFEROL 125 MCG (5000 IU) TABLET PO SCH (09:45)
[2021-11-16] MEDS: HYDROCORTISONE 2.5% RECTAL CREAM 30 GM TUBE RECTAL SCH ×4 (09:46→20:26)
[2021-11-16] MEDS: ALPRAZolam 0.5 MG TAB PO PRN ×2 (09:50→20:25)
[2021-11-16] MEDS: DEXTROSE 5% IN WATER 1,000 ML IV SCH ×3 (09:51→20:25)
[2021-11-16] MEDS: NICOTINE 21MG/24HR PATCH TRANSDERM SCH (09:58)
[2021-11-16 11:32] LABS: Glucose,Whole Blood 107 mg/dL (75-99)
--- NOTE | 2021-11-16 12:14 | P.PN ---
<Reena Vidal - Last Filed: 11/16/21 12:08> Subjective Progress Note Date: 11/16/21 CHIEF COMPLAINT: This of breath and chest pain HISTORY OF PRESENT ILLNESS: 86-year-old male who is being seen today in follow- up for consultation for weight loss, nausea vomiting and dysphagia. She initially came into the emergency room for complaints of shortness of breath and chest pain. He had significant elevation in his troponins and underwent a cardiac catheterization showing mild triple-vessel disease. Patient states he's had a decreased appetite for some time even prior to coming to the hospital. No difficulty with swallowing. He does have some indigestion and slight nausea at times. He denies any nausea or vomiting currently. Denies any abdominal pain. WBC 17.8 hemoglobin 11.9 PHYSICAL EXAM: VITAL SIGNS: Reviewed. GENERAL: Well-developed in no acute distress. HEENT: No sclera icterus. Extraocular movements grossly intact. Moist buccal mucosa. Head is atraumatic, normocephalic. ABDOMEN: Soft. Nondistended. Nontender. NEUROLOGIC: Alert and oriented. Cranial nerves II through XII grossly intact. ASSESSMENT: 1. Decreased appetite and oral intake 2. GERD 3. COVID-19 infection 4. Chest pain with Elevated troponins 5. Shortness of breath 6. History of colon cancer PLAN: 1. Continue Protonix daily 2. Continue heart healthy diet 3. Antiemetics as needed 4. Continue symptomatic and supportive care 5. No plans at this time for upper endoscopy however can be performed later during this admission or as an outpatient at the request of the primary medicine team The impression and plan of care has been dictated as directed. Dr. Mcgrath I performed a history and examination of this patient, discussed the same with the dictator. I agree with the dictator's note ,documented as a scribe. Any additional findings or plans will be noted. Objective - Vital Signs Vital signs: Vital Signs Temp 96.9 F L 11/15/21 08:00 Pulse 84 11/15/21 20:00 Resp 19 11/16/21 02:00 BP 103/57 11/15/21 20:00 Pulse Ox 98 11/15/21 20:00 Intake & Output 11/15/21 11/16/21 11/16/21 18:59 06:59 18:59 Intake Total 600 360 0 Output Total 725 950 Balance -125 -590 0 Weight 52 kg Intake: Oral 600 360 0 Output: Urine 725 950 Other: Voiding Method Ileal Conduit (Right) Ileal Conduit (Right) # Voids 0 # Bowel Movements 0 - Labs CBC & Chem 7: 11/16/21 08:14 11/16/21 08:14 Labs: Abnormal Lab Results - Last 24 Hours (Table) 11/15/21 11/15/21 11/15/21 Range/Units 09:41 12:38 17:04 WBC (3.8-10.6) k/uL RBC (4.30-5.90) m/uL Hgb (13.0-17.5) gm/dL Hct (39.0-53.0) % MCV (80.0-100.0) fL MCHC (31.0-37.0) g/dL RDW (11.5-15.5) % Neutrophils # (1.3-7.7) k/uL Lymphocytes # (1.0-4.8) k/uL Monocytes # (0-1.0) k/uL Sodium 146 H (137-145) mmol/L Chloride 121 H (98-107) mmol/L Carbon Dioxide 20 L (22-30) mmol/L BUN 50 H (9-20) mg/dL Creatinine 1.63 H (0.66-1.25) mg/dL Glucose 122 H (74-99) mg/dL POC Glucose (mg/dL) 108 H 121 H (75-99) mg/dL Total Protein 5.4 L (6.3-8.2) g/dL Albumin 2.6 L (3.5-5.0) g/dL 11/15/21 11/16/21 11/16/21 Range/Units 20:27 06:07 08:14 WBC 17.8 H (3.8-10.6) k/uL RBC 3.76 L (4.30-5.90) m/uL Hgb 11.9 L (13.0-17.5) gm/dL Hct 38.5 L (39.0-53.0) % MCV 102.3 H (80.0-100.0) fL MCHC 30.9 L (31.0-37.0) g/dL RDW 16.6 H (11.5-15.5) % Neutrophils # 15.8 H (1.3-7.7) k/uL Lymphocytes # 0.5 L (1.0-4.8) k/uL Monocytes # 1.3 H (0-1.0) k/uL Sodium (137-145) mmol/L Chloride (98-107) mmol/L Carbon Dioxide (22-30) mmol/L BUN (9-20) mg/dL Creatinine (0.66-1.25) mg/dL Glucose (74-99) mg/dL POC Glucose (mg/dL) 196 H 112 H (75-99) mg/dL Total Protein (6.3-8.2) g/dL Albumin (3.5-5.0) g/dL 11/16/21 Range/Units 08:14 WBC (3.8-10.6) k/uL RBC (4.30-5.90) m/uL Hgb (13.0-17.5) gm/dL Hct (39.0-53.0) % MCV (80.0-100.0) fL MCHC (31.0-37.0) g/dL RDW (11.5-15.5) % Neutrophils # (1.3-7.7) k/uL Lymphocytes # (1.0-4.8) k/uL Monocytes # (0-1.0) k/uL Sodium 148 H (137-145) mmol/L Chloride 121 H (98-107) mmol/L Carbon Dioxide 17 L (22-30) mmol/L BUN 52 H (9-20) mg/dL Creatinine 1.79 H (0.66-1.25) mg/dL Glucose 105 H (74-99) mg/dL POC Glucose (mg/dL) (75-99) mg/dL Total Protein 5.6 L (6.3-8.2) g/dL Albumin 2.8 L (3.5-5.0) g/dL <Dinh Mcgrath - Last Filed: 11/16/21 16:30> Subjective I have personally seen and examined the patient, reviewed the [employer] /PAs history, exam and MDM and agree with the assessment and plan as written. Based on total visit time, I have performed more than 50% of the visit. As above. Patient was combative earlier today. Denies abdominal pain. Denies dysphagia at this time. No vomiting. Continue diet as tolerated. Will follow. Objective - Vital Signs Vital signs: Vital Signs Temp 97.8 F 11/16/21 08:00 Pulse 90 11/16/21 14:00 Resp 18 11/16/21 14:00 BP 94/59 11/16/21 12:00 Pulse Ox 99 11/16/21 12:00 Intake & Output 11/15/21 11/16/21 11/16/21 18:59 06:59 18:59 Intake Total 600 360 100 Output Total 725 950 Balance -125 -590 100 Weight 52 kg Intake: Intake, IV Titration 100 Amount Dextrose 5% in Water 1, 100 000 ml @ 100 mls/hr IV . Q10H MARÍA Rx#:[id number] Oral 600 360 0 Output: Urine 725 950 Other: Voiding Method Ileal Conduit (Right) Ileal Conduit (Right) Ileal Conduit (Right) # Voids 0 # Bowel Movements 0 - Labs CBC & Chem 7: 11/16/21 08:14 11/16/21 08:14 Labs: Abnormal Lab Results - Last 24 Hours (Table) 11/15/21 11/15/21 11/16/21 Range/Units 17:04 20:27 06:07 WBC (3.8-10.6) k/uL RBC (4.30-5.90) m/uL Hgb (13.0-17.5) gm/dL Hct (39.0-53.0) % MCV (80.0-100.0) fL MCHC (31.0-37.0) g/dL RDW (11.5-15.5) % Neutrophils # (1.3-7.7) k/uL Lymphocytes # (1.0-4.8) k/uL Monocytes # (0-1.0) k/uL Sodium (137-145) mmol/L Chloride (98-107) mmol/L Carbon Dioxide (22-30) mmol/L BUN (9-20) mg/dL Creatinine (0.66-1.25) mg/dL Glucose (74-99) mg/dL POC Glucose (mg/dL) 121 H 196 H 112 H (75-99) mg/dL Total Protein (6.3-8.2) g/dL Albumin (3.5-5.0) g/dL 11/16/21 11/16/21 11/16/21 Range/Units 08:14 08:14 11:30 WBC 17.8 H (3.8-10.6) k/uL RBC 3.76 L (4.30-5.90) m/uL Hgb 11.9 L (13.0-17.5) gm/dL Hct 38.5 L (39.0-53.0) % MCV 102.3 H (80.0-100.0) fL MCHC 30.9 L (31.0-37.0) g/dL RDW 16.6 H (11.5-15.5) % Neutrophils # 15.8 H (1.3-7.7) k/uL Lymphocytes # 0.5 L (1.0-4.8) k/uL Monocytes # 1.3 H (0-1.0) k/uL Sodium 148 H (137-145) mmol/L Chloride 121 H (98-107) mmol/L Carbon Dioxide 17 L (22-30) mmol/L BUN 52 H (9-20) mg/dL Creatinine 1.79 H (0.66-1.25) mg/dL Glucose 105 H (74-99) mg/dL POC Glucose (mg/dL) 107 H (75-99) mg/dL Total Protein 5.6 L (6.3-8.2) g/dL Albumin 2.8 L (3.5-5.0) g/dL
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
[2021-11-16 16:52] LABS: Glucose,Whole Blood 113 mg/dL (75-99)
--- NOTE | 2021-11-16 17:16 | P.PN ---
Subjective Progress Note Date: 11/16/21 Bob Wolf, is a year old male who presented to [facility] emergency room with a chief complaint of chest pain patient describes a sharp pain in the chest that is intermittent and worse with deep breathing. He was evaluated in the emergency room vital examination on presentation revea led a temperature of 98.2 pulse 112 respiration 18 blood pressure 148/105 pulse ox 98% on 2 L nasal cannula Laboratory data revealed a white blood count of 10.4 hemoglobin 12.9 platelet count 400 d-dimer 2.74 BUN 62 creatinine 2.2 Testing in the emergency room revealed chest x-ray revealed bilateral multifocal infiltrates EKG revealed sinus tachycardia without acute ischemic changes Patient was admitted to medical floor for further evaluation and treatment. Past medical history is significant for advanced COPD patient still smokes he has more than 50 year history of smoking, he also has a known history of colon cancer, bladder cancer, rheumatoid arthritis, gastroesophageal reflux disease, anxiety disorder. On 11/13 patient was seen and examined on the telemetry floor, he is alert and oriented 3 in no apparent distress he is still complaining of chest pain, on admission patient had a normal troponin of 0.023 however yesterday his troponin went up to 5.05, he was transferred to [address] [place] [address] and was started on IV heparin, cardiology consultation was requested, and this time patient is lying comfortably in bed he is still complaining of some discomfort in his chest otherwise he denies any complaints there is no fever or chills no headache or dizziness no shortness of breath he has occasional cough no nausea or vomiting no abdominal pain no diarrhea and no urinary symptoms. On 11/14/2021 patient was seen and examined on the telemetry floor he is alert and oriented in no distress there is no fever or chills no headache or dizziness no chest pain no shortness of breath no cough no nausea or vomiting no abdominal pain no diarrhea no blood in the stools no burning with urination no frequency or urgency and no hematuria. On 11/15/2021 patient was seen and examined on the telemetry floor, he is alert and oriented 3 in no apparent distress, he is complaining of lower chest pain, and complaining of difficulty swallowing his food, otherwise he denies any complaints at this time, he underwent cardiac catheterization yesterday was Dr. Van that revealed evidence of minimal coronary artery disease, otherwise patient denies any complaints at this time there is no fever or chills no headache or dizziness no shortness of breath no cough no nausea or vomiting no abdominal pain no diarrhea no blood in the stools no burning with urination no frequency or urgency and no hematuria On 11/16/2021 patient was seen and examined on the telemetry floor he is somnolent responsive in no apparent distress, patient was having episodes of agitation last night he was given Ativan IV, there is no fever or chills no headache or dizziness no chest pain no shortness of breath no cough no nausea or vomiting no abdominal pain no diarrhea and no urinary symptoms. I had a prolonged meeting with his son today, multiple conditions explained, son will talk to the family about CODE STATUS and will let me know if there is any change, patient has cardiomyopathy with ejection fraction of 20-25% on echocardiogram this week, his ejection fraction was 60-65% 2 weeks ago, most likely is this is related to COVID-19 myocarditis, cardiology and infectious disease are following Objective - Vital Signs Vital signs: Vital Signs Temp 97.8 F 11/16/21 08:00 Pulse 90 11/16/21 14:00 Resp 18 11/16/21 14:00 BP 94/59 11/16/21 12:00 Pulse Ox 99 11/16/21 12:00 Intake & Output 11/15/21 11/16/21 11/16/21 18:59 06:59 18:59 Intake Total 600 360 100 Output Total 725 950 Balance -125 -590 100 Weight 52 kg Intake: Intake, IV Titration 100 Amount Dextrose 5% in Water 1, 100 000 ml @ 100 mls/hr IV . Q10H [facility] Rx#:[id number] Oral 600 360 0 Output: Urine 725 950 Other: Voiding Method Ileal Conduit (Right) Ileal Conduit (Right) Ileal Conduit (Right) # Voids 0 # Bowel Movements 0 - Exam In general patient is alert and oriented x 3 in no distress HEENT head normocephalic and atraumatic Neck is supple no JVD no goiter no lymphadenopathy no carotid bruit Chest examination reveals a scattered crackles bilaterally no wheezing Cardiac exam reveals regular heart sounds S1 and S2 no gallops no murmurs Abdomen is soft nontender no organomegaly with normal bowel sounds Extremity exam reveals no edema no cyanosis or clubbing Neurological examination reveals no gross focal deficits - Labs CBC & Chem 7: 11/16/21 08:14 11/16/21 08:14 Labs: Abnormal Lab Results - Last 24 Hours (Table) 11/15/21 11/15/21 11/16/21 Range/Units 17:04 20:27 06:07 WBC (3.8-10.6) k/uL RBC (4.30-5.90) m/uL Hgb (13.0-17.5) gm/dL Hct (39.0-53.0) % MCV (80.0-100.0) fL MCHC (31.0-37.0) g/dL RDW (11.5-15.5) % Neutrophils # (1.3-7.7) k/uL Lymphocytes # (1.0-4.8) k/uL Monocytes # (0-1.0) k/uL Sodium (137-145) mmol/L Chloride (98-107) mmol/L Carbon Dioxide (22-30) mmol/L BUN (9-20) mg/dL Creatinine (0.66-1.25) mg/dL Glucose (74-99) mg/dL POC Glucose (mg/dL) 121 H 196 H 112 H (75-99) mg/dL Total Protein (6.3-8.2) g/dL Albumin (3.5-5.0) g/dL 11/16/21 11/16/21 11/16/21 Range/Units 08:14 08:14 11:30 WBC 17.8 H (3.8-10.6) k/uL RBC 3.76 L (4.30-5.90) m/uL Hgb 11.9 L (13.0-17.5) gm/dL Hct 38.5 L (39.0-53.0) % MCV 102.3 H (80.0-100.0) fL MCHC 30.9 L (31.0-37.0) g/dL RDW 16.6 H (11.5-15.5) % Neutrophils # 15.8 H (1.3-7.7) k/uL Lymphocytes # 0.5 L (1.0-4.8) k/uL Monocytes # 1.3 H (0-1.0) k/uL Sodium 148 H (137-145) mmol/L Chloride 121 H (98-107) mmol/L Carbon Dioxide 17 L (22-30) mmol/L BUN 52 H (9-20) mg/dL Creatinine 1.79 H (0.66-1.25) mg/dL Glucose 105 H (74-99) mg/dL POC Glucose (mg/dL) 107 H (75-99) mg/dL Total Protein 5.6 L (6.3-8.2) g/dL Albumin 2.8 L (3.5-5.0) g/dL Assessment and Plan Plan: 1. Acute hypoxic respiratory failure, COVID-19 infection on 11/09/2021. Now with evidence of pneumonia on chest x-ray with multifocal bilateral acute infiltrates 2. Acute non-ST elevation myocardial infarction, patient admitted to telemetry floor and was started on IV heparin cardiology consultation was requested 3. Elevated d-dimer, patient has elevated creatinine, will check VQ scan 4. Acute on chronic renal failure, creatinine on presentation 2.22 5. Underlying history of rheumatoid arthritis, maintained on methotrexate 6. Underlying history of kidney stones 7. Underlying history of anxiety disorder 8. Underlying history of tobacco abuse 9. Previous history of colon cancer 10. Previous history of bladder cancer At this time patient was admitted to medical floor He was started on IV steroids and inhaled bronchodilators and oxygen supplements VQ scan was ordered in relation to elevated d-dimer and pleuritic chest pain Pulmonary consultation requested Will follow closely
[2021-11-16] MEDS: methylPREDNISolone SOD SUCCI 40 MG/ML 1 ML VIAL IV SCH ×2 (18:19→23:23)
[2021-11-16 20:01] LABS: Glucose,Whole Blood 121 mg/dL (75-99)
[2021-11-16] MEDS: INSULIN ASPART (NovoLOG) 100 UNIT/ML VIAL SQ SCH (20:13)
--- NOTE | 2021-11-16 23:16 | P.PN ---
Progress Note - Text Progress Note Date: 11/15/21 REASON FOR FOLLOWUP: COVID-19 pneumonia. INTERVAL HISTORY: The patient remains to be afebrile. The patient is breathing comfortably on nasal canala oxygen. The patient denies having any chest pain. No worsening cough or sputum production. No abdominal pain or diarrhea. PHYSICAL EXAMINATION: Blood pressure is 105/60 with a pulse of 70, temperature of 97.2. He is 96% on 2 L nasal cannula. General description is an elderly male lying in bed in no distress. Respiratory system: Unlabored breathing, decreased breath sounds at the base. No wheeze. Heart S1, S2. Regular rate and rhythm. Abdomen soft, no tenderness. LABS: reviewed. DIAGNOSTIC IMPRESSION AND PLAN: Patient with acute respiratory failure which is multifactorial, possible component of COVID-19 infection. Patient to continue with current supportive treatment of Solu-Medrol, heparin, zinc and ascorbic acid; along with respiratory support and monitor his clinical course closely.
[2021-11-17] MEDS: DEXTROSE 5% IN WATER 1,000 ML IV SCH (03:58)
[2021-11-17 06:01] LABS: Glucose,Whole Blood 141 mg/dL (75-99)
[2021-11-17] MEDS: INSULIN ASPART (NovoLOG) 100 UNIT/ML VIAL SQ SCH ×4 (06:33→20:11)
--- NOTE | 2021-11-17 09:10 | XR ---
EXAMINATION TYPE: XR chest 1V portable DATE OF EXAM: 11/17/2021 COMPARISON: 11/13/2021 HISTORY: Shortness of breath TECHNIQUE: Single frontal view of the chest is obtained. FINDINGS: There are diffuse interstitial and small airspace opacity scattered throughout both lungs unchanged compared to the prior study. There are probable small bilateral pleural effusions. There is no pneumothorax. The heart is mildly prominent in size. The osseous structures are intact IMPRESSION: Stable bilateral areas of interstitial and alveolar infiltrate and small effusion. Corre late for multifocal pneumonia underlying interstitial fibrosis or pneumonitis. CHF also in the differ ential diagnosis.
[2021-11-17] MEDS: ALBUTEROL HFA INHALER INHALATION SCH ×3 (09:30→20:31)
[2021-11-17] MEDS: PANTOPRAZOLE 40 MG TABLET PO SCH (09:46)
[2021-11-17] MEDS: ISOSORBIDE MONONITRATE ER 30 MG TAB.ER.24H PO SCH ×2 (09:46→10:08)
[2021-11-17] MEDS: CHOLECALCIFEROL 125 MCG (5000 IU) TABLET PO SCH (09:46)
[2021-11-17] MEDS: FOLIC ACID 1 MG TAB PO SCH (09:46)
[2021-11-17] MEDS: METOPROLOL TARTRATE 25 MG TAB PO SCH ×2 (09:46→10:08)
[2021-11-17] MEDS: ASPIRIN 81 MG PO SCH (09:47)
[2021-11-17] MEDS: ALPRAZolam 0.5 MG TAB PO PRN ×3 (09:47→23:13)
[2021-11-17] MEDS: CEPHALEXIN 250 MG CAP PO SCH ×2 (09:47→15:43)
[2021-11-17] MEDS: ATORVASTATIN 80 MG TAB PO SCH (09:47)
[2021-11-17] MEDS: ZINC SULFATE 220 MG CAP PO SCH (09:47)
[2021-11-17] MEDS: methylPREDNISolone SOD SUCCI 40 MG/ML 1 ML VIAL IV SCH ×3 (09:48→23:13)
[2021-11-17] MEDS: NICOTINE 21MG/24HR PATCH TRANSDERM SCH (09:48)
[2021-11-17] MEDS: ASCORBIC ACID 500 MG TAB PO SCH (09:54)
[2021-11-17] MEDS: HYDROCORTISONE 2.5% RECTAL CREAM 30 GM TUBE RECTAL SCH ×4 (09:56→20:18)
[2021-11-17] MEDS: ENOXAPARIN 30 MG/0.3 ML SYRINGE SQ SCH (09:56)
[2021-11-17 11:45] LABS: Glucose,Whole Blood 284 mg/dL (75-99)
[2021-11-17] MEDS ORDERED: APIXABAN 5 MG TAB PO SCH (11:45)
[2021-11-17] MEDS ORDERED: HEPARIN SODIUM 1,000 UN/ML (10ML VL) IV ONE (11:47)
[2021-11-17 12:15] LABS: Anisocytosis Slight; Basophils % (A) 0 %; Eosinophils % (A) 0 %; HCT 35.8 % (39.0-53.0); HGB 11.5 gm/dL (13.0-17.5); Hypochromasia Slight; Lymphocytes # (A) 0.4 k/uL (1.0-4.8); Lymphocytes % (A) 3 %; MCH 32.3 pg (25.0-35.0); MCHC 32.2 g/dL (31.0-37.0); MCV 100.3 fL (80.0-100.0); Macrocytosis Slight; Monocytes # (A) 1.3 k/uL (0-1.0); Monocytes % (A) 8 %; Neutrophils # (A) 13.3 k/uL (1.3-7.7); Neutrophils % (A) 88 %; Platelet Count 187 k/uL (150-450); RBC 3.57 m/uL (4.30-5.90); RDW 16.5 % (11.5-15.5); WBC 15.1 k/uL (3.8-10.6)
[2021-11-17 12:21] LABS: Glucose,Whole Blood 175 mg/dL (75-99)
[2021-11-17 12:26] LABS: INR 1.5 (<1.2); Partial Thromboplastin Time 27.7 sec (22.0-30.0); Prothrombin Time 14.9 sec (9.0-12.0)
[2021-11-17] MEDS: ALBUTEROL HFA INHALER INHALATION PRN ×2 (12:32→20:31)
[2021-11-17] MEDS: HEPARIN SOD,PORK IN 0.45% NACL 25,000 UNIT in 0.45% NACL 1 250ML.BAG IV SCH (12:48)
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
--- NOTE | 2021-11-17 15:19 | P.PN ---
<Reena Vidal - Last Filed: 11/17/21 15:17> Subjective Progress Note Date: 11/17/21 CHIEF COMPLAINT: This of breath and chest pain HISTORY OF PRESENT ILLNESS: 86-year-old male who is being seen today in follow- up for consultation for weight loss, nausea vomiting and dysphagia. She initially came into the emergency room for complaints of shortness of breath and chest pain. He had significant elevation in his troponins and underwent a cardiac catheterization showing mild triple-vessel disease. He is seen and examined today as a follow-up. He states he is actually eating better and drinking Ensure daily. He denies any abdominal pain, bloating, nausea, or vomiting. He denies any difficulty swallowing. PHYSICAL EXAM: VITAL SIGNS: Reviewed. GENERAL: Well-developed in no acute distress. HEENT: No sclera icterus. Extraocular movements grossly intact. Moist buccal mucosa. Head is atraumatic, normocephalic. ABDOMEN: Soft. Nondistended. Nontender. NEUROLOGIC: Alert and oriented. Cranial nerves II through XII grossly intact. ASSESSMENT: 1. Decreased appetite and oral intake 2. GERD 3. COVID-19 infection 4. Chest pain with Elevated troponins 5. Shortness of breath 6. History of colon cancer PLAN: 1. Continue Protonix daily 2. Continue heart healthy diet 3. Antiemetics as needed 4. Continue symptomatic and supportive care 5. No plans at this time for upper endoscopy however can be performed later during this admission or as an outpatient at the request of the primary medicine team The impression and plan of care has been dictated as directed. Dr. Mcgrath I performed a history and examination of this patient, discussed the same with the dictator. I agree with the dictator's note ,documented as a scribe. Any additional findings or plans will be noted. Objective - Vital Signs Vital signs: Vital Signs Temp 98.1 F 11/17/21 08:00 Pulse 77 11/17/21 12:00 Resp 18 11/17/21 12:00 BP 103/56 11/17/21 12:00 Pulse Ox 94 L 11/17/21 12:00 Intake & Output 11/16/21 11/17/21 11/17/21 18:59 06:59 18:59 Intake Total 800 240 240 Output Total 1650 500 Balance 800 -1410 -260 Weight 52 kg Intake: Intake, IV Titration 800 Amount Dextrose 5% in Water 1, 800 000 ml @ 100 mls/hr IV . Q10H [facility] Rx#:[id number] Oral 0 240 240 Output: Urine 1650 500 Other: Voiding Method Ileal Conduit (Right) Ileal Conduit (Right) Ileal Conduit (Right) - Labs CBC & Chem 7: 11/17/21 12:04 11/16/21 08:14 Labs: Abnormal Lab Results - Last 24 Hours (Table) 11/16/21 11/16/21 11/17/21 Range/Units 16:40 20:00 05:58 WBC (3.8-10.6) k/uL RBC (4.30-5.90) m/uL Hgb (13.0-17.5) gm/dL Hct (39.0-53.0) % MCV (80.0-100.0) fL RDW (11.5-15.5) % Neutrophils # (1.3-7.7) k/uL Lymphocytes # (1.0-4.8) k/uL Monocytes # (0-1.0) k/uL PT (9.0-12.0) sec INR (<1.2) POC Glucose (mg/dL) 113 H 121 H 141 H (75-99) mg/dL 11/17/21 11/17/21 11/17/21 Range/Units 11:37 12:04 12:04 WBC 15.1 H (3.8-10.6) k/uL RBC 3.57 L (4.30-5.90) m/uL Hgb 11.5 L (13.0-17.5) gm/dL Hct 35.8 L (39.0-53.0) % MCV 100.3 H (80.0-100.0) fL RDW 16.5 H (11.5-15.5) % Neutrophils # 13.3 H (1.3-7.7) k/uL Lymphocytes # 0.4 L (1.0-4.8) k/uL Monocytes # 1.3 H (0-1.0) k/uL PT 14.9 H (9.0-12.0) sec INR 1.5 H (<1.2) POC Glucose (mg/dL) 284 H (75-99) mg/dL 11/17/21 Range/Units 12:19 WBC (3.8-10.6) k/uL RBC (4.30-5.90) m/uL Hgb (13.0-17.5) gm/dL Hct (39.0-53.0) % MCV (80.0-100.0) fL RDW (11.5-15.5) % Neutrophils # (1.3-7.7) k/uL Lymphocytes # (1.0-4.8) k/uL Monocytes # (0-1.0) k/uL PT (9.0-12.0) sec INR (<1.2) POC Glucose (mg/dL) 175 H (75-99) mg/dL <Dinh Mcgrath - Last Filed: 11/17/21 17:54> Subjective As above. Patient without nausea vomiting or abdominal pain. Continue supportive care. Possible EGD as outpatient or later during this hospitalization. We'll sign off. Please reconsult if patient's condition warrants endoscopic evaluation at this time. Objective - Vital Signs Vital signs: Vital Signs Temp 98.1 F 11/17/21 08:00 Pulse 77 11/17/21 12:00 Resp 18 11/17/21 15:38 BP 98/56 11/17/21 15:38 Pulse Ox 96 11/17/21 15:38 Intake & Output 11/16/21 11/17/21 11/17/21 18:59 06:59 18:59 Intake Total 800 240 240 Output Total 1650 500 Balance 800 -1410 -260 Weight 52 kg Intake: Intake, IV Titration 800 Amount Dextrose 5% in Water 1, 800 000 ml @ 100 mls/hr IV . Q10H [facility] Rx#:[id number] Oral 0 240 240 Output: Urine 1650 500 Other: Voiding Method Ileal Conduit (Right) Ileal Conduit (Right) Ileal Conduit (Right) - Labs CBC & Chem 7: 11/17/21 12:04 11/16/21 08:14 Labs: Abnormal Lab Results - Last 24 Hours (Table) 11/16/21 11/17/21 11/17/21 Range/Units 20:00 05:58 11:37 WBC (3.8-10.6) k/uL RBC (4.30-5.90) m/uL Hgb (13.0-17.5) gm/dL Hct (39.0-53.0) % MCV (80.0-100.0) fL RDW (11.5-15.5) % Neutrophils # (1.3-7.7) k/uL Lymphocytes # (1.0-4.8) k/uL Monocytes # (0-1.0) k/uL PT (9.0-12.0) sec INR (<1.2) POC Glucose (mg/dL) 121 H 141 H 284 H (75-99) mg/dL 11/17/21 11/17/21 11/17/21 Range/Units 12:04 12:04 12:19 WBC 15.1 H (3.8-10.6) k/uL RBC 3.57 L (4.30-5.90) m/uL Hgb 11.5 L (13.0-17.5) gm/dL Hct 35.8 L (39.0-53.0) % MCV 100.3 H (80.0-100.0) fL RDW 16.5 H (11.5-15.5) % Neutrophils # 13.3 H (1.3-7.7) k/uL Lymphocytes # 0.4 L (1.0-4.8) k/uL Monocytes # 1.3 H (0-1.0) k/uL PT 14.9 H (9.0-12.0) sec INR 1.5 H (<1.2) POC Glucose (mg/dL) 175 H (75-99) mg/dL 11/17/21 Range/Units 16:29 WBC (3.8-10.6) k/uL RBC (4.30-5.90) m/uL Hgb (13.0-17.5) gm/dL Hct (39.0-53.0) % MCV (80.0-100.0) fL RDW (11.5-15.5) % Neutrophils # (1.3-7.7) k/uL Lymphocytes # (1.0-4.8) k/uL Monocytes # (0-1.0) k/uL PT (9.0-12.0) sec INR (<1.2) POC Glucose (mg/dL) 142 H (75-99) mg/dL
[2021-11-17 16:30] LABS: Glucose,Whole Blood 142 mg/dL (75-99)
--- NOTE | 2021-11-17 18:19 | P.PN ---
Subjective Progress Note Date: 11/17/21 Bob Wolf, is a year old male who presented to [facility] emergency room with a chief complaint of chest pain patient describes a sharp pain in the chest that is intermittent and worse with deep breathing. He was evaluated in the emergency room vital examination on presentation revea led a temperature of 98.2 pulse 112 respiration 18 blood pressure 148/105 pulse ox 98% on 2 L nasal cannula Laboratory data revealed a white blood count of 10.4 hemoglobin 12.9 platelet count 400 d-dimer 2.74 BUN 62 creatinine 2.2 Testing in the emergency room revealed chest x-ray revealed bilateral multifocal infiltrates EKG revealed sinus tachycardia without acute ischemic changes Patient was admitted to medical floor for further evaluation and treatment. Past medical history is significant for advanced COPD patient still smokes he has more than 50 year history of smoking, he also has a known history of colon cancer, bladder cancer, rheumatoid arthritis, gastroesophageal reflux disease, anxiety disorder. On 11/13 patient was seen and examined on the telemetry floor, he is alert and oriented 3 in no apparent distress he is still complaining of chest pain, on admission patient had a normal troponin of 0.023 however yesterday his troponin went up to 5.05, he was transferred to [address] [place] [address] and was started on IV heparin, cardiology consultation was requested, and this time patient is lying comfortably in bed he is still complaining of some discomfort in his chest otherwise he denies any complaints there is no fever or chills no headache or dizziness no shortness of breath he has occasional cough no nausea or vomiting no abdominal pain no diarrhea and no urinary symptoms. On 11/14/2021 patient was seen and examined on the telemetry floor he is alert and oriented in no distress there is no fever or chills no headache or dizziness no chest pain no shortness of breath no cough no nausea or vomiting no abdominal pain no diarrhea no blood in the stools no burning with urination no frequency or urgency and no hematuria. On 11/15/2021 patient was seen and examined on the telemetry floor, he is alert and oriented 3 in no apparent distress, he is complaining of lower chest pain, and complaining of difficulty swallowing his food, otherwise he denies any complaints at this time, he underwent cardiac catheterization yesterday was Dr. Van that revealed evidence of minimal coronary artery disease, otherwise patient denies any complaints at this time there is no fever or chills no headache or dizziness no shortness of breath no cough no nausea or vomiting no abdominal pain no diarrhea no blood in the stools no burning with urination no frequency or urgency and no hematuria On 11/16/2021 patient was seen and examined on the telemetry floor he is somnolent responsive in no apparent distress, patient was having episodes of agitation last night he was given Ativan IV, there is no fever or chills no headache or dizziness no chest pain no shortness of breath no cough no nausea or vomiting no abdominal pain no diarrhea and no urinary symptoms. 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 On 11/17/2021 patient was seen and examined on the telemetry floor, he is more alert today, he is still having very poor oral intake, he is still complaining of lower chest pain, otherwise he denies any complaints at this time. There is no fever or chills no headache or dizziness no shortness of breath no cough no nausea or vomiting no abdominal pain no diarrhea and no urinary symptoms. Case was discussed with Dr. Klein in regard to possible Covid 19 related myocarditis. Objective - Vital Signs Vital signs: Vital Signs Temp 98.1 F 11/17/21 08:00 Pulse 77 11/17/21 12:00 Resp 18 11/17/21 12:00 BP 103/56 11/17/21 12:00 Pulse Ox 94 L 11/17/21 12:00 Intake & Output 11/16/21 11/17/21 11/17/21 18:59 06:59 18:59 Intake Total 800 240 240 Output Total 1650 500 Balance 800 -1410 -260 Intake: Intake, IV Titration 800 Amount Dextrose 5% in Water 1, 800 000 ml @ 100 mls/hr IV . Q10H [facility] Rx#:[id number] Oral 0 240 240 Output: Urine 1650 500 Other: Voiding Method Ileal Conduit (Right) Ileal Conduit (Right) Ileal Conduit (Right) - Exam In general patient is alert and oriented x 3 in no distress HEENT head normocephalic and atraumatic Neck is supple no JVD no goiter no lymphadenopathy no carotid bruit Chest examination reveals a scattered crackles bilaterally no wheezing Cardiac exam reveals regular heart sounds S1 and S2 no gallops no murmurs Abdomen is soft nontender no organomegaly with normal bowel sounds Extremity exam reveals no edema no cyanosis or clubbing Neurological examination reveals no gross focal deficits - Labs CBC & Chem 7: 11/17/21 12:04 11/16/21 08:14 Labs: Abnormal Lab Results - Last 24 Hours (Table) 11/16/21 11/16/21 11/17/21 Range/Units 16:40 20:00 05:58 WBC (3.8-10.6) k/uL RBC (4.30-5.90) m/uL Hgb (13.0-17.5) gm/dL Hct (39.0-53.0) % MCV (80.0-100.0) fL RDW (11.5-15.5) % Neutrophils # (1.3-7.7) k/uL Lymphocytes # (1.0-4.8) k/uL Monocytes # (0-1.0) k/uL PT (9.0-12.0) sec INR (<1.2) POC Glucose (mg/dL) 113 H 121 H 141 H (75-99) mg/dL 11/17/21 11/17/21 11/17/21 Range/Units 11:37 12:04 12:04 WBC 15.1 H (3.8-10.6) k/uL RBC 3.57 L (4.30-5.90) m/uL Hgb 11.5 L (13.0-17.5) gm/dL Hct 35.8 L (39.0-53.0) % MCV 100.3 H (80.0-100.0) fL RDW 16.5 H (11.5-15.5) % Neutrophils # 13.3 H (1.3-7.7) k/uL Lymphocytes # 0.4 L (1.0-4.8) k/uL Monocytes # 1.3 H (0-1.0) k/uL PT 14.9 H (9.0-12.0) sec INR 1.5 H (<1.2) POC Glucose (mg/dL) 284 H (75-99) mg/dL 11/17/21 Range/Units 12:19 WBC (3.8-10.6) k/uL RBC (4.30-5.90) m/uL Hgb (13.0-17.5) gm/dL Hct (39.0-53.0) % MCV (80.0-100.0) fL RDW (11.5-15.5) % Neutrophils # (1.3-7.7) k/uL Lymphocytes # (1.0-4.8) k/uL Monocytes # (0-1.0) k/uL PT (9.0-12.0) sec INR (<1.2) POC Glucose (mg/dL) 175 H (75-99) mg/dL Assessment and Plan Plan: 1. Acute hypoxic respiratory failure, COVID-19 infection on 11/09/2021. Now with evidence of pneumonia on chest x-ray with multifocal bilateral acute infiltrates 2. Acute non-ST elevation myocardial infarction, patient admitted to telemetry floor and was started on IV heparin cardiology consultation was requested 3. Elevated d-dimer, patient has elevated creatinine, will check VQ scan 4. Acute on chronic renal failure, creatinine on presentation 2.22 5. Underlying history of rheumatoid arthritis, maintained on methotrexate 6. Underlying history of kidney stones 7. Underlying history of anxiety disorder 8. Underlying history of tobacco abuse 9. Previous history of colon cancer 10. Previous history of bladder cancer At this time patient was admitted to medical floor He was started on IV steroids and inhaled bronchodilators and oxygen supplements VQ scan was ordered in relation to elevated d-dimer and pleuritic chest pain Pulmonary consultation requested Will follow closely
[2021-11-17 19:52] LABS: Glucose,Whole Blood 105 mg/dL (75-99)
[2021-11-17] MEDS: METOPROLOL TARTRATE 12.5 MG TAB PO SCH (20:19)
[2021-11-17] MEDS: HEPARIN SODIUM 1,000 UN/ML (10ML VL) IV PRN (20:19)
--- NOTE | 2021-11-17 21:39 | P.PN ---
Progress Note - Text Progress Note Date: 11/16/21 COVID-19 pneumonia. INTERVAL HISTORY: The patient remains to be afebrile. The patient is breathing comfortably on nasal canala oxygen. The patient denies having any chest pain. No worsening cough or sputum production. No abdominal pain or diarrhea. PHYSICAL EXAMINATION: Blood pressure is 105/60 with a pulse of 70, temperature of 97.2. He is 96% on 2 L nasal cannula. General description is an elderly male lying in bed in no distress. Respiratory system: Unlabored breathing, decreased breath sounds at the base. No wheeze. Heart S1, S2. Regular rate and rhythm. Abdomen soft, no tenderness. LABS: reviewed. DIAGNOSTIC IMPRESSION AND PLAN: Patient with acute respiratory failure which is multifactorial, component of COVID-19 infection And there is concern for possible cardiomyopathy associated with a covid19, treatment at this time is mostly supportive including anti-inflammatory heparin zinc and ascorbic acid and continue supportive care
--- NOTE | 2021-11-17 21:41 | P.PN ---
Progress Note - Text Progress Note Date: 11/17/21 INTERVAL HISTORY: The patient continues to be afebrile. The patient is breathing comfortably on nasal canala oxygen. The patient has been complaining of chest pain and heparin has been restarted by the cardiology team the patient has significant cough or sputum production. No abdominal pain or diarrhea. PHYSICAL EXAMINATION: Blood pressure is 103/56 with a pulse of 7 7, temperature of 97.2. He is 96% on 2 L nasal cannula. General description is an elderly male lying in bed in no distress. Respiratory system: Unlabored breathing, decreased breath sounds at the base. No wheeze. Heart S1, S2. Regular rate and rhythm. Abdomen soft, no tenderness. LABS: Hemoglobin is 11.5, white count of 15.1,. DIAGNOSTIC IMPRESSION AND PLAN: Patient with acute respiratory failure which is multifactorial, component of COVID-19 infection And there is concern for possible cardiomyopathy associated with a covid19 at the patient also have mild triple-vessel disease, patient to continue with current supportive treatment of IV heparin, Solu-Medrol, zinc and ascorbic acid and respiratory support
[2021-11-17] MEDS: MORPHINE SULFATE 2 MG/ML SYRINGE IVP PRN (21:44)
[2021-11-18 03:48] LABS: Anisocytosis Slight; Basophils % (A) 0 %; Eosinophils % (A) 0 %; HCT 36.1 % (39.0-53.0); HGB 11.6 gm/dL (13.0-17.5); Hypochromasia Slight; Lymphocytes # (A) 0.4 k/uL (1.0-4.8); Lymphocytes % (A) 2 %; MCH 32.2 pg (25.0-35.0); MCHC 32.1 g/dL (31.0-37.0); MCV 100.4 fL (80.0-100.0); Macrocytosis Slight; Mean Platelet Volume 9.6; Monocytes # (A) 0.9 k/uL (0-1.0); Monocytes % (A) 6 %; Neutrophils # (A) 14.2 k/uL (1.3-7.7); Neutrophils % (A) 91 %; Platelet Count 198 k/uL (150-450); RDW 17.6 % (11.5-15.5); WBC 15.5 k/uL (3.8-10.6)
[2021-11-18 03:56] LABS: INR 1.3 (<1.2); Partial Thromboplastin Time 39.8 sec (22.0-30.0)
[2021-11-18] MEDS: HEPARIN SODIUM 1,000 UN/ML (10ML VL) IV PRN (04:03)
[2021-11-18 04:08] LABS: Calcium 8.4 mg/dL (8.4-10.2); Potassium 3.7 mmol/L (3.5-5.1)
[2021-11-18] MEDS: HALOPERIDOL LACTATE 5 MG/ML 1 ML VIAL IVP PRN ×3 (05:33→13:27)
[2021-11-18] MEDS: INSULIN ASPART (NovoLOG) 100 UNIT/ML VIAL SQ SCH ×4 (06:35→21:21)
[2021-11-18] MEDS: FOLIC ACID 1 MG TAB PO SCH (07:53)
[2021-11-18] MEDS: CHOLECALCIFEROL 125 MCG (5000 IU) TABLET PO SCH (07:53)
[2021-11-18] MEDS: METOPROLOL TARTRATE 12.5 MG TAB PO SCH ×2 (07:53→21:21)
[2021-11-18] MEDS: ZINC SULFATE 220 MG CAP PO SCH (07:53)
[2021-11-18] MEDS: NICOTINE 21MG/24HR PATCH TRANSDERM SCH (07:53)
[2021-11-18] MEDS: ATORVASTATIN 80 MG TAB PO SCH (07:53)
[2021-11-18] MEDS: ASCORBIC ACID 500 MG TAB PO SCH (07:53)
[2021-11-18] MEDS: ASPIRIN 81 MG PO SCH (07:53)
[2021-11-18] MEDS: methylPREDNISolone SOD SUCCI 40 MG/ML 1 ML VIAL IV SCH ×3 (07:53→21:21)
[2021-11-18] MEDS: PANTOPRAZOLE 40 MG TABLET PO SCH (07:53)
[2021-11-18] MEDS: LORazepam 2 MG/ML INJ IV PRN ×2 (07:56→12:37)
[2021-11-18] MEDS: HYDROCORTISONE 2.5% RECTAL CREAM 30 GM TUBE RECTAL SCH ×4 (08:11→21:22)
[2021-11-18] MEDS: ISOSORBIDE MONONITRATE ER 30 MG TAB.ER.24H PO SCH (08:11)
[2021-11-18] MEDS: ALBUTEROL HFA INHALER INHALATION SCH ×3 (08:35→21:18)
[2021-11-18 09:49] LABS: Glucose,Whole Blood 145 mg/dL (75-99)
[2021-11-18 11:51] LABS: Glucose,Whole Blood 113 mg/dL (75-99)
[2021-11-18] MEDS: ALPRAZolam 0.5 MG TAB PO PRN ×2 (11:53→21:41)
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
[2021-11-18] MEDS: HEPARIN SOD,PORK IN 0.45% NACL 25,000 UNIT in 0.45% NACL 1 250ML.BAG IV SCH (14:03)
[2021-11-18 17:14] LABS: Glucose,Whole Blood 99 mg/dL (75-99)
--- NOTE | 2021-11-18 17:23 | P.PN ---
Subjective Progress Note Date: 11/18/21 Bob Wolf, is a year old male who presented to [facility] emergency room with a chief complaint of chest pain patient describes a sharp pain in the chest that is intermittent and worse with deep breathing. He was evaluated in the emergency room vital examination on presentation revea led a temperature of 98.2 pulse 112 respiration 18 blood pressure 148/105 pulse ox 98% on 2 L nasal cannula Laboratory data revealed a white blood count of 10.4 hemoglobin 12.9 platelet count 400 d-dimer 2.74 BUN 62 creatinine 2.2 Testing in the emergency room revealed chest x-ray revealed bilateral multifocal infiltrates EKG revealed sinus tachycardia without acute ischemic changes Patient was admitted to medical floor for further evaluation and treatment. Past medical history is significant for advanced COPD patient still smokes he has more than 50 year history of smoking, he also has a known history of colon cancer, bladder cancer, rheumatoid arthritis, gastroesophageal reflux disease, anxiety disorder. On 11/13 patient was seen and examined on the telemetry floor, he is alert and oriented 3 in no apparent distress he is still complaining of chest pain, on admission patient had a normal troponin of 0.023 however yesterday his troponin went up to 5.05, he was transferred to [address] [place] [address] and was started on IV heparin, cardiology consultation was requested, and this time patient is lying comfortably in bed he is still complaining of some discomfort in his chest otherwise he denies any complaints there is no fever or chills no headache or dizziness no shortness of breath he has occasional cough no nausea or vomiting no abdominal pain no diarrhea and no urinary symptoms. On 11/14/2021 patient was seen and examined on the telemetry floor he is alert and oriented in no distress there is no fever or chills no headache or dizziness no chest pain no shortness of breath no cough no nausea or vomiting no abdominal pain no diarrhea no blood in the stools no burning with urination no frequency or urgency and no hematuria. On 11/15/2021 patient was seen and examined on the telemetry floor, he is alert and oriented 3 in no apparent distress, he is complaining of lower chest pain, and complaining of difficulty swallowing his food, otherwise he denies any complaints at this time, he underwent cardiac catheterization yesterday was Dr. Van that revealed evidence of minimal coronary artery disease, otherwise patient denies any complaints at this time there is no fever or chills no headache or dizziness no shortness of breath no cough no nausea or vomiting no abdominal pain no diarrhea no blood in the stools no burning with urination no frequency or urgency and no hematuria On 11/16/2021 patient was seen and examined on the telemetry floor he is somnolent responsive in no apparent distress, patient was having episodes of agitation last night he was given Ativan IV, there is no fever or chills no headache or dizziness no chest pain no shortness of breath no cough no nausea or vomiting no abdominal pain no diarrhea and no urinary symptoms. 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 On 11/18/2021 patient was seen and examined on the medical floor, he is alert slightly confused in no apparent distress, vital examination reveals a temperature of 97.6 pulse 76 respiration 17 blood pressure 103/52 pulse ox 97% on 2 L nasal cannula, his white blood count is 15.5 hemoglobin 11.6 platelet count 198 patient still has poor oral intake, he was switched to oral Eliquis by cardiology, IV heparin discontinued. Dose of IV Solu-Medrol decreased to 40 mg every 12 hours, will continue to monitor closely. Objective - Vital Signs Vital signs: Vital Signs Temp 97.6 F 11/18/21 08:00 Pulse 76 11/18/21 08:00 Resp 17 11/18/21 08:00 BP 103/52 11/18/21 08:00 Pulse Ox 100 11/18/21 08:35 Intake & Output 11/17/21 11/18/21 11/18/21 18:59 06:59 18:59 Intake Total 1240 347.146 Output Total 500 1050 Balance 740 -702.854 Weight 52 kg Intake: IV 1000 Dextrose 5% in Water 1, 1000 000 ml @ 100 mls/hr IV . Q10H MARÍA Rx#:[id number] Intake, IV Titration 107.146 Amount Heparin Sod,Pork in 0.45% 107.146 NaCl 25,000 unit In 0.45 % NaCl 1 250ml.bag @ 12 UNITS/KG/HR 6.24 mls/hr IV .Q24H MARÍA Rx#: [id number] Oral 240 240 Output: Urine 500 1050 Other: Voiding Method Ileal Conduit (Right) Ileal Conduit (Right) Ileal Conduit (Right) # Voids 500 - Exam In general patient is alert and oriented x 3 in no distress HEENT head normocephalic and atraumatic Neck is supple no JVD no goiter no lymphadenopathy no carotid bruit Chest examination reveals a scattered crackles bilaterally no wheezing Cardiac exam reveals regular heart sounds S1 and S2 no gallops no murmurs Abdomen is soft nontender no organomegaly with normal bowel sounds Extremity exam reveals no edema no cyanosis or clubbing Neurological examination reveals no gross focal deficits - Labs CBC & Chem 7: 11/18/21 03:32 11/18/21 03:32 Labs: Abnormal Lab Results - Last 24 Hours (Table) 11/17/21 11/17/21 11/17/21 Range/Units 11:37 12:04 12:04 WBC 15.1 H (3.8-10.6) k/uL RBC 3.57 L (4.30-5.90) m/uL Hgb 11.5 L (13.0-17.5) gm/dL Hct 35.8 L (39.0-53.0) % MCV 100.3 H (80.0-100.0) fL RDW 16.5 H (11.5-15.5) % Neutrophils # 13.3 H (1.3-7.7) k/uL Lymphocytes # 0.4 L (1.0-4.8) k/uL Monocytes # 1.3 H (0-1.0) k/uL PT 14.9 H (9.0-12.0) sec INR 1.5 H (<1.2) APTT (22.0-30.0) sec Chloride (98-107) mmol/L Carbon Dioxide (22-30) mmol/L BUN (9-20) mg/dL Creatinine (0.66-1.25) mg/dL Glucose (74-99) mg/dL POC Glucose (mg/dL) 284 H (75-99) mg/dL 11/17/21 11/17/21 11/17/21 Range/Units 12:19 16:29 19:20 WBC (3.8-10.6) k/uL RBC (4.30-5.90) m/uL Hgb (13.0-17.5) gm/dL Hct (39.0-53.0) % MCV (80.0-100.0) fL RDW (11.5-15.5) % Neutrophils # (1.3-7.7) k/uL Lymphocytes # (1.0-4.8) k/uL Monocytes # (0-1.0) k/uL PT (9.0-12.0) sec INR (<1.2) APTT 32.8 H (22.0-30.0) sec Chloride (98-107) mmol/L Carbon Dioxide (22-30) mmol/L BUN (9-20) mg/dL Creatinine (0.66-1.25) mg/dL Glucose (74-99) mg/dL POC Glucose (mg/dL) 175 H 142 H (75-99) mg/dL 11/17/21 11/18/21 11/18/21 Range/Units 19:51 03:32 03:32 WBC 15.5 H (3.8-10.6) k/uL RBC 3.60 L (4.30-5.90) m/uL Hgb 11.6 L (13.0-17.5) gm/dL Hct 36.1 L (39.0-53.0) % MCV 100.4 H (80.0-100.0) fL RDW 17.6 H (11.5-15.5) % Neutrophils # 14.2 H (1.3-7.7) k/uL Lymphocytes # 0.4 L (1.0-4.8) k/uL Monocytes # (0-1.0) k/uL PT 13.0 H (9.0-12.0) sec INR 1.3 H (<1.2) APTT 39.8 H (22.0-30.0) sec Chloride (98-107) mmol/L Carbon Dioxide (22-30) mmol/L BUN (9-20) mg/dL Creatinine (0.66-1.25) mg/dL Glucose (74-99) mg/dL POC Glucose (mg/dL) 105 H (75-99) mg/dL 11/18/21 11/18/21 Range/Units 03:32 06:05 WBC (3.8-10.6) k/uL RBC (4.30-5.90) m/uL Hgb (13.0-17.5) gm/dL Hct (39.0-53.0) % MCV (80.0-100.0) fL RDW (11.5-15.5) % Neutrophils # (1.3-7.7) k/uL Lymphocytes # (1.0-4.8) k/uL Monocytes # (0-1.0) k/uL PT (9.0-12.0) sec INR (<1.2) APTT (22.0-30.0) sec Chloride 117 H (98-107) mmol/L Carbon Dioxide 20 L (22-30) mmol/L BUN 43 H (9-20) mg/dL Creatinine 1.32 H (0.66-1.25) mg/dL Glucose 122 H (74-99) mg/dL POC Glucose (mg/dL) 145 H (75-99) mg/dL Assessment and Plan Plan: 1. Acute hypoxic respiratory failure, COVID-19 infection on 11/09/2021. Now with evidence of pneumonia on chest x-ray with multifocal bilateral acute infiltrates 2. Acute non-ST elevation myocardial infarction, patient admitted to telemetry floor and was started on IV heparin cardiology consultation was requested 3. Elevated d-dimer, patient has elevated creatinine, will check VQ scan 4. Acute on chronic renal failure, creatinine on presentation 2.22 5. Underlying history of rheumatoid arthritis, maintained on methotrexate 6. Underlying history of kidney stones 7. Underlying history of anxiety disorder 8. Underlying history of tobacco abuse 9. Previous history of colon cancer 10. Previous history of bladder cancer At this time patient was admitted to medical floor He was started on IV steroids and inhaled bronchodilators and oxygen supplements VQ scan was ordered in relation to elevated d-dimer and pleuritic chest pain Pulmonary consultation requested Will follow closely
[2021-11-18 20:25] LABS: Glucose,Whole Blood 108 mg/dL (75-99)
[2021-11-18] MEDS: APIXABAN 2.5 MG TABLET PO SCH (21:21)
[2021-11-19 07:21] LABS: Glucose,Whole Blood 118 mg/dL (75-99)
[2021-11-19] MEDS: INSULIN ASPART (NovoLOG) 100 UNIT/ML VIAL SQ SCH ×4 (07:21→20:48)
[2021-11-19] MEDS: NICOTINE 21MG/24HR PATCH TRANSDERM SCH (08:04)
[2021-11-19] MEDS: METOPROLOL TARTRATE 12.5 MG TAB PO SCH ×2 (08:04→20:49)
[2021-11-19] MEDS: ASCORBIC ACID 500 MG TAB PO SCH (08:04)
[2021-11-19] MEDS: ZINC SULFATE 220 MG CAP PO SCH (08:04)
[2021-11-19] MEDS: FOLIC ACID 1 MG TAB PO SCH (08:04)
[2021-11-19] MEDS: PANTOPRAZOLE 40 MG TABLET PO SCH (08:04)
[2021-11-19] MEDS: ASPIRIN 81 MG PO SCH (08:04)
[2021-11-19] MEDS: methylPREDNISolone SOD SUCCI 40 MG/ML 1 ML VIAL IV SCH ×2 (08:04→20:49)
[2021-11-19] MEDS: CHOLECALCIFEROL 125 MCG (5000 IU) TABLET PO SCH (08:04)
[2021-11-19] MEDS: ATORVASTATIN 80 MG TAB PO SCH (08:04)
[2021-11-19] MEDS: APIXABAN 2.5 MG TABLET PO SCH ×2 (08:04→20:49)
[2021-11-19] MEDS: ISOSORBIDE MONONITRATE ER 30 MG TAB.ER.24H PO SCH (08:04)
[2021-11-19] MEDS: ALPRAZolam 0.5 MG TAB PO PRN ×2 (08:04→20:49)
[2021-11-19] MEDS: HYDROCORTISONE 2.5% RECTAL CREAM 30 GM TUBE RECTAL SCH ×4 (08:19→20:49)
[2021-11-19] MEDS: ALBUTEROL HFA INHALER INHALATION SCH ×3 (09:46→20:11)
[2021-11-19 11:36] LABS: Glucose,Whole Blood 115 mg/dL (75-99)
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
--- NOTE | 2021-11-19 14:15 | P.PN ---
Subjective Progress Note Date: 11/19/21 Bob Wolf, is a year old male who presented to [facility] emergency room with a chief complaint of chest pain patient describes a sharp pain in the chest that is intermittent and worse with deep breathing. He was evaluated in the emergency room vital examination on presentation revea led a temperature of 98.2 pulse 112 respiration 18 blood pressure 148/105 pulse ox 98% on 2 L nasal cannula Laboratory data revealed a white blood count of 10.4 hemoglobin 12.9 platelet count 400 d-dimer 2.74 BUN 62 creatinine 2.2 Testing in the emergency room revealed chest x-ray revealed bilateral multifocal infiltrates EKG revealed sinus tachycardia without acute ischemic changes Patient was admitted to medical floor for further evaluation and treatment. Past medical history is significant for advanced COPD patient still smokes he has more than 50 year history of smoking, he also has a known history of colon cancer, bladder cancer, rheumatoid arthritis, gastroesophageal reflux disease, anxiety disorder. On 11/13 patient was seen and examined on the telemetry floor, he is alert and oriented 3 in no apparent distress he is still complaining of chest pain, on admission patient had a normal troponin of 0.023 however yesterday his troponin went up to 5.05, he was transferred to [address] [place] [address] and was started on IV heparin, cardiology consultation was requested, and this time patient is lying comfortably in bed he is still complaining of some discomfort in his chest otherwise he denies any complaints there is no fever or chills no headache or dizziness no shortness of breath he has occasional cough no nausea or vomiting no abdominal pain no diarrhea and no urinary symptoms. On 11/14/2021 patient was seen and examined on the telemetry floor he is alert and oriented in no distress there is no fever or chills no headache or dizziness no chest pain no shortness of breath no cough no nausea or vomiting no abdominal pain no diarrhea no blood in the stools no burning with urination no frequency or urgency and no hematuria. On 11/15/2021 patient was seen and examined on the telemetry floor, he is alert and oriented 3 in no apparent distress, he is complaining of lower chest pain, and complaining of difficulty swallowing his food, otherwise he denies any complaints at this time, he underwent cardiac catheterization yesterday was Dr. Van that revealed evidence of minimal coronary artery disease, otherwise patient denies any complaints at this time there is no fever or chills no headache or dizziness no shortness of breath no cough no nausea or vomiting no abdominal pain no diarrhea no blood in the stools no burning with urination no frequency or urgency and no hematuria On 11/16/2021 patient was seen and examined on the telemetry floor he is somnolent responsive in no apparent distress, patient was having episodes of agitation last night he was given Ativan IV, there is no fever or chills no headache or dizziness no chest pain no shortness of breath no cough no nausea or vomiting no abdominal pain no diarrhea and no urinary symptoms. 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 On 11/18/2021 patient was seen and examined on the medical floor, he is alert slightly confused in no apparent distress, vital examination reveals a temperature of 97.6 pulse 76 respiration 17 blood pressure 103/52 pulse ox 97% on 2 L nasal cannula, his white blood count is 15.5 hemoglobin 11.6 platelet count 198 patient still has poor oral intake, he was switched to oral Eliquis by cardiology, IV heparin discontinued. Dose of IV Solu-Medrol decreased to 40 mg every 12 hours, will continue to monitor closely. On 11/19/2021 patient was seen and examined on the medical floor, he is alert slightly confused in no apparent distress, vital examination reveals a temperature of 96.8 pulse 99 respiration 16 blood pressure 107/67 pulse ox 95 % on 2 L nasal cannula, patient still has poor oral intake, he is having difficulty with swallowing his food , at this time will reconsult surgery for possible EGD . he was switched to oral Eliquis by cardiology, IV heparin discontinued. Dose of IV Solu-Medrol decreased to 40 mg every 12 hours, will continue to monitor closely. Objective - Vital Signs Vital signs: Vital Signs Temp 96.8 F L 11/19/21 05:43 Pulse 99 11/19/21 05:43 Resp 16 11/19/21 05:43 BP 107/67 11/19/21 05:43 Pulse Ox 95 11/19/21 05:43 Intake & Output 11/18/21 11/19/21 11/19/21 18:59 06:59 18:59 Output Total 400 700 Balance -400 -700 Output: Urine 400 700 Other: Voiding Method Ileal Conduit (Right) Ileal Conduit (Right) # Bowel Movements 0 - Exam In general patient is alert and oriented x 3 in no distress HEENT head normocephalic and atraumatic Neck is supple no JVD no goiter no lymphadenopathy no carotid bruit Chest examination reveals a scattered crackles bilaterally no wheezing Cardiac exam reveals regular heart sounds S1 and S2 no gallops no murmurs Abdomen is soft nontender no organomegaly with normal bowel sounds Extremity exam reveals no edema no cyanosis or clubbing Neurological examination reveals no gross focal deficits - Labs CBC & Chem 7: 11/18/21 03:32 11/18/21 03:32 Labs: Abnormal Lab Results - Last 24 Hours (Table) 11/18/21 11/18/21 11/19/21 Range/Units 11:50 20:24 07:19 POC Glucose (mg/dL) 113 H 108 H 118 H (75-99) mg/dL Assessment and Plan Plan: 1. Acute hypoxic respiratory failure, COVID-19 infection on 11/09/2021. Now with evidence of pneumonia on chest x-ray with multifocal bilateral acute infiltrates 2. Acute non-ST elevation myocardial infarction, patient admitted to telemetry floor and was started on IV heparin cardiology consultation was requested 3. Elevated d-dimer, patient has elevated creatinine, will check VQ scan 4. Acute on chronic renal failure, creatinine on presentation 2.22 5. Underlying history of rheumatoid arthritis, maintained on methotrexate 6. Underlying history of kidney stones 7. Underlying history of anxiety disorder 8. Underlying history of tobacco abuse 9. Previous history of colon cancer 10. Previous history of bladder cancer At this time patient was admitted to medical floor He was started on IV steroids and inhaled bronchodilators and oxygen supplements VQ scan was ordered in relation to elevated d-dimer and pleuritic chest pain Pulmonary consultation requested Will follow closely
[2021-11-19 15:17] LABS: C Reactive Protein 12.6 mg/dL (0.00-0.80)
--- NOTE | 2021-11-19 16:37 | P.PN ---
Progress Note - Text Progress Note Date: 11/18/21 INTERVAL HISTORY: The patient remains to be afebrile. The patient is breathing comfortably on 2 L nasal [place] oxygen. The patient seemed to be slightly confused and trying to get out of the bed was unavailable historian no vomiting or diarrhea were reported by the nursing staff PHYSICAL EXAMINATION: Blood pressure is 95/56 with a pulse of 87, temperature of 97.2. He is 96% on 2 L nasal cannula. General description is an elderly male lying in bed in no distress. Respiratory system: Unlabored breathing, decreased breath sounds at the base. No wheeze. Heart S1, S2. Regular rate and rhythm. Abdomen soft, no tenderness. LABS: Revealed. DIAGNOSTIC IMPRESSION AND PLAN: Patient with acute respiratory failure which is multifactorial, component of COVID-19 infection And there is concern for possible cardiomyopathy associated with a covid19 at the patient also have mild triple-vessel disease, patient may benefit from Actemra this was discussed with the pharmacist however could not be dispensed on the basis of [facility] policy, patient to continue with current supportive treatment of IV heparin, Solu-Medrol, zinc and ascorbic acid and respiratory support
--- NOTE | 2021-11-19 16:39 | P.PN ---
Progress Note - Text Progress Note Date: 11/19/21 INTERVAL HISTORY: The patient is afebrile. The patient is breathing comfortably on nasal [place] oxygen. The patient remains to be pleasantly confused and not a good historian, no vomiting or diarrhea was reported by nursing staff or urinary changes PHYSICAL EXAMINATION: Blood pressure is 107/67 with a pulse of 99, temperature of 97.2. He is 96% on 2 L nasal cannula. General description is an elderly male lying in bed in no distress. Respiratory system: Unlabored breathing, decreased breath sounds at the base. No wheeze. Heart S1, S2. Regular rate and rhythm. Abdomen soft, no tenderness. LABS: CRP is 12.60 LDH is 302 IL 6 levels are currently pending DIAGNOSTIC IMPRESSION AND PLAN: Patient with acute respiratory failure which is multifactorial, component of COVID-19 infection And there is concern for possible cardiomyopathy associated with a covid19 at the patient also have mild triple-vessel disease, patient condition remains to be stable and to continue with heparin, Solu-Medrol, zinc and ascorbic acid and respiratory support
[2021-11-19 17:07] LABS: Glucose,Whole Blood 119 mg/dL (75-99)
[2021-11-19 19:48] LABS: Glucose,Whole Blood 139 mg/dL (75-99)
[2021-11-20] MEDS: LORazepam 2 MG/ML INJ IV PRN (00:54)
[2021-11-20 07:09] LABS: Glucose,Whole Blood 117 mg/dL (75-99)
[2021-11-20] MEDS: ALBUTEROL HFA INHALER INHALATION SCH ×3 (09:30→20:41)
[2021-11-20] MEDS: INSULIN ASPART (NovoLOG) 100 UNIT/ML VIAL SQ SCH ×4 (09:33→21:59)
[2021-11-20] MEDS: APIXABAN 2.5 MG TABLET PO SCH ×2 (10:13→22:08)
[2021-11-20] MEDS: NICOTINE 21MG/24HR PATCH TRANSDERM SCH (10:13)
[2021-11-20] MEDS: methylPREDNISolone SOD SUCCI 40 MG/ML 1 ML VIAL IV SCH ×2 (10:13→22:08)
[2021-11-20] MEDS: ISOSORBIDE MONONITRATE ER 30 MG TAB.ER.24H PO SCH (10:13)
[2021-11-20] MEDS: METOPROLOL TARTRATE 12.5 MG TAB PO SCH ×2 (10:13→22:08)
[2021-11-20] MEDS: PANTOPRAZOLE 40 MG/10 ML VIAL IVP SCH (10:26)
[2021-11-20] MEDS: ASPIRIN 81 MG PO SCH (10:33)
[2021-11-20] MEDS: ASCORBIC ACID 500 MG TAB PO SCH (10:33)
[2021-11-20] MEDS: ZINC SULFATE 220 MG CAP PO SCH (10:34)
[2021-11-20] MEDS: ATORVASTATIN 80 MG TAB PO SCH (10:34)
[2021-11-20] MEDS: CHOLECALCIFEROL 125 MCG (5000 IU) TABLET PO SCH (10:34)
[2021-11-20] MEDS: FOLIC ACID 1 MG TAB PO SCH (10:34)
[2021-11-20 11:36] LABS: Glucose,Whole Blood 124 mg/dL (75-99)
[2021-11-20 11:38] LABS: HCT 42.3 % (39.6-50.0); MCH 30.6 pg (27.0-32.0); MCHC 30.7 g/dL (32.0-37.0); MCV 99.5 fL (80.0-97.0); Mean Platelet Volume 11.9 fL (9.5-12.2); Platelet Count 258 X 10*3/uL (140-440); RBC 4.25 X 10*6/uL (4.40-5.60); RDW 17.9 % (11.5-14.5); WBC 22.79 X 10*3/uL (4.50-10.00)
--- NOTE | 2021-11-20 12:05 | P.PN ---
Progress Note - Text Patient is admitted to hospital with "infection with myocarditis an acute myocardial infarction Underwent cardiac catheterization that revealed mild triple-vessel disease and has been advised medical therapy He has atrial fibrillation and is currently on a liquid is Patient appears confused Denies chest pain or difficulty in breathing On exam Comfortable at rest vital signs are stable chest exam reveals diminished air entry at the bases heart exam vessel second heart sounds are regular rhythm and a systolic murmur at the apex abdomen is soft exam extremities did not reveal any edema per for pulses are felt Assessment and plan: Cardiomyopathy Acute campo virus infection Mild triple-vessel disease Persistent atrial fibrillation Patient will continue current medications
[2021-11-20 12:13] LABS: Basophils # (A) 0.05 X 10*3/uL (0.00-0.10); Basophils % (A) 0.2 %; Eosinophils # (A) 0 X 10*3/uL (0.04-0.35); Eosinophils % (A) 0 %; Lymphocytes # (A) 0.57 X 10*3/uL (0.90-5.00); Lymphocytes % (A) 2.5 %; Monocytes # (A) 2.57 X 10*3/uL (0.20-1.00); Monocytes % (A) 11.3 %; Neutrophils # (A) 19.38 X 10*3/uL (1.80-7.70)
[2021-11-20 12:23] LABS: African American GFR (CKD) 52.7 (60.0-200.0); Albumin 3.3 g/dL (3.8-4.9); Albumin/Globulin Ratio 1.27 (1.60-3.17); Anion Gap 16.6 mmol/L (10.00-18.00); BUN/Creat Ratio 32.29 Ratio (12.00-20.00); Blood Urea Nitrogen 45.2 mg/dL (9.0-27.0); Calcium 9.2 mg/dL (8.7-10.3); Carbon Dioxide 20.4 mmol/L (20.0-27.5); Globulin 2.6 g/dL (1.6-3.3); Non-African American GFR(CKD) 45.5 (60.0-200.0); Potassium 3.4 mmol/L (3.5-5.5); Total Bilirubin 0.5 mg/dL (0.30-1.20); Total Protein 5.9 g/dL (6.2-8.2)
--- NOTE | 2021-11-20 13:02 | P.GSCN ---
History of Present Illness Consult date: 11/20/21 Reason for Consult: Epigastric pain History of present illness: This 86-year-old male who is nonverbal. I been counseled for EGD for epigastric pain. Patient unable to at any medical history. Past Medical History Past Medical History: GERD/Reflux, Hyperlipidemia Additional Past Medical History / Comment(s): kidney stones, bladder cancer, colon cancer History of Any Multi-Drug Resistant Organisms: None Reported Past Surgical History: Hernia Repair Additional Past Surgical History / Comment(s): kidney stone removed ILIOSTOMY Past Anesthesia/Blood Transfusion Reactions: No Reported Reaction, Motion Sickness Past Psychological History: Anxiety Smoking Status: Current some day smoker Past Alcohol Use History: None Reported Additional Past Alcohol Use History / Comment(s): smoking 1/2 PPD, smoked for 10 yrs(quit for 30 yrs, started smoking as teen) Past Drug Use History: None Reported - Past Family History Sister(s) Family Medical History: Cancer Brother(s) Family Medical History: Cancer Medications and Allergies Home Medications Medication Instructions Recorded Confirmed Type ALPRAZolam [Xanax] 0.5 mg PO Q8H PRN 02/04/19 11/11/21 History Omeprazole 40 mg PO DAILY 02/04/19 11/11/21 History gemfibroziL [Lopid] 600 mg PO BID 02/04/19 11/11/21 History Folic Acid 1 mg PO DAILY 10/29/21 11/11/21 History Hydrocortisone Pr Cream 1 applic RECTAL QID 10/29/21 11/11/21 History [Proctosol-Hc 2.5%] Nystatin 100,000Unit/gm Cream 1 applic TOPICAL BID 10/29/21 11/11/21 History [Mycostatin Cream] metHOTREXate sodium [Methotrexate] 12.5 mg PO GOODSON 10/29/21 11/11/21 History Aspirin 81 mg PO DAILY tab 11/02/21 11/11/21 Rx Cephalexin [Keflex] 500 mg PO Q6HR #40 cap 11/09/21 11/11/21 Rx Ondansetron Odt [Zofran ODT] 4 mg PO Q8HR PRN #10 tab 11/09/21 11/11/21 Rx Apixaban [Eliquis] 2.5 mg PO BID 30 Days #60 tab 11/17/21 Rx Allergies Allergy/AdvReac Type Severity Reaction Status Date / Time Sulfa (Sulfonamide AdvReac Rash/Hives/ Verified 11/11/21 16:19 Antibiotics) itching Surgical - Exam Vital Signs Temp Pulse Resp BP Pulse Ox 98.2 F 112 H 18 148/105 98 11/11/21 16:17 11/11/21 16:17 11/11/21 16:17 11/11/21 16:17 11/11/21 16:17 - General Confused no distress - Abdomen Abdomen soft. Results - Labs 11/20/21 08:29 11/20/21 08:29 Abnormal Lab Results - Last 24 Hours (Table) 11/19/21 11/19/21 11/19/21 Range/Units 08:40 17:05 19:46 WBC (4.50-10.00) X 10*3/uL RBC (4.40-5.60) X 10*6/uL MCV (80.0-97.0) fL MCHC (32.0-37.0) g/dL RDW (11.5-14.5) % Immature Gran # (0.00-0.04) X 10*3/uL Neutrophils # (1.80-7.70) X 10*3/uL Lymphocytes # (0.90-5.00) X 10*3/uL Monocytes # (0.20-1.00) X 10*3/uL Eosinophils # (0.04-0.35) X 10*3/uL Sodium (135-145) mmol/L Potassium (3.5-5.5) mmol/L Chloride (96-109) mmol/L BUN (9.0-27.0) mg/dL Est GFR (CKD-EPI)AfAm (60.0-200.0) Est GFR (CKD-EPI)NonAf (60.0-200.0) BUN/Creatinine Ratio (12.00-20.00) Ratio POC Glucose (mg/dL) 119 H 139 H (75-99) mg/dL Ferritin 1737.0 H (22.0-322.0) ng/mL Lactate Dehydrogenase 302 H (120-246) U/L C-Reactive Protein 12.60 H (0.00-0.80) mg/dL Total Protein (6.2-8.2) g/dL Albumin (3.8-4.9) g/dL Albumin/Globulin Ratio (1.60-3.17) g/dL 11/20/21 11/20/21 11/20/21 Range/Units 07:06 08:29 08:29 WBC 22.79 H (4.50-10.00) X 10*3/uL RBC 4.25 L (4.40-5.60) X 10*6/uL MCV 99.5 H (80.0-97.0) fL MCHC 30.7 L (32.0-37.0) g/dL RDW 17.9 H (11.5-14.5) % Immature Gran # 0.22 H (0.00-0.04) X 10*3/uL Neutrophils # 19.38 H (1.80-7.70) X 10*3/uL Lymphocytes # 0.57 L (0.90-5.00) X 10*3/uL Monocytes # 2.57 H (0.20-1.00) X 10*3/uL Eosinophils # 0 L (0.04-0.35) X 10*3/uL Sodium 159 H (135-145) mmol/L Potassium 3.4 L (3.5-5.5) mmol/L Chloride 122 H (96-109) mmol/L BUN 45.2 H (9.0-27.0) mg/dL Est GFR (CKD-EPI)AfAm 52.7 L (60.0-200.0) Est GFR (CKD-EPI)NonAf 45.5 L (60.0-200.0) BUN/Creatinine Ratio 32.29 H (12.00-20.00) Ratio POC Glucose (mg/dL) 117 H (75-99) mg/dL Ferritin (22.0-322.0) ng/mL Lactate Dehydrogenase (120-246) U/L C-Reactive Protein (0.00-0.80) mg/dL Total Protein 5.9 L (6.2-8.2) g/dL Albumin 3.3 L (3.8-4.9) g/dL Albumin/Globulin Ratio 1.27 L (1.60-3.17) g/dL 11/20/21 Range/Units 11:33 WBC (4.50-10.00) X 10*3/uL RBC (4.40-5.60) X 10*6/uL MCV (80.0-97.0) fL MCHC (32.0-37.0) g/dL RDW (11.5-14.5) % Immature Gran # (0.00-0.04) X 10*3/uL Neutrophils # (1.80-7.70) X 10*3/uL Lymphocytes # (0.90-5.00) X 10*3/uL Monocytes # (0.20-1.00) X 10*3/uL Eosinophils # (0.04-0.35) X 10*3/uL Sodium (135-145) mmol/L Potassium (3.5-5.5) mmol/L Chloride (96-109) mmol/L BUN (9.0-27.0) mg/dL Est GFR (CKD-EPI)AfAm (60.0-200.0) Est GFR (CKD-EPI)NonAf (60.0-200.0) BUN/Creatinine Ratio (12.00-20.00) Ratio POC Glucose (mg/dL) 124 H (75-99) mg/dL Ferritin (22.0-322.0) ng/mL Lactate Dehydrogenase (120-246) U/L C-Reactive Protein (0.00-0.80) mg/dL Total Protein (6.2-8.2) g/dL Albumin (3.8-4.9) g/dL Albumin/Globulin Ratio (1.60-3.17) g/dL Diabetes panel 11/20/21 Range/Units 08:29 Sodium 159 H (135-145) mmol/L Potassium 3.4 L (3.5-5.5) mmol/L Chloride 122 H (96-109) mmol/L Carbon Dioxide 20.4 (20.0-27.5) mmol/L BUN 45.2 H (9.0-27.0) mg/dL Creatinine 1.4 (0.6-1.5) mg/dL Glucose 106 (70-110) mg/dL Calcium 9.2 (8.7-10.3) mg/dL AST 27 (14-35) U/L ALT 26 (10-49) U/L Alkaline Phosphatase 73 (41-126) U/L Total Protein 5.9 L (6.2-8.2) g/dL Albumin 3.3 L (3.8-4.9) g/dL Calcium panel 11/20/21 Range/Units 08:29 Calcium 9.2 (8.7-10.3) mg/dL Albumin 3.3 L (3.8-4.9) g/dL Pituitary panel 11/20/21 Range/Units 08:29 Sodium 159 H (135-145) mmol/L Potassium 3.4 L (3.5-5.5) mmol/L Chloride 122 H (96-109) mmol/L Carbon Dioxide 20.4 (20.0-27.5) mmol/L BUN 45.2 H (9.0-27.0) mg/dL Creatinine 1.4 (0.6-1.5) mg/dL Glucose 106 (70-110) mg/dL Calcium 9.2 (8.7-10.3) mg/dL Adrenal panel 11/20/21 Range/Units 08:29 Sodium 159 H (135-145) mmol/L Potassium 3.4 L (3.5-5.5) mmol/L Chloride 122 H (96-109) mmol/L Carbon Dioxide 20.4 (20.0-27.5) mmol/L BUN 45.2 H (9.0-27.0) mg/dL Creatinine 1.4 (0.6-1.5) mg/dL Glucose 106 (70-110) mg/dL Calcium 9.2 (8.7-10.3) mg/dL Total Bilirubin 0.50 (0.30-1.20) mg/dL AST 27 (14-35) U/L ALT 26 (10-49) U/L Alkaline Phosphatase 73 (41-126) U/L Total Protein 5.9 L (6.2-8.2) g/dL Albumin 3.3 L (3.8-4.9) g/dL Assessment and Plan Assessment: History of epigastric pain. Patient be scheduled for EGD on Monday.
[2021-11-20] MEDS: PANTOPRAZOLE 40 MG TABLET PO SCH (13:48)
[2021-11-20] MEDS: HYDROCORTISONE 2.5% RECTAL CREAM 30 GM TUBE RECTAL SCH ×4 (13:48→22:09)
[2021-11-20 16:34] LABS: Glucose,Whole Blood 150 mg/dL (75-99)
[2021-11-20] MEDS ORDERED: DEXTROSE 5% IN WATER 1,000 ML IV ONE (17:45)
[2021-11-20] MEDS ORDERED: Potassium Replacement Protocol 1 EACH MISC MISCELLANE PRN (17:45)
[2021-11-20] MEDS: POTASSIUM CHLORIDE 10 MEQ in WATER FOR INJECTION 1 100ML.BAG IVPB SCH ×4 (18:29→23:41)
[2021-11-20 20:10] LABS: Glucose,Whole Blood 155 mg/dL (75-99)
[2021-11-20] MEDS: MORPHINE SULFATE 2 MG/ML SYRINGE IVP PRN (22:09)
--- NOTE | 2021-11-20 22:52 | P.PN ---
Progress Note - Text Progress Note Date: 11/20/21 The patient is afebrile. The patient is breathing comfortably on nasal [place] oxygen. The patient remains to be pleasantly confused and not a good historian, no vomiting or diarrhea was reported by nursing staff or urinary changes PHYSICAL EXAMINATION: Blood pressure is 117/67 with a pulse of 99, temperature of 97.2. He is 96% on 2 L nasal cannula. General description is an elderly male lying in bed in no distress. Respiratory system: Unlabored breathing, decreased breath sounds at the base. No wheeze. Heart S1, S2. Regular rate and rhythm. Abdomen soft, no tenderness. LABS: White count is up to 22,000 today DIAGNOSTIC IMPRESSION AND PLAN: 1-Patient with acute respiratory failure which is multifactorial, component of COVID-19 infection And there is concern for possible cardiomyopathy associated with a covid19 at the patient also have mild triple-vessel disease, patient to continue with heparin, Solu-Medrol, zinc and ascorbic acid and respiratory support 2-patient with worsening leukocytosis questionable steroid effect we will recheck his inflammatory markers and blood cultures with a.m. lab
[2021-11-21] MEDS: LORazepam 2 MG/ML INJ IV PRN (03:06)
[2021-11-21 07:04] LABS: Glucose,Whole Blood 131 mg/dL (75-99)
[2021-11-21 07:22] LABS: Anisocytosis Slight; Basophils # (A) 0.1 k/uL (0-0.2); Basophils % (A) 0 %; Eosinophils % (A) 0 %; HCT 40.4 % (39.0-53.0); HGB 12.5 gm/dL (13.0-17.5); Hypochromasia Moderate; Lymphocytes # (A) 0.3 k/uL (1.0-4.8); Lymphocytes % (A) 2 %; MCH 31.5 pg (25.0-35.0); MCHC 31.1 g/dL (31.0-37.0); MCV 101.4 fL (80.0-100.0); Macrocytosis Slight; Mean Platelet Volume 9.4; Monocytes # (A) 1.1 k/uL (0-1.0); Monocytes % (A) 6 %; Neutrophils # (A) 16.3 k/uL (1.3-7.7); Neutrophils % (A) 91 %; Platelet Count 215 k/uL (150-450); RBC 3.98 m/uL (4.30-5.90); RDW 16.7 % (11.5-15.5)
[2021-11-21 07:34] LABS: African American GFR (CKD) 51 (>60 ml/min/1.73 sqM); Anion Gap 6 mmol/L; Blood Urea Nitrogen 49 mg/dL (9-20); Calcium 9.2 mg/dL (8.4-10.2); Carbon Dioxide 24 mmol/L (22-30); Chloride 128 mmol/L (98-107); Glucose 129 mg/dL (74-99); Non-African American GFR(CKD) 44 (>60 ml/min/1.73 sqM); Potassium 4.3 mmol/L (3.5-5.1); Sodium 158 mmol/L (137-145)
[2021-11-21] MEDS: INSULIN ASPART (NovoLOG) 100 UNIT/ML VIAL SQ SCH ×4 (08:09→20:40)
[2021-11-21] MEDS: ALBUTEROL HFA INHALER INHALATION SCH ×3 (09:14→19:34)
[2021-11-21] MEDS: NICOTINE 21MG/24HR PATCH TRANSDERM SCH (09:27)
[2021-11-21] MEDS: methylPREDNISolone SOD SUCCI 40 MG/ML 1 ML VIAL IV SCH ×2 (09:27→22:32)
[2021-11-21] MEDS: ASPIRIN 81 MG PO SCH (09:27)
[2021-11-21] MEDS: METOPROLOL TARTRATE 12.5 MG TAB PO SCH ×2 (09:27→22:32)
[2021-11-21] MEDS: PANTOPRAZOLE 40 MG/10 ML VIAL IVP SCH (09:27)
[2021-11-21] MEDS: APIXABAN 2.5 MG TABLET PO SCH (09:27)
[2021-11-21] MEDS: ISOSORBIDE MONONITRATE ER 30 MG TAB.ER.24H PO SCH (09:27)
[2021-11-21] MEDS: ASCORBIC ACID 500 MG TAB PO SCH (09:30)
[2021-11-21] MEDS: ZINC SULFATE 220 MG CAP PO SCH (09:30)
[2021-11-21] MEDS: CHOLECALCIFEROL 125 MCG (5000 IU) TABLET PO SCH (09:30)
[2021-11-21] MEDS: FOLIC ACID 1 MG TAB PO SCH (09:30)
[2021-11-21] MEDS: HYDROCORTISONE 2.5% RECTAL CREAM 30 GM TUBE RECTAL SCH ×4 (09:30→22:33)
[2021-11-21] MEDS: ATORVASTATIN 80 MG TAB PO SCH (09:30)
[2021-11-21 11:30] LABS: Glucose,Whole Blood 139 mg/dL (75-99)
--- NOTE | 2021-11-21 12:27 | P.PN ---
Progress Note - Text Progress Note Date: 11/21/21 Patient remains unchanged. He is confused in bed. We will plan for EGD in the a.m.
--- NOTE | 2021-11-21 14:10 | P.PN ---
Subjective Progress Note Date: 11/20/21 Bob Wolf, is a year old male who presented to [facility] emergency room with a chief complaint of chest pain patient describes a sharp pain in the chest that is intermittent and worse with deep breathing. He was evaluated in the emergency room vital examination on presentation revea led a temperature of 98.2 pulse 112 respiration 18 blood pressure 148/105 pulse ox 98% on 2 L nasal cannula Laboratory data revealed a white blood count of 10.4 hemoglobin 12.9 platelet count 400 d-dimer 2.74 BUN 62 creatinine 2.2 Testing in the emergency room revealed chest x-ray revealed bilateral multifocal infiltrates EKG revealed sinus tachycardia without acute ischemic changes Patient was admitted to medical floor for further evaluation and treatment. Past medical history is significant for advanced COPD patient still smokes he has more than 50 year history of smoking, he also has a known history of colon cancer, bladder cancer, rheumatoid arthritis, gastroesophageal reflux disease, anxiety disorder. On 11/13 patient was seen and examined on the telemetry floor, he is alert and oriented 3 in no apparent distress he is still complaining of chest pain, on admission patient had a normal troponin of 0.023 however yesterday his troponin went up to 5.05, he was transferred to [address] [place] [address] and was started on IV heparin, cardiology consultation was requested, and this time patient is lying comfortably in bed he is still complaining of some discomfort in his chest otherwise he denies any complaints there is no fever or chills no headache or dizziness no shortness of breath he has occasional cough no nausea or vomiting no abdominal pain no diarrhea and no urinary symptoms. On 11/14/2021 patient was seen and examined on the telemetry floor he is alert and oriented in no distress there is no fever or chills no headache or dizziness no chest pain no shortness of breath no cough no nausea or vomiting no abdominal pain no diarrhea no blood in the stools no burning with urination no frequency or urgency and no hematuria. On 11/15/2021 patient was seen and examined on the telemetry floor, he is alert and oriented 3 in no apparent distress, he is complaining of lower chest pain, and complaining of difficulty swallowing his food, otherwise he denies any complaints at this time, he underwent cardiac catheterization yesterday was Dr. Van that revealed evidence of minimal coronary artery disease, otherwise patient denies any complaints at this time there is no fever or chills no headache or dizziness no shortness of breath no cough no nausea or vomiting no abdominal pain no diarrhea no blood in the stools no burning with urination no frequency or urgency and no hematuria On 11/16/2021 patient was seen and examined on the telemetry floor he is somnolent responsive in no apparent distress, patient was having episodes of agitation last night he was given Ativan IV, there is no fever or chills no headache or dizziness no chest pain no shortness of breath no cough no nausea or vomiting no abdominal pain no diarrhea and no urinary symptoms. 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 On 11/18/2021 patient was seen and examined on the medical floor, he is alert slightly confused in no apparent distress, vital examination reveals a temperature of 97.6 pulse 76 respiration 17 blood pressure 103/52 pulse ox 97% on 2 L nasal cannula, his white blood count is 15.5 hemoglobin 11.6 platelet count 198 patient still has poor oral intake, he was switched to oral Eliquis by cardiology, IV heparin discontinued. Dose of IV Solu-Medrol decreased to 40 mg every 12 hours, will continue to monitor closely. On 11/19/2021 patient was seen and examined on the medical floor, he is alert slightly confused in no apparent distress, vital examination reveals a temperature of 96.8 pulse 99 respiration 16 blood pressure 107/67 pulse ox 95 % on 2 L nasal cannula, patient still has poor oral intake, he is having difficulty with swallowing his food , at this time will reconsult surgery for possible EGD . he was switched to oral Eliquis by cardiology, IV heparin discontinued. Dose of IV Solu-Medrol decreased to 40 mg every 12 hours, will continue to monitor closely. On 11/20/2021 patient was seen and examined on the medical floor, he is alert slightly confused in no apparent distress, vital examination reveals a tempe rature of 96.8 pulse 99 respiration 16 blood pressure 107/67 pulse ox 95 % on 2 L nasal cannula, patient still has poor oral intake, he is having difficulty with swallowing his food , at this time we are awaiting EGD to assess cause of difficulty swallowing need for PEG tube for feeding. he was switched to oral Eliquis by cardiology, IV heparin discontinued. Dose of IV Solu-Medrol decreased to 40 mg every 12 hours, will continue to monitor closely. Objective - Vital Signs Vital signs: Vital Signs Temp 98.0 F 11/21/21 05:48 Pulse 113 H 11/21/21 05:48 Resp 20 11/21/21 05:48 BP 144/77 11/21/21 05:48 Pulse Ox 95 11/21/21 05:48 Intake & Output 11/20/21 11/21/21 11/21/21 18:59 06:59 18:59 Output Total 300 1400 Balance -300 -1400 Output: Urine 300 1400 Other: Voiding Method Ileal Conduit (Right) Ileal Conduit (Right) # Voids 3 # Bowel Movements 0 - Exam In general patient is alert and oriented x 3 in no distress HEENT head normocephalic and atraumatic Neck is supple no JVD no goiter no lymphadenopathy no carotid bruit Chest examination reveals a scattered crackles bilaterally no wheezing Cardiac exam reveals regular heart sounds S1 and S2 no gallops no murmurs Abdomen is soft nontender no organomegaly with normal bowel sounds Extremity exam reveals no edema no cyanosis or clubbing Neurological examination reveals no gross focal deficits - Labs CBC & Chem 7: 11/21/21 06:54 11/21/21 06:54 Labs: Abnormal Lab Results - Last 24 Hours (Table) 11/20/21 11/20/21 11/20/21 Range/Units 08:29 08:29 11:33 WBC 22.79 H (4.50-10.00) X 10*3/uL RBC 4.25 L (4.40-5.60) X 10*6/uL Hgb (13.0-17.5) gm/dL MCV 99.5 H (80.0-97.0) fL MCHC 30.7 L (32.0-37.0) g/dL RDW 17.9 H (11.5-14.5) % Immature Gran # 0.22 H (0.00-0.04) X 10*3/uL Neutrophils # 19.38 H (1.80-7.70) X 10*3/uL Lymphocytes # 0.57 L (0.90-5.00) X 10*3/uL Monocytes # 2.57 H (0.20-1.00) X 10*3/uL Eosinophils # 0 L (0.04-0.35) X 10*3/uL Sodium 159 H (135-145) mmol/L Potassium 3.4 L (3.5-5.5) mmol/L Chloride 122 H (96-109) mmol/L BUN 45.2 H (9.0-27.0) mg/dL Creatinine (0.66-1.25) mg/dL Est GFR (CKD-EPI)AfAm 52.7 L (60.0-200.0) Est GFR (CKD-EPI)NonAf 45.5 L (60.0-200.0) BUN/Creatinine Ratio 32.29 H (12.00-20.00) Ratio Glucose (74-99) mg/dL POC Glucose (mg/dL) 124 H (75-99) mg/dL Total Protein 5.9 L (6.2-8.2) g/dL Albumin 3.3 L (3.8-4.9) g/dL Albumin/Globulin Ratio 1.27 L (1.60-3.17) g/dL 11/20/21 11/20/21 11/21/21 Range/Units 16:33 20:09 06:54 WBC (4.50-10.00) X 10*3/uL RBC (4.40-5.60) X 10*6/uL Hgb (13.0-17.5) gm/dL MCV (80.0-97.0) fL MCHC (32.0-37.0) g/dL RDW (11.5-14.5) % Immature Gran # (0.00-0.04) X 10*3/uL Neutrophils # (1.80-7.70) X 10*3/uL Lymphocytes # (0.90-5.00) X 10*3/uL Monocytes # (0.20-1.00) X 10*3/uL Eosinophils # (0.04-0.35) X 10*3/uL Sodium 158 H (135-145) mmol/L Potassium (3.5-5.5) mmol/L Chloride 128 H (96-109) mmol/L BUN 49 H (9.0-27.0) mg/dL Creatinine 1.44 H (0.66-1.25) mg/dL Est GFR (CKD-EPI)AfAm (60.0-200.0) Est GFR (CKD-EPI)NonAf (60.0-200.0) BUN/Creatinine Ratio (12.00-20.00) Ratio Glucose 129 H (74-99) mg/dL POC Glucose (mg/dL) 150 H 155 H (75-99) mg/dL Total Protein (6.2-8.2) g/dL Albumin (3.8-4.9) g/dL Albumin/Globulin Ratio (1.60-3.17) g/dL 11/21/21 11/21/21 Range/Units 06:54 07:02 WBC 18.0 H (4.50-10.00) X 10*3/uL RBC 3.98 L (4.40-5.60) X 10*6/uL Hgb 12.5 L (13.0-17.5) gm/dL MCV 101.4 H (80.0-97.0) fL MCHC (32.0-37.0) g/dL RDW 16.7 H (11.5-14.5) % Immature Gran # (0.00-0.04) X 10*3/uL Neutrophils # 16.3 H (1.80-7.70) X 10*3/uL Lymphocytes # 0.3 L (0.90-5.00) X 10*3/uL Monocytes # 1.1 H (0.20-1.00) X 10*3/uL Eosinophils # (0.04-0.35) X 10*3/uL Sodium (135-145) mmol/L Potassium (3.5-5.5) mmol/L Chloride (96-109) mmol/L BUN (9.0-27.0) mg/dL Creatinine (0.66-1.25) mg/dL Est GFR (CKD-EPI)AfAm (60.0-200.0) Est GFR (CKD-EPI)NonAf (60.0-200.0) BUN/Creatinine Ratio (12.00-20.00) Ratio Glucose (74-99) mg/dL POC Glucose (mg/dL) 131 H (75-99) mg/dL Total Protein (6.2-8.2) g/dL Albumin (3.8-4.9) g/dL Albumin/Globulin Ratio (1.60-3.17) g/dL Assessment and Plan Plan: 1. Acute hypoxic respiratory failure, COVID-19 infection on 11/09/2021. Now with evidence of pneumonia on chest x-ray with multifocal bilateral acute infiltrates 2. Acute non-ST elevation myocardial infarction, patient admitted to telemetry floor and was started on IV heparin cardiology consultation was requested 3. Elevated d-dimer, patient has elevated creatinine, will check VQ scan 4. Acute on chronic renal failure, creatinine on presentation 2.22 5. Underlying history of rheumatoid arthritis, maintained on methotrexate 6. Underlying history of kidney stones 7. Underlying history of anxiety disorder 8. Underlying history of tobacco abuse 9. Previous history of colon cancer 10. Previous history of bladder cancer At this time patient was admitted to medical floor He was started on IV steroids and inhaled bronchodilators and oxygen supplements VQ scan was ordered in relation to elevated d-dimer and pleuritic chest pain Pulmonary consultation requested Will follow closely
--- NOTE | 2021-11-21 14:18 | P.PN ---
Subjective Progress Note Date: 11/21/21 Bob Wolf, is a year old male who presented to [facility] emergency room with a chief complaint of chest pain patient describes a sharp pain in the chest that is intermittent and worse with deep breathing. He was evaluated in the emergency room vital examination on presentation revea led a temperature of 98.2 pulse 112 respiration 18 blood pressure 148/105 pulse ox 98% on 2 L nasal cannula Laboratory data revealed a white blood count of 10.4 hemoglobin 12.9 platelet count 400 d-dimer 2.74 BUN 62 creatinine 2.2 Testing in the emergency room revealed chest x-ray revealed bilateral multifocal infiltrates EKG revealed sinus tachycardia without acute ischemic changes Patient was admitted to medical floor for further evaluation and treatment. Past medical history is significant for advanced COPD patient still smokes he has more than 50 year history of smoking, he also has a known history of colon cancer, bladder cancer, rheumatoid arthritis, gastroesophageal reflux disease, anxiety disorder. On 11/13 patient was seen and examined on the telemetry floor, he is alert and oriented 3 in no apparent distress he is still complaining of chest pain, on admission patient had a normal troponin of 0.023 however yesterday his troponin went up to 5.05, he was transferred to [address] [place] [address] and was started on IV heparin, cardiology consultation was requested, and this time patient is lying comfortably in bed he is still complaining of some discomfort in his chest otherwise he denies any complaints there is no fever or chills no headache or dizziness no shortness of breath he has occasional cough no nausea or vomiting no abdominal pain no diarrhea and no urinary symptoms. On 11/14/2021 patient was seen and examined on the telemetry floor he is alert and oriented in no distress there is no fever or chills no headache or dizziness no chest pain no shortness of breath no cough no nausea or vomiting no abdominal pain no diarrhea no blood in the stools no burning with urination no frequency or urgency and no hematuria. On 11/15/2021 patient was seen and examined on the telemetry floor, he is alert and oriented 3 in no apparent distress, he is complaining of lower chest pain, and complaining of difficulty swallowing his food, otherwise he denies any complaints at this time, he underwent cardiac catheterization yesterday was Dr. Van that revealed evidence of minimal coronary artery disease, otherwise patient denies any complaints at this time there is no fever or chills no headache or dizziness no shortness of breath no cough no nausea or vomiting no abdominal pain no diarrhea no blood in the stools no burning with urination no frequency or urgency and no hematuria On 11/16/2021 patient was seen and examined on the telemetry floor he is somnolent responsive in no apparent distress, patient was having episodes of agitation last night he was given Ativan IV, there is no fever or chills no headache or dizziness no chest pain no shortness of breath no cough no nausea or vomiting no abdominal pain no diarrhea and no urinary symptoms. 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 On 11/18/2021 patient was seen and examined on the medical floor, he is alert slightly confused in no apparent distress, vital examination reveals a temperature of 97.6 pulse 76 respiration 17 blood pressure 103/52 pulse ox 97% on 2 L nasal cannula, his white blood count is 15.5 hemoglobin 11.6 platelet count 198 patient still has poor oral intake, he was switched to oral Eliquis by cardiology, IV heparin discontinued. Dose of IV Solu-Medrol decreased to 40 mg every 12 hours, will continue to monitor closely. On 11/19/2021 patient was seen and examined on the medical floor, he is alert slightly confused in no apparent distress, vital examination reveals a temperature of 96.8 pulse 99 respiration 16 blood pressure 107/67 pulse ox 95 % on 2 L nasal cannula, patient still has poor oral intake, he is having difficulty with swallowing his food , at this time will reconsult surgery for possible EGD . he was switched to oral Eliquis by cardiology, IV heparin discontinued. Dose of IV Solu-Medrol decreased to 40 mg every 12 hours, will continue to monitor closely. On 11/20/2021 patient was seen and examined on the medical floor, he is alert slightly confused in no apparent distress, vital examination reveals a tempe rature of 96.8 pulse 99 respiration 16 blood pressure 107/67 pulse ox 95 % on 2 L nasal cannula, patient still has poor oral intake, he is having difficulty with swallowing his food , at this time we are awaiting EGD to assess cause of difficulty swallowing need for PEG tube for feeding. he was switched to oral Eliquis by cardiology, IV heparin discontinued. Dose of IV Solu-Medrol decreased to 40 mg every 12 hours, will continue to monitor closely. On 11/21/2021 patient was seen and examined on the medical floor, he is alert slightly confused in no apparent distress, vital examination reveals a temperature of 96.8 pulse 99 respiration 16 blood pressure 107/67 pulse ox 95 % on 2 L nasal cannula, patient still has poor oral intake, he is having difficulty with swallowing his food , at this time we are awaiting EGD to assess cause of difficulty swallowing need for PEG tube for feeding. he was switched to oral Eliquis by cardiology, IV heparin discontinued. Dose of IV Solu-Medrol dec reased to 40 mg every 12 hours, will continue to monitor closely. at this time will hold Eliquis in anticipation for EGD tomorrow Objective - Vital Signs Vital signs: Vital Signs Temp 97.4 F L 11/21/21 08:47 Pulse 106 H 11/21/21 08:47 Resp 19 11/21/21 08:47 BP 121/76 11/21/21 08:47 Pulse Ox 98 11/21/21 08:47 Intake & Output 11/20/21 11/21/21 11/21/21 18:59 06:59 18:59 Output Total 300 1400 Balance -300 -1400 Output: Urine 300 1400 Other: Voiding Method Ileal Conduit (Right) Ileal Conduit (Right) Ileal Conduit (Right) # Voids 3 # Bowel Movements 0 - Exam In general patient is alert and oriented x 3 in no distress HEENT head normocephalic and atraumatic Neck is supple no JVD no goiter no lymphadenopathy no carotid bruit Chest examination reveals a scattered crackles bilaterally no wheezing Cardiac exam reveals regular heart sounds S1 and S2 no gallops no murmurs Abdomen is soft nontender no organomegaly with normal bowel sounds Extremity exam reveals no edema no cyanosis or clubbing Neurological examination reveals no gross focal deficits - Labs CBC & Chem 7: 11/21/21 06:54 11/21/21 06:54 Labs: Abnormal Lab Results - Last 24 Hours (Table) 11/20/21 11/20/21 11/21/21 Range/Units 16:33 20:09 06:54 WBC (3.8-10.6) k/uL RBC (4.30-5.90) m/uL Hgb (13.0-17.5) gm/dL MCV (80.0-100.0) fL RDW (11.5-15.5) % Neutrophils # (1.3-7.7) k/uL Lymphocytes # (1.0-4.8) k/uL Monocytes # (0-1.0) k/uL Sodium 158 H (137-145) mmol/L Chloride 128 H (98-107) mmol/L BUN 49 H (9-20) mg/dL Creatinine 1.44 H (0.66-1.25) mg/dL Glucose 129 H (74-99) mg/dL POC Glucose (mg/dL) 150 H 155 H (75-99) mg/dL 11/21/21 11/21/21 11/21/21 Range/Units 06:54 07:02 11:27 WBC 18.0 H (3.8-10.6) k/uL RBC 3.98 L (4.30-5.90) m/uL Hgb 12.5 L (13.0-17.5) gm/dL MCV 101.4 H (80.0-100.0) fL RDW 16.7 H (11.5-15.5) % Neutrophils # 16.3 H (1.3-7.7) k/uL Lymphocytes # 0.3 L (1.0-4.8) k/uL Monocytes # 1.1 H (0-1.0) k/uL Sodium (137-145) mmol/L Chloride (98-107) mmol/L BUN (9-20) mg/dL Creatinine (0.66-1.25) mg/dL Glucose (74-99) mg/dL POC Glucose (mg/dL) 131 H 139 H (75-99) mg/dL Assessment and Plan Plan: 1. Acute hypoxic respiratory failure, COVID-19 infection on 11/09/2021. Now with evidence of pneumonia on chest x-ray with multifocal bilateral acute infiltrates 2. Acute non-ST elevation myocardial infarction, patient admitted to telemetry floor and was started on IV heparin cardiology consultation was requested 3. Elevated d-dimer, patient has elevated creatinine, will check VQ scan 4. Acute on chronic renal failure, creatinine on presentation 2.22 5. Underlying history of rheumatoid arthritis, maintained on methotrexate 6. Underlying history of kidney stones 7. Underlying history of anxiety disorder 8. Underlying history of tobacco abuse 9. Previous history of colon cancer 10. Previous history of bladder cancer At this time patient was admitted to medical floor He was started on IV steroids and inhaled bronchodilators and oxygen supplements VQ scan was ordered in relation to elevated d-dimer and pleuritic chest pain Pulmonary consultation requested Will follow closely
--- NOTE | 2021-11-21 16:14 | PN ---
PROGRESS NOTE Bob is an 86-year-old gentleman who is admitted to the hospital with coronavirus infection with myocarditis, underwent cardiac catheterization that revealed mild triple- vessel disease and has been advised medical therapy. He has atrial fibrillation and is currently on Eliquis for the same. This morning, he appears a little more confused yesterday than today, but denies any chest pain or difficulty in breathing. EXAM: Heart rate is 100 beats per minute, blood pressure is 96/63, respiratory rate is 17, O2 saturation is 98%. Chest exam reveals good air entry bilaterally. Heart exam reveals first and second heart sounds. No gallop. Irregular rhythm. Exam of extremities did not reveal any edema. Peripheral pulses are felt. LAB: Show a potassium of 4.3, BUN of 49, creatinine is 1.4, sodium is 158. The patient is currently on aspirin, Lipitor, Imdur, insulin, Lopressor. ASSESSMENT: 1. Viral myocarditis with cardiomyopathy. 2. Three vessel coronary artery disease. 3. Swallowing difficulty. Patient is to undergo an EGD tomorrow. Eliquis is currently on hold. MMODL / IJN: [id number] /
[2021-11-21 16:39] LABS: Glucose,Whole Blood 142 mg/dL (75-99)
[2021-11-21] MEDS: DEXTROSE 5%-0.2% NACL 1,000 ML IV SCH (16:57)
[2021-11-21 20:22] LABS: Glucose,Whole Blood 125 mg/dL (75-99)
[2021-11-21 23:16] LABS: African American GFR (CKD) 53 (>60 ml/min/1.73 sqM); Anion Gap 6 mmol/L; Blood Urea Nitrogen 46 mg/dL (9-20); Calcium 8.8 mg/dL (8.4-10.2); Carbon Dioxide 24 mmol/L (22-30); Chloride 123 mmol/L (98-107); Glucose 113 mg/dL (74-99); Magnesium 2.2 mg/dL (1.6-2.3); Non-African American GFR(CKD) 46 (>60 ml/min/1.73 sqM); Potassium 3.9 mmol/L (3.5-5.1); Sodium 153 mmol/L (137-145)
[2021-11-22] MEDS: DEXTROSE 5%-0.2% NACL 1,000 ML IV SCH ×3 (00:55→22:59)
[2021-11-22 06:59] LABS: Glucose,Whole Blood 139 mg/dL (75-99)
[2021-11-22] MEDS: INSULIN ASPART (NovoLOG) 100 UNIT/ML VIAL SQ SCH ×4 (08:30→20:46)
[2021-11-22] MEDS: ALBUTEROL HFA INHALER INHALATION SCH ×3 (09:09→19:34)
[2021-11-22 09:37] LABS: African American GFR (CKD) 52.7 (60.0-200.0); Albumin 2.8 g/dL (3.8-4.9); Albumin/Globulin Ratio 1.22 (1.60-3.17); Anion Gap 11.4 mmol/L (10.00-18.00); Blood Urea Nitrogen 39.2 mg/dL (9.0-27.0); Calcium 8.3 mg/dL (8.7-10.3); Carbon Dioxide 22.6 mmol/L (20.0-27.5); Globulin 2.3 g/dL (1.6-3.3); Non-African American GFR(CKD) 45.5 (60.0-200.0); Potassium 4.1 mmol/L (3.5-5.5); Total Bilirubin 0.5 mg/dL (0.30-1.20); Total Protein 5.1 g/dL (6.2-8.2)
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
[2021-11-22 10:45] LABS: Basophils # (A) 0.02 X 10*3/uL (0.00-0.10); Basophils % (A) 0.1 %; Eosinophils # (A) 0 X 10*3/uL (0.04-0.35); Eosinophils % (A) 0 %; HCT 36.4 % (39.6-50.0); Lymphocytes # (A) 0.33 X 10*3/uL (0.90-5.00); Lymphocytes % (A) 2.4 %; MCH 31.3 pg (27.0-32.0); MCHC 30.2 g/dL (32.0-37.0); MCV 103.4 fL (80.0-97.0); Mean Platelet Volume 12.6 fL (9.5-12.2); Monocytes # (A) 0.85 X 10*3/uL (0.20-1.00); Monocytes % (A) 6.3 %; Neutrophils # (A) 12.32 X 10*3/uL (1.80-7.70); Neutrophils % (A) 90.7 %; Platelet Count 179 X 10*3/uL (140-440); RBC 3.52 X 10*6/uL (4.40-5.60); RDW 17.7 % (11.5-14.5); WBC 13.59 X 10*3/uL (4.50-10.00)
[2021-11-22] MEDS: HYDROCORTISONE 2.5% RECTAL CREAM 30 GM TUBE RECTAL SCH ×4 (11:37→20:46)
[2021-11-22 11:39] LABS: Glucose,Whole Blood 107 mg/dL (75-99)
[2021-11-22] MEDS: PANTOPRAZOLE 40 MG/10 ML VIAL IVP SCH (12:19)
[2021-11-22] MEDS: NICOTINE 21MG/24HR PATCH TRANSDERM SCH (12:19)
[2021-11-22] MEDS: methylPREDNISolone SOD SUCCI 40 MG/ML 1 ML VIAL IV SCH ×2 (12:19→20:46)
[2021-11-22] MEDS ORDERED: PROPOFOL 10 MG/ML 20 ML VIAL IV ONE (14:37)
[2021-11-22] MEDS ORDERED: LIDOCAINE 1% INJ 10MG/ML (20 ML MDV) ONE (14:37)
[2021-11-22] MEDS ORDERED: IV FLUID CONTINUATION 1,000 ML IV ONE (14:38)
[2021-11-22] MEDS: ISOSORBIDE MONONITRATE ER 30 MG TAB.ER.24H PO SCH (15:52)
[2021-11-22] MEDS: METOPROLOL TARTRATE 12.5 MG TAB PO SCH ×2 (15:52→22:24)
[2021-11-22] MEDS: FOLIC ACID 1 MG TAB PO SCH (15:52)
[2021-11-22] MEDS: ASCORBIC ACID 500 MG TAB PO SCH (15:52)
[2021-11-22] MEDS: ASPIRIN 81 MG PO SCH (15:52)
[2021-11-22] MEDS: ATORVASTATIN 80 MG TAB PO SCH (15:52)
[2021-11-22] MEDS: CHOLECALCIFEROL 125 MCG (5000 IU) TABLET PO SCH (15:52)
[2021-11-22] MEDS: ZINC SULFATE 220 MG CAP PO SCH (15:52)
[2021-11-22 16:30] LABS: Glucose,Whole Blood 128 mg/dL (75-99)
[2021-11-22] MEDS: NYSTATIN 100,000 UNIT/ML SUSP 500,000 UNIT/5 ML CUP PO SCH ×2 (17:26→20:45)
[2021-11-22] MEDS: FLUCONAZOLE IN NACL,ISO-OSM 400 MG in SALINE 1 200ML.BAG IVPB SCH (17:26)
--- NOTE | 2021-11-22 17:27 | P.PN ---
Subjective Progress Note Date: 11/22/21 Bob Wolf, is a year old male who presented to [facility] emergency room with a chief complaint of chest pain patient describes a sharp pain in the chest that is intermittent and worse with deep breathing. He was evaluated in the emergency room vital examination on presentation revea led a temperature of 98.2 pulse 112 respiration 18 blood pressure 148/105 pulse ox 98% on 2 L nasal cannula Laboratory data revealed a white blood count of 10.4 hemoglobin 12.9 platelet count 400 d-dimer 2.74 BUN 62 creatinine 2.2 Testing in the emergency room revealed chest x-ray revealed bilateral multifocal infiltrates EKG revealed sinus tachycardia without acute ischemic changes Patient was admitted to medical floor for further evaluation and treatment. Past medical history is significant for advanced COPD patient still smokes he has more than 50 year history of smoking, he also has a known history of colon cancer, bladder cancer, rheumatoid arthritis, gastroesophageal reflux disease, anxiety disorder. On 11/13 patient was seen and examined on the telemetry floor, he is alert and oriented 3 in no apparent distress he is still complaining of chest pain, on admission patient had a normal troponin of 0.023 however yesterday his troponin went up to 5.05, he was transferred to [address] [place] [address] and was started on IV heparin, cardiology consultation was requested, and this time patient is lying comfortably in bed he is still complaining of some discomfort in his chest otherwise he denies any complaints there is no fever or chills no headache or dizziness no shortness of breath he has occasional cough no nausea or vomiting no abdominal pain no diarrhea and no urinary symptoms. On 11/14/2021 patient was seen and examined on the telemetry floor he is alert and oriented in no distress there is no fever or chills no headache or dizziness no chest pain no shortness of breath no cough no nausea or vomiting no abdominal pain no diarrhea no blood in the stools no burning with urination no frequency or urgency and no hematuria. On 11/15/2021 patient was seen and examined on the telemetry floor, he is alert and oriented 3 in no apparent distress, he is complaining of lower chest pain, and complaining of difficulty swallowing his food, otherwise he denies any complaints at this time, he underwent cardiac catheterization yesterday was Dr. Van that revealed evidence of minimal coronary artery disease, otherwise patient denies any complaints at this time there is no fever or chills no headache or dizziness no shortness of breath no cough no nausea or vomiting no abdominal pain no diarrhea no blood in the stools no burning with urination no frequency or urgency and no hematuria On 11/16/2021 patient was seen and examined on the telemetry floor he is somnolent responsive in no apparent distress, patient was having episodes of agitation last night he was given Ativan IV, there is no fever or chills no headache or dizziness no chest pain no shortness of breath no cough no nausea or vomiting no abdominal pain no diarrhea and no urinary symptoms. 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 On 11/18/2021 patient was seen and examined on the medical floor, he is alert slightly confused in no apparent distress, vital examination reveals a temperature of 97.6 pulse 76 respiration 17 blood pressure 103/52 pulse ox 97% on 2 L nasal cannula, his white blood count is 15.5 hemoglobin 11.6 platelet count 198 patient still has poor oral intake, he was switched to oral Eliquis by cardiology, IV heparin discontinued. Dose of IV Solu-Medrol decreased to 40 mg every 12 hours, will continue to monitor closely. On 11/19/2021 patient was seen and examined on the medical floor, he is alert slightly confused in no apparent distress, vital examination reveals a temperature of 96.8 pulse 99 respiration 16 blood pressure 107/67 pulse ox 95 % on 2 L nasal cannula, patient still has poor oral intake, he is having difficulty with swallowing his food , at this time will reconsult surgery for possible EGD . he was switched to oral Eliquis by cardiology, IV heparin discontinued. Dose of IV Solu-Medrol decreased to 40 mg every 12 hours, will continue to monitor closely. On 11/20/2021 patient was seen and examined on the medical floor, he is alert slightly confused in no apparent distress, vital examination reveals a tempe rature of 96.8 pulse 99 respiration 16 blood pressure 107/67 pulse ox 95 % on 2 L nasal cannula, patient still has poor oral intake, he is having difficulty with swallowing his food , at this time we are awaiting EGD to assess cause of difficulty swallowing need for PEG tube for feeding. he was switched to oral Eliquis by cardiology, IV heparin discontinued. Dose of IV Solu-Medrol decreased to 40 mg every 12 hours, will continue to monitor closely. On 11/21/2021 patient was seen and examined on the medical floor, he is alert slightly confused in no apparent distress, vital examination reveals a temperature of 96.8 pulse 99 respiration 16 blood pressure 107/67 pulse ox 95 % on 2 L nasal cannula, patient still has poor oral intake, he is having difficulty with swallowing his food , at this time we are awaiting EGD to assess cause of difficulty swallowing need for PEG tube for feeding. he was switched to oral Eliquis by cardiology, IV heparin discontinued. Dose of IV Solu-Medrol dec reased to 40 mg every 12 hours, will continue to monitor closely. at this time will hold Eliquis in anticipation for EGD tomorrow. On 11/22/2021 patient was seen and examined on the medical floor he is somnolent he underwent EGD today case was discussed with Dr. Lizarraga, patient has evidence of severe esophageal candidiasis no evidence of cancer or obstruction biopsies were taken, at this time will add nystatin mouthwash swish and swallow 4 times daily, and add IV Diflucan, will try to have patient increase his oral intake, if not successful patient may still need a PEG tube. Objective - Vital Signs Vital signs: Vital Signs Temp 97.1 F L 11/22/21 13:35 Pulse 81 11/22/21 13:35 Resp 18 11/22/21 13:35 BP 99/63 11/22/21 13:35 Pulse Ox 93 L 11/22/21 13:35 Intake & Output 11/21/21 11/22/21 11/22/21 18:59 06:59 18:59 Output Total 800 350 Balance -800 -350 Weight 52 kg Output: Urine 800 350 Other: Voiding Method Ileal Conduit (Right) Ileal Conduit (Right) - Exam In general patient is alert and oriented x 3 in no distress HEENT head normocephalic and atraumatic Neck is supple no JVD no goiter no lymphadenopathy no carotid bruit Chest examination reveals a scattered crackles bilaterally no wheezing Cardiac exam reveals regular heart sounds S1 and S2 no gallops no murmurs Abdomen is soft nontender no organomegaly with normal bowel sounds Extremity exam reveals no edema no cyanosis or clubbing Neurological examination reveals no gross focal deficits - Labs CBC & Chem 7: 11/22/21 05:26 11/22/21 05:26 Labs: Abnormal Lab Results - Last 24 Hours (Table) 11/21/21 11/21/21 11/22/21 Range/Units 20:20 22:33 05:26 WBC 13.59 H (4.50-10.00) X 10*3/uL RBC 3.52 L (4.40-5.60) X 10*6/uL Hgb 11.0 L (13.0-17.0) g/dL Hct 36.4 L (39.6-50.0) % MCV 103.4 H (80.0-97.0) fL MCHC 30.2 L (32.0-37.0) g/dL RDW 17.7 H (11.5-14.5) % MPV 12.6 H (9.5-12.2) fL Immature Gran # 0.07 H (0.00-0.04) X 10*3/uL Neutrophils # 12.32 H (1.80-7.70) X 10*3/uL Lymphocytes # 0.33 L (0.90-5.00) X 10*3/uL Eosinophils # 0 L (0.04-0.35) X 10*3/uL Sodium 153 H (137-145) mmol/L Chloride 123 H (98-107) mmol/L BUN 46 H (9-20) mg/dL Creatinine 1.39 H (0.66-1.25) mg/dL Est GFR (CKD-EPI)AfAm (60.0-200.0) Est GFR (CKD-EPI)NonAf (60.0-200.0) BUN/Creatinine Ratio (12.00-20.00) Ratio Glucose 113 H (74-99) mg/dL POC Glucose (mg/dL) 125 H (75-99) mg/dL Calcium (8.7-10.3) mg/dL Total Protein (6.2-8.2) g/dL Albumin (3.8-4.9) g/dL Albumin/Globulin Ratio (1.60-3.17) g/dL 11/22/21 11/22/21 11/22/21 Range/Units 05:26 06:52 11:37 WBC (4.50-10.00) X 10*3/uL RBC (4.40-5.60) X 10*6/uL Hgb (13.0-17.0) g/dL Hct (39.6-50.0) % MCV (80.0-97.0) fL MCHC (32.0-37.0) g/dL RDW (11.5-14.5) % MPV (9.5-12.2) fL Immature Gran # (0.00-0.04) X 10*3/uL Neutrophils # (1.80-7.70) X 10*3/uL Lymphocytes # (0.90-5.00) X 10*3/uL Eosinophils # (0.04-0.35) X 10*3/uL Sodium 155 H (137-145) mmol/L Chloride 121 H (98-107) mmol/L BUN 39.2 H (9-20) mg/dL Creatinine (0.66-1.25) mg/dL Est GFR (CKD-EPI)AfAm 52.7 L (60.0-200.0) Est GFR (CKD-EPI)NonAf 45.5 L (60.0-200.0) BUN/Creatinine Ratio 28.00 H (12.00-20.00) Ratio Glucose 133 H (74-99) mg/dL POC Glucose (mg/dL) 139 H 107 H (75-99) mg/dL Calcium 8.3 L (8.7-10.3) mg/dL Total Protein 5.1 L (6.2-8.2) g/dL Albumin 2.8 L (3.8-4.9) g/dL Albumin/Globulin Ratio 1.22 L (1.60-3.17) g/dL 11/22/21 Range/Units 16:20 WBC (4.50-10.00) X 10*3/uL RBC (4.40-5.60) X 10*6/uL Hgb (13.0-17.0) g/dL Hct (39.6-50.0) % MCV (80.0-97.0) fL MCHC (32.0-37.0) g/dL RDW (11.5-14.5) % MPV (9.5-12.2) fL Immature Gran # (0.00-0.04) X 10*3/uL Neutrophils # (1.80-7.70) X 10*3/uL Lymphocytes # (0.90-5.00) X 10*3/uL Eosinophils # (0.04-0.35) X 10*3/uL Sodium (137-145) mmol/L Chloride (98-107) mmol/L BUN (9-20) mg/dL Creatinine (0.66-1.25) mg/dL Est GFR (CKD-EPI)AfAm (60.0-200.0) Est GFR (CKD-EPI)NonAf (60.0-200.0) BUN/Creatinine Ratio (12.00-20.00) Ratio Glucose (74-99) mg/dL POC Glucose (mg/dL) 128 H (75-99) mg/dL Calcium (8.7-10.3) mg/dL Total Protein (6.2-8.2) g/dL Albumin (3.8-4.9) g/dL Albumin/Globulin Ratio (1.60-3.17) g/dL Assessment and Plan Plan: 1. Acute hypoxic respiratory failure, COVID-19 infection on 11/09/2021. Now with evidence of pneumonia on chest x-ray with multifocal bilateral acute infiltrates 2. Acute non-ST elevation myocardial infarction, patient admitted to telemetry floor and was started on IV heparin cardiology consultation was requested 3. Elevated d-dimer, patient has elevated creatinine, will check VQ scan 4. Acute on chronic renal failure, creatinine on presentation 2.22 5. Underlying history of rheumatoid arthritis, maintained on methotrexate 6. Underlying history of kidney stones 7. Underlying history of anxiety disorder 8. Underlying history of tobacco abuse 9. Previous history of colon cancer 10. Previous history of bladder cancer At this time patient was admitted to medical floor He was started on IV steroids and inhaled bronchodilators and oxygen supplements VQ scan was ordered in relation to elevated d-dimer and pleuritic chest pain Pulmonary consultation requested Will follow closely
[2021-11-22 20:05] LABS: Glucose,Whole Blood 141 mg/dL (75-99)
--- NOTE | 2021-11-22 23:04 | P.PN ---
Progress Note - Text Progress Note Date: 11/22/21 The patient continues to be afebrile. The patient is breathing comfortably on room air today. The patient remains to be pleasantly confused and not a good historian, no vomiting or diarrhea was reported by nursing staff or urinary changes PHYSICAL EXAMINATION: Blood pressure is 110/60 with a pulse of 99, temperature of 97.2. He is 93% on room air nasal cannula. General description is an elderly male lying in bed in no distress. Respiratory system: Unlabored breathing, decreased breath sounds at the base. No wheeze. Heart S1, S2. Regular rate and rhythm. Abdomen soft, no tenderness. LABS: WBC down to 18,000 DIAGNOSTIC IMPRESSION AND PLAN: 1-Patient with acute respiratory failure which is multifactorial, component of COVID-19 infection And there is concern for possible cardiomyopathy associated with a covid19 at the patient also have mild triple-vessel disease, patient is currently being treated with heparin, Solu-Medrol, zinc and ascorbic acid and respiratory support 2-patient with worsening leukocytosis questionable steroid effect versus oropharyngeal candidiasis, with evidence of candidal esophagitis on EGD, Diflucan has been added
[2021-11-23 06:59] LABS: Glucose,Whole Blood 148 mg/dL (75-99)
[2021-11-23] MEDS: DEXTROSE 5%-0.2% NACL 1,000 ML IV SCH ×2 (08:56→17:12)
[2021-11-23] MEDS: INSULIN ASPART (NovoLOG) 100 UNIT/ML VIAL SQ SCH ×4 (08:56→20:41)
[2021-11-23] MEDS: methylPREDNISolone SOD SUCCI 40 MG/ML 1 ML VIAL IV SCH ×2 (09:09→20:41)
[2021-11-23] MEDS: NICOTINE 21MG/24HR PATCH TRANSDERM SCH (09:09)
[2021-11-23] MEDS: PANTOPRAZOLE 40 MG/10 ML VIAL IVP SCH (09:09)
[2021-11-23] MEDS: ASPIRIN 81 MG PO SCH (09:09)
[2021-11-23] MEDS: ZINC SULFATE 220 MG CAP PO SCH (09:09)
[2021-11-23] MEDS: NYSTATIN 100,000 UNIT/ML SUSP 500,000 UNIT/5 ML CUP PO SCH ×4 (09:09→20:40)
[2021-11-23] MEDS: ATORVASTATIN 80 MG TAB PO SCH (09:10)
[2021-11-23] MEDS: ASCORBIC ACID 500 MG TAB PO SCH (09:10)
[2021-11-23] MEDS: FOLIC ACID 1 MG TAB PO SCH (09:10)
[2021-11-23] MEDS: ISOSORBIDE MONONITRATE ER 30 MG TAB.ER.24H PO SCH (09:10)
[2021-11-23] MEDS: METOPROLOL TARTRATE 12.5 MG TAB PO SCH ×2 (09:10→20:40)
[2021-11-23] MEDS: CHOLECALCIFEROL 125 MCG (5000 IU) TABLET PO SCH (09:10)
[2021-11-23] MEDS: HYDROCORTISONE 2.5% RECTAL CREAM 30 GM TUBE RECTAL SCH ×4 (09:18→20:41)
[2021-11-23] MEDS: ALBUTEROL HFA INHALER INHALATION SCH ×3 (09:19→20:49)
[2021-11-23 09:56] LABS: African American GFR (CKD) 61.1 (60.0-200.0); Albumin 2.9 g/dL (3.8-4.9); Albumin/Globulin Ratio 1.16 (1.60-3.17); Anion Gap 13.8 mmol/L (10.00-18.00); BUN/Creat Ratio 30.24 Ratio (12.00-20.00); Blood Urea Nitrogen 37.5 mg/dL (9.0-27.0); C Reactive Protein 3.2 mg/dL (0.00-0.80); Calcium 8.2 mg/dL (8.7-10.3); Carbon Dioxide 20.8 mmol/L (20.0-27.5); Globulin 2.5 g/dL (1.6-3.3); Non-African American GFR(CKD) 52.7 (60.0-200.0); Total Bilirubin 0.7 mg/dL (0.30-1.20); Total Protein 5.4 g/dL (6.2-8.2)
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
[2021-11-23 10:41] LABS: Basophils # (A) 0.02 X 10*3/uL (0.00-0.10); Basophils % (A) 0.1 %; Eosinophils # (A) 0 X 10*3/uL (0.04-0.35); Eosinophils % (A) 0 %; HCT 36.8 % (39.6-50.0); HGB 11.3 g/dL (13.0-17.0); Lymphocytes # (A) 0.38 X 10*3/uL (0.90-5.00); Lymphocytes % (A) 2.8 %; MCH 31.4 pg (27.0-32.0); MCHC 30.7 g/dL (32.0-37.0); MCV 102.2 fL (80.0-97.0); Mean Platelet Volume 12.6 fL (9.5-12.2); Monocytes # (A) 0.72 X 10*3/uL (0.20-1.00); Monocytes % (A) 5.2 %; Neutrophils # (A) 12.55 X 10*3/uL (1.80-7.70); Neutrophils % (A) 91.2 %; Platelet Count 152 X 10*3/uL (140-440); RDW 17.4 % (11.5-14.5); WBC 13.77 X 10*3/uL (4.50-10.00)
--- NOTE | 2021-11-23 11:25 | P.OP ---
Date of Procedure: 11/22/21 Description of Procedure: Date of Procedure: 11/22/21 Preoperative Diagnosis: Epigastric pain Postoperative Diagnosis: Mild antral gastritis Esophagitis Procedure(s) Performed: EGD Anesthesia: MAC Surgeon: Kvng Lizarraga Pathology: other (Antrum, esophagus) Condition: stable Disposition: PACU Description of Procedure: The patient's placed on the endoscopy table in the lateral position. He received IV sedation. The gastroscope placed oropharynx passed in the esophagus and stomach. Scope some placed through the pylorus. The first and second portion of the duodenum appeared normal. Scope was then brought back the antrum and this was mildly inflamed. A biopsies performed. Scope was unretroflexed and remainder stomach appeared normal. The GE junction was at 40 cm. The distal esophagus appeared inflamed. The esophagus was inflamed to at least the midportion of the esophagus. A biopsies performed. It had cyst suspicious appearance of [place]. The proximal esophagus appeared normal. Scope withdrawn for patient.
[2021-11-23] MEDS: APIXABAN 2.5 MG TABLET PO SCH ×2 (11:39→20:40)
[2021-11-23 11:44] LABS: Glucose,Whole Blood 239 mg/dL (75-99)
[2021-11-23 12:03] LABS: Amylase 38 U/L (23-121); Lipase 30 U/L (14-60)
--- NOTE | 2021-11-23 13:17 | P.PN ---
Subjective Progress Note Date: 11/23/21 CHIEF COMPLAINT: Epigastric pain HISTORY OF PRESENT ILLNESS: Patient is status post EGD with mild antral gastritis and esophagitis. Patient is nonverbal. He is awake and lying in bed comfortably. Afebrile. WBC 13.77 hemoglobin 11.3 PHYSICAL EXAM: VITAL SIGNS: Reviewed. GENERAL: Well-developed in no acute distress. HEENT: No sclera icterus. Extraocular movements grossly intact. Moist buccal mucosa. Head is atraumatic, normocephalic. ABDOMEN: Soft. Nondistended. Nontender. NEUROLOGIC: Nonverbal ASSESSMENT: 1. Epigastric abdominal pain status post EGD that demonstrated mild antral antoni ritis and esophagitis. And shown possible evidence of Trinity 2. Paroxysmal atrial fibrillation PLAN: -Continue nystatin swish and swallow -Follow up on biopsy results -Continue PPI -Okay to restart Eliquis from surgical standpoint -Continue pured diet Physician Horticultural Farmer note has been reviewed by physician. Signing provider agrees with the documented findings, assessment, and plan of care. Objective - Vital Signs Vital signs: Vital Signs Temp 97.2 F L 11/23/21 10:00 Pulse 64 11/23/21 10:00 Resp 18 11/23/21 10:00 BP 111/63 11/23/21 10:00 Pulse Ox 96 11/23/21 10:00 Intake & Output 11/22/21 11/23/21 11/23/21 18:59 06:59 18:59 Output Total 650 Balance -650 Weight 52 kg Output: Urine 650 Other: Voiding Method Ileal Conduit (Right) Ileal Conduit (Right) # Voids 800 - Labs CBC & Chem 7: 11/23/21 05:04 11/23/21 05:04 Labs: Abnormal Lab Results - Last 24 Hours (Table) 11/22/21 11/22/21 11/23/21 Range/Units 16:20 20:04 05:04 WBC 13.77 H (4.50-10.00) X 10*3/uL RBC 3.60 L (4.40-5.60) X 10*6/uL Hgb 11.3 L (13.0-17.0) g/dL Hct 36.8 L (39.6-50.0) % MCV 102.2 H (80.0-97.0) fL MCHC 30.7 L (32.0-37.0) g/dL RDW 17.4 H (11.5-14.5) % MPV 12.6 H (9.5-12.2) fL Immature Gran # 0.10 H (0.00-0.04) X 10*3/uL Neutrophils # 12.55 H (1.80-7.70) X 10*3/uL Lymphocytes # 0.38 L (0.90-5.00) X 10*3/uL Eosinophils # 0 L (0.04-0.35) X 10*3/uL Sodium (135-145) mmol/L Chloride (96-109) mmol/L BUN (9.0-27.0) mg/dL Est GFR (CKD-EPI)NonAf (60.0-200.0) BUN/Creatinine Ratio (12.00-20.00) Ratio Glucose (70-110) mg/dL POC Glucose (mg/dL) 128 H 141 H (75-99) mg/dL Calcium (8.7-10.3) mg/dL C-Reactive Protein (0.00-0.80) mg/dL Total Protein (6.2-8.2) g/dL Albumin (3.8-4.9) g/dL Albumin/Globulin Ratio (1.60-3.17) g/dL Procalcitonin (0.02-0.09) ng/mL 11/23/21 11/23/21 11/23/21 Range/Units 05:04 05:04 06:58 WBC (4.50-10.00) X 10*3/uL RBC (4.40-5.60) X 10*6/uL Hgb (13.0-17.0) g/dL Hct (39.6-50.0) % MCV (80.0-97.0) fL MCHC (32.0-37.0) g/dL RDW (11.5-14.5) % MPV (9.5-12.2) fL Immature Gran # (0.00-0.04) X 10*3/uL Neutrophils # (1.80-7.70) X 10*3/uL Lymphocytes # (0.90-5.00) X 10*3/uL Eosinophils # (0.04-0.35) X 10*3/uL Sodium 146 H (135-145) mmol/L Chloride 112 H (96-109) mmol/L BUN 37.5 H (9.0-27.0) mg/dL Est GFR (CKD-EPI)NonAf 52.7 L (60.0-200.0) BUN/Creatinine Ratio 30.24 H (12.00-20.00) Ratio Glucose 154 H (70-110) mg/dL POC Glucose (mg/dL) 148 H (75-99) mg/dL Calcium 8.2 L (8.7-10.3) mg/dL C-Reactive Protein 3.20 H (0.00-0.80) mg/dL Total Protein 5.4 L (6.2-8.2) g/dL Albumin 2.9 L (3.8-4.9) g/dL Albumin/Globulin Ratio 1.16 L (1.60-3.17) g/dL Procalcitonin 0.12 H (0.02-0.09) ng/mL 11/23/21 Range/Units 11:43 WBC (4.50-10.00) X 10*3/uL RBC (4.40-5.60) X 10*6/uL Hgb (13.0-17.0) g/dL Hct (39.6-50.0) % MCV (80.0-97.0) fL MCHC (32.0-37.0) g/dL RDW (11.5-14.5) % MPV (9.5-12.2) fL Immature Gran # (0.00-0.04) X 10*3/uL Neutrophils # (1.80-7.70) X 10*3/uL Lymphocytes # (0.90-5.00) X 10*3/uL Eosinophils # (0.04-0.35) X 10*3/uL Sodium (135-145) mmol/L Chloride (96-109) mmol/L BUN (9.0-27.0) mg/dL Est GFR (CKD-EPI)NonAf (60.0-200.0) BUN/Creatinine Ratio (12.00-20.00) Ratio Glucose (70-110) mg/dL POC Glucose (mg/dL) 239 H (75-99) mg/dL Calcium (8.7-10.3) mg/dL C-Reactive Protein (0.00-0.80) mg/dL Total Protein (6.2-8.2) g/dL Albumin (3.8-4.9) g/dL Albumin/Globulin Ratio (1.60-3.17) g/dL Procalcitonin (0.02-0.09) ng/mL
[2021-11-23 16:40] LABS: Glucose,Whole Blood 164 mg/dL (75-99)
[2021-11-23] MEDS: FLUCONAZOLE IN NACL,ISO-OSM 400 MG in SALINE 1 200ML.BAG IVPB SCH (17:12)
--- NOTE | 2021-11-23 17:14 | P.PN ---
Subjective Progress Note Date: 11/23/21 Bob Wolf, is a year old male who presented to [facility] emergency room with a chief complaint of chest pain patient describes a sharp pain in the chest that is intermittent and worse with deep breathing. He was evaluated in the emergency room vital examination on presentation revea led a temperature of 98.2 pulse 112 respiration 18 blood pressure 148/105 pulse ox 98% on 2 L nasal cannula Laboratory data revealed a white blood count of 10.4 hemoglobin 12.9 platelet count 400 d-dimer 2.74 BUN 62 creatinine 2.2 Testing in the emergency room revealed chest x-ray revealed bilateral multifocal infiltrates EKG revealed sinus tachycardia without acute ischemic changes Patient was admitted to medical floor for further evaluation and treatment. Past medical history is significant for advanced COPD patient still smokes he has more than 50 year history of smoking, he also has a known history of colon cancer, bladder cancer, rheumatoid arthritis, gastroesophageal reflux disease, anxiety disorder. On 11/13 patient was seen and examined on the telemetry floor, he is alert and oriented 3 in no apparent distress he is still complaining of chest pain, on admission patient had a normal troponin of 0.023 however yesterday his troponin went up to 5.05, he was transferred to [address] [place] [address] and was started on IV heparin, cardiology consultation was requested, and this time patient is lying comfortably in bed he is still complaining of some discomfort in his chest otherwise he denies any complaints there is no fever or chills no headache or dizziness no shortness of breath he has occasional cough no nausea or vomiting no abdominal pain no diarrhea and no urinary symptoms. On 11/14/2021 patient was seen and examined on the telemetry floor he is alert and oriented in no distress there is no fever or chills no headache or dizziness no chest pain no shortness of breath no cough no nausea or vomiting no abdominal pain no diarrhea no blood in the stools no burning with urination no frequency or urgency and no hematuria. On 11/15/2021 patient was seen and examined on the telemetry floor, he is alert and oriented 3 in no apparent distress, he is complaining of lower chest pain, and complaining of difficulty swallowing his food, otherwise he denies any complaints at this time, he underwent cardiac catheterization yesterday was Dr. Van that revealed evidence of minimal coronary artery disease, otherwise patient denies any complaints at this time there is no fever or chills no headache or dizziness no shortness of breath no cough no nausea or vomiting no abdominal pain no diarrhea no blood in the stools no burning with urination no frequency or urgency and no hematuria On 11/16/2021 patient was seen and examined on the telemetry floor he is somnolent responsive in no apparent distress, patient was having episodes of agitation last night he was given Ativan IV, there is no fever or chills no headache or dizziness no chest pain no shortness of breath no cough no nausea or vomiting no abdominal pain no diarrhea and no urinary symptoms. 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 On 11/18/2021 patient was seen and examined on the medical floor, he is alert slightly confused in no apparent distress, vital examination reveals a temperature of 97.6 pulse 76 respiration 17 blood pressure 103/52 pulse ox 97% on 2 L nasal cannula, his white blood count is 15.5 hemoglobin 11.6 platelet count 198 patient still has poor oral intake, he was switched to oral Eliquis by cardiology, IV heparin discontinued. Dose of IV Solu-Medrol decreased to 40 mg every 12 hours, will continue to monitor closely. On 11/19/2021 patient was seen and examined on the medical floor, he is alert slightly confused in no apparent distress, vital examination reveals a temperature of 96.8 pulse 99 respiration 16 blood pressure 107/67 pulse ox 95 % on 2 L nasal cannula, patient still has poor oral intake, he is having difficulty with swallowing his food , at this time will reconsult surgery for possible EGD . he was switched to oral Eliquis by cardiology, IV heparin discontinued. Dose of IV Solu-Medrol decreased to 40 mg every 12 hours, will continue to monitor closely. On 11/20/2021 patient was seen and examined on the medical floor, he is alert slightly confused in no apparent distress, vital examination reveals a tempe rature of 96.8 pulse 99 respiration 16 blood pressure 107/67 pulse ox 95 % on 2 L nasal cannula, patient still has poor oral intake, he is having difficulty with swallowing his food , at this time we are awaiting EGD to assess cause of difficulty swallowing need for PEG tube for feeding. he was switched to oral Eliquis by cardiology, IV heparin discontinued. Dose of IV Solu-Medrol decreased to 40 mg every 12 hours, will continue to monitor closely. On 11/21/2021 patient was seen and examined on the medical floor, he is alert slightly confused in no apparent distress, vital examination reveals a temperature of 96.8 pulse 99 respiration 16 blood pressure 107/67 pulse ox 95 % on 2 L nasal cannula, patient still has poor oral intake, he is having difficulty with swallowing his food , at this time we are awaiting EGD to assess cause of difficulty swallowing need for PEG tube for feeding. he was switched to oral Eliquis by cardiology, IV heparin discontinued. Dose of IV Solu-Medrol dec reased to 40 mg every 12 hours, will continue to monitor closely. at this time will hold Eliquis in anticipation for EGD tomorrow. On 11/22/2021 patient was seen and examined on the medical floor he is somnolent he underwent EGD today case was discussed with Dr. Lizarraga, patient has evidence of severe esophageal candidiasis no evidence of cancer or obstruction biopsies were taken, at this time will add nystatin mouthwash swish and swallow 4 times daily, and add IV Diflucan, will try to have patient increase his oral intake, if not successful patient may still need a PEG tube. On 11/23/2021 patient was seen and examined on the medical floor he is alert and oriented and answering questions appropriately, he is able to tolerate some of his diet, sodium is down to 146, patient mental status improved, he was started on IV Diflucan and oral nystatin mouthwash swish and swallow for severe es ophageal candidiasis, he is improving gradually. At this time will add physical therapy and occupational therapy, we are hoping for discharge to a rehab unit before the end of this week. On review of systems patient is feeling better there is no fever or chills no headache or dizziness no chest pain no shortness of breath no cough no nausea or vomiting no abdominal pain no diarrhea and no urinary symptoms Objective - Vital Signs Vital signs: Vital Signs Temp 97.2 F L 11/23/21 10:00 Pulse 71 11/23/21 14:00 Resp 18 11/23/21 14:00 BP 100/58 11/23/21 14:00 Pulse Ox 98 11/23/21 14:00 Intake & Output 11/22/21 11/23/21 11/23/21 18:59 06:59 18:59 Output Total 650 500 Balance -650 -500 Weight 52 kg Output: Urine 650 500 Other: Voiding Method Ileal Conduit (Right) Ileal Conduit (Right) # Voids 800 # Bowel Movements 2 - Exam In general patient is alert and oriented x 3 in no distress HEENT head normocephalic and atraumatic Neck is supple no JVD no goiter no lymphadenopathy no carotid bruit Chest examination reveals a scattered crackles bilaterally no wheezing Cardiac exam reveals regular heart sounds S1 and S2 no gallops no murmurs Abdomen is soft nontender no organomegaly with normal bowel sounds Extremity exam reveals no edema no cyanosis or clubbing Neurological examination reveals no gross focal deficits - Labs CBC & Chem 7: 11/23/21 05:04 11/23/21 05:04 Labs: Abnormal Lab Results - Last 24 Hours (Table) 11/22/21 11/23/21 11/23/21 Range/Units 20:04 05:04 05:04 WBC 13.77 H (4.50-10.00) X 10*3/uL RBC 3.60 L (4.40-5.60) X 10*6/uL Hgb 11.3 L (13.0-17.0) g/dL Hct 36.8 L (39.6-50.0) % MCV 102.2 H (80.0-97.0) fL MCHC 30.7 L (32.0-37.0) g/dL RDW 17.4 H (11.5-14.5) % MPV 12.6 H (9.5-12.2) fL Immature Gran # 0.10 H (0.00-0.04) X 10*3/uL Neutrophils # 12.55 H (1.80-7.70) X 10*3/uL Lymphocytes # 0.38 L (0.90-5.00) X 10*3/uL Eosinophils # 0 L (0.04-0.35) X 10*3/uL Sodium 146 H (135-145) mmol/L Chloride 112 H (96-109) mmol/L BUN 37.5 H (9.0-27.0) mg/dL Est GFR (CKD-EPI)NonAf 52.7 L (60.0-200.0) BUN/Creatinine Ratio 30.24 H (12.00-20.00) Ratio Glucose 154 H (70-110) mg/dL POC Glucose (mg/dL) 141 H (75-99) mg/dL Calcium 8.2 L (8.7-10.3) mg/dL C-Reactive Protein 3.20 H (0.00-0.80) mg/dL Total Protein 5.4 L (6.2-8.2) g/dL Albumin 2.9 L (3.8-4.9) g/dL Albumin/Globulin Ratio 1.16 L (1.60-3.17) g/dL Procalcitonin (0.02-0.09) ng/mL 11/23/21 11/23/21 11/23/21 Range/Units 05:04 06:58 11:43 WBC (4.50-10.00) X 10*3/uL RBC (4.40-5.60) X 10*6/uL Hgb (13.0-17.0) g/dL Hct (39.6-50.0) % MCV (80.0-97.0) fL MCHC (32.0-37.0) g/dL RDW (11.5-14.5) % MPV (9.5-12.2) fL Immature Gran # (0.00-0.04) X 10*3/uL Neutrophils # (1.80-7.70) X 10*3/uL Lymphocytes # (0.90-5.00) X 10*3/uL Eosinophils # (0.04-0.35) X 10*3/uL Sodium (135-145) mmol/L Chloride (96-109) mmol/L BUN (9.0-27.0) mg/dL Est GFR (CKD-EPI)NonAf (60.0-200.0) BUN/Creatinine Ratio (12.00-20.00) Ratio Glucose (70-110) mg/dL POC Glucose (mg/dL) 148 H 239 H (75-99) mg/dL Calcium (8.7-10.3) mg/dL C-Reactive Protein (0.00-0.80) mg/dL Total Protein (6.2-8.2) g/dL Albumin (3.8-4.9) g/dL Albumin/Globulin Ratio (1.60-3.17) g/dL Procalcitonin 0.12 H (0.02-0.09) ng/mL 11/23/21 Range/Units 16:38 WBC (4.50-10.00) X 10*3/uL RBC (4.40-5.60) X 10*6/uL Hgb (13.0-17.0) g/dL Hct (39.6-50.0) % MCV (80.0-97.0) fL MCHC (32.0-37.0) g/dL RDW (11.5-14.5) % MPV (9.5-12.2) fL Immature Gran # (0.00-0.04) X 10*3/uL Neutrophils # (1.80-7.70) X 10*3/uL Lymphocytes # (0.90-5.00) X 10*3/uL Eosinophils # (0.04-0.35) X 10*3/uL Sodium (135-145) mmol/L Chloride (96-109) mmol/L BUN (9.0-27.0) mg/dL Est GFR (CKD-EPI)NonAf (60.0-200.0) BUN/Creatinine Ratio (12.00-20.00) Ratio Glucose (70-110) mg/dL POC Glucose (mg/dL) 164 H (75-99) mg/dL Calcium (8.7-10.3) mg/dL C-Reactive Protein (0.00-0.80) mg/dL Total Protein (6.2-8.2) g/dL Albumin (3.8-4.9) g/dL Albumin/Globulin Ratio (1.60-3.17) g/dL Procalcitonin (0.02-0.09) ng/mL Assessment and Plan Plan: 1. Acute hypoxic respiratory failure, COVID-19 infection on 11/09/2021. Now with evidence of pneumonia on chest x-ray with multifocal bilateral acute infiltrates 2. Acute non-ST elevation myocardial infarction, patient admitted to telemetry floor and was started on IV heparin cardiology consultation was requested 3. Elevated d-dimer, patient has elevated creatinine, will check VQ scan 4. Acute on chronic renal failure, creatinine on presentation 2.22 5. Underlying history of rheumatoid arthritis, maintained on methotrexate 6. Underlying history of kidney stones 7. Underlying history of anxiety disorder 8. Underlying history of tobacco abuse 9. Previous history of colon cancer 10. Previous history of bladder cancer At this time patient was admitted to medical floor He was started on IV steroids and inhaled bronchodilators and oxygen supplements VQ scan was ordered in relation to elevated d-dimer and pleuritic chest pain Pulmonary consultation requested Will follow closely
[2021-11-23 20:29] LABS: Glucose,Whole Blood 93 mg/dL (75-99)
[2021-11-24] MEDS: DEXTROSE 5%-0.2% NACL 1,000 ML IV SCH ×2 (02:20→13:04)
[2021-11-24] MEDS ORDERED: PROCHLORPERAZINE INJ 10 MG/2 ML VIAL IVP PRN (05:56)
[2021-11-24 07:04] LABS: Glucose,Whole Blood 157 mg/dL (75-99)
[2021-11-24] MEDS: INSULIN ASPART (NovoLOG) 100 UNIT/ML VIAL SQ SCH ×4 (07:42→21:32)
[2021-11-24] MEDS: methylPREDNISolone SOD SUCCI 40 MG/ML 1 ML VIAL IV SCH (08:29)
[2021-11-24] MEDS: PANTOPRAZOLE 40 MG/10 ML VIAL IVP SCH (08:29)
[2021-11-24] MEDS: NYSTATIN 100,000 UNIT/ML SUSP 500,000 UNIT/5 ML CUP PO SCH ×4 (08:29→20:40)
[2021-11-24] MEDS: METOPROLOL TARTRATE 12.5 MG TAB PO SCH ×2 (08:30→20:39)
[2021-11-24] MEDS: APIXABAN 2.5 MG TABLET PO SCH ×2 (08:30→20:39)
[2021-11-24] MEDS: ISOSORBIDE MONONITRATE ER 30 MG TAB.ER.24H PO SCH (08:30)
[2021-11-24] MEDS: ASPIRIN 81 MG PO SCH (08:30)
[2021-11-24] MEDS: CHOLECALCIFEROL 125 MCG (5000 IU) TABLET PO SCH (08:30)
[2021-11-24] MEDS: HYDROCORTISONE 2.5% RECTAL CREAM 30 GM TUBE RECTAL SCH ×4 (08:30→20:40)
[2021-11-24] MEDS: ASCORBIC ACID 500 MG TAB PO SCH (08:30)
[2021-11-24] MEDS: NICOTINE 21MG/24HR PATCH TRANSDERM SCH (08:30)
[2021-11-24] MEDS: ATORVASTATIN 80 MG TAB PO SCH (08:30)
[2021-11-24] MEDS: FOLIC ACID 1 MG TAB PO SCH (08:30)
[2021-11-24] MEDS: ZINC SULFATE 220 MG CAP PO SCH (08:30)
[2021-11-24] MEDS: ALBUTEROL HFA INHALER INHALATION SCH ×3 (08:50→20:22)
[2021-11-24 09:04] LABS: Basophils # (A) 0.02 X 10*3/uL (0.00-0.10); Basophils % (A) 0.1 %; Eosinophils # (A) 0 X 10*3/uL (0.04-0.35); Eosinophils % (A) 0 %; HGB 10.1 g/dL (13.0-17.0); Lymphocytes # (A) 0.41 X 10*3/uL (0.90-5.00); Lymphocytes % (A) 2.4 %; MCH 30.7 pg (27.0-32.0); MCHC 29.7 g/dL (32.0-37.0); MCV 103.3 fL (80.0-97.0); Mean Platelet Volume 12.7 fL (9.5-12.2); Monocytes # (A) 0.91 X 10*3/uL (0.20-1.00); Monocytes % (A) 5.4 %; Neutrophils # (A) 15.47 X 10*3/uL (1.80-7.70); Neutrophils % (A) 91.3 %; Platelet Count 161 X 10*3/uL (140-440); RBC 3.29 X 10*6/uL (4.40-5.60); RDW 17.2 % (11.5-14.5); WBC 16.94 X 10*3/uL (4.50-10.00)
[2021-11-24 09:19] LABS: African American GFR (CKD) 63.5 (60.0-200.0); Albumin 2.6 g/dL (3.8-4.9); Albumin/Globulin Ratio 1.3 (1.60-3.17); Anion Gap 11.1 mmol/L (10.00-18.00); BUN/Creat Ratio 28.25 Ratio (12.00-20.00); Blood Urea Nitrogen 33.9 mg/dL (9.0-27.0); Calcium 8.1 mg/dL (8.7-10.3); Carbon Dioxide 21.9 mmol/L (20.0-27.5); Non-African American GFR(CKD) 54.8 (60.0-200.0); Potassium 3.9 mmol/L (3.5-5.5); Total Bilirubin 0.4 mg/dL (0.30-1.20); Total Protein 4.6 g/dL (6.2-8.2)
[2021-11-24 11:35] LABS: Glucose,Whole Blood 156 mg/dL (75-99)
--- NOTE | 2021-11-24 13:32 | P.PN ---
Subjective Progress Note Date: 11/24/21 CHIEF COMPLAINT: Epigastric pain HISTORY OF PRESENT ILLNESS: Patient is status post EGD with mild antral gastritis and esophagitis. Patient is nonverbal. Patient is lying in bed comfortably. Per nursing staff patient is eating very small amount. He was able to drink is full ensure. Afebrile. WBC 16.940 and 10.1. Cardiology did restart Eliquis yesterday. PHYSICAL EXAM: VITAL SIGNS: Reviewed. GENERAL: Well-developed in no acute distress. HEENT: No sclera icterus. Extraocular movements grossly intact. Moist buccal mucosa. Head is atraumatic, normocephalic. ABDOMEN: Soft. Nondistended. Nontender. NEUROLOGIC: Nonverbal ASSESSMENT: 1. Epigastric abdominal pain status post EGD that demonstrated mild antral gastritis and esophagitis. And shown possible evidence of Trinity 2. Paroxysmal atrial fibrillation 3. COVID-19 pneumonia PLAN: -Continue nystatin swish and swallow -Follow up on biopsy results -Continue PPI -Continue pured diet Physician Bead Trimmer note has been reviewed by physician. Signing provider agrees with the documented findings, assessment, and plan of care. Objective - Vital Signs Vital signs: Vital Signs Temp 97.6 F 11/24/21 10:00 Pulse 70 11/24/21 10:00 Resp 17 11/24/21 10:00 BP 100/61 11/24/21 10:00 Pulse Ox 97 11/24/21 10:00 Intake & Output 11/23/21 11/24/21 11/24/21 18:59 06:59 18:59 Output Total 500 950 Balance -500 -950 Output: Urine 500 950 Other: Voiding Method Ileal Conduit (Right) Ileal Conduit (Right) Ileal Conduit (Right) # Bowel Movements 1 - Labs CBC & Chem 7: 11/24/21 05:21 11/24/21 05:21 Labs: Abnormal Lab Results - Last 24 Hours (Table) 11/23/21 11/24/21 11/24/21 Range/Units 16:38 05:21 05:21 WBC 16.94 H (4.50-10.00) X 10*3/uL RBC 3.29 L (4.40-5.60) X 10*6/uL Hgb 10.1 L (13.0-17.0) g/dL Hct 34.0 L (39.6-50.0) % MCV 103.3 H (80.0-97.0) fL MCHC 29.7 L (32.0-37.0) g/dL RDW 17.2 H (11.5-14.5) % MPV 12.7 H (9.5-12.2) fL Immature Gran # 0.13 H (0.00-0.04) X 10*3/uL Neutrophils # 15.47 H (1.80-7.70) X 10*3/uL Lymphocytes # 0.41 L (0.90-5.00) X 10*3/uL Eosinophils # 0 L (0.04-0.35) X 10*3/uL Chloride 110 H (96-109) mmol/L BUN 33.9 H (9.0-27.0) mg/dL Est GFR (CKD-EPI)NonAf 54.8 L (60.0-200.0) BUN/Creatinine Ratio 28.25 H (12.00-20.00) Ratio Glucose 165 H (70-110) mg/dL POC Glucose (mg/dL) 164 H (75-99) mg/dL Calcium 8.1 L (8.7-10.3) mg/dL Total Protein 4.6 L (6.2-8.2) g/dL Albumin 2.6 L (3.8-4.9) g/dL Albumin/Globulin Ratio 1.30 L (1.60-3.17) g/dL 11/24/21 11/24/21 Range/Units 07:03 11:33 WBC (4.50-10.00) X 10*3/uL RBC (4.40-5.60) X 10*6/uL Hgb (13.0-17.0) g/dL Hct (39.6-50.0) % MCV (80.0-97.0) fL MCHC (32.0-37.0) g/dL RDW (11.5-14.5) % MPV (9.5-12.2) fL Immature Gran # (0.00-0.04) X 10*3/uL Neutrophils # (1.80-7.70) X 10*3/uL Lymphocytes # (0.90-5.00) X 10*3/uL Eosinophils # (0.04-0.35) X 10*3/uL Chloride (96-109) mmol/L BUN (9.0-27.0) mg/dL Est GFR (CKD-EPI)NonAf (60.0-200.0) BUN/Creatinine Ratio (12.00-20.00) Ratio Glucose (70-110) mg/dL POC Glucose (mg/dL) 157 H 156 H (75-99) mg/dL Calcium (8.7-10.3) mg/dL Total Protein (6.2-8.2) g/dL Albumin (3.8-4.9) g/dL Albumin/Globulin Ratio (1.60-3.17) g/dL Microbiology - Last 24 Hours (Table) 11/23/21 05:15 Blood Culture - Preliminary Blood No Growth after 24 hours
[2021-11-24 16:46] LABS: Glucose,Whole Blood 133 mg/dL (75-99)
[2021-11-24] MEDS: FLUCONAZOLE IN NACL,ISO-OSM 400 MG in SALINE 1 200ML.BAG IVPB SCH (17:07)
[2021-11-24] MEDS: MEGESTROL 400 MG/10 ML CUP PO SCH (17:07)
--- NOTE | 2021-11-24 18:30 | P.PN ---
Subjective Progress Note Date: 11/24/21 Bob Wolf, is a year old male who presented to [facility] emergency room with a chief complaint of chest pain patient describes a sharp pain in the chest that is intermittent and worse with deep breathing. He was evaluated in the emergency room vital examination on presentation revea led a temperature of 98.2 pulse 112 respiration 18 blood pressure 148/105 pulse ox 98% on 2 L nasal cannula Laboratory data revealed a white blood count of 10.4 hemoglobin 12.9 platelet count 400 d-dimer 2.74 BUN 62 creatinine 2.2 Testing in the emergency room revealed chest x-ray revealed bilateral multifocal infiltrates EKG revealed sinus tachycardia without acute ischemic changes Patient was admitted to medical floor for further evaluation and treatment. Past medical history is significant for advanced COPD patient still smokes he has more than 50 year history of smoking, he also has a known history of colon cancer, bladder cancer, rheumatoid arthritis, gastroesophageal reflux disease, anxiety disorder. On 11/13 patient was seen and examined on the telemetry floor, he is alert and oriented 3 in no apparent distress he is still complaining of chest pain, on admission patient had a normal troponin of 0.023 however yesterday his troponin went up to 5.05, he was transferred to [address] [place] [address] and was started on IV heparin, cardiology consultation was requested, and this time patient is lying comfortably in bed he is still complaining of some discomfort in his chest otherwise he denies any complaints there is no fever or chills no headache or dizziness no shortness of breath he has occasional cough no nausea or vomiting no abdominal pain no diarrhea and no urinary symptoms. On 11/14/2021 patient was seen and examined on the telemetry floor he is alert and oriented in no distress there is no fever or chills no headache or dizziness no chest pain no shortness of breath no cough no nausea or vomiting no abdominal pain no diarrhea no blood in the stools no burning with urination no frequency or urgency and no hematuria. On 11/15/2021 patient was seen and examined on the telemetry floor, he is alert and oriented 3 in no apparent distress, he is complaining of lower chest pain, and complaining of difficulty swallowing his food, otherwise he denies any complaints at this time, he underwent cardiac catheterization yesterday was Dr. Van that revealed evidence of minimal coronary artery disease, otherwise patient denies any complaints at this time there is no fever or chills no headache or dizziness no shortness of breath no cough no nausea or vomiting no abdominal pain no diarrhea no blood in the stools no burning with urination no frequency or urgency and no hematuria On 11/16/2021 patient was seen and examined on the telemetry floor he is somnolent responsive in no apparent distress, patient was having episodes of agitation last night he was given Ativan IV, there is no fever or chills no headache or dizziness no chest pain no shortness of breath no cough no nausea or vomiting no abdominal pain no diarrhea and no urinary symptoms. 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 On 11/18/2021 patient was seen and examined on the medical floor, he is alert slightly confused in no apparent distress, vital examination reveals a temperature of 97.6 pulse 76 respiration 17 blood pressure 103/52 pulse ox 97% on 2 L nasal cannula, his white blood count is 15.5 hemoglobin 11.6 platelet count 198 patient still has poor oral intake, he was switched to oral Eliquis by cardiology, IV heparin discontinued. Dose of IV Solu-Medrol decreased to 40 mg every 12 hours, will continue to monitor closely. On 11/19/2021 patient was seen and examined on the medical floor, he is alert slightly confused in no apparent distress, vital examination reveals a temperature of 96.8 pulse 99 respiration 16 blood pressure 107/67 pulse ox 95 % on 2 L nasal cannula, patient still has poor oral intake, he is having difficulty with swallowing his food , at this time will reconsult surgery for possible EGD . he was switched to oral Eliquis by cardiology, IV heparin discontinued. Dose of IV Solu-Medrol decreased to 40 mg every 12 hours, will continue to monitor closely. On 11/20/2021 patient was seen and examined on the medical floor, he is alert slightly confused in no apparent distress, vital examination reveals a tempe rature of 96.8 pulse 99 respiration 16 blood pressure 107/67 pulse ox 95 % on 2 L nasal cannula, patient still has poor oral intake, he is having difficulty with swallowing his food , at this time we are awaiting EGD to assess cause of difficulty swallowing need for PEG tube for feeding. he was switched to oral Eliquis by cardiology, IV heparin discontinued. Dose of IV Solu-Medrol decreased to 40 mg every 12 hours, will continue to monitor closely. On 11/21/2021 patient was seen and examined on the medical floor, he is alert slightly confused in no apparent distress, vital examination reveals a temperature of 96.8 pulse 99 respiration 16 blood pressure 107/67 pulse ox 95 % on 2 L nasal cannula, patient still has poor oral intake, he is having difficulty with swallowing his food , at this time we are awaiting EGD to assess cause of difficulty swallowing need for PEG tube for feeding. he was switched to oral Eliquis by cardiology, IV heparin discontinued. Dose of IV Solu-Medrol dec reased to 40 mg every 12 hours, will continue to monitor closely. at this time will hold Eliquis in anticipation for EGD tomorrow. On 11/22/2021 patient was seen and examined on the medical floor he is somnolent he underwent EGD today case was discussed with Dr. Lizarraga, patient has evidence of severe esophageal candidiasis no evidence of cancer or obstruction biopsies were taken, at this time will add nystatin mouthwash swish and swallow 4 times daily, and add IV Diflucan, will try to have patient increase his oral intake, if not successful patient may still need a PEG tube. On 11/23/2021 patient was seen and examined on the medical floor he is alert and oriented and answering questions appropriately, he is able to tolerate some of his diet, sodium is down to 146, patient mental status improved, he was started on IV Diflucan and oral nystatin mouthwash swish and swallow for severe es ophageal candidiasis, he is improving gradually. At this time will add physical therapy and occupational therapy, we are hoping for discharge to a rehab unit before the end of this week. On review of systems patient is feeling better there is no fever or chills no headache or dizziness no chest pain no shortness of breath no cough no nausea or vomiting no abdominal pain no diarrhea and no urinary symptoms. On 11/24/2021 patient was seen and examined on the medical floor he is alert and oriented 3 in no distress there is no fever or chills no headache or dizziness no chest pain no shortness of breath no cough no nausea or vomiting no abdominal pain no diarrhea no blood in the stools no burning with urination no frequency or urgency and no hematuria. Patient has poor oral intake he was counseled in length to increase his food intake. At this time will add appetite stimulant Megace 800 mg suspension by mouth daily Objective - Vital Signs Vital signs: Vital Signs Temp 97.6 F 11/24/21 10:00 Pulse 70 11/24/21 10:00 Resp 17 11/24/21 10:00 BP 100/61 11/24/21 10:00 Pulse Ox 97 11/24/21 10:00 Intake & Output 11/23/21 11/24/21 11/24/21 18:59 06:59 18:59 Output Total 500 950 Balance -500 -950 Weight 52 kg Output: Urine 500 950 Other: Voiding Method Ileal Conduit (Right) Ileal Conduit (Right) Ileal Conduit (Right) # Bowel Movements 1 - Exam In general patient is alert and oriented x 3 in no distress HEENT head normocephalic and atraumatic Neck is supple no JVD no goiter no lymphadenopathy no carotid bruit Chest examination reveals a scattered crackles bilaterally no wheezing Cardiac exam reveals regular heart sounds S1 and S2 no gallops no murmurs Abdomen is soft nontender no organomegaly with normal bowel sounds Extremity exam reveals no edema no cyanosis or clubbing Neurological examination reveals no gross focal deficits - Labs CBC & Chem 7: 11/24/21 05:21 11/24/21 05:21 Labs: Abnormal Lab Results - Last 24 Hours (Table) 11/23/21 11/24/21 11/24/21 Range/Units 16:38 05:21 05:21 WBC 16.94 H (4.50-10.00) X 10*3/uL RBC 3.29 L (4.40-5.60) X 10*6/uL Hgb 10.1 L (13.0-17.0) g/dL Hct 34.0 L (39.6-50.0) % MCV 103.3 H (80.0-97.0) fL MCHC 29.7 L (32.0-37.0) g/dL RDW 17.2 H (11.5-14.5) % MPV 12.7 H (9.5-12.2) fL Immature Gran # 0.13 H (0.00-0.04) X 10*3/uL Neutrophils # 15.47 H (1.80-7.70) X 10*3/uL Lymphocytes # 0.41 L (0.90-5.00) X 10*3/uL Eosinophils # 0 L (0.04-0.35) X 10*3/uL Chloride 110 H (96-109) mmol/L BUN 33.9 H (9.0-27.0) mg/dL Est GFR (CKD-EPI)NonAf 54.8 L (60.0-200.0) BUN/Creatinine Ratio 28.25 H (12.00-20.00) Ratio Glucose 165 H (70-110) mg/dL POC Glucose (mg/dL) 164 H (75-99) mg/dL Calcium 8.1 L (8.7-10.3) mg/dL Total Protein 4.6 L (6.2-8.2) g/dL Albumin 2.6 L (3.8-4.9) g/dL Albumin/Globulin Ratio 1.30 L (1.60-3.17) g/dL 11/24/21 11/24/21 Range/Units 07:03 11:33 WBC (4.50-10.00) X 10*3/uL RBC (4.40-5.60) X 10*6/uL Hgb (13.0-17.0) g/dL Hct (39.6-50.0) % MCV (80.0-97.0) fL MCHC (32.0-37.0) g/dL RDW (11.5-14.5) % MPV (9.5-12.2) fL Immature Gran # (0.00-0.04) X 10*3/uL Neutrophils # (1.80-7.70) X 10*3/uL Lymphocytes # (0.90-5.00) X 10*3/uL Eosinophils # (0.04-0.35) X 10*3/uL Chloride (96-109) mmol/L BUN (9.0-27.0) mg/dL Est GFR (CKD-EPI)NonAf (60.0-200.0) BUN/Creatinine Ratio (12.00-20.00) Ratio Glucose (70-110) mg/dL POC Glucose (mg/dL) 157 H 156 H (75-99) mg/dL Calcium (8.7-10.3) mg/dL Total Protein (6.2-8.2) g/dL Albumin (3.8-4.9) g/dL Albumin/Globulin Ratio (1.60-3.17) g/dL Microbiology - Last 24 Hours (Table) 11/23/21 05:15 Blood Culture - Preliminary Blood No Growth after 24 hours Assessment and Plan Plan: 1. Acute hypoxic respiratory failure, COVID-19 infection on 11/09/2021. Now with evidence of pneumonia on chest x-ray with multifocal bilateral acute infiltrates 2. Acute non-ST elevation myocardial infarction, patient admitted to telemetry floor and was started on IV heparin cardiology consultation was requested 3. Elevated d-dimer, patient has elevated creatinine, will check VQ scan 4. Acute on chronic renal failure, creatinine on presentation 2.22 5. Underlying history of rheumatoid arthritis, maintained on methotrexate 6. Underlying history of kidney stones 7. Underlying history of anxiety disorder 8. Underlying history of tobacco abuse 9. Previous history of colon cancer 10. Previous history of bladder cancer At this time patient was admitted to medical floor He was started on IV steroids and inhaled bronchodilators and oxygen supplements VQ scan was ordered in relation to elevated d-dimer and pleuritic chest pain Pulmonary consultation requested Will follow closely
[2021-11-24] MEDS: MIRTAZAPINE 15 MG TAB PO SCH (20:39)
[2021-11-24 21:21] LABS: Glucose,Whole Blood 140 mg/dL (75-99)
[2021-11-25] MEDS ORDERED: ACETAMINOPHEN TAB 500 MG TAB PO PRN
[2021-11-25] MEDS: DEXTROSE 5%-0.2% NACL 1,000 ML IV SCH ×4 (06:13→23:55)
[2021-11-25 07:27] LABS: Glucose,Whole Blood 86 mg/dL (75-99)
[2021-11-25] MEDS: ALBUTEROL HFA INHALER INHALATION SCH ×3 (08:02→20:37)
[2021-11-25] MEDS: ASPIRIN 81 MG PO SCH (08:06)
[2021-11-25] MEDS: ISOSORBIDE MONONITRATE ER 30 MG TAB.ER.24H PO SCH (08:06)
[2021-11-25] MEDS: APIXABAN 2.5 MG TABLET PO SCH ×2 (08:06→20:36)
[2021-11-25] MEDS: METOPROLOL TARTRATE 12.5 MG TAB PO SCH ×2 (08:06→20:36)
[2021-11-25] MEDS: FOLIC ACID 1 MG TAB PO SCH (08:06)
[2021-11-25] MEDS: ASCORBIC ACID 500 MG TAB PO SCH (08:06)
[2021-11-25] MEDS: ATORVASTATIN 80 MG TAB PO SCH (08:06)
[2021-11-25] MEDS: MEGESTROL 400 MG/10 ML CUP PO SCH (08:07)
[2021-11-25] MEDS: ZINC SULFATE 220 MG CAP PO SCH (08:07)
[2021-11-25] MEDS: CHOLECALCIFEROL 125 MCG (5000 IU) TABLET PO SCH (08:07)
[2021-11-25] MEDS: PANTOPRAZOLE 40 MG/10 ML VIAL IVP SCH (08:07)
[2021-11-25] MEDS: methylPREDNISolone SOD SUCCI 40 MG/ML 1 ML VIAL IV SCH (08:07)
[2021-11-25] MEDS: INSULIN ASPART (NovoLOG) 100 UNIT/ML VIAL SQ SCH ×4 (08:08→20:28)
[2021-11-25] MEDS: NYSTATIN 100,000 UNIT/ML SUSP 500,000 UNIT/5 ML CUP PO SCH ×4 (08:08→21:33)
[2021-11-25] MEDS: NICOTINE 21MG/24HR PATCH TRANSDERM SCH (08:09)
[2021-11-25] MEDS: HYDROCORTISONE 2.5% RECTAL CREAM 30 GM TUBE RECTAL SCH ×4 (08:10→20:36)
--- NOTE | 2021-11-25 10:38 | P.PN ---
Subjective Progress Note Date: 11/25/21 CHIEF COMPLAINT: Epigastric pain HISTORY OF PRESENT ILLNESS: Patient is status post EGD with mild antral gastritis and esophagitis. Patient is nonverbal. Patient is lying in bed comfortably. Per nursing patient ate about 50-75% of history this morning. No vomiting reported. Biopsy result shows minimal chronic gastritis. Acute erosive esophagitis. PAS stain for fungal organism is pending. PHYSICAL EXAM: VITAL SIGNS: Reviewed. GENERAL: Well-developed in no acute distress. HEENT: No sclera icterus. Extraocular movements grossly intact. Moist buccal mucosa. Head is atraumatic, normocephalic. ABDOMEN: Soft. Nondistended. Nontender. NEUROLOGIC: Nonverbal ASSESSMENT: 1. Epigastric abdominal pain status post EGD that demonstrated mild antral gastritis and esophagitis. And shown possible evidence of [facility] 2. Paroxysmal atrial fibrillation 3. COVID-19 pneumonia PLAN: -Continue nystatin swish and swallow -Continue PPI -Continue pured diet Physician Lard Tub Washer note has been reviewed by physician. Signing provider agrees with the documented findings, assessment, and plan of care. Objective - Vital Signs Vital signs: Vital Signs Temp 97.8 F 11/25/21 05:43 Pulse 53 L 11/25/21 05:43 Resp 19 11/25/21 08:30 BP 115/63 11/25/21 05:43 Pulse Ox 98 11/25/21 05:43 Intake & Output 11/24/21 11/25/21 11/25/21 18:59 06:59 18:59 Weight 52 kg Other: Voiding Method Ileal Conduit (Right) Ileal Conduit (Right) # Voids 4 400 # Bowel Movements 5 - Labs CBC & Chem 7: 11/24/21 05:21 11/24/21 05:21 Labs: Abnormal Lab Results - Last 24 Hours (Table) 11/24/21 11/24/21 11/24/21 Range/Units 11:33 16:45 21:19 POC Glucose (mg/dL) 156 H 133 H 140 H (75-99) mg/dL Microbiology - Last 24 Hours (Table) 11/23/21 05:15 Blood Culture - Preliminary Blood No Growth after 48 hours
[2021-11-25 12:05] LABS: Glucose,Whole Blood 107 mg/dL (75-99)
--- NOTE | 2021-11-25 13:38 | CDI ---
Documentation Clarification Form Date: 11/25/2021 01:15:26 PM From: Angeles Manzano RN CCDS Admit Date: 11/11/2021 06:34:00 PM Patient Name: Bob Wolf Visit Number: [id number] Discharge Date: ATTENTION: The Clinical Documentation Specialists (CDI) and [facility] Coding Staff appreciate your assistance in clarifying documentation. Please respond to the clarification below the line at the bottom and electronically sign. The CDI & [facility] Coding staff will review the response and follow-up if needed. Please note: Queries are made part of the Legal Health Record. If you have any questions, please contact the author of this message via ITS. Dr. Nikita Vasquez The Registered Dietitian assessment on 11/15; 11/17; 11/19; 11/22 & 11/24 documents Inadequate energy intake. Based on this information and the findings below, is there an additional diagnosis that is clinically appropriate for this patient? History/Risk Factors: 86-year-old male presents to the ed with sharp chest pain that is intermittent and worse with deep breathing. Admitting diagnosis COVID 19, Acute non-ST elevation myocardial infarction and Acute Hypoxic Respiratory Failure. Medical history: COPD, GERD, HLD and bladder and colon cancer. H&P, 11/24. Clinical Indicators: 11/16 Pulmonary progress note: followed by the surgical services and consideration is for EGD possibly this admission for investigation of cachexia, significant weight loss, indigestion and nausea. RD Consult Assessment: 11/24 Current BMI: 5ft 10inch 16.4kg/m Body mass clarification Underweight Nutrition assessment: Nutrition Intake Fair 25-50% consumed Pureed diet 50% of meals. Appetite poor. Energy Formula for Estimated Nutritional needs in Kcals: 25-30 Kcals / Kg Energy needs 4296-2740 Kcal. Estimated Protein needs: Estimated protein range (grams/kg) 1.0; Estimated Protein Needs (grams/day) 75. Recommending EN to meet patients nutritional needs. Treatment: Daily weights RD Consult: see above Supplements: Ensure Enlive TID Monitor Po and supplement Intake. Glucose. Lab monitoring: Albumin and Total protein Is there an additional diagnosis that is clinically appropriate for this patient? [ ] Moderate Protein-Calorie Malnutrition [ x ] Severe Protein-Calorie Malnutrition [ ] Other condition, please specify [ ] Unable to Determine (Template Last Revised: December 2020) MTDD
[2021-11-25 14:16] LABS: Anisocytosis Slight; HCT 35.5 % (39.0-53.0); HGB 11.5 gm/dL (13.0-17.5); Hypochromasia Slight; MCH 32.9 pg (25.0-35.0); MCHC 32.5 g/dL (31.0-37.0); MCV 101.3 fL (80.0-100.0); Macrocytosis Slight; Mean Platelet Volume 9.8; Platelet Count 179 k/uL (150-450); RBC 3.51 m/uL (4.30-5.90); RDW 16.4 % (11.5-15.5); WBC 16.4 k/uL (3.8-10.6)
[2021-11-25 14:31] LABS: ALT 22 U/L (4-49); AST 27 U/L (17-59); African American GFR (CKD) 69 (>60 ml/min/1.73 sqM); Albumin 2.4 g/dL (3.5-5.0); Alkaline Phosphatase 56 U/L (38-126); Anion Gap 7 mmol/L; Blood Urea Nitrogen 33 mg/dL (9-20); Calcium 8.1 mg/dL (8.4-10.2); Carbon Dioxide 20 mmol/L (22-30); Chloride 109 mmol/L (98-107); Globulin 2.5 g/dL; Glucose 103 mg/dL (74-99); Non-African American GFR(CKD) 60 (>60 ml/min/1.73 sqM); Potassium 3.8 mmol/L (3.5-5.1); Sodium 136 mmol/L (137-145); Total Bilirubin 0.7 mg/dL (0.2-1.3); Total Protein 4.9 g/dL (6.3-8.2)
[2021-11-25 17:12] LABS: Glucose,Whole Blood 138 mg/dL (75-99)
--- NOTE | 2021-11-25 17:14 | P.PN ---
Subjective Progress Note Date: 11/25/21 Bob Wolf, is a year old male who presented to [facility] emergency room with a chief complaint of chest pain patient describes a sharp pain in the chest that is intermittent and worse with deep breathing. He was evaluated in the emergency room vital examination on presentation revea led a temperature of 98.2 pulse 112 respiration 18 blood pressure 148/105 pulse ox 98% on 2 L nasal cannula Laboratory data revealed a white blood count of 10.4 hemoglobin 12.9 platelet count 400 d-dimer 2.74 BUN 62 creatinine 2.2 Testing in the emergency room revealed chest x-ray revealed bilateral multifocal infiltrates EKG revealed sinus tachycardia without acute ischemic changes Patient was admitted to medical floor for further evaluation and treatment. Past medical history is significant for advanced COPD patient still smokes he has more than 50 year history of smoking, he also has a known history of colon cancer, bladder cancer, rheumatoid arthritis, gastroesophageal reflux disease, anxiety disorder. On 11/13 patient was seen and examined on the telemetry floor, he is alert and oriented 3 in no apparent distress he is still complaining of chest pain, on admission patient had a normal troponin of 0.023 however yesterday his troponin went up to 5.05, he was transferred to [address] [place] [address] and was started on IV heparin, cardiology consultation was requested, and this time patient is lying comfortably in bed he is still complaining of some discomfort in his chest otherwise he denies any complaints there is no fever or chills no headache or dizziness no shortness of breath he has occasional cough no nausea or vomiting no abdominal pain no diarrhea and no urinary symptoms. On 11/14/2021 patient was seen and examined on the telemetry floor he is alert and oriented in no distress there is no fever or chills no headache or dizziness no chest pain no shortness of breath no cough no nausea or vomiting no abdominal pain no diarrhea no blood in the stools no burning with urination no frequency or urgency and no hematuria. On 11/15/2021 patient was seen and examined on the telemetry floor, he is alert and oriented 3 in no apparent distress, he is complaining of lower chest pain, and complaining of difficulty swallowing his food, otherwise he denies any complaints at this time, he underwent cardiac catheterization yesterday was Dr. Van that revealed evidence of minimal coronary artery disease, otherwise patient denies any complaints at this time there is no fever or chills no headache or dizziness no shortness of breath no cough no nausea or vomiting no abdominal pain no diarrhea no blood in the stools no burning with urination no frequency or urgency and no hematuria On 11/16/2021 patient was seen and examined on the telemetry floor he is somnolent responsive in no apparent distress, patient was having episodes of agitation last night he was given Ativan IV, there is no fever or chills no headache or dizziness no chest pain no shortness of breath no cough no nausea or vomiting no abdominal pain no diarrhea and no urinary symptoms. 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 On 11/18/2021 patient was seen and examined on the medical floor, he is alert slightly confused in no apparent distress, vital examination reveals a temperature of 97.6 pulse 76 respiration 17 blood pressure 103/52 pulse ox 97% on 2 L nasal cannula, his white blood count is 15.5 hemoglobin 11.6 platelet count 198 patient still has poor oral intake, he was switched to oral Eliquis by cardiology, IV heparin discontinued. Dose of IV Solu-Medrol decreased to 40 mg every 12 hours, will continue to monitor closely. On 11/19/2021 patient was seen and examined on the medical floor, he is alert slightly confused in no apparent distress, vital examination reveals a temperature of 96.8 pulse 99 respiration 16 blood pressure 107/67 pulse ox 95 % on 2 L nasal cannula, patient still has poor oral intake, he is having difficulty with swallowing his food , at this time will reconsult surgery for possible EGD . he was switched to oral Eliquis by cardiology, IV heparin discontinued. Dose of IV Solu-Medrol decreased to 40 mg every 12 hours, will continue to monitor closely. On 11/20/2021 patient was seen and examined on the medical floor, he is alert slightly confused in no apparent distress, vital examination reveals a tempe rature of 96.8 pulse 99 respiration 16 blood pressure 107/67 pulse ox 95 % on 2 L nasal cannula, patient still has poor oral intake, he is having difficulty with swallowing his food , at this time we are awaiting EGD to assess cause of difficulty swallowing need for PEG tube for feeding. he was switched to oral Eliquis by cardiology, IV heparin discontinued. Dose of IV Solu-Medrol decreased to 40 mg every 12 hours, will continue to monitor closely. On 11/21/2021 patient was seen and examined on the medical floor, he is alert slightly confused in no apparent distress, vital examination reveals a temperature of 96.8 pulse 99 respiration 16 blood pressure 107/67 pulse ox 95 % on 2 L nasal cannula, patient still has poor oral intake, he is having difficulty with swallowing his food , at this time we are awaiting EGD to assess cause of difficulty swallowing need for PEG tube for feeding. he was switched to oral Eliquis by cardiology, IV heparin discontinued. Dose of IV Solu-Medrol dec reased to 40 mg every 12 hours, will continue to monitor closely. at this time will hold Eliquis in anticipation for EGD tomorrow. On 11/22/2021 patient was seen and examined on the medical floor he is somnolent he underwent EGD today case was discussed with Dr. Lizarraga, patient has evidence of severe esophageal candidiasis no evidence of cancer or obstruction biopsies were taken, at this time will add nystatin mouthwash swish and swallow 4 times daily, and add IV Diflucan, will try to have patient increase his oral intake, if not successful patient may still need a PEG tube. On 11/23/2021 patient was seen and examined on the medical floor he is alert and oriented and answering questions appropriately, he is able to tolerate some of his diet, sodium is down to 146, patient mental status improved, he was started on IV Diflucan and oral nystatin mouthwash swish and swallow for severe es ophageal candidiasis, he is improving gradually. At this time will add physical therapy and occupational therapy, we are hoping for discharge to a rehab unit before the end of this week. On review of systems patient is feeling better there is no fever or chills no headache or dizziness no chest pain no shortness of breath no cough no nausea or vomiting no abdominal pain no diarrhea and no urinary symptoms. On 11/24/2021 patient was seen and examined on the medical floor he is alert and oriented 3 in no distress there is no fever or chills no headache or dizziness no chest pain no shortness of breath no cough no nausea or vomiting no abdominal pain no diarrhea no blood in the stools no burning with urination no frequency or urgency and no hematuria. Patient has poor oral intake he was counseled in length to increase his food intake. At this time will add appetite stimulant Megace 800 mg suspension by mouth daily. On 11/25/2021 patient was seen and examined on the medical floor he is alert and oriented 3 in no apparent distress there is no fever or chills no headache or dizziness no chest pain no shortness of breath no cough no nausea or vomiting no abdominal pain no diarrhea and no urinary symptoms. Patient still has very low oral intake, continue with IV fluid, Megace added yesterday for appetite stimulant. Will review labs today and tomorrow, possible discharge to group home for rehab tomorrow. Objective - Vital Signs Vital signs: Vital Signs Temp 97.8 F 11/25/21 14:00 Pulse 62 11/25/21 14:00 Resp 14 11/25/21 14:00 BP 96/59 11/25/21 14:00 Pulse Ox 94 L 11/25/21 15:27 Intake & Output 11/24/21 11/25/21 11/25/21 18:59 06:59 18:59 Weight 52 kg Other: Voiding Method Ileal Conduit (Right) Ileal Conduit (Right) # Voids 4 400 # Bowel Movements 5 - Exam In general patient is alert and oriented x 3 in no distress HEENT head normocephalic and atraumatic Neck is supple no JVD no goiter no lymphadenopathy no carotid bruit Chest examination reveals a scattered crackles bilaterally no wheezing Cardiac exam reveals regular heart sounds S1 and S2 no gallops no murmurs Abdomen is soft nontender no organomegaly with normal bowel sounds Extremity exam reveals no edema no cyanosis or clubbing Neurological examination reveals no gross focal deficits - Labs CBC & Chem 7: 11/25/21 13:48 11/25/21 13:48 Labs: Abnormal Lab Results - Last 24 Hours (Table) 11/24/21 11/25/21 11/25/21 Range/Units 21:19 12:03 13:48 WBC 16.4 H (3.8-10.6) k/uL RBC 3.51 L (4.30-5.90) m/uL Hgb 11.5 L (13.0-17.5) gm/dL Hct 35.5 L (39.0-53.0) % MCV 101.3 H (80.0-100.0) fL RDW 16.4 H (11.5-15.5) % Sodium (137-145) mmol/L Chloride (98-107) mmol/L Carbon Dioxide (22-30) mmol/L BUN (9-20) mg/dL Glucose (74-99) mg/dL POC Glucose (mg/dL) 140 H 107 H (75-99) mg/dL Calcium (8.4-10.2) mg/dL Total Protein (6.3-8.2) g/dL Albumin (3.5-5.0) g/dL 11/25/21 11/25/21 Range/Units 13:48 17:10 WBC (3.8-10.6) k/uL RBC (4.30-5.90) m/uL Hgb (13.0-17.5) gm/dL Hct (39.0-53.0) % MCV (80.0-100.0) fL RDW (11.5-15.5) % Sodium 136 L (137-145) mmol/L Chloride 109 H (98-107) mmol/L Carbon Dioxide 20 L (22-30) mmol/L BUN 33 H (9-20) mg/dL Glucose 103 H (74-99) mg/dL POC Glucose (mg/dL) 138 H (75-99) mg/dL Calcium 8.1 L (8.4-10.2) mg/dL Total Protein 4.9 L (6.3-8.2) g/dL Albumin 2.4 L (3.5-5.0) g/dL Microbiology - Last 24 Hours (Table) 11/23/21 05:15 Blood Culture - Preliminary Blood No Growth after 48 hours Assessment and Plan Plan: 1. Acute hypoxic respiratory failure, COVID-19 infection on 11/09/2021. Now with evidence of pneumonia on chest x-ray with multifocal bilateral acute inf iltrates 2. Acute non-ST elevation myocardial infarction, patient admitted to telemetry floor and was started on IV heparin cardiology consultation was requested 3. Elevated d-dimer, patient has elevated creatinine, will check VQ scan 4. Acute on chronic renal failure, creatinine on presentation 2. 5. Underlying history of rheumatoid arthritis, maintained on methotrexate 6. Underlying history of kidney stones 7. Underlying history of anxiety disorder 8. Underlying history of tobacco abuse 9. Previous history of colon cancer 10. Previous history of bladder cancer At this time patient was admitted to medical floor He was started on IV steroids and inhaled bronchodilators and oxygen supplements VQ scan was ordered in relation to elevated d-dimer and pleuritic chest pain Pulmonary consultation requested Will follow closely
[2021-11-25] MEDS: FLUCONAZOLE IN NACL,ISO-OSM 400 MG in SALINE 1 200ML.BAG IVPB SCH (17:34)
[2021-11-25 20:27] LABS: Glucose,Whole Blood 115 mg/dL (75-99)
[2021-11-25] MEDS ORDERED: DIPHENOX-ATROP 2.5-0.025 MG 1 EACH TAB PO PRN (20:27)
[2021-11-25] MEDS: MIRTAZAPINE 15 MG TAB PO SCH (20:36)
--- NOTE | 2021-11-25 22:46 | P.PN ---
Progress Note - Text Progress Note Date: 11/23/21 The patient remains to be afebrile. The patient is breathing comfortably on room air today. The patient more awake and alert, denies any chest pain shortness of breath or cough, no vomiting or diarrhea was reported by nursing staff or urinary changes PHYSICAL EXAMINATION: Blood pressure is 115/60 with a pulse of 99, temperature of 97.2. He is 93% on room air nasal cannula. General description is an elderly male lying in bed in no distress. Respiratory system: Unlabored breathing, decreased breath sounds at the base. No wheeze. Heart S1, S2. Regular rate and rhythm. Abdomen soft, no tenderness. LABS: Reviewed DIAGNOSTIC IMPRESSION AND PLAN: 1-Patient with acute respiratory failure which is multifactorial, component of COVID-19 infection And there is concern for possible cardiomyopathy associated with a covid19 at the patient also have mild triple-vessel disease, patient is currently being treated with heparin, Solu-Medrol, zinc and ascorbic acid and respiratory support 2-patient with worsening leukocytosis questionable steroid effect versus oropharyngeal candidiasis, with evidence of candidal esophagitis on EGD, patient to continue with Diflucan
--- NOTE | 2021-11-25 22:49 | P.PN ---
Subjective Progress Note Date: 11/25/21 Principal diagnosis: Covid 19 infection and esophageal candidiasis Patient is 86-year-old male presenting to the hospital with decreasing shortness of breath in this patient did have evidence of Covid 19 infection and concern for possible Covid cardiomyopathy patient is status post cardiac cath with no significant coronary artery disease patient is subsequently status post EGD with evidence of esophageal candidiasis. On today's evaluation that is 11/25/2021, the patient denies having any fever or chills, the patient is currently breathing comfortably on room air. Denies having any chest pain no worsening cough no abdominal pain and no diarrhea Objective - Vital Signs Vital signs: Vital Signs Temp 97.9 F 11/25/21 18:00 Pulse 60 11/25/21 18:00 Resp 14 11/25/21 18:00 BP 107/59 11/25/21 18:00 Pulse Ox 100 11/25/21 18:00 Intake & Output 11/25/21 11/25/21 11/26/21 06:59 18:59 06:59 Other: Voiding Method Ileal Conduit (Right) # Voids 400 - Exam GENERAL DESCRIPTION:[ Patient is awake and alert in no distress] HEENT: [Oral mucosa is dry EYES : [No pallor or scleral icterus] RESPIRATORY SYSTEM: [Unlabored breathing decreased breath sounds at the base] CARDIA VASCULAR SYSTEM: [S1-S2 regular rate and rhythm no murmur] GI: [Abdominal soft there's no tenderness no organomegaly] EXTREMITIES: [No edema feet] - Labs CBC & Chem 7: 11/25/21 13:48 11/25/21 13:48 Labs: Abnormal Lab Results - Last 24 Hours (Table) 11/25/21 11/25/21 11/25/21 Range/Units 12:03 13:48 13:48 WBC 16.4 H (3.8-10.6) k/uL RBC 3.51 L (4.30-5.90) m/uL Hgb 11.5 L (13.0-17.5) gm/dL Hct 35.5 L (39.0-53.0) % MCV 101.3 H (80.0-100.0) fL RDW 16.4 H (11.5-15.5) % Sodium 136 L (137-145) mmol/L Chloride 109 H (98-107) mmol/L Carbon Dioxide 20 L (22-30) mmol/L BUN 33 H (9-20) mg/dL Glucose 103 H (74-99) mg/dL POC Glucose (mg/dL) 107 H (75-99) mg/dL Calcium 8.1 L (8.4-10.2) mg/dL Total Protein 4.9 L (6.3-8.2) g/dL Albumin 2.4 L (3.5-5.0) g/dL 11/25/21 11/25/21 Range/Units 17:10 20:21 WBC (3.8-10.6) k/uL RBC (4.30-5.90) m/uL Hgb (13.0-17.5) gm/dL Hct (39.0-53.0) % MCV (80.0-100.0) fL RDW (11.5-15.5) % Sodium (137-145) mmol/L Chloride (98-107) mmol/L Carbon Dioxide (22-30) mmol/L BUN (9-20) mg/dL Glucose (74-99) mg/dL POC Glucose (mg/dL) 138 H 115 H (75-99) mg/dL Calcium (8.4-10.2) mg/dL Total Protein (6.3-8.2) g/dL Albumin (3.5-5.0) g/dL Microbiology - Last 24 Hours (Table) 11/23/21 05:15 Blood Culture - Preliminary Blood No Growth after 48 hours Assessment and Plan (1) Esophageal candidiasis Current Visit: Yes Status: Acute Code(s): B37.81 - CANDIDAL ESOPHAGITIS SNOMED Code(s): 29904997 (2) COVID-19 Current Visit: No Status: Acute Code(s): U07.1 - COVID-19 SNOMED Code(s): 415827550 Plan: 1-Patient with acute respiratory failure which is multifactorial, component of COVID-19 infection And there is concern for possible cardiomyopathy associated with a covid19 at the patient also have mild triple-vessel disease, patient is currently being treated with heparin, Solu-Medrol, zinc and ascorbic acid and respiratory support 2-patient with worsening leukocytosis questionable steroid effect versus oropharyngeal candidiasis, with evidence of candidal esophagitis on EGD, patient to continue with Diflucan Time with Patient: Less than 30
[2021-11-26 02:00] LABS: Glucose,Whole Blood 91 mg/dL (75-99)
--- NOTE | 2021-11-26 02:42 | CT ---
EXAMINATION TYPE: CT brain wo con DATE OF EXAM: 11/26/2021 COMPARISON: None HISTORY: fall CT DLP: 1111.4 mGycm Automated exposure control for dose reduction was used. Images of obtained of the brain without contrast. There is cerebral cortical atrophy. There is no mass effect or midline shift. There is no sign of int racranial hemorrhage. Calvarium is intact. There is fairly normal aeration of the mastoid sinuses. Sk ull base is intact. IMPRESSION: Cerebral atrophy. No acute intracranial abnormality.
[2021-11-26 06:26] LABS: ALT 25 U/L (4-49); AST 26 U/L (17-59); African American GFR (CKD) 67 (>60 ml/min/1.73 sqM); Albumin 2.6 g/dL (3.5-5.0); Albumin/Globulin Ratio 0.9; Alkaline Phosphatase 64 U/L (38-126); Anion Gap 8 mmol/L; Blood Urea Nitrogen 33 mg/dL (9-20); Calcium 8.7 mg/dL (8.4-10.2); Carbon Dioxide 20 mmol/L (22-30); Chloride 109 mmol/L (98-107); Globulin 2.9 g/dL; Glucose 67 mg/dL (74-99); Non-African American GFR(CKD) 58 (>60 ml/min/1.73 sqM); Potassium 3.8 mmol/L (3.5-5.1); Sodium 137 mmol/L (137-145); Total Bilirubin 0.7 mg/dL (0.2-1.3); Total Protein 5.5 g/dL (6.3-8.2)
[2021-11-26 06:32] LABS: Anisocytosis Slight; HCT 41.3 % (39.0-53.0); HGB 12.4 gm/dL (13.0-17.5); Hypochromasia Moderate; MCH 31.2 pg (25.0-35.0); MCV 103.8 fL (80.0-100.0); Macrocytosis Moderate; Mean Platelet Volume 9.9; Platelet Count 204 k/uL (150-450); RBC 3.98 m/uL (4.30-5.90); RDW 17.1 % (11.5-15.5)
[2021-11-26 06:51] LABS: Glucose,Whole Blood 81 mg/dL (75-99)
[2021-11-26 07:43] LABS: Band Neutrophils % 2 %; Metamyelocytes % 1 %; Neutrophils % (M) 83 %; Nucleated Red Blood Cells 1 /100 WBC (0-0); Total Cells Counted 200
[2021-11-26 07:44] LABS: Eosinophils # (M) 0.14 k/uL (0-0.7); Lymphocytes # (M) 0.86 k/uL (1.0-4.8); Metamyelocytes # (M) 0.14 k/uL (0); Monocytes # (M) 1.15 k/uL (0-1.0); WBC 14.4 k/uL (3.8-10.6)
[2021-11-26 07:45] LABS: Poikilocytosis (M) Present
[2021-11-26] MEDS: ASCORBIC ACID 500 MG TAB PO SCH (08:09)
[2021-11-26] MEDS: ISOSORBIDE MONONITRATE ER 30 MG TAB.ER.24H PO SCH (08:09)
[2021-11-26] MEDS: ZINC SULFATE 220 MG CAP PO SCH (08:09)
[2021-11-26] MEDS: APIXABAN 2.5 MG TABLET PO SCH (08:09)
[2021-11-26] MEDS: ASPIRIN 81 MG PO SCH (08:09)
[2021-11-26] MEDS: ATORVASTATIN 80 MG TAB PO SCH (08:09)
[2021-11-26] MEDS: METOPROLOL TARTRATE 12.5 MG TAB PO SCH (08:09)
[2021-11-26] MEDS: FOLIC ACID 1 MG TAB PO SCH (08:10)
[2021-11-26] MEDS: methylPREDNISolone SOD SUCCI 40 MG/ML 1 ML VIAL IV SCH (08:10)
[2021-11-26] MEDS: PANTOPRAZOLE 40 MG/10 ML VIAL IVP SCH (08:10)
[2021-11-26] MEDS: CHOLECALCIFEROL 125 MCG (5000 IU) TABLET PO SCH (08:10)
[2021-11-26] MEDS: HYDROCORTISONE 2.5% RECTAL CREAM 30 GM TUBE RECTAL SCH ×2 (08:12→14:39)
[2021-11-26] MEDS: MEGESTROL 400 MG/10 ML CUP PO SCH (08:12)
[2021-11-26] MEDS: NYSTATIN 100,000 UNIT/ML SUSP 500,000 UNIT/5 ML CUP PO SCH ×2 (08:12→14:38)
[2021-11-26] MEDS: INSULIN ASPART (NovoLOG) 100 UNIT/ML VIAL SQ SCH ×2 (08:13→11:19)
[2021-11-26] MEDS: NICOTINE 21MG/24HR PATCH TRANSDERM SCH (08:22)
[2021-11-26 08:53] VITALS: RESP 18
[2021-11-26] MEDS: ALBUTEROL HFA INHALER INHALATION SCH ×2 (10:54→12:16)
[2021-11-26 11:14] LABS: Glucose,Whole Blood 91 mg/dL (75-99)
--- NOTE | 2021-11-26 11:31 | P.PN ---
Subjective Progress Note Date: 11/26/21 CHIEF COMPLAINT: Epigastric pain HISTORY OF PRESENT ILLNESS: Patient is status post EGD with mild antral gastritis and esophagitis. Patient is nonverbal. Patient is lying in bed comfortably. Per nursing patient is eating meals on his own. No nausea or vomiting. No vomiting reported. Biopsy result shows minimal chronic gastritis. Acute erosive esophagitis. And no fungal organisms. Possible discharge noted flatus today PHYSICAL EXAM: VITAL SIGNS: Reviewed. GENERAL: Well-developed in no acute distress. HEENT: No sclera icterus. Extraocular movements grossly intact. Moist buccal mucosa. Head is atraumatic, normocephalic. ABDOMEN: Soft. Nondistended. Nontender. NEUROLOGIC: Nonverbal ASSESSMENT: 1. Epigastric abdominal pain status post EGD that demonstrated mild antral gastritis and esophagitis. And shown possible evidence of [place] 2. Paroxysmal atrial fibrillation 3. COVID-19 pneumonia PLAN: -Continue nystatin swish and swallow -Continue PPI -Continue pured diet -Patient can be discharge from surgical standpoint when medically cleared Physician Film Editor note has been reviewed by physician. Signing provider agrees with the documented findings, assessment, and plan of care. Objective - Vital Signs Vital signs: Vital Signs Temp 97.9 F 11/26/21 08:31 Pulse 85 11/26/21 08:31 Resp 18 11/26/21 08:31 BP 128/79 11/26/21 08:31 Pulse Ox 98 11/26/21 08:31 Intake & Output 11/25/21 11/26/21 11/26/21 18:59 06:59 18:59 Output Total 950 Balance -950 Output: Urine 950 Other: Voiding Method Ileal Conduit (Right) Ileal Conduit (Right) # Bowel Movements 3 - Labs CBC & Chem 7: 11/26/21 05:12 11/26/21 05:12 Labs: Abnormal Lab Results - Last 24 Hours (Table) 11/25/21 11/25/21 11/25/21 Range/Units 12:03 13:48 13:48 WBC 16.4 H (3.8-10.6) k/uL RBC 3.51 L (4.30-5.90) m/uL Hgb 11.5 L (13.0-17.5) gm/dL Hct 35.5 L (39.0-53.0) % MCV 101.3 H (80.0-100.0) fL MCHC (31.0-37.0) g/dL RDW 16.4 H (11.5-15.5) % Neutrophils # (Manual) (1.3-7.7) k/uL Lymphocytes # (Manual) (1.0-4.8) k/uL Monocytes # (Manual) (0-1.0) k/uL Metamyelocytes # (Man) (0) k/uL Nucleated RBCs (0-0) /100 WBC Sodium 136 L (137-145) mmol/L Chloride 109 H (98-107) mmol/L Carbon Dioxide 20 L (22-30) mmol/L BUN 33 H (9-20) mg/dL Glucose 103 H (74-99) mg/dL POC Glucose (mg/dL) 107 H (75-99) mg/dL Calcium 8.1 L (8.4-10.2) mg/dL Total Protein 4.9 L (6.3-8.2) g/dL Albumin 2.4 L (3.5-5.0) g/dL 11/25/21 11/25/21 11/26/21 Range/Units 17:10 20:21 05:12 WBC 14.4 H (3.8-10.6) k/uL RBC 3.98 L (4.30-5.90) m/uL Hgb 12.4 L (13.0-17.5) gm/dL Hct (39.0-53.0) % MCV 103.8 H (80.0-100.0) fL MCHC 30.0 L (31.0-37.0) g/dL RDW 17.1 H (11.5-15.5) % Neutrophils # (Manual) 12.20 H (1.3-7.7) k/uL Lymphocytes # (Manual) 0.86 L (1.0-4.8) k/uL Monocytes # (Manual) 1.15 H (0-1.0) k/uL Metamyelocytes # (Man) 0.14 H (0) k/uL Nucleated RBCs 1 H (0-0) /100 WBC Sodium (137-145) mmol/L Chloride (98-107) mmol/L Carbon Dioxide (22-30) mmol/L BUN (9-20) mg/dL Glucose (74-99) mg/dL POC Glucose (mg/dL) 138 H 115 H (75-99) mg/dL Calcium (8.4-10.2) mg/dL Total Protein (6.3-8.2) g/dL Albumin (3.5-5.0) g/dL 11/26/21 Range/Units 05:12 WBC (3.8-10.6) k/uL RBC (4.30-5.90) m/uL Hgb (13.0-17.5) gm/dL Hct (39.0-53.0) % MCV (80.0-100.0) fL MCHC (31.0-37.0) g/dL RDW (11.5-15.5) % Neutrophils # (Manual) (1.3-7.7) k/uL Lymphocytes # (Manual) (1.0-4.8) k/uL Monocytes # (Manual) (0-1.0) k/uL Metamyelocytes # (Man) (0) k/uL Nucleated RBCs (0-0) /100 WBC Sodium (137-145) mmol/L Chloride 109 H (98-107) mmol/L Carbon Dioxide 20 L (22-30) mmol/L BUN 33 H (9-20) mg/dL Glucose 67 L (74-99) mg/dL POC Glucose (mg/dL) (75-99) mg/dL Calcium (8.4-10.2) mg/dL Total Protein 5.5 L (6.3-8.2) g/dL Albumin 2.6 L (3.5-5.0) g/dL Microbiology - Last 24 Hours (Table) 11/23/21 05:15 Blood Culture - Preliminary Blood No Growth after 72 hours
--- NOTE | 2021-11-26 12:20 | P.DS ---
Providers Date of admission: 11/11/21 18:34 Expected date of discharge: 11/26/21 Attending physician: Nikita Vasquez Consults: 11/11/21 18:30 Consult Physician Routine Consulting Provider: Jensen Jc Consult Reason/Comments: COPD exacerbation with COVID-19 pneumonia, elevated d-dimer, kidney injury Do you want consulting provider notified?: Yes 11/12/21 09:12 Consult Physician Routine Consulting Provider: Bina Klein Consult Reason/Comments: covid 19 pneumonia Do you want consulting provider notified?: Yes 11/12/21 16:35 Consult Physician Urgent Consulting Provider: Shaun Girard Consult Reason/Comments: 5.50 trop Do you want consulting provider notified?: Yes 11/14/21 15:17 Consult Physician Routine Consulting Provider: Dinh Mcgrath Consult Reason/Comments: vomiting/ wt loss/ difficulty swallowing Do you want consulting provider notified?: Yes 11/19/21 14:14 Consult Physician Routine Consulting Provider: Kvng Lizarraga Consult Reason/Comments: EGD Do you want consulting provider notified?: Already Contacted Primary care physician: Nikita Vasquez [facility] Course: Diagnoses on discharge: 1. Acute hypoxic respiratory failure, COVID-19 infection on 11/09/2021. Now with evidence of pneumonia on chest x-ray with multifocal bilateral acute infiltrates 2. Acute non-ST elevation myocardial infarction, patient admitted to telemetry floor and was started on IV heparin cardiology consultation was requested 3. Elevated d-dimer, patient has elevated creatinine, will check VQ scan 4. Acute on chronic renal failure, creatinine on presentation 2.22 5. Underlying history of rheumatoid arthritis, maintained on methotrexate 6. Underlying history of kidney stones 7. Underlying history of anxiety disorder 8. Underlying history of tobacco abuse 9. Previous history of colon cancer 10. Previous history of bladder cancer 11. Difficulty swallowing food, patient underwent an EGD there was no evidence of stricture esophageal cancer or achalasia patient had evidence of severe annie esophagitis he was started on nystatin swish and swallow and Diflucan he improved significantly. 12. Diarrhea, testing for C. diff was negative Hospital course: Bob Wolf, is a year old male who presented to [facility] emergency room with a chief complaint of chest pain patient describes a sharp pain in the chest that is intermittent and worse with deep breathing. He was evaluated in the emergency room vital examination on presentation revealed a temperature of 98.2 pulse 112 respiration 18 blood pressure 148/105 pulse ox 98% on 2 L nasal cannula Laboratory data revealed a white blood count of 10.4 hemoglobin 12.9 platelet count 400 d-dimer 2.74 BUN 62 creatinine 2.2 Testing in the emergency room revealed chest x-ray revealed bilateral multifocal infiltrates EKG revealed sinus tachycardia without acute ischemic changes Patient was admitted to medical floor for further evaluation and treatment. Past medical history is significant for advanced COPD patient still smokes he has more than 50 year history of smoking, he also has a known history of colon cancer, bladder cancer, rheumatoid arthritis, gastroesophageal reflux disease, anxiety disorder. On 11/13 patient was seen and examined on the telemetry floor, he is alert and oriented 3 in no apparent distress he is still complaining of chest pain, on admission patient had a normal troponin of 0.023 however yesterday his troponin went up to 5.05, he was transferred to [address] [place] [address] and was started on IV heparin, cardiology consultation was requested, and this time patient is lying comfortably in bed he is still complaining of some discomfort in his chest otherwise he denies any complaints there is no fever or chills no headache or dizziness no shortness of breath he has occasional cough no nausea or vomiting no abdominal pain no diarrhea and no urinary symptoms. On 11/14/2021 patient was seen and examined on the telemetry floor he is alert and oriented in no distress there is no fever or chills no headache or dizziness no chest pain no shortness of breath no cough no nausea or vomiting no abdominal pain no diarrhea no blood in the stools no burning with urination no frequency or urgency and no hematuria. On 11/15/2021 patient was seen and examined on the telemetry floor, he is alert and oriented 3 in no apparent distress, he is complaining of lower chest pain, and complaining of difficulty swallowing his food, otherwise he denies any complaints at this time, he underwent cardiac catheterization yesterday was Dr. Van that revealed evidence of minimal coronary artery disease, otherwise patient denies any complaints at this time there is no fever or chills no headache or dizziness no shortness of breath no cough no nausea or vomiting no abdominal pain no diarrhea no blood in the stools no burning with urination no f requency or urgency and no hematuria On 11/16/2021 patient was seen and examined on the telemetry floor he is somnolent responsive in no apparent distress, patient was having episodes of agitation last night he was given Ativan IV, there is no fever or chills no headache or dizziness no chest pain no shortness of breath no cough no nausea or vomiting no abdominal pain no diarrhea and no urinary symptoms. 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 On 11/18/2021 patient was seen and examined on the medical floor, he is alert slightly confused in no apparent distress, vital examination reveals a temperature of 97.6 pulse 76 respiration 17 blood pressure 103/52 pulse ox 97% on 2 L nasal cannula, his white blood count is 15.5 hemoglobin 11.6 platelet count 198 patient still has poor oral intake, he was switched to oral Eliquis by cardiology, IV heparin discontinued. Dose of IV Solu-Medrol decreased to 40 mg every 12 hours, will continue to monitor closely. On 11/19/2021 patient was seen and examined on the medical floor, he is alert slightly confused in no apparent distress, vital examination reveals a temperature of 96.8 pulse 99 respiration 16 blood pressure 107/67 pulse ox 95 % on 2 L nasal cannula, patient still has poor oral intake, he is having difficulty with swallowing his food , at this time will reconsult surgery for possible EGD . he was switched to oral Eliquis by cardiology, IV heparin discontinued. Dose of IV Solu-Medrol decreased to 40 mg every 12 hours, will continue to monitor closely. On 11/20/2021 patient was seen and examined on the medical floor, he is alert slightly confused in no apparent distress, vital examination reveals a temperature of 96.8 pulse 99 respiration 16 blood pressure 107/67 pulse ox 95 % on 2 L nasal cannula, patient still has poor oral intake, he is having difficulty with swallowing his food , at this time we are awaiting EGD to assess cause of difficulty swallowing need for PEG tube for feeding. he was switched to oral Eliquis by cardiology, IV heparin discontinued. Dose of IV Solu-Medrol decreased to 40 mg every 12 hours, will continue to monitor closely. On 11/21/2021 patient was seen and examined on the medical floor, he is alert slightly confused in no apparent distress, vital examination reveals a temperature of 96.8 pulse 99 respiration 16 blood pressure 107/67 pulse ox 95 % on 2 L nasal cannula, patient still has poor oral intake, he is having difficulty with swallowing his food , at this time we are awaiting EGD to assess cause of difficulty swallowing need for PEG tube for feeding. he was switched to oral Eliquis by cardiology, IV heparin discontinued. Dose of IV Solu-Medrol decreased to 40 mg every 12 hours, will continue to monitor closely. at this time will hold Eliquis in anticipation for EGD tomorrow. On 11/22/2021 patient was seen and examined on the medical floor he is somnolent he underwent EGD today case was discussed with Dr. Lizarraga, patient has evidence of severe esophageal candidiasis no evidence of cancer or obstruction biopsies were taken, at this time will add nystatin mouthwash swish and swallow 4 times daily, and add IV Diflucan, will try to have patient increase his oral intake, if not successful patient may still need a PEG tube. On 11/23/2021 patient was seen and examined on the medical floor he is alert and oriented and answering questions appropriately, he is able to tolerate some of his diet, sodium is down to 146, patient mental status improved, he was started on IV Diflucan and oral nystatin mouthwash swish and swallow for severe esophageal candidiasis, he is improving gradually. At this time will add physical therapy and occupational therapy, we are hoping for discharge to a rehab unit before the end of this week. On review of systems patient is feeling better there is no fever or chills no headache or dizziness no chest pain no shortness of breath no cough no nausea or vomiting no abdominal pain no diarrhea and no urinary symptoms. On 11/24/2021 patient was seen and examined on the medical floor he is alert and oriented 3 in no distress there is no fever or chills no headache or dizziness no chest pain no shortness of breath no cough no nausea or vomiting no abdominal pain no diarrhea no blood in the stools no burning with urination no frequency or urgency and no hematuria. Patient has poor oral intake he was counseled in length to increase his food intake. At this time will add appetite stimulant Megace 800 mg suspension by mouth daily. On 11/25/2021 patient was seen and examined on the medical floor he is alert and oriented 3 in no apparent distress there is no fever or chills no headache or dizziness no chest pain no shortness of breath no cough no nausea or vomiting no abdominal pain no diarrhea and no urinary symptoms. Patient still has very low oral intake, continue with IV fluid, Megace added yesterday for appetite stimulant. Will review labs today and tomorrow, possible discharge to skilled nursing for rehab tomorrow. On 11/26 2021 patient was seen and examined on the medical floor he is alert and oriented 3 in no apparent distress there is no fever or chills no headache or dizziness no chest pain no shortness of breath no cough no nausea or vomiting no abdominal pain no diarrhea and no urinary symptoms patient is improving gradually at this time will transfer to a rehab center will continue to follow closely Patient Condition at Discharge: Fair Plan - Discharge Summary Discharge Rx Participant: Yes New Discharge Prescriptions: New Apixaban [Eliquis] 2.5 mg PO BID 30 Days #60 tab Nicotine 21Mg/24Hr Patch [Habitrol] 1 patch TRANSDERM DAILY patch Nystatin 100,000 Unit/ml Susp [Mycostatin Oral Susp] 500,000 unit PO QID ml INSULIN ASPART (NovoLOG) [NovoLOG (formulary)] 0 unit SQ ACHS ml Acetaminophen Tab [Tylenol] 500 mg PO Q6HR PRN tab PRN Reason: Fever And/ Or Pain Fluconazole [Diflucan] 200 mg PO DAILY 10 Days #10 tab Isosorbide Mononitrate ER [Imdur] 30 mg PO DAILY tablet Atorvastatin [Lipitor] 80 mg PO DAILY tab Metoprolol Tartrate [Lopressor] 12.5 mg PO BID tab Megestrol [Megace] 800 mg PO DAILY ml Mirtazapine [Remeron] 15 mg PO HS tab Albuterol Inhaler [Ventolin Hfa Inhaler] 1 puff INHALATION RT-TID gm Albuterol Inhaler [Ventolin Hfa Inhaler] 2 puff INHALATION RT-QID PRN gm PRN Reason: Shortness Of Breath Or Wheezing Ascorbic Acid [Vitamin C] 1,000 mg PO DAILY tab Cholecalciferol [Vitamin D3 (125 Mcg = 5000 Iu)] 125 mcg PO DAILY tablet Continue Omeprazole 40 mg PO DAILY ALPRAZolam [Xanax] 0.5 mg PO Q8H PRN PRN Reason: Anxiety metHOTREXate sodium [Methotrexate] 12.5 mg PO GOODSON Hydrocortisone Pr Cream [Proctosol-Hc 2.5%] 1 applic RECTAL QID Nystatin 100,000Unit/gm Cream [Mycostatin Cream] 1 applic TOPICAL BID Folic Acid 1 mg PO DAILY Aspirin 81 mg PO DAILY tab Discontinued gemfibroziL [Lopid] 600 mg PO BID Cephalexin [Keflex] 500 mg PO Q6HR #40 cap Ondansetron Odt [Zofran ODT] 4 mg PO Q8HR PRN #10 tab PRN Reason: Nausea Discharge Medication List ALPRAZolam [Xanax] 0.5 mg PO Q8H PRN 02/04/19 [History] Omeprazole 40 mg PO DAILY 02/04/19 [History] Folic Acid 1 mg PO DAILY 10/29/21 [History] Hydrocortisone Pr Cream [Proctosol-Hc 2.5%] 1 applic RECTAL QID 10/29/21 [History] Nystatin 100,000Unit/gm Cream [Mycostatin Cream] 1 applic TOPICAL BID 10/29/21 [History] metHOTREXate sodium [Methotrexate] 12.5 mg PO GOODSON 10/29/21 [History] Aspirin 81 mg PO DAILY tab 11/02/21 [Rx] Apixaban [Eliquis] 2.5 mg PO BID 30 Days #60 tab 11/17/21 [Rx] Acetaminophen Tab [Tylenol] 500 mg PO Q6HR PRN tab 11/26/21 [Rx] Albuterol Inhaler [Ventolin Hfa Inhaler] 1 puff INHALATION RT-TID gm 11/26/21 [Rx] Albuterol Inhaler [Ventolin Hfa Inhaler] 2 puff INHALATION RT-QID PRN gm 11/26/21 [Rx] Ascorbic Acid [Vitamin C] 1,000 mg PO DAILY tab 11/26/21 [Rx] Atorvastatin [Lipitor] 80 mg PO DAILY tab 11/26/21 [Rx] Cholecalciferol [Vitamin D3 (125 Mcg = 5000 Iu)] 125 mcg PO DAILY tablet 11/26/21 [Rx] Fluconazole [Diflucan] 200 mg PO DAILY 10 Days #10 tab 11/26/21 [Rx] INSULIN ASPART (NovoLOG) [NovoLOG (formulary)] 0 unit SQ ACHS ml 11/26/21 [Rx] Isosorbide Mononitrate ER [Imdur] 30 mg PO DAILY tablet 11/26/21 [Rx] Megestrol [Megace] 800 mg PO DAILY ml 11/26/21 [Rx] Metoprolol Tartrate [Lopressor] 12.5 mg PO BID tab 11/26/21 [Rx] Mirtazapine [Remeron] 15 mg PO HS tab 11/26/21 [Rx] Nicotine 21Mg/24Hr Patch [Habitrol] 1 patch TRANSDERM DAILY patch 11/26/21 [Rx] Nystatin 100,000 Unit/ml Susp [Mycostatin Oral Susp] 500,000 unit PO QID ml 11/26/21 [Rx] Follow up Appointment(s)/Referral(s): Shaun Girard MD [STAFF PHYSICIAN] - 10 Days Nikita Vasquez MD [Primary Care Provider] - 1-2 days
[2021-11-26 13:50] VITALS: BP 105/66; PULSE 78; TEMP 97.7
--- NOTE | 2021-11-26 15:31 | P.PN ---
Subjective Progress Note Date: 11/26/21 Principal diagnosis: Covid 19 infection and esophageal candidiasis Patient is 86-year-old male presenting to the hospital with decreasing shortness of breath in this patient did have evidence of Covid 19 infection and concern for possible Covid cardiomyopathy patient is status post cardiac cath with no significant coronary artery disease patient is subsequently status post EGD with evidence of esophageal candidiasis. On today's evaluation that is 11/26/2021, the patient remains to be afebrile, the patient is breathing comfortably on room air, the patient having any chest pain no worsening cough, the patient denies difficulty swallowing, no abdominal pain and no diarrhea Objective - Vital Signs Vital signs: Vital Signs Temp 97.9 F 11/26/21 08:31 Pulse 85 11/26/21 08:31 Resp 18 11/26/21 08:31 BP 128/79 11/26/21 08:31 Pulse Ox 98 11/26/21 08:31 Intake & Output 11/25/21 11/26/21 11/26/21 18:59 06:59 18:59 Output Total 950 Balance -950 Output: Urine 950 Other: Voiding Method Ileal Conduit (Right) Ileal Conduit (Right) # Bowel Movements 3 - Exam GENERAL DESCRIPTION:[ Patient is awake and alert in no distress] HEENT: [Oral mucosa is dry EYES : [No pallor or scleral icterus] RESPIRATORY SYSTEM: [Unlabored breathing decreased breath sounds at the base] CARDIA VASCULAR SYSTEM: [S1-S2 regular rate and rhythm no murmur] GI: [Abdominal soft there's no tenderness no organomegaly] EXTREMITIES: [No edema feet] - Labs CBC & Chem 7: 11/26/21 05:12 11/26/21 05:12 Labs: Abnormal Lab Results - Last 24 Hours (Table) 11/25/21 11/25/21 11/25/21 Range/Units 13:48 13:48 17:10 WBC 16.4 H (3.8-10.6) k/uL RBC 3.51 L (4.30-5.90) m/uL Hgb 11.5 L (13.0-17.5) gm/dL Hct 35.5 L (39.0-53.0) % MCV 101.3 H (80.0-100.0) fL MCHC (31.0-37.0) g/dL RDW 16.4 H (11.5-15.5) % Neutrophils # (Manual) (1.3-7.7) k/uL Lymphocytes # (Manual) (1.0-4.8) k/uL Monocytes # (Manual) (0-1.0) k/uL Metamyelocytes # (Man) (0) k/uL Nucleated RBCs (0-0) /100 WBC Sodium 136 L (137-145) mmol/L Chloride 109 H (98-107) mmol/L Carbon Dioxide 20 L (22-30) mmol/L BUN 33 H (9-20) mg/dL Glucose 103 H (74-99) mg/dL POC Glucose (mg/dL) 138 H (75-99) mg/dL Calcium 8.1 L (8.4-10.2) mg/dL Total Protein 4.9 L (6.3-8.2) g/dL Albumin 2.4 L (3.5-5.0) g/dL 11/25/21 11/26/21 11/26/21 Range/Units 20:21 05:12 05:12 WBC 14.4 H (3.8-10.6) k/uL RBC 3.98 L (4.30-5.90) m/uL Hgb 12.4 L (13.0-17.5) gm/dL Hct (39.0-53.0) % MCV 103.8 H (80.0-100.0) fL MCHC 30.0 L (31.0-37.0) g/dL RDW 17.1 H (11.5-15.5) % Neutrophils # (Manual) 12.20 H (1.3-7.7) k/uL Lymphocytes # (Manual) 0.86 L (1.0-4.8) k/uL Monocytes # (Manual) 1.15 H (0-1.0) k/uL Metamyelocytes # (Man) 0.14 H (0) k/uL Nucleated RBCs 1 H (0-0) /100 WBC Sodium (137-145) mmol/L Chloride 109 H (98-107) mmol/L Carbon Dioxide 20 L (22-30) mmol/L BUN 33 H (9-20) mg/dL Glucose 67 L (74-99) mg/dL POC Glucose (mg/dL) 115 H (75-99) mg/dL Calcium (8.4-10.2) mg/dL Total Protein 5.5 L (6.3-8.2) g/dL Albumin 2.6 L (3.5-5.0) g/dL Microbiology - Last 24 Hours (Table) 11/23/21 05:15 Blood Culture - Preliminary Blood No Growth after 72 hours Assessment and Plan (1) Esophageal candidiasis Status: Acute Code(s): B37.81 - CANDIDAL ESOPHAGITIS SNOMED Code(s): 19428945 (2) COVID-19 Status: Acute Code(s): U07.1 - COVID-19 SNOMED Code(s): 971680997 Plan: 1-Patient with acute respiratory failure which is multifactorial, component of COVID-19 infection And there is concern for possible cardiomyopathy associated with a covid19 at the patient also have mild triple-vessel disease, patient to finish the current course of steroids using endoscopic acid and close outpatient follow-up 2-patient with worsening leukocytosis questionable steroid effect versus oropharyngeal candidiasis, with evidence of candidal esophagitis on EGD, patient to continue with Diflucan 2 weeks Time with Patient: Less than 30
== END 2021-11-26 15:06 | DRG 177 ==
LOC: EC 16:03 → 4SSUR 18:34 → 3NCARDOBS 21:00 → 3SCARD 11-12 17:18 → 4SSUR 11-18 14:11
PROVIDERS: ADMIT Internal Medicine; ATTEND Internal Medicine
PROC: B2111ZZ Fluoroscopy of Multiple Coronary Arteries using Low Osmolar Contrast (ICD-10-PCS; principal; 2021-11-14 10:11)
PROC: 4A023N7 Measurement of Cardiac Sampling and Pressure, Left Heart, Percutaneous Approach (ICD-10-PCS; principal; 2021-11-14 10:11)
PROC: 0DB78ZX Excision of Stomach, Pylorus, Via Natural or Artificial Opening Endoscopic, Diagnostic (ICD-10-PCS; 2021-11-22)
PROC: 0DB58ZX Excision of Esophagus, Via Natural or Artificial Opening Endoscopic, Diagnostic (ICD-10-PCS; 2021-11-22)
DX: U07.1 COVID-19 (principal); I21.4 Non-ST elevation (NSTEMI) myocardial infarction; I40.0 Infective myocarditis; J12.82 Pneumonia due to coronavirus disease 2019; J80 Acute respiratory distress syndrome; B37.81 Candidal esophagitis; E87.0 Hyperosmolality and hypernatremia; I42.8 Other cardiomyopathies; I48.19 Other persistent atrial fibrillation; I51.81 Takotsubo syndrome; J44.0 Chronic obstructive pulmonary disease with (acute) lower respiratory infection; J44.1 Chronic obstructive pulmonary disease with (acute) exacerbation; K22.10 Ulcer of esophagus without bleeding; N17.9 Acute kidney failure, unspecified; Z68.1 Body mass index [BMI] 19.9 or less, adult; Z85.038 Personal history of other malignant neoplasm of large intestine; Z85.51 Personal history of malignant neoplasm of bladder; Z98.890 Other specified postprocedural states; M06.9 Rheumatoid arthritis, unspecified; R13.10 Dysphagia, unspecified; E78.5 Hyperlipidemia, unspecified; E86.0 Dehydration; F17.210 Nicotine dependence, cigarettes, uncomplicated; F41.9 Anxiety disorder, unspecified; R79.1 Abnormal coagulation profile; H91.90 Unspecified hearing loss, unspecified ear; I25.10 Atherosclerotic heart disease of native coronary artery without angina pectoris; K21.9 Gastro-esophageal reflux disease without esophagitis; K29.70 Gastritis, unspecified, without bleeding; N18.9 Chronic kidney disease, unspecified; Z79.01 Long term (current) use of anticoagulants; Z79.82 Long term (current) use of aspirin; Z79.899 Other long term (current) drug therapy; Z87.442 Personal history of urinary calculi; Z88.2 Allergy status to sulfonamides; Z90.49 Acquired absence of other specified parts of digestive tract; Z93.2 Ileostomy status; Z80.9 Family history of malignant neoplasm, unspecified
CPT/HCPCS: 36415; 43239; 70450; 71045; 71046; 74018; 80048; 80053; 81001; 82150; 82728; 83520; 83605; 83615; 83690; 83735; 83880; 84145; 84484; 85025; 85027; 85379; 85610; 85730; 86140; 87040; 87077; 87086; 87186; 87324; 87635; 88305; 88312; 93005; 93306; 93458; 94640; 94760; 96361; 96374; 96376; 99284; 99291

== ENCOUNTER 2021-12-13 14:39 | Inpatient (IN) | payer MEDICARE ==
[2021-12-13] MEDS ORDERED: SODIUM CHLORIDE 0.9% 1,000 ML IV STA (14:51)
[2021-12-13 15:32] LABS: Appearance,Urine Cloudy (Clear); Bacteria,Urine Many /hpf; Bilirubin,Urine Negative (Negative); Blood,Urine Small (Negative); Budding Yeast,Urine Moderate /hpf; Color,Urine Yellow; Glucose,Urine (UA) Negative (Negative); Ketones,Urine Negative (Negative); Leukocyte Esterase,Urine Large (Negative); Mucus,Urine Few /hpf; Nitrite,Urine Negative (Negative); Protein,Urine 1+ (Negative); RBC,Urine 7 /hpf (0-5); Specific Gravity,Urine 1.013 (1.001-1.035); Urobilinogen,Urine <2.0 mg/dL (<2.0); WBC,Urine >182 /hpf (0-5)
[2021-12-13 15:35] LABS: INR 1.5 (<1.2); Partial Thromboplastin Time 30.3 sec (22.0-30.0); Prothrombin Time 15.3 sec (9.0-12.0)
[2021-12-13 15:58] LABS: Calcium 7.3 mg/dL (8.4-10.2); Potassium 4.6 mmol/L (3.5-5.1); Total Bilirubin 0.5 mg/dL (0.2-1.3); Total Protein 4.4 g/dL (6.3-8.2)
[2021-12-13 15:59] LABS: Anisocytosis Slight; HCT 32.9 % (39.0-53.0); Hypochromasia Marked; MCH 31.4 pg (25.0-35.0); MCHC 30.3 g/dL (31.0-37.0); MCV 103.6 fL (80.0-100.0); Macrocytosis Moderate; Mean Platelet Volume 8.6; RBC 3.18 m/uL (4.30-5.90); RDW 17.2 % (11.5-15.5); WBC 5.4 k/uL (3.8-10.6)
[2021-12-13 16:02] LABS: Platelet Count 690 k/uL (150-450)
[2021-12-13] MEDS ORDERED: cefTRIAXone IN SWFI 1,000 MG/10 ML SYRINGE IVP STA (16:04)
[2021-12-13 16:07] LABS: Magnesium 0.9 mg/dL (1.6-2.3)
[2021-12-13 16:10] LABS: Band Neutrophils % 4 %; Eosinophils # (M) 0.27 k/uL (0-0.7); Lymphocytes # (M) 0.76 k/uL (1.0-4.8); Metamyelocytes # (M) 0.11 k/uL (0); Metamyelocytes % 2 %; Monocytes # (M) 1.19 k/uL (0-1.0); Neutrophils % (M) 53 %; Nucleated Red Blood Cells 0 /100 WBC (0-0); Poikilocytosis (M) Present; Polychromasia Present; Stomatocytes Present; Total Cells Counted 100
--- NOTE | 2021-12-13 16:12 | XR ---
EXAMINATION TYPE: XR chest 2V DATE OF EXAM: 12/13/2021 COMPARISON: Chest x-ray November 17, 2021 and older studies. HISTORY: Shortness of breath with weakness. TECHNIQUE: Frontal and lateral views of the chest are obtained. FINDINGS: There are bilateral multifocal and confluent increased opacities. The cardiac silhouette size remains within normal limits. The osseous structures are intact. IMPRESSION: Correlate for atypical pneumonia. Continued interval progression from prior studies note d. Consider bronchoscopy to further evaluate if it has not been performed.
[2021-12-13] MEDS ORDERED: SODIUM CHLORIDE 0.9% 500 ML 500 ML IV ONE (16:17)
[2021-12-13] MEDS ORDERED: CEFEPIME 2 GM in SODIUM CHLORIDE 0.9% 100 ML IVPB STA (16:22)
[2021-12-13] MEDS ORDERED: NALOXONE 0.4 MG/ML 1 ML VIAL IV PRN (16:22)
[2021-12-13] MEDS ORDERED: ACETAMINOPHEN TAB 325 MG TAB PO PRN (16:22)
--- NOTE | 2021-12-13 16:29 | ED ---
General Adult HPI - General Chief complaint: Shortness of Breath Stated complaint: weakness Time Seen by Provider: 12/13/21 14:46 Source: patient, EMS, RN notes reviewed, old records reviewed Mode of arrival: EMS Limitations: no limitations - History of Present Illness Initial comments: 86-year-old male presenting from home with generalized weakness, nonhealing sacral wound, increased dyspnea. Patient is not eating or drinking well. He's had urinary incontinence. His son stated he is unable to stand without assistance. There is been no measured fever. He states his main pain complaint is in his coccyx. He also was recently diagnosed with coronavirus. And continues to have moderate dyspnea as well as cough. - Related Data Home Medications Medication Instructions Recorded Confirmed ALPRAZolam [Xanax] 0.5 mg PO Q8H PRN 02/04/19 12/13/21 Omeprazole 40 mg PO DAILY 02/04/19 12/13/21 Folic Acid 1 mg PO DAILY 10/29/21 12/13/21 Hydrocortisone Pr Cream 1 applic RECTAL QID 10/29/21 12/13/21 [Proctosol-Hc 2.5%] Nystatin 100,000Unit/gm Cream 1 applic TOPICAL BID 10/29/21 12/13/21 [Mycostatin Cream] metHOTREXate sodium [Methotrexate] 12.5 mg PO GOODSON 10/29/21 12/13/21 Atorvastatin [Lipitor] 80 mg PO HS 12/13/21 12/13/21 Metoprolol Tartrate [Lopressor] 12.5 mg PO BID 12/13/21 12/13/21 Previous Rx's Medication Instructions Recorded Aspirin 81 mg PO DAILY tab 11/02/21 Apixaban [Eliquis] 2.5 mg PO BID 30 Days #60 tab 11/17/21 Isosorbide Mononitrate ER [Imdur] 30 mg PO DAILY tablet 11/26/21 Megestrol [Megace] 800 mg PO DAILY ml 11/26/21 Mirtazapine [Remeron] 15 mg PO HS tab 11/26/21 Allergies Allergy/AdvReac Type Severity Reaction Status Date / Time Sulfa (Sulfonamide AdvReac Rash/Hives/ Verified 12/13/21 15:58 Antibiotics) itching Review of Systems ROS Statement: Those systems with pertinent positive or pertinent negative responses have been documented in the HPI. ROS Other: All systems not noted in ROS Statement are negative. Past Medical History Past Medical History: GERD/Reflux, Hyperlipidemia Additional Past Medical History / Comment(s): kidney stones, bladder cancer, colon cancer History of Any Multi-Drug Resistant Organisms: None Reported Past Surgical History: Hernia Repair Additional Past Surgical History / Comment(s): kidney stone removed ILIOSTOMY Past Anesthesia/Blood Transfusion Reactions: No Reported Reaction, Motion Sickness Past Psychological History: Anxiety Smoking Status: Current some day smoker Past Alcohol Use History: None Reported Past Drug Use History: None Reported - Past Family History Sister(s) Family Medical History: Cancer Brother(s) Family Medical History: Cancer General Exam Limitations: no limitations General appearance: alert, in no apparent distress Head exam: Present: atraumatic, normocephalic Eye exam: Present: normal appearance, PERRL ENT exam: Present: mucous membranes dry Neck exam: Present: normal inspection. Absent: tenderness, meningismus Respiratory exam: Present: respiratory distress, rales, rhonchi, decreased jos ath sounds Cardiovascular Exam: Present: regular rate, normal rhythm GI/Abdominal exam: Present: soft. Absent: distended, tenderness, guarding Rectal exam: Present: other (Stage II sacral decubitus ulcer) Neurological exam: Present: alert, oriented X3, CN II-XII intact. Absent: motor sensory deficit Skin exam: Present: warm, dry, pallor Course Vital Signs 12/13/21 12/13/21 14:43 14:52 Temperature 97.4 F L Pulse Rate 73 Respiratory 22 22 Rate Blood Pressure 102/69 O2 Sat by Pulse 100 Oximetry EKG Findings - EKG Comments: EKG Findings:: T-wave inversion in aVL, no ST segment elevation, significant tremor artifact rate is 72, DE interval 214, QRS duration 86, QTC 420 Medical Decision Making - Medical Decision Making 86-year-old cachectic ill appearing male presenting for evaluation generalized weakness, failure to thrive. Patient does currently have coronavirus. Received 1 L of IV fluid by EMS during transport. He has not been eating or drinking well. He has a white blood cell count 5.4, hemoglobin 10, platelets are elevated at 690. He is acidotic with CO2 of 9. This is not secondary to lactic acidosis. He is uremic with a BUN of 63 and a creatinine of 1.97. Additionally he has a magnesium of 0.9. His calcium and albumin are low. He has a UTI. Electrolytes are replaced, is given IV fluid and IV antibiotics. Urine culture is pending. He will be admitted to Dr. Vasquez. - Lab Data Result diagrams: 12/13/21 15:03 12/13/21 15:03 Lab Results 12/13/21 12/13/21 12/13/21 Range/Units 15:03 15:03 15:03 WBC 5.4 (3.8-10.6) k/uL RBC 3.18 L (4.30-5.90) m/uL Hgb 10.0 L D (13.0-17.5) gm/dL Hct 32.9 L (39.0-53.0) % MCV 103.6 H (80.0-100.0) fL MCH 31.4 (25.0-35.0) pg MCHC 30.3 L (31.0-37.0) g/dL RDW 17.2 H (11.5-15.5) % Plt Count 690 H D (150-450) k/uL MPV 8.6 Neutrophils % (Manual) 53 % Band Neuts % (Manual) 4 % Lymphocytes % (Manual) 14 % Monocytes % (Manual) 22 % Eosinophils % (Manual) 5 % Metamyelocytes % 2 % Neutrophils # (Manual) 3.00 (1.3-7.7) k/uL Lymphocytes # (Manual) 0.76 L (1.0-4.8) k/uL Monocytes # (Manual) 1.19 H (0-1.0) k/uL Eosinophils # (Manual) 0.27 (0-0.7) k/uL Metamyelocytes # (Man) 0.11 H (0) k/uL Nucleated RBCs 0 (0-0) /100 WBC Polychromasia Present Hypochromasia Marked Poikilocytosis (manual Present Anisocytosis Slight Macrocytosis Moderate Stomatocytes Present PT 15.3 H (9.0-12.0) sec INR 1.5 H (<1.2) APTT 30.3 H (22.0-30.0) sec Sodium (137-145) mmol/L Potassium (3.5-5.1) mmol/L Chloride (98-107) mmol/L Carbon Dioxide (22-30) mmol/L Anion Gap mmol/L BUN (9-20) mg/dL Creatinine (0.66-1.25) mg/dL Est GFR (CKD-EPI)AfAm (>60 ml/min/1.73 sqM) Est GFR (CKD-EPI)NonAf (>60 ml/min/1.73 sqM) Glucose (74-99) mg/dL Plasma Lactic Acid Steffen (0.7-2.0) mmol/L Calcium (8.4-10.2) mg/dL Magnesium (1.6-2.3) mg/dL Total Bilirubin (0.2-1.3) mg/dL AST (17-59) U/L ALT (4-49) U/L Alkaline Phosphatase (38-126) U/L Creatine Kinase (55-170) U/L Troponin I (0.000-0.034) ng/mL Total Protein (6.3-8.2) g/dL Albumin (3.5-5.0) g/dL Urine Color Yellow Urine Appearance Cloudy (Clear) Urine pH 7.0 (5.0-8.0) Ur Specific Jasper 1.013 (1.001-1.035) Urine Protein 1+ H (Negative) Urine Glucose (UA) Negative (Negative) Urine Ketones Negative (Negative) Urine Blood Small H (Negative) Urine Nitrite Negative (Negative) Urine Bilirubin Negative (Negative) Urine Urobilinogen <2.0 (<2.0) mg/dL Ur Leukocyte Esterase Large H (Negative) Urine RBC 7 H (0-5) /hpf Urine WBC >182 H (0-5) /hpf Urine WBC Clumps Many H (None) /hpf Urine Bacteria Many H (None) /hpf Urine Mucus Few H (None) /hpf Urine Yeast (Budding) Moderate H (None) /hpf Coronavirus (PCR) (Not Detectd) 12/13/21 12/13/21 12/13/21 Range/Units 15:03 15:03 15:03 WBC (3.8-10.6) k/uL RBC (4.30-5.90) m/uL Hgb (13.0-17.5) gm/dL Hct (39.0-53.0) % MCV (80.0-100.0) fL MCH (25.0-35.0) pg MCHC (31.0-37.0) g/dL RDW (11.5-15.5) % Plt Count (150-450) k/uL MPV Neutrophils % (Manual) % Band Neuts % (Manual) % Lymphocytes % (Manual) % Monocytes % (Manual) % Eosinophils % (Manual) % Metamyelocytes % % Neutrophils # (Manual) (1.3-7.7) k/uL Lymphocytes # (Manual) (1.0-4.8) k/uL Monocytes # (Manual) (0-1.0) k/uL Eosinophils # (Manual) (0-0.7) k/uL Metamyelocytes # (Man) (0) k/uL Nucleated RBCs (0-0) /100 WBC Polychromasia Hypochromasia Poikilocytosis (manual Anisocytosis Macrocytosis Stomatocytes PT (9.0-12.0) sec INR (<1.2) APTT (22.0-30.0) sec Sodium 141 (137-145) mmol/L Potassium 4.6 (3.5-5.1) mmol/L Chloride 123 H (98-107) mmol/L Carbon Dioxide 9 L* (22-30) mmol/L Anion Gap 9 mmol/L BUN 63 H (9-20) mg/dL Creatinine 1.97 H (0.66-1.25) mg/dL Est GFR (CKD-EPI)AfAm 35 (>60 ml/min/1.73 sqM) Est GFR (CKD-EPI)NonAf 30 (>60 ml/min/1.73 sqM) Glucose 90 (74-99) mg/dL Plasma Lactic Acid Steffen 1.5 (0.7-2.0) mmol/L Calcium 7.3 L (8.4-10.2) mg/dL Magnesium 0.9 L* (1.6-2.3) mg/dL Total Bilirubin 0.5 (0.2-1.3) mg/dL AST 16 L (17-59) U/L ALT 14 (4-49) U/L Alkaline Phosphatase 84 (38-126) U/L Creatine Kinase 26 L (55-170) U/L Troponin I 0.027 (0.000-0.034) ng/mL Total Protein 4.4 L (6.3-8.2) g/dL Albumin 2.0 L (3.5-5.0) g/dL Urine Color Urine Appearance (Clear) Urine pH (5.0-8.0) Ur Specific Jasper (1.001-1.035) Urine Protein (Negative) Urine Glucose (UA) (Negative) Urine Ketones (Negative) Urine Blood (Negative) Urine Nitrite (Negative) Urine Bilirubin (Negative) Urine Urobilinogen (<2.0) mg/dL Ur Leukocyte Esterase (Negative) Urine RBC (0-5) /hpf Urine WBC (0-5) /hpf Urine WBC Clumps (None) /hpf Urine Bacteria (None) /hpf Urine Mucus (None) /hpf Urine Yeast (Budding) (None) /hpf Coronavirus (PCR) (Not Detectd) 12/13/21 Range/Units 15:03 WBC (3.8-10.6) k/uL RBC (4.30-5.90) m/uL Hgb (13.0-17.5) gm/dL Hct (39.0-53.0) % MCV (80.0-100.0) fL MCH (25.0-35.0) pg MCHC (31.0-37.0) g/dL RDW (11.5-15.5) % Plt Count (150-450) k/uL MPV Neutrophils % (Manual) % Band Neuts % (Manual) % Lymphocytes % (Manual) % Monocytes % (Manual) % Eosinophils % (Manual) % Metamyelocytes % % Neutrophils # (Manual) (1.3-7.7) k/uL Lymphocytes # (Manual) (1.0-4.8) k/uL Monocytes # (Manual) (0-1.0) k/uL Eosinophils # (Manual) (0-0.7) k/uL Metamyelocytes # (Man) (0) k/uL Nucleated RBCs (0-0) /100 WBC Polychromasia Hypochromasia Poikilocytosis (manual Anisocytosis Macrocytosis Stomatocytes PT (9.0-12.0) sec INR (<1.2) APTT (22.0-30.0) sec Sodium (137-145) mmol/L Potassium (3.5-5.1) mmol/L Chloride (98-107) mmol/L Carbon Dioxide (22-30) mmol/L Anion Gap mmol/L BUN (9-20) mg/dL Creatinine (0.66-1.25) mg/dL Est GFR (CKD-EPI)AfAm (>60 ml/min/1.73 sqM) Est GFR (CKD-EPI)NonAf (>60 ml/min/1.73 sqM) Glucose (74-99) mg/dL Plasma Lactic Acid Steffen (0.7-2.0) mmol/L Calcium (8.4-10.2) mg/dL Magnesium (1.6-2.3) mg/dL Total Bilirubin (0.2-1.3) mg/dL AST (17-59) U/L ALT (4-49) U/L Alkaline Phosphatase (38-126) U/L Creatine Kinase (55-170) U/L Troponin I (0.000-0.034) ng/mL Total Protein (6.3-8.2) g/dL Albumin (3.5-5.0) g/dL Urine Color Urine Appearance (Clear) Urine pH (5.0-8.0) Ur Specific Jasper (1.001-1.035) Urine Protein (Negative) Urine Glucose (UA) (Negative) Urine Ketones (Negative) Urine Blood (Negative) Urine Nitrite (Negative) Urine Bilirubin (Negative) Urine Urobilinogen (<2.0) mg/dL Ur Leukocyte Esterase (Negative) Urine RBC (0-5) /hpf Urine WBC (0-5) /hpf Urine WBC Clumps (None) /hpf Urine Bacteria (None) /hpf Urine Mucus (None) /hpf Urine Yeast (Budding) (None) /hpf Coronavirus (PCR) Detected A (Not Detectd) Critical Care Time Critical Care Time: Yes Total Critical Care Time: 35 Disposition Clinical Impression: UTI (urinary tract infection), Dehydration, Acute kidney injury, Pneumonia due to COVID-19 virus, Hypomagnesemia Disposition: ADMITTED IP TO THIS [facility] Condition: Stable Is patient prescribed a controlled substance at d/c from ED?: No Referrals: Nikita Vasquez MD [Primary Care Provider] - 1-2 days Decision to Admit Reason: Admit from EC Decision Date: 12/13/21 Decision Time: 16:29
[2021-12-13] MEDS: MAGNESIUM SULFATE-D5W PMX 1 GM in DEXTROSE/WATER 1 100ML.BAG IVPB SCH ×2 (17:11→18:10)
--- NOTE | 2021-12-13 19:04 | P.HPIM ---
History of Present Illness H&P Date: 12/13/21 Bob Wolf, is an 86-year-old male who presented to [facility] emergency room with a chief complaint of generalized weakness. Patient was admitted to the hospital with COVID-19 pneumonia in October he was discharged to a half-way for rehabilitation and was recently discharged home, patient has been tired he has poor oral intake, he was also complaining of shortness of breath with any activity. He was evaluated in the emergency room vital examination on presentation reve aled a temperature of 97.4 pulse 73 respiration 22 blood pressure 102/69 pulse ox 100% on 4 L nasal cannula Laboratory data revealed a white blood count of 5.4 hemoglobin 10.0 platelet count 690 sodium 141 potassium 4.6 chloride 123 CO2 19 BUN 63 creatinine 1.97 magnesium 0.9 urine analysis revealed evidence of urinary tract infection with more than 182 white blood cells per high-power field with many bacteria and many yeast, Carney virus PCR was positive. Testing in the emergency room revealed chest x-ray revealed evidence of atypical pneumonia with progression from previous studies Patient was admitted to medical floor for further evaluation and treatment. Past Medical History Past Medical History: GERD/Reflux, Hyperlipidemia Additional Past Medical History / Comment(s): kidney stones, bladder cancer, colon cancer History of Any Multi-Drug Resistant Organisms: None Reported Past Surgical History: Hernia Repair Additional Past Surgical History / Comment(s): kidney stone removed ILIOSTOMY Past Anesthesia/Blood Transfusion Reactions: No Reported Reaction, Motion Sickness Past Psychological History: Anxiety Smoking Status: Current some day smoker Past Alcohol Use History: None Reported Past Drug Use History: None Reported - Past Family History Sister(s) Family Medical History: Cancer Brother(s) Family Medical History: Cancer Medications and Allergies Home Medications Medication Instructions Recorded Confirmed Type ALPRAZolam [Xanax] 0.5 mg PO Q8H PRN 02/04/19 12/13/21 History Omeprazole 40 mg PO DAILY 02/04/19 12/13/21 History Folic Acid 1 mg PO DAILY 10/29/21 12/13/21 History Hydrocortisone Pr Cream 1 applic RECTAL QID 10/29/21 12/13/21 History [Proctosol-Hc 2.5%] Nystatin 100,000Unit/gm Cream 1 applic TOPICAL BID 10/29/21 12/13/21 History [Mycostatin Cream] metHOTREXate sodium [Methotrexate] 12.5 mg PO GOODSON 10/29/21 12/13/21 History Aspirin 81 mg PO DAILY tab 11/02/21 12/13/21 Rx Apixaban [Eliquis] 2.5 mg PO BID 30 Days #60 tab 11/17/21 12/13/21 Rx Isosorbide Mononitrate ER [Imdur] 30 mg PO DAILY tablet 11/26/21 12/13/21 Rx Megestrol [Megace] 800 mg PO DAILY ml 11/26/21 12/13/21 Rx Mirtazapine [Remeron] 15 mg PO HS tab 11/26/21 12/13/21 Rx Atorvastatin [Lipitor] 80 mg PO HS 12/13/21 12/13/21 History Metoprolol Tartrate [Lopressor] 12.5 mg PO BID 12/13/21 12/13/21 History Allergies Allergy/AdvReac Type Severity Reaction Status Date / Time Sulfa (Sulfonamide AdvReac Rash/Hives/ Verified 12/13/21 15:58 Antibiotics) itching Physical Exam Vitals: Vital Signs Temp Pulse Resp BP Pulse Ox 12/13/21 14:52 22 12/13/21 14:43 97.4 F L 73 22 102/69 100 Intake and Output 12/13/21 12/13/21 12/13/21 06:59 14:59 22:59 Other: Weight 56.699 kg In general patient is alert and oriented x 3 in no distress HEENT head normocephalic and atraumatic Neck is supple no JVD no goiter no lymphadenopathy no carotid bruit Chest examination is clear to auscultation no crackles no wheezing Cardiac exam reveals regular heart sounds S1 and S2 no gallops no murmurs Abdomen is soft nontender no organomegaly with normal bowel sounds Extremity exam reveals no edema no cyanosis or clubbing Neurological examination reveals no gross focal deficits Results CBC & Chem 7: 12/13/21 15:03 12/13/21 15:03 Labs: Abnormal Lab Results - Last 24 Hours (Table) 12/13/21 12/13/21 12/13/21 Range/Units 15:03 15:03 15:03 RBC 3.18 L (4.30-5.90) m/uL Hgb 10.0 L D (13.0-17.5) gm/dL Hct 32.9 L (39.0-53.0) % MCV 103.6 H (80.0-100.0) fL MCHC 30.3 L (31.0-37.0) g/dL RDW 17.2 H (11.5-15.5) % Plt Count 690 H D (150-450) k/uL Lymphocytes # (Manual) 0.76 L (1.0-4.8) k/uL Monocytes # (Manual) 1.19 H (0-1.0) k/uL Metamyelocytes # (Man) 0.11 H (0) k/uL PT 15.3 H (9.0-12.0) sec INR 1.5 H (<1.2) APTT 30.3 H (22.0-30.0) sec Chloride (98-107) mmol/L Carbon Dioxide (22-30) mmol/L BUN (9-20) mg/dL Creatinine (0.66-1.25) mg/dL Calcium (8.4-10.2) mg/dL Magnesium (1.6-2.3) mg/dL AST (17-59) U/L Creatine Kinase (55-170) U/L Total Protein (6.3-8.2) g/dL Albumin (3.5-5.0) g/dL Urine Protein 1+ H (Negative) Urine Blood Small H (Negative) Ur Leukocyte Esterase Large H (Negative) Urine RBC 7 H (0-5) /hpf Urine WBC >182 H (0-5) /hpf Urine WBC Clumps Many H (None) /hpf Urine Bacteria Many H (None) /hpf Urine Mucus Few H (None) /hpf Urine Yeast (Budding) Moderate H (None) /hpf Coronavirus (PCR) (Not Detectd) 12/13/21 12/13/21 Range/Units 15:03 15:03 RBC (4.30-5.90) m/uL Hgb (13.0-17.5) gm/dL Hct (39.0-53.0) % MCV (80.0-100.0) fL MCHC (31.0-37.0) g/dL RDW (11.5-15.5) % Plt Count (150-450) k/uL Lymphocytes # (Manual) (1.0-4.8) k/uL Monocytes # (Manual) (0-1.0) k/uL Metamyelocytes # (Man) (0) k/uL PT (9.0-12.0) sec INR (<1.2) APTT (22.0-30.0) sec Chloride 123 H (98-107) mmol/L Carbon Dioxide 9 L* (22-30) mmol/L BUN 63 H (9-20) mg/dL Creatinine 1.97 H (0.66-1.25) mg/dL Calcium 7.3 L (8.4-10.2) mg/dL Magnesium 0.9 L* (1.6-2.3) mg/dL AST 16 L (17-59) U/L Creatine Kinase 26 L (55-170) U/L Total Protein 4.4 L (6.3-8.2) g/dL Albumin 2.0 L (3.5-5.0) g/dL Urine Protein (Negative) Urine Blood (Negative) Ur Leukocyte Esterase (Negative) Urine RBC (0-5) /hpf Urine WBC (0-5) /hpf Urine WBC Clumps (None) /hpf Urine Bacteria (None) /hpf Urine Mucus (None) /hpf Urine Yeast (Budding) (None) /hpf Coronavirus (PCR) Detected A (Not Detectd) Assessment and Plan Plan: Generalized weakness and fatigue Dehydration with acute kidney injury creatinine 1.97, creatinine was 1.16 on 11/26/2021 Evidence of urinary tract infection Positive COVID-19 PCR testing patient was admitted with COVID-19 pneumonia in October Electrolyte imbalance with hypomagnesemia Underlying history of rheumatoid arthritis Underlying history of kidney stones Underlying history of anxiety disorder History of continued tobacco use Previous history of colon cancer Previous history of bladder cancer At this time patient will be admitted to medical floor He will be hydrated and electrolyte imbalance will be corrected He was started on IV antibiotic in the emergency room cefepime will continue at this time For DVT prophylaxis we will use Lovenox Will follow closely prognosis is guarded
[2021-12-13] MEDS: ENOXAPARIN 30 MG/0.3 ML SYRINGE SQ SCH (21:07)
[2021-12-13] MEDS: HYDROmorphone 1 MG/ML 1 ML SYRINGE IVP PRN (23:05)
[2021-12-13] MEDS: CEFEPIME 2 GM in SODIUM CHLORIDE 0.9% 100 ML IVPB SCH (23:08)
[2021-12-14 05:58] LABS: Anisocytosis Slight; HCT 35.5 % (39.0-53.0); HGB 10.7 gm/dL (13.0-17.5); Hypochromasia Marked; MCH 32.3 pg (25.0-35.0); MCV 107.4 fL (80.0-100.0); Macrocytosis Marked; Mean Platelet Volume 8.3; Platelet Count 650 k/uL (150-450); RBC 3.31 m/uL (4.30-5.90); RDW 17.4 % (11.5-15.5); WBC 4.3 k/uL (3.8-10.6)
[2021-12-14 06:13] LABS: Albumin 2.1 g/dL (3.5-5.0); Calcium 7.7 mg/dL (8.4-10.2); Magnesium 1.5 mg/dL (1.6-2.3); Potassium 4.5 mmol/L (3.5-5.1); Total Bilirubin 0.6 mg/dL (0.2-1.3); Total Protein 4.7 g/dL (6.3-8.2)
[2021-12-14 07:27] LABS: Band Neutrophils % 5 %; Eosinophils # (M) 0.04 k/uL (0-0.7); Lymphocytes # (M) 1.03 k/uL (1.0-4.8); Neutrophils % (M) 56 %; Nucleated Red Blood Cells 0 /100 WBC (0-0); Total Cells Counted 100
[2021-12-14 07:28] LABS: Anisocytosis (M) Present; Poikilocytosis (M) Present
[2021-12-14] MEDS: CEFEPIME 2 GM in SODIUM CHLORIDE 0.9% 100 ML IVPB SCH (09:04)
[2021-12-14] MEDS: ENOXAPARIN 30 MG/0.3 ML SYRINGE SQ SCH (09:04)
[2021-12-14 09:20] VITALS: BMI 19.5
[2021-12-14] MEDS ORDERED: Magnesium Replacement Protocol 1 EACH MISC MISCELLANE PRN (10:42)
[2021-12-14] MEDS: MAGNESIUM SULFATE-D5W PMX 1 GM in DEXTROSE/WATER 1 100ML.BAG IVPB SCH ×2 (11:32→13:30)
--- NOTE | 2021-12-14 12:17 | P.CNPUL ---
History of Present Illness Consult date: 12/14/21 Requesting physician: Nikita Vasquez Reason for consult: dyspnea, hypoxemia, pneumonia, abnormal CXR/CT, other Chief complaint: Shortness of breath, weakness. History of present illness: Pulmonary consult dated 12/14/2021. 86-year-old male, seen in consultation, room 377. The patient apparently presented to the emergency department yesterday, complaining of shortness of breath, and weakness. The patient is a very poor historian. The patient apparently sees Dr. Vasquez as a primary. Apparently, the patient has not been eating or drinking well at all. He's also had urinary incontinence. The patient apparently is unable to stand without assistance. No fever or chills. He apparently was recently diagnosed with coronavirus infection. The patient complains of shortness of breath and cough. Most of the history is obtained from the ER [facility]. The patient himself is unable to give much additional history. He apparently has a history of GERD, hyperlipidemia, bladder cancer, colon cancer, kidney stones, hyperlipidemia, hypertension, and possibly atrial fibrillation. The patient is currently on 2 L nasal cannula with saturations of 97%. The patient is getting a basic IV at O. White count 4.3, hemoglobin 10.7, hematocrit 35.5, and platelet count 650,000. PT 15.3, INR 1.5, PTT 30.3. Sodium 143, potassium 4.5, chlorides 125, CO2 9, anion gap 9, BUN 60, and creatinine 1.92. Calcium 7.7, magnesium 1.5. Albumin 2.1. Urine is yellow and cloudy. There is 1+ protein. Leukocyte esterase was large positive. 7 RBCs, greater than 182 WBCs, many white blood cell clumps, many bacteria, and a few yeast. Testing for coronavirus was positive. Chest x-ray shows diffuse bilate ral infiltrates. Review of Systems REVIEW OF SYSTEMS: CONSTITUTIONAL: Weakness. NEUROLOGIC: [ Negative.] HEENT: [ Negative.] CARDIAC: [Negative.] PULMONARY: Shortness of breath. GI: [Negative.] : [Negative.] RHEUMATOLOGIC: [ Negative.] IMMUNOLOGIC: [ Negative.] ENDOCRINE: [Negative. ] DERMATOLOGIC: [Negative.] Past Medical History Past Medical History: GERD/Reflux, Hyperlipidemia Additional Past Medical History / Comment(s): kidney stones, bladder cancer, colon cancer History of Any Multi-Drug Resistant Organisms: None Reported Past Surgical History: Hernia Repair Additional Past Surgical History / Comment(s): kidney stone removed ILIOSTOMY Past Anesthesia/Blood Transfusion Reactions: No Reported Reaction, Motion Sickness Past Psychological History: Anxiety Smoking Status: Current some day smoker Past Alcohol Use History: None Reported Past Drug Use History: None Reported - Past Family History Sister(s) Family Medical History: Cancer Brother(s) Family Medical History: Cancer Medications and Allergies Home Medications Medication Instructions Recorded Confirmed Type ALPRAZolam [Xanax] 0.5 mg PO Q8H PRN 02/04/19 12/13/21 History Omeprazole 40 mg PO DAILY 02/04/19 12/13/21 History Folic Acid 1 mg PO DAILY 10/29/21 12/13/21 History Hydrocortisone Pr Cream 1 applic RECTAL QID 10/29/21 12/13/21 History [Proctosol-Hc 2.5%] Nystatin 100,000Unit/gm Cream 1 applic TOPICAL BID 10/29/21 12/13/21 History [Mycostatin Cream] metHOTREXate sodium [Methotrexate] 12.5 mg PO GOODSON 10/29/21 12/13/21 History Aspirin 81 mg PO DAILY tab 11/02/21 12/13/21 Rx Apixaban [Eliquis] 2.5 mg PO BID 30 Days #60 tab 11/17/21 12/13/21 Rx Isosorbide Mononitrate ER [Imdur] 30 mg PO DAILY tablet 11/26/21 12/13/21 Rx Megestrol [Megace] 800 mg PO DAILY ml 11/26/21 12/13/21 Rx Mirtazapine [Remeron] 15 mg PO HS tab 11/26/21 12/13/21 Rx Atorvastatin [Lipitor] 80 mg PO HS 12/13/21 12/13/21 History Metoprolol Tartrate [Lopressor] 12.5 mg PO BID 12/13/21 12/13/21 History Allergies Allergy/AdvReac Type Severity Reaction Status Date / Time Sulfa (Sulfonamide AdvReac Rash/Hives/ Verified 12/13/21 15:58 Antibiotics) itching Physical Exam Osteopathic Statement: *. No significant issues noted on an osteopathic structural exam other than those noted in the History and Physical/Consult. Vitals: Vital Signs Temp Pulse Pulse Resp BP BP Pulse Ox 12/14/21 09:00 97.8 F 100 20 112/67 97 12/14/21 03:38 97.6 F 86 24 113/54 98 12/14/21 02:00 88 24 12/14/21 00:00 77 26 H 110/59 99 12/13/21 23:00 97.9 F 80 26 H 109/59 98 12/13/21 21:07 74 26 H 111/54 98 12/13/21 19:34 73 20 86/55 97 12/13/21 14:52 22 12/13/21 14:43 97.4 F L 73 22 102/69 100 Intake and Output 12/13/21 12/14/21 12/14/21 22:59 06:59 14:59 Intake Total 200 150 90 Output Total 250 250 250 Balance -50 -100 -160 Intake: Intake, IV Titration 200 150 Amount Cefepime 2 gm In Sodium 100 Chloride 0.9% 100 ml @ 25 mls/hr IVPB Q8HR [facility] Rx# :[id number] Magnesium Sulfate-D5w Pmx 100 1 gm In Dextrose/Water 1 100ml.bag @ 100 mls/hr IVPB Q1H [facility] Rx#: [id number] Sodium Chloride 0.9% 1, 150 000 ml @ 75 mls/hr IV . [id number] [facility] Rx#:[id number] Oral 90 Output: Urine 250 250 250 Right Upper Abdomen 250 Other: Voiding Method Ileal Conduit (Right) Ileal Conduit (Right) # Bowel Movements 1 Weight 56.699 kg 56.699 kg No acute distress, very poor historian. A bit confused. Currently on nasal O2 at 2 L. HEENT examination is grossly unremarkable. Neck supple. Full range of motion. No adenopathy thyromegaly or neck vein distention. Cardiovascular examination reveals regular rhythm rate. S1-S2 normal. No S3 or S4. No discernible murmur noted. Heart sounds are distant. Heart rate 100 bpm. Lungs reveal scattered bilateral rhonchi and crackles. No wheezes. Breath sounds equal bilaterally. 2 L saturation is 97%. Abdomen soft bowel sounds are heard. No masses or tenderness. Extremities are intact. No cyanosis clubbing or edema. Skin is without rash or lesion. Neurologic examination is brief but nonfocal. Results - Laboratory Findings CBC and BMP: 12/14/21 05:38 12/14/21 05:38 PT/INR, D-dimer PT 15.3 sec (9.0-12.0) H 12/13/21 15:03 INR 1.5 (<1.2) H 12/13/21 15:03 Abnormal lab findings: Abnormal Labs 12/13/21 12/13/21 12/13/21 15:03 15:03 15:03 RBC 3.18 L Hgb 10.0 L D Hct 32.9 L MCV 103.6 H MCHC 30.3 L RDW 17.2 H Plt Count 690 H D Lymphocytes # (Manual) 0.76 L Monocytes # (Manual) 1.19 H Metamyelocytes # (Man) 0.11 H Macrocytosis PT 15.3 H INR 1.5 H APTT 30.3 H Chloride Carbon Dioxide BUN Creatinine Calcium Magnesium AST Creatine Kinase Total Protein Albumin Urine Protein 1+ H Urine Blood Small H Ur Leukocyte Esterase Large H Urine RBC 7 H Urine WBC >182 H Urine WBC Clumps Many H Urine Bacteria Many H Urine Mucus Few H Urine Yeast (Budding) Moderate H Coronavirus (PCR) 12/13/21 12/13/21 12/14/21 15:03 15:03 05:38 RBC 3.31 L Hgb 10.7 L Hct 35.5 L MCV 107.4 H MCHC 30.0 L RDW 17.4 H Plt Count 650 H Lymphocytes # (Manual) Monocytes # (Manual) Metamyelocytes # (Man) Macrocytosis Marked A PT INR APTT Chloride 123 H Carbon Dioxide 9 L* BUN 63 H Creatinine 1.97 H Calcium 7.3 L Magnesium 0.9 L* AST 16 L Creatine Kinase 26 L Total Protein 4.4 L Albumin 2.0 L Urine Protein Urine Blood Ur Leukocyte Esterase Urine RBC Urine WBC Urine WBC Clumps Urine Bacteria Urine Mucus Urine Yeast (Budding) Coronavirus (PCR) Detected A 12/14/21 05:38 RBC Hgb Hct MCV MCHC RDW Plt Count Lymphocytes # (Manual) Monocytes # (Manual) Metamyelocytes # (Man) Macrocytosis PT INR APTT Chloride 125 H Carbon Dioxide 9 L* BUN 60 H Creatinine 1.92 H Calcium 7.7 L Magnesium 1.5 L AST Creatine Kinase Total Protein 4.7 L Albumin 2.1 L Urine Protein Urine Blood Ur Leukocyte Esterase Urine RBC Urine WBC Urine WBC Clumps Urine Bacteria Urine Mucus Urine Yeast (Budding) Coronavirus (PCR) - Diagnostic Findings Chest x-ray: image reviewed Assessment and Plan Assessment: Acute hypoxemic respiratory failure secondary to coronavirus associated pneumonia. Non-anion gap metabolic acidosis, hyperchloremic. Possible acute kidney injury, versus acute dehydration. Hypoalbuminemia. Acute urinary tract infection. History of GERD. History of hyperlipidemia History of rheumatoid arthritis. History of kidney stones. Ongoing tobacco use with nicotine addiction. History of colon cancer. History of bladder cancer. Plan: Plan dated 12/14/2021. The patient is a very poor historian. It's very hard to know how long he's been sick. When I asked about vaccination, the patient could not give me a straight answer. Currently, he is on cefepime for his urinary tract infection. The patient should be placed on Decadron 6 mg a day. In addition, he probably would benefit from vitamins. The patient's currently already on Lovenox. Additional recommendations and suggestions are forthcoming. Prognosis is guarded. The patient is a DO NOT RESUSCITATE patient. Time with Patient: Greater than 30
[2021-12-14] MEDS: HYDROmorphone 1 MG/ML 1 ML SYRINGE IVP PRN (18:25)
--- NOTE | 2021-12-14 19:22 | P.PN ---
Subjective Progress Note Date: 12/14/21 Bob Wolf, is an 86-year-old male who presented to [facility] emergency room with a chief complaint of generalized weakness. Patient was admitted to the hospital with COVID-19 pneumonia in October he was [facility] a [facility] and was recently discharged ron e, patient has been tired he has poor oral intake, he was also complaining of shortness of breath with any activity. He was evaluated in the emergency room vital examination on presentation revealed a temperature of 97.4 pulse 73 respiration 22 blood pressure 102/69 pulse ox 100% on 4 L nasal cannula Laboratory data revealed a white blood count of 5.4 hemoglobin 10.0 platelet count 690 sodium 141 potassium 4.6 chloride 123 CO2 19 BUN 63 creatinine 1.97 magnesium 0.9 urine analysis revealed evidence of urinary tract infection with more than 182 white blood cells per high-power field with many bacteria and many yeast, Carney virus PCR was positive. Testing in the emergency room revealed chest x-ray revealed evidence of atypical pneumonia with progression from previous studies Patient was admitted to medical floor for further evaluation and treatment. On 12/14/2021 patient was seen and examined on the telemetry floor he is alert confused in no apparent distress there is no fever or chills no headache or dizziness no chest pain no shortness of breath no cough no nausea or vomiting no abdominal pain no diarrhea and no urinary symptoms. Pulmonary consultation reviewed patient was started on IV Decadron, vitamin C, vitamin D, and zinc supplements Will consult physical therapy and occupational therapy will follow in a.m. Objective - Vital Signs Vital signs: Vital Signs Temp 97.6 F 12/14/21 12:00 Pulse 103 H 12/14/21 12:00 Resp 20 12/14/21 12:00 BP 94/61 12/14/21 12:00 Pulse Ox 98 12/14/21 12:00 Intake & Output 12/13/21 12/14/21 12/14/21 18:59 06:59 18:59 Intake Total 350 810 Output Total 500 800 Balance -150 10 Weight 56.699 kg 56.699 kg Intake: Intake, IV Titration 350 Amount Cefepime 2 gm In Sodium 100 Chloride 0.9% 100 ml @ 25 mls/hr IVPB Q8HR [facility] Rx# :[id number] Magnesium Sulfate-D5w Pmx 100 1 gm In Dextrose/Water 1 100ml.bag @ 100 mls/hr IVPB Q1H [facility] Rx#: [id number] Sodium Chloride 0.9% 1, 150 000 ml @ 75 mls/hr IV . [id number] [facility] Rx#:[id number] Oral 810 Output: Urine 500 800 Right Upper Abdomen 250 100 Other: Voiding Method Ileal Conduit (Right) Ileal Conduit (Right) # Bowel Movements 1 - Exam In general patient is alert and oriented x 3 in no distress HEENT head normocephalic and atraumatic Neck is supple no JVD no goiter no lymphadenopathy no carotid bruit Chest examination is clear to auscultation no crackles no wheezing Cardiac exam reveals regular heart sounds S1 and S2 no gallops no murmurs Abdomen is soft nontender no organomegaly with normal bowel sounds Extremity exam reveals no edema no cyanosis or clubbing Neurological examination reveals no gross focal deficits - Labs CBC & Chem 7: 12/14/21 05:38 12/14/21 05:38 Labs: Abnormal Lab Results - Last 24 Hours (Table) 12/14/21 12/14/21 Range/Units 05:38 05:38 RBC 3.31 L (4.30-5.90) m/uL Hgb 10.7 L (13.0-17.5) gm/dL Hct 35.5 L (39.0-53.0) % MCV 107.4 H (80.0-100.0) fL MCHC 30.0 L (31.0-37.0) g/dL RDW 17.4 H (11.5-15.5) % Plt Count 650 H (150-450) k/uL Macrocytosis Marked A Chloride 125 H (98-107) mmol/L Carbon Dioxide 9 L* (22-30) mmol/L BUN 60 H (9-20) mg/dL Creatinine 1.92 H (0.66-1.25) mg/dL Calcium 7.7 L (8.4-10.2) mg/dL Magnesium 1.5 L (1.6-2.3) mg/dL Total Protein 4.7 L (6.3-8.2) g/dL Albumin 2.1 L (3.5-5.0) g/dL Microbiology - Last 24 Hours (Table) 12/13/21 15:03 Urine Culture - Preliminary Urine,Clean Catch Assessment and Plan Plan: Generalized weakness and fatigue Dehydration with acute kidney injury creatinine 1.97, creatinine was 1.16 on 11/26/2021 Evidence of urinary tract infection Positive COVID-19 PCR testing patient was admitted with COVID-19 pneumonia in October Electrolyte imbalance with hypomagnesemia Underlying history of rheumatoid arthritis Underlying history of kidney stones Underlying history of anxiety disorder During the last admission, patient had episodes of atrial fibrillation he was started Eliquis, at that time History of continued tobacco use Previous history of colon cancer Previous history of bladder cancer At this time patient will be admitted to medical floor He will be hydrated and electrolyte imbalance will be corrected He was started on IV antibiotic in the emergency room cefepime will continue at this time For DVT prophylaxis, will resume Eliquis Will follow closely prognosis is guarded
[2021-12-14] MEDS: APIXABAN 2.5 MG TABLET PO SCH (20:12)
[2021-12-14] MEDS: MIRTAZAPINE 15 MG TAB PO SCH (20:12)
[2021-12-14] MEDS: METOPROLOL TARTRATE 12.5 MG TAB PO SCH (20:12)
[2021-12-14] MEDS: ALPRAZolam 0.5 MG TAB PO PRN (20:12)
[2021-12-14] MEDS: ATORVASTATIN 80 MG TAB PO SCH (20:12)
[2021-12-14] MEDS: DEXAMETHASONE SOD PHOSPHATE 10 MG/ML 1 ML VIAL IVP SCH (22:11)
[2021-12-14] MEDS: CHOLECALCIFEROL 25 MCG (1000 IU) TABLET PO SCH (22:11)
[2021-12-14] MEDS: HYDROCORTISONE 2.5% RECTAL CREAM 30 GM TUBE RECTAL SCH (22:11)
[2021-12-14] MEDS: ASCORBIC ACID 500 MG TAB PO SCH (22:11)
[2021-12-14] MEDS: ZINC SULFATE 220 MG CAP PO SCH (22:11)
[2021-12-14] MEDS: CEFEPIME 1 GM in SODIUM CHLORIDE 0.9% 50 ML IVPB SCH (22:12)
[2021-12-15] MEDS: PANTOPRAZOLE 40 MG TABLET PO SCH (06:56)
[2021-12-15 08:03] LABS: Albumin 2.1 g/dL (3.5-5.0); Calcium 8.4 mg/dL (8.4-10.2); Magnesium 2.2 mg/dL (1.6-2.3); Potassium 4.5 mmol/L (3.5-5.1); Total Bilirubin 0.7 mg/dL (0.2-1.3); Total Protein 4.7 g/dL (6.3-8.2)
[2021-12-15 08:22] LABS: Anisocytosis Slight; Basophils % (A) 0 %; Eosinophils # (A) 0.1 k/uL (0-0.7); Eosinophils % (A) 2 %; HCT 35.7 % (39.0-53.0); HGB 11.1 gm/dL (13.0-17.5); Hypochromasia Marked; Lymphocytes # (A) 0.3 k/uL (1.0-4.8); Lymphocytes % (A) 7 %; MCH 32.6 pg (25.0-35.0); MCV 105.2 fL (80.0-100.0); Macrocytosis Moderate; Mean Platelet Volume 8.5; Monocytes # (A) 0.2 k/uL (0-1.0); Monocytes % (A) 4 %; Neutrophils # (A) 4.3 k/uL (1.3-7.7); Neutrophils % (A) 87 %; Platelet Count 661 k/uL (150-450); RDW 16.4 % (11.5-15.5)
[2021-12-15] MEDS: METOPROLOL TARTRATE 12.5 MG TAB PO SCH ×2 (09:29→19:59)
[2021-12-15] MEDS: MEGESTROL 400 MG/10 ML CUP PO SCH (09:29)
[2021-12-15] MEDS: ASCORBIC ACID 500 MG TAB PO SCH (09:29)
[2021-12-15] MEDS: APIXABAN 2.5 MG TABLET PO SCH ×2 (09:29→19:59)
[2021-12-15] MEDS: CHOLECALCIFEROL 25 MCG (1000 IU) TABLET PO SCH (09:29)
[2021-12-15] MEDS: DEXAMETHASONE SOD PHOSPHATE 10 MG/ML 1 ML VIAL IVP SCH (09:29)
[2021-12-15] MEDS: HYDROCORTISONE 2.5% RECTAL CREAM 30 GM TUBE RECTAL SCH ×4 (09:29→21:48)
[2021-12-15] MEDS: CEFEPIME 1 GM in SODIUM CHLORIDE 0.9% 50 ML IVPB SCH ×2 (09:29→19:59)
[2021-12-15] MEDS: ZINC SULFATE 220 MG CAP PO SCH (09:29)
[2021-12-15] MEDS: ISOSORBIDE MONONITRATE ER 30 MG TAB.ER.24H PO SCH (09:29)
[2021-12-15] MEDS: ASPIRIN 81 MG PO SCH (09:29)
[2021-12-15] MEDS: FOLIC ACID 1 MG TAB PO SCH (09:29)
[2021-12-15] MEDS: HYDROmorphone 1 MG/ML 1 ML SYRINGE IVP PRN (10:41)
--- NOTE | 2021-12-15 11:24 | P.CONS ---
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 on his last admission with supportive treatment, patient not pr esenting back to the hospital yesterday for evaluation of generalized weakness nonhealing sacral wound along with increasing shortness of breath in this patient symptom has been going on for 1 week baby feeling weak and unable to stand without assistance no clear history of any fever before presentation to the hospital and the patient was afebrile on arrival to the ER and no fever since then patient did not have significant hypoxemia is currently on 2 L nasal cannula patient did have normal white count did have elevated BUN and creatinine patient did have a positive UA campo PCR came back positive patient denies having any chest pain he did have some cough not bringing up any sputum no naus ea no vomiting no abdominal pain or diarrhea patient did have a chest x-ray which shows correlate for typical pneumonia interval progression from prior studies patient be started on cefepime infectious disease was consulted for further management Review of Systems Positive point has been mentioned in HPI, rest of the systems are negative Past Medical History Past Medical History: GERD/Reflux, Hyperlipidemia Additional Past Medical History / Comment(s): kidney stones, bladder cancer, colon cancer History of Any Multi-Drug Resistant Organisms: None Reported Past Surgical History: Hernia Repair Additional Past Surgical History / Comment(s): kidney stone removed ILIOSTOMY Past Anesthesia/Blood Transfusion Reactions: No Reported Reaction, Motion Sickness Past Psychological History: Anxiety Smoking Status: Current some day smoker Past Alcohol Use History: None Reported Past Drug Use History: None Reported - Past Family History Sister(s) Family Medical History: Cancer Brother(s) Family Medical History: Cancer Medications and Allergies Home Medications Medication Instructions Recorded Confirmed Type ALPRAZolam [Xanax] 0.5 mg PO Q8H PRN 02/04/19 12/13/21 History Omeprazole 40 mg PO DAILY 02/04/19 12/13/21 History Folic Acid 1 mg PO DAILY 10/29/21 12/13/21 History Hydrocortisone Pr Cream 1 applic RECTAL QID 10/29/21 12/13/21 History [Proctosol-Hc 2.5%] Nystatin 100,000Unit/gm Cream 1 applic TOPICAL BID 10/29/21 12/13/21 History [Mycostatin Cream] metHOTREXate sodium [Methotrexate] 12.5 mg PO GOODSON 10/29/21 12/13/21 History Aspirin 81 mg PO DAILY tab 11/02/21 12/13/21 Rx Apixaban [Eliquis] 2.5 mg PO BID 30 Days #60 tab 11/17/21 12/13/21 Rx Isosorbide Mononitrate ER [Imdur] 30 mg PO DAILY tablet 11/26/21 12/13/21 Rx Megestrol [Megace] 800 mg PO DAILY ml 11/26/21 12/13/21 Rx Mirtazapine [Remeron] 15 mg PO HS tab 11/26/21 12/13/21 Rx Atorvastatin [Lipitor] 80 mg PO HS 12/13/21 12/13/21 History Metoprolol Tartrate [Lopressor] 12.5 mg PO BID 12/13/21 12/13/21 History Allergies Allergy/AdvReac Type Severity Reaction Status Date / Time Sulfa (Sulfonamide AdvReac Rash/Hives/ Verified 12/13/21 15:58 Antibiotics) itching Physical Exam Vitals: Vital Signs Temp Pulse Pulse Resp BP BP Pulse Ox 12/14/21 09:00 97.8 F 100 20 112/67 97 12/14/21 03:38 97.6 F 86 24 113/54 98 12/14/21 02:00 88 24 12/14/21 00:00 77 26 H 110/59 99 12/13/21 23:00 97.9 F 80 26 H 109/59 98 12/13/21 21:07 74 26 H 111/54 98 12/13/21 19:34 73 20 86/55 97 12/13/21 14:52 22 12/13/21 14:43 97.4 F L 73 22 102/69 100 Intake and Output 12/13/21 12/14/21 12/14/21 22:59 06:59 14:59 Intake Total 200 150 90 Output Total 250 250 250 Balance -50 -100 -160 Intake: Intake, IV Titration 200 150 Amount Cefepime 2 gm In Sodium 100 Chloride 0.9% 100 ml @ 25 mls/hr IVPB Q8HR [facility] Rx# :[id number] Magnesium Sulfate-D5w Pmx 100 1 gm In Dextrose/Water 1 100ml.bag @ 100 mls/hr IVPB Q1H [facility] Rx#: [id number] Sodium Chloride 0.9% 1, 150 000 ml @ 75 mls/hr IV . [id number] [facility] Rx#:[id number] Oral 90 Output: Urine 250 250 250 Right Upper Abdomen 250 Other: Voiding Method Ileal Conduit (Right) Ileal Conduit (Right) # Bowel Movements 1 Weight 56.699 kg 56.699 kg GENERAL DESCRIPTION: Elderly male lying in bed, no distress. No tachypnea or accessory muscle of respiration use. HEENT: Shows Pallor , no scleral icterus. Oral mucous membrane is dry. No pharyngeal erythema or thrush NECK: Trachea central, no thyromegaly. LUNGS: Unlabored breathing. Decreased breath sound at the base. No wheeze or crackle. HEART: S1, S2, regular rate and rhythm. No loud murmur ABDOMEN: Soft, no tenderness , guarding or rigidity, no organomegaly EXTREMITIES: No edema of feet. SKIN: No rash, no masses palpable. NEUROLOGICAL: The patient is awake, alert, oriented x3, mood and affect normal. Results CBC & Chem 7: 12/15/21 07:23 12/15/21 07:23 Labs: Abnormal Lab Results - Last 24 Hours (Table) 12/13/21 12/13/21 12/13/21 Range/Units 15:03 15:03 15:03 RBC 3.18 L (4.30-5.90) m/uL Hgb 10.0 L D (13.0-17.5) gm/dL Hct 32.9 L (39.0-53.0) % MCV 103.6 H (80.0-100.0) fL MCHC 30.3 L (31.0-37.0) g/dL RDW 17.2 H (11.5-15.5) % Plt Count 690 H D (150-450) k/uL Lymphocytes # (Manual) 0.76 L (1.0-4.8) k/uL Monocytes # (Manual) 1.19 H (0-1.0) k/uL Metamyelocytes # (Man) 0.11 H (0) k/uL Macrocytosis PT 15.3 H (9.0-12.0) sec INR 1.5 H (<1.2) APTT 30.3 H (22.0-30.0) sec Chloride (98-107) mmol/L Carbon Dioxide (22-30) mmol/L BUN (9-20) mg/dL Creatinine (0.66-1.25) mg/dL Calcium (8.4-10.2) mg/dL Magnesium (1.6-2.3) mg/dL AST (17-59) U/L Creatine Kinase (55-170) U/L Total Protein (6.3-8.2) g/dL Albumin (3.5-5.0) g/dL Urine Protein 1+ H (Negative) Urine Blood Small H (Negative) Ur Leukocyte Esterase Large H (Negative) Urine RBC 7 H (0-5) /hpf Urine WBC >182 H (0-5) /hpf Urine WBC Clumps Many H (None) /hpf Urine Bacteria Many H (None) /hpf Urine Mucus Few H (None) /hpf Urine Yeast (Budding) Moderate H (None) /hpf Coronavirus (PCR) (Not Detectd) 12/13/21 12/13/21 12/14/21 Range/Units 15:03 15:03 05:38 RBC 3.31 L (4.30-5.90) m/uL Hgb 10.7 L (13.0-17.5) gm/dL Hct 35.5 L (39.0-53.0) % MCV 107.4 H (80.0-100.0) fL MCHC 30.0 L (31.0-37.0) g/dL RDW 17.4 H (11.5-15.5) % Plt Count 650 H (150-450) k/uL Lymphocytes # (Manual) (1.0-4.8) k/uL Monocytes # (Manual) (0-1.0) k/uL Metamyelocytes # (Man) (0) k/uL Macrocytosis Marked A PT (9.0-12.0) sec INR (<1.2) APTT (22.0-30.0) sec Chloride 123 H (98-107) mmol/L Carbon Dioxide 9 L* (22-30) mmol/L BUN 63 H (9-20) mg/dL Creatinine 1.97 H (0.66-1.25) mg/dL Calcium 7.3 L (8.4-10.2) mg/dL Magnesium 0.9 L* (1.6-2.3) mg/dL AST 16 L (17-59) U/L Creatine Kinase 26 L (55-170) U/L Total Protein 4.4 L (6.3-8.2) g/dL Albumin 2.0 L (3.5-5.0) g/dL Urine Protein (Negative) Urine Blood (Negative) Ur Leukocyte Esterase (Negative) Urine RBC (0-5) /hpf Urine WBC (0-5) /hpf Urine WBC Clumps (None) /hpf Urine Bacteria (None) /hpf Urine Mucus (None) /hpf Urine Yeast (Budding) (None) /hpf Coronavirus (PCR) Detected A (Not Detectd) 12/14/21 Range/Units 05:38 RBC (4.30-5.90) m/uL Hgb (13.0-17.5) gm/dL Hct (39.0-53.0) % MCV (80.0-100.0) fL MCHC (31.0-37.0) g/dL RDW (11.5-15.5) % Plt Count (150-450) k/uL Lymphocytes # (Manual) (1.0-4.8) k/uL Monocytes # (Manual) (0-1.0) k/uL Metamyelocytes # (Man) (0) k/uL Macrocytosis PT (9.0-12.0) sec INR (<1.2) APTT (22.0-30.0) sec Chloride 125 H (98-107) mmol/L Carbon Dioxide 9 L* (22-30) mmol/L BUN 60 H (9-20) mg/dL Creatinine 1.92 H (0.66-1.25) mg/dL Calcium 7.7 L (8.4-10.2) mg/dL Magnesium 1.5 L (1.6-2.3) mg/dL AST (17-59) U/L Creatine Kinase (55-170) U/L Total Protein 4.7 L (6.3-8.2) g/dL Albumin 2.1 L (3.5-5.0) g/dL Urine Protein (Negative) Urine Blood (Negative) Ur Leukocyte Esterase (Negative) Urine RBC (0-5) /hpf Urine WBC (0-5) /hpf Urine WBC Clumps (None) /hpf Urine Bacteria (None) /hpf Urine Mucus (None) /hpf Urine Yeast (Budding) (None) /hpf Coronavirus (PCR) (Not Detectd) Microbiology - Last 24 Hours (Table) 12/13/21 15:03 Urine Culture - Preliminary Urine,Clean Catch Assessment and Plan (1) Pneumonia due to COVID-19 virus Current Visit: Yes Status: Acute Code(s): U07.1 - COVID-19; J12.82 - PNEUMONIA DUE TO CORONAVIRUS DISEASE 2018 SNOMED Code(s): 870118265068055809 (2) UTI (urinary tract infection) Current Visit: Yes Status: Acute Code(s): N39.0 - URINARY TRACT INFECTION, SITE NOT SPECIFIED SNOMED Code(s): 77032239 Plan: 1-Patient presented to hospital with realized weakness which is likely multifactorial in this patient with likely component of gram-negative urinary tract infection, patient did have abnormal x-ray underlying pneumonia not entirely excluded. 2patient with a positive Covid test more likely related to his recent COVID-19 infection and not behaving as a reinfection or active Covid pneumonia. 3sulfa allergy 4we will obtain a CRP and a procalcitonin level. 5continue the patient on cefepime while waiting for the culture to finalize We will follow on clinical condition and cultures to further adjust medication if needed Thank you for this consultation will follow this patient along with you Time with Patient: Less than 30
--- NOTE | 2021-12-15 12:00 | P.PN ---
Subjective Progress Note Date: 12/15/21 86-year-old male, seen in consultation, room 377. The patient apparently presented to the emergency department yesterday, complaining of shortness of breath, and weakness. The patient is a very poor historian. The patient apparently sees Dr. Vasquez as a primary. Apparently, the patient has not been eating or drinking well at all. He's also had urinary incontinence. The patient apparently is unable to stand without assistance. No fever or chills. He apparently was recently diagnosed with coronavirus infection. The patient complains of shortness of breath and cough. Most of the history is obtained from the ER [facility]. The patient himself is unable to give much additional history. He apparently has a history of GERD, hyperlipidemia, bladder cancer, colon cancer, kidney stones, hyperlipidemia, hypertension, and possibly atrial fibrillation. The patient is currently on 2 L nasal cannula with saturations of 97%. The patient is getting a basic IV at [facility]. White count 4.3, hemoglobin 10.7, hematocrit 35.5, and platelet count 650,000. PT 15.3, INR 1.5, PTT 30.3. Sodium 143, potassium 4.5, chlorides 125, CO2 9, anion gap 9, BUN 60, and creatinine 1.92. Calcium 7.7, magnesium 1.5. Albumin 2.1. Urine is yellow and cloudy. There is 1+ protein. Leukocyte esterase was large positive. 7 RBCs, greater than 182 WBCs, many white blood cell clumps, many bacteria, and a few yeast. Testing for coronavirus was positive. Chest x-ray shows diffuse bilateral infiltrates. The patient is seen today 12/15/2021 in follow-up on the selective care unit. He is currently resting in bed. Laying flat. Maintaining O2 saturations in the mid 90s up to 100% on 2 L/m per nasal cannula. Urine culture positive for gram- negative bacilli. Blood cultures are pending. White count 5.0. Hemoglobin 11.1. Sodium 146. Potassium 4.5. Chloride 128. Bicarb 12. BUN 57. Creatinine 1.70. Glucose 129. Coronavirus by PCR positive. He is continued on Decadron, Eliquis, vitamin supplements. Objective - Vital Signs Vital signs: Vital Signs Temp 98.2 F 12/15/21 08:00 Pulse 98 12/15/21 08:00 Resp 20 12/15/21 08:00 BP 125/74 12/15/21 08:00 Pulse Ox 95 12/15/21 08:00 Intake & Output 12/14/21 12/15/21 12/15/21 18:59 06:59 18:59 Intake Total 810 Output Total 800 300 Balance 10 -300 Weight 56.699 kg Intake: Oral 810 Output: Urine 800 300 Right Upper Abdomen 100 300 Other: Voiding Method Ileal Conduit (Right) Ileal Conduit (Right) # Bowel Movements 1 - Exam GENERAL EXAM: Alert, 86-year-old gentleman, poor historian, resting in bed, on 2 L nasal cannula,, comfortable in no apparent distress. HEAD: Normocephalic. EYES: Normal reaction of pupils, equal size. NOSE: Clear with pink turbinates. THROAT: No erythema or exudates. NECK: No masses, no JVD. CHEST: No chest wall deformity. LUNGS: Equal air entry with crackles in the bilateral bases. CVS: S1 and S2 normal with no audible murmur, regular rhythm. ABDOMEN: No hepatosplenomegaly, normal bowel sounds, no guarding or rigidity. SPINE: No scoliosis or deformity SKIN: No rashes CENTRAL NERVOUS SYSTEM: No focal deficits, tone is normal in all 4 extremities. EXTREMITIES: There is no peripheral edema. No clubbing, no cyanosis. Peripheral pulses are intact. - Labs CBC & Chem 7: 12/15/21 07:23 12/15/21 07:23 Labs: Abnormal Lab Results - Last 24 Hours (Table) 12/15/21 12/15/21 Range/Units 07:23 07:23 RBC 3.40 L (4.30-5.90) m/uL Hgb 11.1 L (13.0-17.5) gm/dL Hct 35.7 L (39.0-53.0) % MCV 105.2 H (80.0-100.0) fL RDW 16.4 H (11.5-15.5) % Plt Count 661 H (150-450) k/uL Lymphocytes # 0.3 L (1.0-4.8) k/uL Sodium 146 H (137-145) mmol/L Chloride 128 H (98-107) mmol/L Carbon Dioxide 12 L (22-30) mmol/L BUN 57 H (9-20) mg/dL Creatinine 1.70 H (0.66-1.25) mg/dL Glucose 129 H (74-99) mg/dL Total Protein 4.7 L (6.3-8.2) g/dL Albumin 2.1 L (3.5-5.0) g/dL Microbiology - Last 24 Hours (Table) 12/13/21 15:03 Urine Culture - Preliminary Urine,Clean Catch Gram Neg Bacilli 12/13/21 17:12 Blood Culture - Preliminary Blood No Growth after 24 hours 12/13/21 17:12 Blood Culture - Preliminary Blood No Growth after 24 hours Assessment and Plan Assessment: 1 Acute hypoxemic respiratory failure secondary to coronavirus associated pneumonia. 2 Non-anion gap metabolic acidosis, hyperchloremic. 3 Possible acute kidney injury, versus acute dehydration. 4 Hypoalbuminemia. 5 Acute urinary tract infection, secondary to gram-negative bacilli. 6 History of GERD. 7 History of hyperlipidemia 8 History of rheumatoid arthritis. 9 History of kidney stones. 10 Ongoing tobacco use with nicotine addiction. 11 History of colon cancer. 12 History of bladder cancer. Plan: The patient was seen and evaluated Resting comfortably in bed On 2 L nasal cannula Continue Decadron, Eliquis, vitamin supplements Titrate the FiO2 as tolerated Currently on cefepime We will continue to follow I, the cosigning physician, performed a history & physical examination of the patient. Lungs sounds with crackles in the posterior bases. Maintaining good O2 saturations in the 90s on 2 L/m per nasal cannula. I discussed the assessment and plan of care with my nurse practitioner, Tonie Godfrey. I attest to the above note as dictated by her.
--- NOTE | 2021-12-15 17:06 | P.PN ---
Subjective Progress Note Date: 12/15/21 Bob Wolf, is an 86-year-old male who presented to [facility] emergency room with a chief complaint of generalized weakness. Patient was admitted to the hospital with COVID-19 pneumonia in October he was discharged to a skilled nursing for rehabilitation and was recently discharged ron e, patient has been tired he has poor oral intake, he was also complaining of shortness of breath with any activity. He was evaluated in the emergency room vital examination on presentation revealed a temperature of 97.4 pulse 73 respiration 22 blood pressure 102/69 pulse ox 100% on 4 L nasal cannula Laboratory data revealed a white blood count of 5.4 hemoglobin 10.0 platelet count 690 sodium 141 potassium 4.6 chloride 123 CO2 19 BUN 63 creatinine 1.97 magnesium 0.9 urine analysis revealed evidence of urinary tract infection with more than 182 white blood cells per high-power field with many bacteria and many yeast, Carney virus PCR was positive. Testing in the emergency room revealed chest x-ray revealed evidence of atypical pneumonia with progression from previous studies Patient was admitted to medical floor for further evaluation and treatment. On 12/14/2021 patient was seen and examined on the telemetry floor he is alert confused in no apparent distress there is no fever or chills no headache or dizziness no chest pain no shortness of breath no cough no nausea or vomiting no abdominal pain no diarrhea and no urinary symptoms. Pulmonary consultation reviewed patient was started on IV Decadron, vitamin C, vitamin D, and zinc supplements Will consult physical therapy and occupational therapy will follow in a.m. On 12/15/2021 patient was seen and examined on the medical floor he is alert and oriented 3 in no apparent distress he has poor oral intake and generalized weakness otherwise he denies any complaints there is no fever or chills no headache or dizziness no chest pain no shortness of breath no cough no nausea or vomiting no abdominal pain no diarrhea and no urinary symptoms Objective - Vital Signs Vital signs: Vital Signs Temp 97.6 F 12/15/21 04:00 Pulse 98 12/15/21 04:00 Resp 20 12/15/21 04:00 BP 112/67 12/15/21 04:00 Pulse Ox 100 12/15/21 04:00 Intake & Output 12/14/21 12/15/21 12/15/21 18:59 06:59 18:59 Intake Total 810 Output Total 800 300 Balance 10 -300 Weight 56.699 kg Intake: Oral 810 Output: Urine 800 300 Right Upper Abdomen 100 300 Other: Voiding Method Ileal Conduit (Right) Ileal Conduit (Right) # Bowel Movements 1 - Exam In general patient is alert and oriented x 3 in no distress HEENT head normocephalic and atraumatic Neck is supple no JVD no goiter no lymphadenopathy no carotid bruit Chest examination is clear to auscultation no crackles no wheezing Cardiac exam reveals regular heart sounds S1 and S2 no gallops no murmurs Abdomen is soft nontender no organomegaly with normal bowel sounds Extremity exam reveals no edema no cyanosis or clubbing Neurological examination reveals no gross focal deficits - Labs CBC & Chem 7: 12/15/21 07:23 12/15/21 07:23 Labs: Abnormal Lab Results - Last 24 Hours (Table) 12/15/21 12/15/21 Range/Units 07:23 07:23 RBC 3.40 L (4.30-5.90) m/uL Hgb 11.1 L (13.0-17.5) gm/dL Hct 35.7 L (39.0-53.0) % MCV 105.2 H (80.0-100.0) fL RDW 16.4 H (11.5-15.5) % Plt Count 661 H (150-450) k/uL Lymphocytes # 0.3 L (1.0-4.8) k/uL Sodium 146 H (137-145) mmol/L Chloride 128 H (98-107) mmol/L Carbon Dioxide 12 L (22-30) mmol/L BUN 57 H (9-20) mg/dL Creatinine 1.70 H (0.66-1.25) mg/dL Glucose 129 H (74-99) mg/dL Total Protein 4.7 L (6.3-8.2) g/dL Albumin 2.1 L (3.5-5.0) g/dL Microbiology - Last 24 Hours (Table) 12/13/21 15:03 Urine Culture - Preliminary Urine,Clean Catch Gram Neg Bacilli 12/13/21 17:12 Blood Culture - Preliminary Blood No Growth after 24 hours 12/13/21 17:12 Blood Culture - Preliminary Blood No Growth after 24 hours Assessment and Plan Plan: Generalized weakness and fatigue Dehydration with acute kidney injury creatinine 1.97, creatinine was 1.16 on 11/26/2021 Evidence of urinary tract infection Positive COVID-19 PCR testing patient was admitted with COVID-19 pneumonia in October Electrolyte imbalance with hypomagnesemia Underlying history of rheumatoid arthritis Underlying history of kidney stones Underlying history of anxiety disorder During the last admission, patient had episodes of atrial fibrillation he was started Eliquis, at that time History of continued tobacco use Previous history of colon cancer Previous history of bladder cancer At this time patient will be admitted to medical floor He will be hydrated and electrolyte imbalance will be corrected He was started on IV antibiotic in the emergency room cefepime will continue at this time For DVT prophylaxis, will resume Eliquis Will follow closely prognosis is guarded
[2021-12-15] MEDS: NYSTATIN 100,000 UNIT/ML SUSP 500,000 UNIT/5 ML CUP PO SCH ×2 (17:41→21:56)
[2021-12-15] MEDS: MIRTAZAPINE 15 MG TAB PO SCH (19:59)
[2021-12-15] MEDS: ATORVASTATIN 80 MG TAB PO SCH (19:59)
--- NOTE | 2021-12-15 21:56 | P.PN ---
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 On today's evaluation that is 12/15/2021, the patient denies having any fever or chills, the patient is breathing slightly comfortably, patient denies having any chest pain he did have some cough nonproductive of sputum no vomiting no abdominal pain no diarrhea Objective - Vital Signs Vital signs: Vital Signs Temp 98.2 F 12/15/21 08:00 Pulse 98 12/15/21 08:00 Resp 20 12/15/21 08:00 BP 125/74 12/15/21 08:00 Pulse Ox 95 12/15/21 08:00 Intake & Output 12/14/21 12/15/21 12/15/21 18:59 06:59 18:59 Intake Total 810 Output Total 800 300 Balance 10 -300 Weight 56.699 kg Intake: Oral 810 Output: Urine 800 300 Right Upper Abdomen 100 300 Other: Voiding Method Ileal Conduit (Right) Ileal Conduit (Right) # Bowel Movements 1 - Exam GENERAL DESCRIPTION: An elderly male lying in bed in no distress RESPIRATORY SYSTEM: Unlabored breathing , decreased breath sounds at bases HEART: S1 S2 regular rate and rhythm , ABDOMEN: Soft , no tenderness EXTREMITIES: No edema feet Patient did have a stage II sacral pressure ulcer 3. No significant surrounding redness or drainage - Labs CBC & Chem 7: 12/15/21 07:23 12/15/21 07:23 Labs: Abnormal Lab Results - Last 24 Hours (Table) 12/15/21 12/15/21 Range/Units 07:23 07:23 RBC 3.40 L (4.30-5.90) m/uL Hgb 11.1 L (13.0-17.5) gm/dL Hct 35.7 L (39.0-53.0) % MCV 105.2 H (80.0-100.0) fL RDW 16.4 H (11.5-15.5) % Plt Count 661 H (150-450) k/uL Lymphocytes # 0.3 L (1.0-4.8) k/uL Sodium 146 H (137-145) mmol/L Chloride 128 H (98-107) mmol/L Carbon Dioxide 12 L (22-30) mmol/L BUN 57 H (9-20) mg/dL Creatinine 1.70 H (0.66-1.25) mg/dL Glucose 129 H (74-99) mg/dL Total Protein 4.7 L (6.3-8.2) g/dL Albumin 2.1 L (3.5-5.0) g/dL Microbiology - Last 24 Hours (Table) 12/13/21 15:03 Urine Culture - Preliminary Urine,Clean Catch Gram Neg Bacilli 12/13/21 17:12 Blood Culture - Preliminary Blood No Growth after 24 hours 12/13/21 17:12 Blood Culture - Preliminary Blood No Growth after 24 hours Assessment and Plan (1) Pneumonia due to COVID-19 virus Current Visit: Yes Status: Acute Code(s): U07.1 - COVID-19; J12.82 - PNEUMONIA DUE TO CORONAVIRUS DISEASE 2018 SNOMED Code(s): 200643825506372346 (2) UTI (urinary tract infection) Current Visit: Yes Status: Acute Code(s): N39.0 - URINARY TRACT INFECTION, SITE NOT SPECIFIED SNOMED Code(s): 98778228 Plan: 1-Patient presented to hospital with realized weakness which is likely multifactorial in this patient with likely component of gram-negative urinary tract infection, patient did have abnormal x-ray underlying pneumonia not entirely excluded. 2patient with a positive Covid test more likely related to his recent COVID-19 infection and not behaving as a reinfection or active Covid pneumonia. 3continue the patient on cefepime while waiting for the culture to finalize Time with Patient: Less than 30
[2021-12-16] MEDS: ALPRAZolam 0.5 MG TAB PO PRN (02:38)
[2021-12-16 03:45] LABS: Anisocytosis Slight; HCT 34.1 % (39.0-53.0); HGB 10.6 gm/dL (13.0-17.5); Hypochromasia Marked; MCH 32.9 pg (25.0-35.0); MCHC 31.2 g/dL (31.0-37.0); MCV 105.4 fL (80.0-100.0); Macrocytosis Marked; Mean Platelet Volume 8.1; Platelet Count 753 k/uL (150-450); RBC 3.23 m/uL (4.30-5.90); RDW 17.4 % (11.5-15.5); WBC 7.5 k/uL (3.8-10.6)
[2021-12-16 06:44] LABS: Anisocytosis Slight; Basophils % (A) 0 %; Eosinophils % (A) 0 %; HCT 34.2 % (39.0-53.0); HGB 9.9 gm/dL (13.0-17.5); Hypochromasia Marked; Lymphocytes # (A) 0.3 k/uL (1.0-4.8); Lymphocytes % (A) 5 %; MCH 31.6 pg (25.0-35.0); Macrocytosis Marked; Mean Platelet Volume 8.3; Monocytes # (A) 0.2 k/uL (0-1.0); Monocytes % (A) 3 %; Neutrophils # (A) 6.7 k/uL (1.3-7.7); Neutrophils % (A) 92 %; Platelet Count 662 k/uL (150-450); RBC 3.14 m/uL (4.30-5.90); RDW 16.5 % (11.5-15.5); WBC 7.3 k/uL (3.8-10.6)
[2021-12-16 07:12] LABS: Calcium 8.5 mg/dL (8.4-10.2); Potassium 4.9 mmol/L (3.5-5.1); Total Bilirubin 0.6 mg/dL (0.2-1.3); Total Protein 4.6 g/dL (6.3-8.2)
[2021-12-16] MEDS: DEXAMETHASONE SOD PHOSPHATE 10 MG/ML 1 ML VIAL IVP SCH (09:22)
[2021-12-16] MEDS: FOLIC ACID 1 MG TAB PO SCH (10:04)
[2021-12-16] MEDS: ZINC SULFATE 220 MG CAP PO SCH (10:04)
[2021-12-16] MEDS: PANTOPRAZOLE 40 MG TABLET PO SCH (10:04)
[2021-12-16] MEDS: METOPROLOL TARTRATE 12.5 MG TAB PO SCH ×2 (10:04→21:19)
[2021-12-16] MEDS: ASPIRIN 81 MG PO SCH (10:04)
[2021-12-16] MEDS: CHOLECALCIFEROL 25 MCG (1000 IU) TABLET PO SCH (10:04)
[2021-12-16] MEDS: ISOSORBIDE MONONITRATE ER 30 MG TAB.ER.24H PO SCH (10:05)
[2021-12-16] MEDS: NYSTATIN 100,000 UNIT/ML SUSP 500,000 UNIT/5 ML CUP PO SCH ×4 (10:05→22:13)
[2021-12-16] MEDS: MEGESTROL 400 MG/10 ML CUP PO SCH (10:05)
[2021-12-16] MEDS: ASCORBIC ACID 500 MG TAB PO SCH (10:05)
[2021-12-16] MEDS: HYDROCORTISONE 2.5% RECTAL CREAM 30 GM TUBE RECTAL SCH ×4 (10:07→22:12)
[2021-12-16] MEDS: CEFEPIME 1 GM in SODIUM CHLORIDE 0.9% 50 ML IVPB SCH ×2 (10:44→21:18)
[2021-12-16] MEDS ORDERED: DEXTROSE 5% IN WATER 1,000 ML IV SCH (11:00)
[2021-12-16] MEDS ORDERED: SODIUM CHLORIDE 0.9% 500 ML 500 ML IV ONE (11:04)
[2021-12-16 11:52] LABS: ABG Base Excess -16.6 mmol/L; ABG Oxygen Saturation 91.2 % (94-97); ABG PCO2 21 mmHg (35-45); ABG PH 7.28 (7.35-7.45); ABG PO2 66 mmHg (83-108); ABG TCO2 11 mmol/L (19-24); Allen Test Performed? Yes
[2021-12-16 11:54] LABS: ABG HCO3 10 mmol/L (21-25)
--- NOTE | 2021-12-16 12:00 | XR ---
EXAMINATION TYPE: XR chest 1V portable DATE OF EXAM: 12/16/2021 COMPARISON: 12/13/2021 HISTORY: Shortness of breath TECHNIQUE: Single frontal view of the chest is obtained. FINDINGS: Bilateral patchy perihilar interstitial infiltrates. Small bilateral effusion or pleural t hickening. Hypertrophic and degenerative changes spine. No pneumothorax. Biapical pleural thickening. Arthropathy of the shoulders. IMPRESSION: Persistent bilateral patchy and interstitial infiltrates likely superimposed on a backgr ound of COPD and chronic interstitial lung disease. Findings stable.
[2021-12-16] MEDS: DEXTROSE 5% IN WATER 1,000 ML with SODIUM BICARB (1 MEQ/ML) 150 ML IV SCH (12:23)
--- NOTE | 2021-12-16 12:58 | P.PN ---
Subjective Progress Note Date: 12/16/21 Principal diagnosis: 86-year-old male, seen in consultation, room 377. The patient apparently presented to the emergency department yesterday, complaining of shortness of breath, and weakness. The patient is a very poor historian. The patient apparently sees Dr. Vasquez as a primary. Apparently, the patient has not been eating or drinking well at all. He's also had urinary incontinence. The patient apparently is unable to stand without assistance. No fever or chills. He apparently was recently diagnosed with coronavirus infection. The patient complains of shortness of breath and cough. Most of the history is obtained from the ER [facility]. The patient himself is unable to give much additional history. He apparently has a history of GERD, hyperlipidemia, bladder cancer, colon cancer, kidney stones, hyperlipidemia, hypertension, and possibly atrial fibrillation. The patient is currently on 2 L nasal cannula with saturations of 97%. The patient is getting a basic IV at [facility]. White count 4.3, hemoglobin 10.7, hematocrit 35.5, and platelet count 650,000. PT 15.3, INR 1.5, PTT 30.3. Sodium 143, potassium 4.5, chlorides 125, CO2 9, anion gap 9, BUN 60, and cre atinine 1.92. Calcium 7.7, magnesium 1.5. Albumin 2.1. Urine is yellow and cloudy. There is 1+ protein. Leukocyte esterase was large positive. 7 RBCs, greater than 182 WBCs, many white blood cell clumps, many bacteria, and a few yeast. Testing for coronavirus was positive. Chest x-ray shows diffuse bilateral infiltrates. The patient is seen today 12/15/2021 in follow-up on the selective care unit. He is currently resting in bed. Laying flat. Maintaining O2 saturations in the mid 90s up to 100% on 2 L/m per nasal cannula. Urine culture positive for gram- negative bacilli. Blood cultures are pending. White count 5.0. Hemoglobin 11.1. Sodium 146. Potassium 4.5. Chloride 128. Bicarb 12. BUN 57. Creatinine 1.70. Glucose 129. Coronavirus by PCR positive. He is continued on Decadron, Eliquis, vitamin supplements. On 12/16/2021 patient seen in follow-up on selective care unit. Apparently early this morning patient developed nausea, and had coffee ground emesis. Patient was on Eliquis for history of atrial fibrillation. Eliquis has been discontinued, this morning's hemoglobin is 9.9, platelet count is 666, white count is normal at 7.3, sodium is 147, potassium is 4.9, chloride is 128, CO2 is 11, B1 is 65, creatinine is 1.88, LFTs were within normal limits. Patient was diagnosed with COVID-19 infection with pneumonia. Follow-up chest x-ray today shows bilateral patchy perihilar interstitial infiltrates on a background of COPD and chronic interstitial lung disease. The patient is on Decadron 6 mg daily, he continues on empiric antibiotics in the form of cefepime. Gen. surgery has been consulted in view of acute blood loss anemia related to GI bleeding. Patient is on oral Protonix which we can switch to IV. The recommendation is to hold anticoagulation, and surgery was to proceed with EGD possibly tomorrow pending pulmonary clearance. On physical evaluation patient is tachypneic, he is complaining of dyspnea, although his sats are acceptable on 3 L of oxygen his pulse ox is 91-98%. Patient has had very poor oral intake. Patient has ileal conduit, today's blood work has been reviewed and patient is suspected to have acute non-anion gap metabolic acidosis related to acute kidney injury, dehydration. Blood gas has been obtained showing pO2 of 66, pCO2 of 21, and pH is 7.28 and this was done on FiO2 of 32%. Subsequently patient was given a small fluid bolus of 500 mL with 0.9 normal saline, and bicarbonate infusion will be started with D5W with 3 A of bicarbonate at a rate of 75 ML per hour. Objective - Vital Signs Vital signs: Vital Signs Temp 97.7 F 12/16/21 10:30 Pulse 78 12/16/21 10:30 Resp 18 12/16/21 10:30 BP 106/62 12/16/21 10:30 Pulse Ox 91 L 12/16/21 10:30 Intake & Output 12/15/21 12/16/21 12/16/21 18:59 06:59 18:59 Intake Total 50 118 Output Total 100 Balance -50 118 Intake: Oral 50 118 Output: Urine 100 Other: Voiding Method Ileal Conduit (Right) Ileal Conduit (Right) Ileal Conduit (Right) # Bowel Movements 1 3 - Exam GENERAL EXAM: Alert, very pleasant, extremely cachectic, emaciated 86-year-old white male on 3 L of oxygen with a pulse ox of 91-94%, tachypneic, dyspneic but does not appear to be in any acute distress. HEAD: Normocephalic/atraumatic. EYES: Normal reaction of pupils, equal size. Conjunctiva pink, sclera white. NOSE: Clear with pink turbinates. THROAT: No erythema or exudates. NECK: No masses, no JVD, no thyroid enlargement, no adenopathy. CHEST: No chest wall deformity. Symmetrical expansion. LUNGS: Equal air entry with diffuse crackles CVS: Regular rate and rhythm, normal S1 and S2, no gallops, no murmurs, no rubs ABDOMEN: Soft, nontender. No hepatosplenomegaly, normal bowel sounds, no guarding or rigidity. EXTREMITIES: No clubbing, no edema, no cyanosis, 2+ pulses and upper and lower extremities. MUSCULOSKELETAL: Muscle strength and tone normal. SPINE: No scoliosis or deformity SKIN: No rashes CENTRAL NERVOUS SYSTEM: Alert and oriented -3. No focal deficits, tone is normal in all 4 extremities. PSYCHIATRIC: Alert and oriented -3. Appropriate affect. Intact judgment and insight. - Labs CBC & Chem 7: 12/16/21 05:42 12/16/21 05:42 Labs: Abnormal Lab Results - Last 24 Hours (Table) 12/16/21 12/16/21 12/16/21 Range/Units 03:05 05:42 05:42 RBC 3.23 L 3.14 L (4.30-5.90) m/uL Hgb 10.6 L 9.9 L (13.0-17.5) gm/dL Hct 34.1 L 34.2 L (39.0-53.0) % MCV 105.4 H 109.0 H (80.0-100.0) fL MCHC 29.0 L (31.0-37.0) g/dL RDW 17.4 H 16.5 H (11.5-15.5) % Plt Count 753 H 662 H (150-450) k/uL Lymphocytes # 0.3 L (1.0-4.8) k/uL Macrocytosis Marked A Marked A ABG pH (7.35-7.45) ABG pCO2 (35-45) mmHg ABG pO2 (83-108) mmHg ABG HCO3 (21-25) mmol/L ABG Total CO2 (19-24) mmol/L ABG O2 Saturation (94-97) % Sodium 147 H (137-145) mmol/L Chloride 128 H (98-107) mmol/L Carbon Dioxide 11 L (22-30) mmol/L BUN 65 H (9-20) mg/dL Creatinine 1.88 H (0.66-1.25) mg/dL Glucose 143 H (74-99) mg/dL Total Protein 4.6 L (6.3-8.2) g/dL Albumin 2.0 L (3.5-5.0) g/dL 12/16/21 Range/Units 11:52 RBC (4.30-5.90) m/uL Hgb (13.0-17.5) gm/dL Hct (39.0-53.0) % MCV (80.0-100.0) fL MCHC (31.0-37.0) g/dL RDW (11.5-15.5) % Plt Count (150-450) k/uL Lymphocytes # (1.0-4.8) k/uL Macrocytosis ABG pH 7.28 L (7.35-7.45) ABG pCO2 21 L (35-45) mmHg ABG pO2 66 L (83-108) mmHg ABG HCO3 10 L* (21-25) mmol/L ABG Total CO2 11 L (19-24) mmol/L ABG O2 Saturation 91.2 L (94-97) % Sodium (137-145) mmol/L Chloride (98-107) mmol/L Carbon Dioxide (22-30) mmol/L BUN (9-20) mg/dL Creatinine (0.66-1.25) mg/dL Glucose (74-99) mg/dL Total Protein (6.3-8.2) g/dL Albumin (3.5-5.0) g/dL Microbiology - Last 24 Hours (Table) 12/13/21 17:12 Blood Culture - Preliminary Blood No Growth after 48 hours 12/13/21 17:12 Blood Culture - Preliminary Blood No Growth after 48 hours 12/13/21 15:03 Urine Culture - Final Urine,Clean Catch Escherichia coli Klebsiella pneumoniae Assessment and Plan Plan: Assessment: #1. Acute hypoxic respiratory failure secondary to acute COVID-19 related pneumonia. Patient was initially diagnosed with COVID-19 on 11/09/2021, however during this admission he again tested positive. he is outside the window for Remdesivir, he is currently being treated with steroids, and he is on antibiotics for possibility of acute urinary tract infection #2. Recent hospitalization for acute COVID-19 pneumonia in October 2021 #3. Suspect underlying interstitial lung disease, possibly rheumatoid lung #4. Acute non-anion gap metabolic acidosis related to acute kidney injury and dehydration #5. Acute GI blood loss anemia, patient developed coffee ground emesis this morning on 12/16/2021, Eliquis has been placed on hold #6. History of GERD/reflux #7. History of rheumatoid arthritis on methotrexate #8. History of colon cancer #9. History of bladder cancer #10. Chronic and ongoing history of smoking #11. 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 Chronic medical debility, and frailty Plan: Continue holding anticoagulation Monitor for recurrence of active bleeding Switch Protonix to IV push Blood gas has been obtained and reviewed We'll give the patient 500 mL IV fluid bolus with 0.9 normal saline Start the patient on D5W with 3 A of bicarbonate at a rate of 75 ML per hour Continue current dose Decadron continue empiric antibiotics Overall patient's condition is extremely marginal We were requested to give pulmonary clearance for possibility of EGD however in view of patient's marginal condition, overall general medical debility and high risk for clinical deterioration, we recommend conservative treatment We'll continue to follow his clinical course Continue supportive treatment CODE STATUS is DO NOT RESUSCITATE I performed a history & physical examination of the patient and discussed their management with my nurse practitioner, Shakila Oscar. I reviewed the nurse practitioner's note and agree with the documented findings and plan of care. Lung sounds are positive for dim breath sounds throughout the lung singh. The findings and the impression was discussed with the patient. I attest to the documentation by the nurse practitioner. Time with Patient: Less than 30
--- NOTE | 2021-12-16 13:50 | P.GSCN ---
History of Present Illness Consult date: 12/16/21 History of present illness: CHIEF COMPLAINT: Shortness of breath HISTORY OF PRESENT ILLNESS: This is a 86-year-old male who presented to the emergency room with worsening shortness of breath. He is being treated for acute hypoxic respiratory failure secondary to Covid pneumonia. Also UTI, metabolic acidosis and acute kidney injury. Patient's respiratory status is poor. He is followed closely by pulmonary service. They are ordering a chest x-ray and ABG for this morning. Patient had been on Eliquis for his atrial fibrillation. His last dose of Eliquis was yesterday evening. Patient apparently had an episode of 40 ml coffee-ground emesis was reported by nursing staff. Hemoglobin did drop from 10.6-9.9. Patient has had some mild tachycardia. He is short of breath. Denies any abdominal pain. His last EGD was in October 2021 with results showing mild antral gastritis and esophagitis. Patient has had no further nausea or vomiting. He denies any abdominal pain. Patient seen and examined with Dr. Lizarraga PAST MEDICAL HISTORY: GERD, hyperlipidemia, atrophic fibrillation, kidney stones, bladder cancer, colon cancer PAST SURGICAL HISTORY: Hernia repair MEDICATIONS: See list. ALLERGIES: See list. SOCIAL HISTORY: No illicit drug use. Positive smoker REVIEW OF SYSTEMS: CONSTITUTIONAL: Denies fever or chills. HEENT: Denies blurred vision, vision changes, or eye pain. Denies hemoptysis CARDIOVASCULAR: Denies chest pain or pressure. RESPIRATORY: No shortness of breath. GASTROINTESTINAL: See HPI for pertinent findings HEMATOLOGIC: Denies bleeding disorders. GENITOURINARY: Denies any blood in urine or increased urinary frequency. SKIN: Denies pruitis. Denies rash. PHYSICAL EXAM: VITAL SIGNS: Reviewed GENERAL: Patient is short of breath HEENT: No sclera icterus. Extraocular movements grossly intact. Moist buccal mucosa. Head is atraumatic, normocephalic. No nasal drainage. ABDOMEN: Soft. Nondistended. Nontender NEUROLOGIC: Awake and sitting up in bed. He is able to answer some questions. He is hard of hearing. LABORATORY DATA: WBC 7.3 hemoglobin 10.6 down to 9.9 platelets 662 Sodium 147 potassium 4.9 CO2 11 creatinine 1.88 IMAGING: ASSESSMENT: 1. Acute GI bleed with Episode of Coffee-ground emesis while on Eliquis 2. Acute blood loss anemia 3. Acute hypoxic respiratory failure with COVID-19 pneumonia PLAN: -Recommend EGD when patient is medically stable. Discussed case with pulmonary nurse practitioner. Respiratory status is poor and patient would not tolerate EGD at this point -Continue to hold Eliquis -Continue to monitor signs and symptoms of bleeding -Continue to monitor hemoglobin -Okay for regular diet Thank you for this consultation Physician Editor Newspaper note has been reviewed by physician. Signing provider agrees with the documented findings, assessment, and plan of care. Past Medical History Past Medical History: GERD/Reflux, Hyperlipidemia Additional Past Medical History / Comment(s): kidney stones, bladder cancer, colon cancer History of Any Multi-Drug Resistant Organisms: None Reported Past Surgical History: Hernia Repair Additional Past Surgical History / Comment(s): kidney stone removed ILIOSTOMY Past Anesthesia/Blood Transfusion Reactions: No Reported Reaction, Motion Sickness Past Psychological History: Anxiety Smoking Status: Current some day smoker Past Alcohol Use History: None Reported Past Drug Use History: None Reported - Past Family History Sister(s) Family Medical History: Cancer Brother(s) Family Medical History: Cancer Medications and Allergies Home Medications Medication Instructions Recorded Confirmed Type ALPRAZolam [Xanax] 0.5 mg PO Q8H PRN 02/04/19 12/13/21 History Omeprazole 40 mg PO DAILY 02/04/19 12/13/21 History Folic Acid 1 mg PO DAILY 10/29/21 12/13/21 History Hydrocortisone Pr Cream 1 applic RECTAL QID 10/29/21 12/13/21 History [Proctosol-Hc 2.5%] Nystatin 100,000Unit/gm Cream 1 applic TOPICAL BID 10/29/21 12/13/21 History [Mycostatin Cream] metHOTREXate sodium [Methotrexate] 12.5 mg PO GOODSON 10/29/21 12/13/21 History Aspirin 81 mg PO DAILY tab 11/02/21 12/13/21 Rx Apixaban [Eliquis] 2.5 mg PO BID 30 Days #60 tab 11/17/21 12/13/21 Rx Isosorbide Mononitrate ER [Imdur] 30 mg PO DAILY tablet 11/26/21 12/13/21 Rx Megestrol [Megace] 800 mg PO DAILY ml 11/26/21 12/13/21 Rx Mirtazapine [Remeron] 15 mg PO HS tab 11/26/21 12/13/21 Rx Atorvastatin [Lipitor] 80 mg PO HS 12/13/21 12/13/21 History Metoprolol Tartrate [Lopressor] 12.5 mg PO BID 12/13/21 12/13/21 History Allergies Allergy/AdvReac Type Severity Reaction Status Date / Time Sulfa (Sulfonamide AdvReac Rash/Hives/ Verified 12/13/21 15:58 Antibiotics) itching Surgical - Exam Vital Signs Temp Pulse Resp BP Pulse Ox 97.4 F L 73 22 102/69 100 12/13/21 14:43 12/13/21 14:43 12/13/21 14:43 12/13/21 14:43 12/13/21 14:43 Results - Labs 12/16/21 05:42 12/16/21 05:42 Abnormal Lab Results - Last 24 Hours (Table) 12/16/21 12/16/21 12/16/21 Range/Units 03:05 05:42 05:42 RBC 3.23 L 3.14 L (4.30-5.90) m/uL Hgb 10.6 L 9.9 L (13.0-17.5) gm/dL Hct 34.1 L 34.2 L (39.0-53.0) % MCV 105.4 H 109.0 H (80.0-100.0) fL MCHC 29.0 L (31.0-37.0) g/dL RDW 17.4 H 16.5 H (11.5-15.5) % Plt Count 753 H 662 H (150-450) k/uL Lymphocytes # 0.3 L (1.0-4.8) k/uL Macrocytosis Marked A Marked A Sodium 147 H (137-145) mmol/L Chloride 128 H (98-107) mmol/L Carbon Dioxide 11 L (22-30) mmol/L BUN 65 H (9-20) mg/dL Creatinine 1.88 H (0.66-1.25) mg/dL Glucose 143 H (74-99) mg/dL Total Protein 4.6 L (6.3-8.2) g/dL Albumin 2.0 L (3.5-5.0) g/dL Microbiology - Last 24 Hours (Table) 12/13/21 17:12 Blood Culture - Preliminary Blood No Growth after 48 hours 12/13/21 17:12 Blood Culture - Preliminary Blood No Growth after 48 hours 12/13/21 15:03 Urine Culture - Final Urine,Clean Catch Escherichia coli Klebsiella pneumoniae Diabetes panel 12/16/21 Range/Units 05:42 Sodium 147 H (137-145) mmol/L Potassium 4.9 (3.5-5.1) mmol/L Chloride 128 H (98-107) mmol/L Carbon Dioxide 11 L (22-30) mmol/L BUN 65 H (9-20) mg/dL Creatinine 1.88 H (0.66-1.25) mg/dL Glucose 143 H (74-99) mg/dL Calcium 8.5 (8.4-10.2) mg/dL AST 22 (17-59) U/L ALT 15 (4-49) U/L Alkaline Phosphatase 107 (38-126) U/L Total Protein 4.6 L (6.3-8.2) g/dL Albumin 2.0 L (3.5-5.0) g/dL Calcium panel 12/16/21 Range/Units 05:42 Calcium 8.5 (8.4-10.2) mg/dL Albumin 2.0 L (3.5-5.0) g/dL Pituitary panel 12/16/21 Range/Units 05:42 Sodium 147 H (137-145) mmol/L Potassium 4.9 (3.5-5.1) mmol/L Chloride 128 H (98-107) mmol/L Carbon Dioxide 11 L (22-30) mmol/L BUN 65 H (9-20) mg/dL Creatinine 1.88 H (0.66-1.25) mg/dL Glucose 143 H (74-99) mg/dL Calcium 8.5 (8.4-10.2) mg/dL Adrenal panel 12/16/21 Range/Units 05:42 Sodium 147 H (137-145) mmol/L Potassium 4.9 (3.5-5.1) mmol/L Chloride 128 H (98-107) mmol/L Carbon Dioxide 11 L (22-30) mmol/L BUN 65 H (9-20) mg/dL Creatinine 1.88 H (0.66-1.25) mg/dL Glucose 143 H (74-99) mg/dL Calcium 8.5 (8.4-10.2) mg/dL Total Bilirubin 0.6 (0.2-1.3) mg/dL AST 22 (17-59) U/L ALT 15 (4-49) U/L Alkaline Phosphatase 107 (38-126) U/L Total Protein 4.6 L (6.3-8.2) g/dL Albumin 2.0 L (3.5-5.0) g/dL
--- NOTE | 2021-12-16 16:49 | P.PN ---
Subjective Progress Note Date: 12/16/21 Bob Wolf, is an 86-year-old male who presented to [facility] emergency room with a chief complaint of generalized weakness. Patient was admitted to the hospital with COVID-19 pneumonia in October he was discharged to a [facility] for rehabilitation and was recently discharged ron e, patient has been tired he has poor oral intake, he was also complaining of shortness of breath with any activity. He was evaluated in the emergency room vital examination on presentation revealed a temperature of 97.4 pulse 73 respiration 22 blood pressure 102/69 pulse ox 100% on 4 L nasal cannula Laboratory data revealed a white blood count of 5.4 hemoglobin 10.0 platelet count 690 sodium 141 potassium 4.6 chloride 123 CO2 19 BUN 63 creatinine 1.97 magnesium 0.9 urine analysis revealed evidence of urinary tract infection with more than 182 white blood cells per high-power field with many bacteria and many yeast, Carney virus PCR was positive. Testing in the emergency room revealed chest x-ray revealed evidence of atypical pneumonia with progression from previous studies Patient was admitted to medical floor for further evaluation and treatment. On 12/14/2021 patient was seen and examined on the telemetry floor he is alert confused in no apparent distress there is no fever or chills no headache or dizziness no chest pain no shortness of breath no cough no nausea or vomiting no abdominal pain no diarrhea and no urinary symptoms. Pulmonary consultation reviewed patient was started on IV Decadron, vitamin C, vitamin D, and zinc supplements Will consult physical therapy and occupational therapy will follow in a.m. On 12/15/2021 patient was seen and examined on the medical floor he is alert and oriented 3 in no apparent distress he has poor oral intake and generalized weakness otherwise he denies any complaints there is no fever or chills no headache or dizziness no chest pain no shortness of breath no cough no nausea or vomiting no abdominal pain no diarrhea and no urinary symptoms. On 12/16/2021 patient was seen and examined on the medical floor he is alert and oriented 3 in no apparent distress he was having episodes of tachypnea and shortness of breath last night, patient also had 1 episode of vomiting of coffee ground material stat CBC was done last night and Eliquis was held, today he was evaluated by critical care, and IV fluid was switched to D5W with sodium bicarbonate. Patient's son asked for a informative visited with hospice which will be arranged. Otherwise patient is stable labs and medication were reviewed will continue with current management Objective - Vital Signs Vital signs: Vital Signs Temp 97.7 F 12/16/21 10:30 Pulse 78 12/16/21 10:30 Resp 18 12/16/21 10:30 BP 106/62 12/16/21 10:30 Pulse Ox 91 L 12/16/21 10:30 Intake & Output 12/15/21 12/16/21 12/16/21 18:59 06:59 18:59 Intake Total 50 118 Output Total 100 Balance -50 118 Intake: Oral 50 118 Output: Urine 100 Other: Voiding Method Ileal Conduit (Right) Ileal Conduit (Right) Ileal Conduit (Right) # Bowel Movements 1 3 - Exam In general patient is alert and oriented x 3 in no distress HEENT head normocephalic and atraumatic Neck is supple no JVD no goiter no lymphadenopathy no carotid bruit Chest examination is clear to auscultation no crackles no wheezing Cardiac exam reveals regular heart sounds S1 and S2 no gallops no murmurs Abdomen is soft nontender no organomegaly with normal bowel sounds Extremity exam reveals no edema no cyanosis or clubbing Neurological examination reveals no gross focal deficits - Labs CBC & Chem 7: 12/16/21 05:42 12/16/21 05:42 Labs: Abnormal Lab Results - Last 24 Hours (Table) 12/16/21 12/16/21 12/16/21 Range/Units 03:05 05:42 05:42 RBC 3.23 L 3.14 L (4.30-5.90) m/uL Hgb 10.6 L 9.9 L (13.0-17.5) gm/dL Hct 34.1 L 34.2 L (39.0-53.0) % MCV 105.4 H 109.0 H (80.0-100.0) fL MCHC 29.0 L (31.0-37.0) g/dL RDW 17.4 H 16.5 H (11.5-15.5) % Plt Count 753 H 662 H (150-450) k/uL Lymphocytes # 0.3 L (1.0-4.8) k/uL Macrocytosis Marked A Marked A ABG pH (7.35-7.45) ABG pCO2 (35-45) mmHg ABG pO2 (83-108) mmHg ABG HCO3 (21-25) mmol/L ABG Total CO2 (19-24) mmol/L ABG O2 Saturation (94-97) % Sodium 147 H (137-145) mmol/L Chloride 128 H (98-107) mmol/L Carbon Dioxide 11 L (22-30) mmol/L BUN 65 H (9-20) mg/dL Creatinine 1.88 H (0.66-1.25) mg/dL Glucose 143 H (74-99) mg/dL Total Protein 4.6 L (6.3-8.2) g/dL Albumin 2.0 L (3.5-5.0) g/dL 12/16/21 Range/Units 11:52 RBC (4.30-5.90) m/uL Hgb (13.0-17.5) gm/dL Hct (39.0-53.0) % MCV (80.0-100.0) fL MCHC (31.0-37.0) g/dL RDW (11.5-15.5) % Plt Count (150-450) k/uL Lymphocytes # (1.0-4.8) k/uL Macrocytosis ABG pH 7.28 L (7.35-7.45) ABG pCO2 21 L (35-45) mmHg ABG pO2 66 L (83-108) mmHg ABG HCO3 10 L* (21-25) mmol/L ABG Total CO2 11 L (19-24) mmol/L ABG O2 Saturation 91.2 L (94-97) % Sodium (137-145) mmol/L Chloride (98-107) mmol/L Carbon Dioxide (22-30) mmol/L BUN (9-20) mg/dL Creatinine (0.66-1.25) mg/dL Glucose (74-99) mg/dL Total Protein (6.3-8.2) g/dL Albumin (3.5-5.0) g/dL Microbiology - Last 24 Hours (Table) 12/13/21 17:12 Blood Culture - Preliminary Blood No Growth after 48 hours 12/13/21 17:12 Blood Culture - Preliminary Blood No Growth after 48 hours 12/13/21 15:03 Urine Culture - Final Urine,Clean Catch Escherichia coli Klebsiella pneumoniae Assessment and Plan Plan: Generalized weakness and fatigue Dehydration with acute kidney injury creatinine 1.97, creatinine was 1.16 on 11/26/2021 Evidence of urinary tract infection Positive COVID-19 PCR testing patient was admitted with COVID-19 pneumonia in October Electrolyte imbalance with hypomagnesemia Underlying history of rheumatoid arthritis Underlying history of kidney stones Underlying history of anxiety disorder During the last admission, patient had episodes of atrial fibrillation he was started Eliquis, at that time History of continued tobacco use Previous history of colon cancer Previous history of bladder cancer At this time patient will be admitted to medical floor He will be hydrated and electrolyte imbalance will be corrected He was started on IV antibiotic in the emergency room cefepime will continue at this time For DVT prophylaxis, will resume Eliquis Will follow closely prognosis is guarded
[2021-12-16] MEDS: MIRTAZAPINE 15 MG TAB PO SCH (21:19)
[2021-12-16] MEDS: ATORVASTATIN 80 MG TAB PO SCH (21:19)
[2021-12-16] MEDS: PANTOPRAZOLE 40 MG/10 ML VIAL IVP SCH (21:19)
--- NOTE | 2021-12-16 21:38 | P.PN ---
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 On today's evaluation that is 12/16/2021, the patient remains to be afebrile, the patient is breathing comfortably on nasal cannula oxygen, patient denies having any chest pain he did have some cough nonproductive of sputum no vomiting no abdominal pain no diarrhea Objective - Vital Signs Vital signs: Vital Signs Temp 98.2 F 12/16/21 06:00 Pulse 93 12/16/21 06:00 Resp 20 12/16/21 06:00 BP 109/73 12/16/21 06:00 Pulse Ox 98 12/16/21 08:14 Intake & Output 12/15/21 12/16/21 12/16/21 18:59 06:59 18:59 Intake Total 50 118 Output Total 100 Balance -50 118 Intake: Oral 50 118 Output: Urine 100 Other: Voiding Method Ileal Conduit (Right) Ileal Conduit (Right) Ileal Conduit (Right) # Bowel Movements 1 3 - Exam GENERAL DESCRIPTION: An elderly male lying in bed in no distress RESPIRATORY SYSTEM: Unlabored breathing , decreased breath sounds at bases HEART: S1 S2 regular rate and rhythm , ABDOMEN: Soft , no tenderness EXTREMITIES: No edema feet Patient did have a stage II sacral pressure ulcer 3. No significant surrounding redness or drainage - Labs CBC & Chem 7: 12/16/21 05:42 12/16/21 05:42 Labs: Abnormal Lab Results - Last 24 Hours (Table) 12/16/21 12/16/21 12/16/21 Range/Units 03:05 05:42 05:42 RBC 3.23 L 3.14 L (4.30-5.90) m/uL Hgb 10.6 L 9.9 L (13.0-17.5) gm/dL Hct 34.1 L 34.2 L (39.0-53.0) % MCV 105.4 H 109.0 H (80.0-100.0) fL MCHC 29.0 L (31.0-37.0) g/dL RDW 17.4 H 16.5 H (11.5-15.5) % Plt Count 753 H 662 H (150-450) k/uL Lymphocytes # 0.3 L (1.0-4.8) k/uL Macrocytosis Marked A Marked A Sodium 147 H (137-145) mmol/L Chloride 128 H (98-107) mmol/L Carbon Dioxide 11 L (22-30) mmol/L BUN 65 H (9-20) mg/dL Creatinine 1.88 H (0.66-1.25) mg/dL Glucose 143 H (74-99) mg/dL Total Protein 4.6 L (6.3-8.2) g/dL Albumin 2.0 L (3.5-5.0) g/dL Microbiology - Last 24 Hours (Table) 12/13/21 17:12 Blood Culture - Preliminary Blood No Growth after 48 hours 12/13/21 17:12 Blood Culture - Preliminary Blood No Growth after 48 hours 12/13/21 15:03 Urine Culture - Final Urine,Clean Catch Escherichia coli Klebsiella pneumoniae Assessment and Plan (1) Pneumonia due to COVID-19 virus Current Visit: Yes Status: Acute Code(s): U07.1 - COVID-19; J12.82 - PNEUMONIA DUE TO CORONAVIRUS DISEASE 2019 SNOMED Code(s): 357255731519674129 (2) UTI (urinary tract infection) Current Visit: Yes Status: Acute Code(s): N39.0 - URINARY TRACT INFECTION, SITE NOT SPECIFIED SNOMED Code(s): 11127353 Plan: 1-Patient presented to hospital with realized weakness which is likely multifactorial in this patient with likely component of gram-negative urinary tract infection, patient did have abnormal x-ray underlying pneumonia not entirely excluded, urine culture been finalized with E. coli and Klebsiella and the patient is covered with cefepime to continue 2patient with a positive Covid test more likely related to his recent COVID-19 infection and not behaving as a reinfection or active Covid pneumonia. 3sacral pressure ulcer stage II local care to continue with the Aquacel silver dressing to keep the area dry and of the pressure Time with Patient: Less than 30
[2021-12-17] MEDS: DEXTROSE 5% IN WATER 1,000 ML with SODIUM BICARB (1 MEQ/ML) 150 ML IV SCH (06:19)
--- NOTE | 2021-12-17 09:35 | P.PN ---
Progress Note - Text Progress Note Date: 12/17/21 Patient is extremely short of breath. His pulmonary status is not improved. The patient will be scheduled for EGD once his palmar function has improved.
[2021-12-17] MEDS: CHOLECALCIFEROL 25 MCG (1000 IU) TABLET PO SCH (10:26)
[2021-12-17] MEDS: ISOSORBIDE MONONITRATE ER 30 MG TAB.ER.24H PO SCH (10:26)
[2021-12-17] MEDS: MEGESTROL 400 MG/10 ML CUP PO SCH (10:26)
[2021-12-17] MEDS: ASCORBIC ACID 500 MG TAB PO SCH (10:26)
[2021-12-17] MEDS: FOLIC ACID 1 MG TAB PO SCH (10:26)
[2021-12-17] MEDS: NYSTATIN 100,000 UNIT/ML SUSP 500,000 UNIT/5 ML CUP PO SCH (10:27)
[2021-12-17] MEDS: METOPROLOL TARTRATE 12.5 MG TAB PO SCH (10:27)
[2021-12-17] MEDS: ZINC SULFATE 220 MG CAP PO SCH (10:27)
[2021-12-17] MEDS: HYDROCORTISONE 2.5% RECTAL CREAM 30 GM TUBE RECTAL SCH (10:28)
[2021-12-17] MEDS: DEXAMETHASONE SOD PHOSPHATE 10 MG/ML 1 ML VIAL IVP SCH (10:37)
[2021-12-17] MEDS: PANTOPRAZOLE 40 MG/10 ML VIAL IVP SCH (10:37)
[2021-12-17] MEDS: CEFEPIME 1 GM in SODIUM CHLORIDE 0.9% 50 ML IVPB SCH (10:37)
[2021-12-17 11:03] VITALS: BP 87/60; PULSE 87; RESP 16; TEMP 98.1
[2021-12-17 11:05] LABS: ALT 17 U/L (10-49); AST 20 U/L (14-35); African American GFR (CKD) 34.3 (60.0-200.0); Albumin 2.1 g/dL (3.8-4.9); Albumin/Globulin Ratio 1.05 (1.60-3.17); Alkaline Phosphatase 105 U/L (41-126); BUN/Creat Ratio 44.35 Ratio (12.00-20.00); Blood Urea Nitrogen 88.7 mg/dL (9.0-27.0); Calcium 7.9 mg/dL (8.7-10.3); Carbon Dioxide 11.6 mmol/L (20.0-27.5); Chloride 123 mmol/L (96-109); Glucose 158 mg/dL (70-110); Non-African American GFR(CKD) 29.6 (60.0-200.0); Potassium 5.3 mmol/L (3.5-5.5); Sodium 146 mmol/L (135-145); Total Bilirubin <0.15 mg/dL (0.30-1.20); Total Protein 4.1 g/dL (6.2-8.2)
[2021-12-17 11:13] LABS: LDH 356 U/L (120-246)
[2021-12-17 11:30] LABS: HGB 8.5 g/dL (13.0-17.0); MCH 30.8 pg (27.0-32.0); MCHC 27.4 g/dL (32.0-37.0); MCV 112.3 fL (80.0-97.0); Mean Platelet Volume 10.8 fL (9.5-12.2); NRBC Per 100 WBC 0 /100 WBCS (0.0-0.0); Platelet Count 493 X 10*3/uL (140-440); RBC 2.76 X 10*6/uL (4.40-5.60); RDW 17.8 % (11.5-14.5); WBC 4.13 X 10*3/uL (4.50-10.00)
[2021-12-17 11:31] LABS: Acanthocytes 2+; Anisocytosis (M) 2+; Basophils # (M) 0 X 10*3/uL (0.00-0.10); Eosinophils # (M) 0 X 10*3/uL (0.04-0.35); Lymphocytes # (M) 0.33 X 10*3/uL (0.90-5.00); Macrocytosis (M) 2+; Monocytes # (M) 0.04 X 10*3/uL (0.20-1.00); Neutrophils # (M) 3.76 X 10*3/uL (2.00-8.90); Neutrophils % (M) 91 %
[2021-12-19] MEDS ORDERED: metHOTREXate sodium 2.5 MG TAB PO SCH (09:00)
== END 2021-12-17 12:23 | disposition hospice, inpatient (51) | DRG 177 ==
LOC: EC 14:39 → 3SCARD 16:22 → 4SSUR 12-15 22:34
PROVIDERS: ADMIT Internal Medicine; ATTEND Internal Medicine
DX: U07.1 COVID-19 (principal); J12.82 Pneumonia due to coronavirus disease 2019; J96.01 Acute respiratory failure with hypoxia; N39.0 Urinary tract infection, site not specified; N17.9 Acute kidney failure, unspecified; D62 Acute posthemorrhagic anemia; E87.2 Acidosis; J44.0 Chronic obstructive pulmonary disease with (acute) lower respiratory infection; K92.2 Gastrointestinal hemorrhage, unspecified; R64 Cachexia; Z68.1 Body mass index [BMI] 19.9 or less, adult; R62.7 Adult failure to thrive; Z66 Do not resuscitate; L89.152 Pressure ulcer of sacral region, stage 2; K21.9 Gastro-esophageal reflux disease without esophagitis; Z51.5 Encounter for palliative care; M06.9 Rheumatoid arthritis, unspecified; R32 Unspecified urinary incontinence; E78.5 Hyperlipidemia, unspecified; E83.42 Hypomagnesemia; E86.0 Dehydration; E88.09 Other disorders of plasma-protein metabolism, not elsewhere classified; E87.8 Other disorders of electrolyte and fluid balance, not elsewhere classified; I10 Essential (primary) hypertension; F17.210 Nicotine dependence, cigarettes, uncomplicated; F41.9 Anxiety disorder, unspecified; I48.91 Unspecified atrial fibrillation; K21.00 Gastro-esophageal reflux disease with esophagitis, without bleeding; Z79.01 Long term (current) use of anticoagulants; Z79.82 Long term (current) use of aspirin; Z79.899 Other long term (current) drug therapy; Z85.038 Personal history of other malignant neoplasm of large intestine; Z85.51 Personal history of malignant neoplasm of bladder; Z87.442 Personal history of urinary calculi; Z88.2 Allergy status to sulfonamides; Z98.890 Other specified postprocedural states; Z80.9 Family history of malignant neoplasm, unspecified
CPT/HCPCS: 36415; 36600; 71045; 71046; 80053; 81001; 82550; 82805; 83605; 83615; 83735; 84484; 85025; 85027; 85610; 85730; 86140; 87040; 87077; 87086; 87186; 87635; 93005; 94760; 96360; 99291